=== PATIENT | female | born 1955 | race Caucasian/White ===

== ENCOUNTER 2023-10-25 13:19 | Inpatient (IN) | payer MEDICARE, SELFPAY ==
[2023-10-25 13:33] VITALS: BP 142/99; PULSE 75; RESP 18; TEMP 36.7; O2SAT 97; BMI 18.0
--- NOTE | 2023-10-25 13:42 | ED.GENADULT ---
HPI - General Adult General Chief complaint: Psychiatric Symptoms Stated complaint: Psych eval Time Seen by Provider: 10/25/23 13:59 Source: patient and family Mode of arrival: ambulatory Limitations: no limitations History of Present Illness HPI narrative: 68-year-old female with a history of bipolar disorder presents to the ER for evaluation of not sleeping. She states her sister Carley brought her to the ER because she was not sleeping last night. Patient reports that she lives with her elderly mother who she cares for. Her elderly mother found her outside at 01:00 smoking a cigarette. Patient states after she finished her cigarette she did go inside and go to bed. She can not say how many hours she slept last night. She states this morning her mother must have called her sister and told her that she was not sleeping in the they were worried about her. Her sister brought her to the emergency room for evaluation. Patient reports she is agitated and having to tell the same story over and over again. Patient's sister reports that Mariola is decompensated. She has been non med compliant and drinking alcohol. She is having very manic behaviors, not sleeping, spending extravagant amount of money ordering things online. complaint: Benjie Severity: severe Pain Consistency: constant Relieving factors: none Exacerbating factors: none Treatments prior to arrival: none Related Data Home Medications ?Medication ?Instructions ?Recorded ?Confirmed divalproex 500 mg tablet,extended 500 mg PO QAM AND QHS 10/25/23 10/25/23 release 24 hr (Depakote ER) Allergies Allergy/AdvReac Type Severity Reaction Status Date / Time No Known Allergies Allergy Verified 10/25/23 13:35 Review of Systems Review of Systems: Yes all other systems are reviewed and are negative [facility] Social History Social History Alcohol intake: never Smoked in Last 30 Days: Yes Use of substances other than those prescribed or required for medical reasons: No Advance Directives: Yes Advance Directives Information Provided: Yes Advance Directives on File: No Do you have a plan to hurt others: No Plan Physical Exam ED Vital Signs: Vital Signs - 24 hr 10/25/23 13:33 10/25/23 14:13 Temperature 98.1 F 98.1 F Pulse Rate 75 75 Respiratory Rate 18 18 Blood Pressure 142/99 H 142/99 H Pulse Oximetry 97 97 Oxygen Delivery Method Room Air Room Air BMI result Body Mass Index 18.0 Appearance: Alert. Oriented X3. Restless, animated, agitated. Head: normocephalic, atraumatic. Eyes: Pupils equal, round and reactive to light. ENT: Pharynx normal. No dentition No tonsillar swelling or exudate. Neck: Normal inspection. Neck supple. CVS: Normal heart rate and rhythm. Pulses normal. Respiratory: No respiratory distress. Breath sounds normal. Abdomen: Soft and nontender. +BS x4 Skin: Skin warm and dry. Normal skin color. Normal skin turgor. No rashes. Extremities: No lower extremity edema. No joint swelling. Neuro/psych: Oriented X 3. No motor deficit. No sensory deficit. CN II-XII intact. Normal speech. Mood is ?agitated? speaking in a very animated manner, nonverbal, difficult to follow train of thought, easily distracted Course Course Course Narrative: RME: 68 yold female presents tot he Reevaluation(s) Reevaluation #1: Physician observation started at 15:45. Patient placed in physician observation because patient is awaiting CARE team evaluation for the possible need of inpatient psych admission. At the time observation was started patient's vital signs were stable. Patient is alert and oriented. Neuro exam is non-focal. CV: RRR and lungs are clear. Will continue to monitor. Time: 15:45 Medications Administered Discontinued Medications Generic Name Dose Route Start Last Admin Trade Name Freq PRN Reason Stop Dose Admin Nicotine Polacrilex 2 mg 10/25/23 14:37 10/25/23 15:09 Nicotine Polacrilex Lozenge 2 Mg Lozenge BUCCAL 10/25/23 14:38 2 mg ONCE ONE Administration Nicotine Polacrilex 2 mg 10/25/23 16:36 10/25/23 16:40 Nicotine Polacrilex Lozenge 2 Mg Lozenge BUCCAL 10/25/23 16:37 2 mg ONCE ONE Administration Medical Decision Making Medical Decision Making MDM Narrative: 68-year-old female with a history of bipolar disorder, reportedly on Depakote who presents to the ER for evaluation of manic behavior at home. Her sister brought her to the hospital with concerning behaviors including not sleeping, for for frivolous spending, med noncompliance and alcohol abuse. Patient is hyperverbal and manic on arrival. She is agitated. Labs were ordered including a Depakote level. 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 10/25/23 14:49 10/25/23 14:49 Labs: Lab Results 10/25/23 10/25/23 Range/Units 14:49 17:15 WBC 8.1 (4.8-10.8) X10*3/uL RBC 4.70 (4.20-5.50) X10*6/uL Hgb 14.0 (12.0-16.0) g/dl Hct 42.2 (37.0-47.0) % MCV 89.8 (80.0-98.0) fL MCH 29.8 (27.0-33.0) pg MCHC 33.2 (31.0-35.0) g/dl RDW 13.6 (11.0-16.0) % Plt Count 208 (160-400) X10*3/uL MPV 10.2 (9.4-12.3) fL Immature Gran % (Auto) 0.2 (0.0-0.4) % Neut % (Auto) 55.9 (45-73) % Lymph % (Auto) 31.9 (20-40) % [place] % (Auto) 9.2 (2-11) % Eos % (Auto) 1.9 (0-4) % Baso % (Auto) 0.9 (0-2) % Lymph # (Auto) 2.6 (1.2-4.9) X10*3/uL [place] # (Auto) 0.7 (0.1-1.2) X10*3/uL Eos # (Auto) 0.2 (0.0-0.4) X10*3/uL Baso # (Auto) 0.1 (0.0-0.2) X10*3/uL Abs Immat Gran (auto) 0.02 (0.00-0.03) X10*3/uL Absolute Neuts (auto) 4.5 (2.0-8.3) x10*3/uL Absolute Nucleated RBC 0.000 (0.0-0.012) X10*3/uL Nucleated RBC % (auto) 0.0 (0.0-0.2) /100WBC Sodium 141 (135-145) mmol/L Potassium 4.2 (3.3-5.1) mmol/L Chloride 108 (96-108) mmol/L Carbon Dioxide 24 (22-29) mmol/L Anion Gap 13 (12-20) BUN 13 (9-16) mg/dL Creatinine 0.79 (0.5-1.4) mg/dL Estim Creat Clear Calc 53.9 Estimated GFR > 60 Random Glucose 91 (60-115) mg/dL Calcium 9.9 (8.4-10.2) mg/dL Total Bilirubin 0.4 (0.0-1.0) mg/dL AST 25 (5-31) U/L ALT 16 (0-31) U/L Alkaline Phosphatase 54 (39-117) U/L Total Protein 6.9 (6.5-8.0) g/dL Albumin 4.2 (3.5-5.0) g/dL Urine Color Yellow Urine Appearance Clear Urine pH 6.5 (5.0-9.0) Ur Specific [place] 1.010 (1.005-1.025) Urine Protein Negative (Neg-Trace) mg/dL Urine Glucose (UA) Negative (Negative) mg/dL Urine Ketones Negative (Negative) mg/dL Urine Blood Negative (Negative) Urine Nitrite Negative (Negative) Ur Leukocyte Esterase Moderate (2+) H (Negative) Urine RBC 0-2 (0-2) /HPF Urine WBC 6-10 H (0-5) /HPF Ur Squamous Epith Cells 0-2 (0-2) /HPF Urine Bacteria None Seen (None Seen) Hyaline Casts 0-2 (0-2) /LPF Urine Opiates Screen Not Detected (Not Detect) Ur Buprenorphine Scrn Not Detected (Not Detect) ng/mL Ur Oxycodone Screen Not Detected (Not Detect) ng/mL Urine Methadone Screen Not Detected (Not Detect) ng/mL Urine Fentanyl Screen Not Detected (Not Detect) Ur Barbiturates Screen Not Detected (Not Detect) Valproic Acid < 12.5 L (50.0-100.0) mcg/mL Ur Phencyclidine Scrn Not Detected (Not Detect) Ur Amphetamines Screen Not Detected (Not Detect) U Benzodiazepines Scrn Not Detected (Not Detect) Urine Cocaine Screen Not Detected (Not Detect) U Marijuana (THC) Screen POSITIVE H (Not Detect) Ethyl Alcohol < 10 mg/dL COVID-19 (BJ) Negative (Negative) COVID-19 Clin Com See Note Prescription Management I considered prescription management with: Other (Antipsychotic, mood stabilizer) Chronic Conditions Patient?s care impacted by: Other (Bipolar disorder) Social Determinants Patient?s care significantly limited by Social Determinants of Health including: Other Social Determinant of Health Patient reports she is the caregiver of her elderly mother Discharge Plan Discharge Clinical Impression: Bipolar disorder with severe benjie Patient Disposition: Still a Patient Prescriptions: No Action divalproex [Depakote ER] 500 mg Tablet Extended Release 24 Hr 500 mg PO QAM AND QHS Interventions: [place]-Suicide Risk Severity Scale Last Done: 10/25/23 14:16 Print Language: Tamazight
[2023-10-25 14:13] VITALS: BP 142/99; PULSE 75; RESP 18; TEMP 36.7; O2SAT 97
--- NOTE | 2023-10-25 14:20 | MHC.CARE ---
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 She reports a long history of Bipolar Disorder and co-occuring Alcohol Use, in Remission until recently. Sushila reports stopped taking psychotropic medications in [facility] and has been decompensating since then; not sleeping,increased irritability, resigned from her job due to interpersonal difficulties. Also states that patient is primary caregiver for their 86 year-old mother and feels 'guilty' she is not able to provide care for her if she comes into the hospital. Previous hx of [facility] with last admission about five years ago. CARE Assessment pending medical clearance.
[2023-10-25 14:55] LABS: MANUAL DIFF FLAG NO
[2023-10-25 14:57] LABS: Basophils Absolute Auto 0.1 X10*3/uL (0.0-0.2); Basophils Percent Auto 0.9 % (0-2); Eosinophils Absolute Auto 0.2 X10*3/uL (0.0-0.4); Eosinophils Percent Auto 1.9 % (0-4); Hematocrit 42.2 % (37.0-47.0); Imm Gran Abs Auto 0.02 X10*3/uL (0.00-0.03); Imm Gran Pct Auto 0.2 % (0.0-0.4); Lymphocytes Absolute Auto 2.6 X10*3/uL (1.2-4.9); Lymphocytes Percent Auto 31.9 % (20-40); Mean Corpuscular HGB Conc 33.2 g/dl (31.0-35.0); Mean Corpuscular Hemoglobin 29.8 pg (27.0-33.0); Mean Corpuscular Volume 89.8 fL (80.0-98.0); Mean Platelet Volume 10.2 fL (9.4-12.3); Monocytes Absolute Auto 0.7 X10*3/uL (0.1-1.2); Monocytes Percent Auto 9.2 % (2-11); Neutrophils Absolute Auto 4.5 x10*3/uL (2.0-8.3); Neutrophils Percent Auto 55.9 % (45-73); Platelet Count 208 X10*3/uL (160-400); Red Cell Distribution Width 13.6 % (11.0-16.0); White Blood Count 8.1 X10*3/uL (4.8-10.8)
[2023-10-25] MEDS: Nicotine Polacrilex Lozenge 2 MG LOZENGE BUCCAL ×2 (15:09→16:40)
[2023-10-25 15:17] LABS: Alanine Aminotransferase 16 U/L (0-31); Albumin Level 4.2 g/dL (3.5-5.0); Alkaline Phosphatase 54 U/L (39-117); Anion Gap 13 (12-20); Aspartate Amino Transferase 25 U/L (5-31); Bilirubin Total 0.4 mg/dL (0.0-1.0); Blood Urea Nitrogen 13 mg/dL (9-16); Calcium 9.9 mg/dL (8.4-10.2); Carbon Dioxide 24 mmol/L (22-29); Chloride 108 mmol/L (96-108); Creatinine Clr Calc Pharmacy 53.9; Estimated Glomerular Filt Rate > 60; Ethanol < 10 mg/dL; Glucose Random 91 mg/dL (60-115); Potassium 4.2 mmol/L (3.3-5.1); Sodium 141 mmol/L (135-145); Total Protein 6.9 g/dL (6.5-8.0)
[2023-10-25 15:18] LABS: COVID-19 Test Negative (Negative); IDNOW Serial# 08D9AD1C
[2023-10-25 16:19] LABS: Valproate < 12.5 mcg/mL (50.0-100.0)
[2023-10-25 17:22] LABS: Appearance Urine Clear; Color Urine Yellow; Glucose Urine UA Negative (Negative); Leukocyte Esterase Urine Moderate (2+) (Negative); Nitrite Urine Negative (Negative); PH 6.5 (5.0-9.0); UMIC TRIGGER UACC YES; Urine Blood Negative (Negative); Urine Ketones Negative (Negative); Urine Protein Negative (Neg-Trace)
[2023-10-25 17:27] LABS: Bacteria Urine None Seen (None Seen); Hyaline Casts Urine 0-2 /LPF (0-2); RBC Urine 0-2 /HPF (0-2); Squamous Epithelial Cell Urine 0-2 /HPF (0-2); UACC Culture Trigger YES
[2023-10-25 17:34] LABS: Amphetamine Screen Urine Not Detected (Not Detect); Barbiturates, Urine Not Detected (Not Detect); Benzodiazepines Screen Urine Not Detected (Not Detect); Buprenorphine Scr Not Detected (Not Detect); Cannabinoid Screen Urine POSITIVE (Not Detect); Cocaine Screen Urine Not Detected (Not Detect); Fentanyl, urine Not Detected (Not Detect); Methadone Screen, Urine Not Detected (Not Detect); Opiate Screen Urine Not Detected (Not Detect); Oxycodone Screen Urine Not Detected (Not Detect); Phencyclidine Screen Urine Not Detected (Not Detect)
--- NOTE | 2023-10-26 | ECG_ITS ---
Test Reason : MEDICAL CLEARENCE Blood Pressure : / mmHG Vent. Rate : 062 BPM Atrial Rate : 062 BPM P-R Int : 122 ms QRS Dur : 084 ms QT Int : 418 ms P-R-T Axes : 056 030 049 degrees QTc Int : 424 ms Sinus rhythm with Premature atrial complexes Otherwise normal ECG No previous ECGs available Referred By: [place] Electronically Signed By:OSIRIS DOUGHERTY
[2023-10-26] MEDS: Divalproex Sodium ER 500 MG TAB.ER.24H PO ×3 (00:55→20:06)
[2023-10-26 02:08] VITALS: RESP 14
--- NOTE | 2023-10-26 02:08 | PC.NURSE ---
Pt sleeping at the bedside. No apparent distress noted. Breaths are even regular and unlabored. Monitoring is ongoing.
[2023-10-26 04:30] VITALS: BP 138/91; PULSE 82; RESP 16; TEMP 36.6; O2SAT 97
--- NOTE | 2023-10-26 06:53 | PC.NURSE ---
Assumed care of patient. Patient is observed eating breakfast at bedside. No distress observed. Breathing is even and unlabored. Will continue plan of care.
[2023-10-26] MEDS: Nicotine Polacrilex Lozenge 2 MG LOZENGE BUCCAL ×2 (08:03→12:16)
--- NOTE | 2023-10-26 12:21 | PHA.MEDREC ---
Pharmacy Consult ? Medication Reconciliation Pharmacy has completed the medication reconciliation.Pharmacy has reviewed med rec done by nursing.
[2023-10-26 21:11] VITALS: BP 117/55; PULSE 73; RESP 18; TEMP 36.9; O2SAT 99
[2023-10-27] MEDS: Nicotine Polacrilex Lozenge 2 MG LOZENGE BUCCAL ×4 (05:16→19:52)
--- NOTE | 2023-10-27 05:22 | PC.NURSE ---
Patient slept through the night, no distress observed/reported, disposition per care team is section 12 inpatient bed search, patient is med and meals compliant, no behavior issues, VSS, will continue to monitor
[2023-10-27 05:23] VITALS: BP 111/50; PULSE 64; RESP 16; TEMP 36.4; O2SAT 98
--- NOTE | 2023-10-27 07:50 | PC.NURSE ---
Assumed care of patient at 0645, patient up ambulating around BH pod, appearing to be in no apparent distress, conversing with staff in cheerful tone. Offering no complaints to this RN. Continue plan of care for inpatient bedsearch at this time
[2023-10-27] MEDS: Divalproex Sodium ER 500 MG TAB.ER.24H PO ×2 (08:50→19:52)
[2023-10-27] MEDS: Ibuprofen 400 MG TABLET PO (10:22)
--- NOTE | 2023-10-27 11:45 | PC.NURSE ---
Patient in milieu, ambulating without difficulty, participating in conversation with other patients and working on sticker coloring book. Aware that she will be admitted today
--- NOTE | 2023-10-27 14:10 | PM.EVENT ---
Event Note Date of Service: 10/27/23 Event Note: Pt with itchy rash on back. Recommend non drowsy antihistamine and trial of hydrocortisone cream. If no relief, please reconsult hospitalist service. Time Spent With Patient Time: Total time managing care of this patient today ____ minutes.
[2023-10-27] MEDS: Loratadine 10 MG TABLET PO (15:51)
--- NOTE | 2023-10-27 16:42 | PC.ADMIT ---
Pt is a 68 yo equatorial guinean speaking female admitted from the [facility] ED on a CV with Unspecified Bipolar D/O. Pt was brought in by her sister who is also her HCP for decreased sleep , excessive spending and increased agitation. Pts sister reports pt stopped taking medications June 2023 and has slowly decompensated, pt denies this and says she has been taking medications since June. Pt also is an Alcoholic with seven years sobriety until recently she says she has been drinking 1-2 nips at night with THC gummies to slow down and sleep. Pt is not exhibiting any signs of withdrawal, and addictions consult was placed. 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 Pt lives with her 86 y/o mother and assist in her care. Pt is a current smoker and request nicotine lozenges. Pt is A&O, thought process is tangential, speech is rapid and pressured. Pt denies SI/HI/AH/VH. Pt reports first hospitalization in 1996 with 4 others over the years. Pt admits she has mental illness , but doesn't believe she is in crisis at this time. Pt says, I'm only here to show my sister and mother that I'm fine. Pt has a dispersed itchy rash on her back, aware, cream ordered and a hospitalist consult ordered. Pt declined a flu vaccine at this time. Pt placed on 15 minute safety checks.
[2023-10-27] MEDS: Hydrocortisone 1 % Cream 28.35 GM TUBE 1 APPL TOPICAL (18:23)
[2023-10-27 19:49] VITALS: BP 139/63; PULSE 61; RESP 17; TEMP 35.9; O2SAT 100
[2023-10-28 07:05] VITALS: BP 103/51; PULSE 56; RESP 14; TEMP 35.7; O2SAT 97
[2023-10-28] MEDS: Loratadine 10 MG TABLET PO (08:18)
[2023-10-28] MEDS: Divalproex Sodium ER 500 MG TAB.ER.24H PO ×2 (08:18→21:09)
--- NOTE | 2023-10-28 09:10 | P.HPPS_ITS ---
HPI Date of Service: 10/28/23 Chief Complaint: Aimee HPI Narrative: per CARE team cindyal, pt self-presented to [facility] with sister with concerns of aimee. per sister, pt has shown increased agitation, irritability, insomnia, impulsivity, excessive spending. reportedly not compliant with mood stabilizer, VPA. h/o alcohol dependence, pt denies recent heavy use, pt's sister indicates suspicion otherwise. 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 she reports having seen Dr. Cummins for 7 years, who reportedly tapered her from VPA in april of 2023 for unclear reasons. pt has reportedly experienced a steady erosion of mental health in the ensuing months. on MSE in pod, pt was described as exhibiting manic behavior, such as pressured speech, irritability, lability. on interview with MD on unit, pt is more calm than as described above, presumably due to having had several doses of VPA by now. she started VPA 500 mg BID 10/24 evening. she is amenable to continue VPA to humor others, despite her perception that it doesn't do much to affect her behavior or mood. she says other people tell her she is much more calm when she takes it. she has no complaints or requests, is cooperative, and agrees to stay until her VPA can come to a steady state. Past Psychiatric History: hosps: about 8, MRE several years ago SA: denies SIB: denies HIB: denies outpt: Dr. Cummins, last seen july. reports no mental health history until divorce from her about 20 years ago, at 44 yo, when bipolar disorder was diagnosed. Medical Evaluation Reviewed: Yes [facility] Family History: parents - alcohol Social History: lives in family home, spring coiler for elderly mother. 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 Substance History: tobacco - 0.5-1 ppd alcohol - 1 nip nightly cannabis - gummies, frequency depends denies the use of other drugs Diagnostics Vital Signs (24Hr): Vital Signs - 24 hr 10/27/23 19:49 10/28/23 07:05 Temperature 96.7 F L 96.3 F L Pulse Rate 61 56 Respiratory Rate 17 14 Blood Pressure 139/63 103/51 L Pulse Oximetry 100 97 Oxygen Delivery Method Room Air Room Air BMI result Body Mass Index 18.0 Labs 10/25/23 14:49 10/25/23 14:49 Meds/Allergies Meds Home Medications ?Medication ?Instructions ?Recorded ?Confirmed ?Type divalproex 500 mg tablet,extended 500 mg PO QAM AND QHS 10/25/23 10/25/23 History release 24 hr (Depakote ER) Allergies Allergies Allergy/AdvReac Type Severity Reaction Status Date / Time No Known Allergies Allergy Verified 10/25/23 13:35 Mental Status Exam Mental Status Exam Narrative: adequately dressed and groomed. cooperative. no PMA/PMR. rapid speech, nml amount, loudness. decr latency. thoughts largely linear and logical. affect full range, hyper-intense, min-labile. mood all right. denies SI/SIBI/HI/AVH. Assessment & Plan Assessment & Plan (1) Bipolar disorder with severe aimee: Status: Acute Code(s): F31.13 - Bipolar disorder, current episode manic without psychotic features, severe (2) Alcohol use disorder in remission: Status: Acute Code(s): F10.91 - Alcohol use, unspecified, in remission Plan restart/continue VPA 500 BID. check level 5 days from 10/24 janet. CIWA with ativan PRNs for now in case of alcohol relapse. collect collateral from outpt provider. message sent to Dr. Cummins. Patient educated on: diagnosis, medication risk/benefits and substance abuse Reason for continued inpatient stay Substantial Risk for: inability to function and rapid decompensation Statement Statement: I have reviewed the history and physical and performed a pertinent examination on my patient. No changes have occurred unless specified. If the History and Physical was not performed prior to admission, the Hospitalist's service will be consulted for completing the admission physical. Time Spent With Patient Time: Total time managing care of this patient today __55__ minutes.
[2023-10-28 09:13] LABS: Estimated Average Glucose 103 mg/dL; Hemoglobin A1c % 5.2 % (<6.0)
[2023-10-28 09:15] LABS: Cholesterol 165 mg/dL (<200); HDL Cholesterol 54 mg/dL (>40); LDL Cholesterol Calculated 100 mg/dL (<100); Triglycerides 55 mg/dL (<150)
[2023-10-28 09:29] LABS: Free T4 (Free Thyroxine) 0.96 ng/dL (0.71-1.85); Thyroid Stimulating Hormone 0.53 uIU/mL (0.32-4.0)
[2023-10-28 10:34] LABS: Folate 9.7 ng/mL (> or = 4.0); Vitamin B12 412 pg/mL (200-900)
[2023-10-28] MEDS: Acetaminophen 325 MG TABLET 650 MG PO (13:36)
[2023-10-28] MEDS: Nicotine Polacrilex Lozenge 2 MG LOZENGE BUCCAL (16:50)
[2023-10-28] MEDS: Hydrocortisone 1 % Cream 28.35 GM TUBE 1 APPL TOPICAL (18:36)
[2023-10-28 20:00] VITALS: BP 126/71; PULSE 66; TEMP 35.8; O2SAT 99
[2023-10-29 07:00] VITALS: BMI 18.3
[2023-10-29 08:00] VITALS: BP 114/57; PULSE 57; RESP 14; TEMP 36.6; O2SAT 99
[2023-10-29] MEDS: Nicotine Polacrilex Lozenge 2 MG LOZENGE BUCCAL ×4 (09:31→23:27)
[2023-10-29] MEDS: Divalproex Sodium ER 500 MG TAB.ER.24H PO ×2 (09:31→21:45)
[2023-10-29] MEDS: Loratadine 10 MG TABLET PO (09:31)
--- NOTE | 2023-10-29 14:27 | HO.PSYCHPN ---
Subjective Subjective Date of Service: 10/29/23 Reason For Visit: Aimee Interim History: slept well. feeling fine. cooperative. animated. per staff, denies dep/anx. pleasant, social. up at 0330 for the day, but appeared to have slept for 7 hours. taking meds. Mental Status Exam Mental Status Exam Narrative: adequately dressed and groomed. cooperative. no PMA/PMR. rapid speech, nml amount, loudness. decr latency. thoughts linear and logical. affect full range, hyper-intense, non-labile. mood euphoric no SI/SIBI/HI/AVH expressed. Diagnostics Vital Signs (24Hr): Vital Signs - 24 hr 10/28/23 20:00 10/29/23 08:00 Temperature 96.4 F L 97.8 F Pulse Rate 66 57 Respiratory Rate 14 Blood Pressure 126/71 114/57 L Pulse Oximetry 99 99 Oxygen Delivery Method Room Air Room Air BMI result Body Mass Index 18.3 Labs 10/25/23 14:49 10/25/23 14:49 Labs: Laboratory Results - last 48 hr 10/28/23 08:30 Estimat Average Glucose 103 Hemoglobin A1c % 5.2 Triglycerides 55 Cholesterol 165 LDL Cholesterol, Calc 100 H HDL Cholesterol 54 Vitamin B12 412 Folate 9.7 TSH 0.53 Free T4 0.96 Medications Medications Current Medications Acetaminophen (Acetaminophen 325 Mg Tablet) 650 mg PO Q6H PRN PRN Reason: Headache/Pain Mild Scale (1-3) Last Admin: 10/28/23 13:36 Dose: 650 mg Al Hydroxide/Mg Hydroxide (Magnesium Hydrox/Alum Hydrox 30 Ml Oral.Susp) 30 ml PO Q6H PRN PRN Reason: Heartburn/Nausea Divalproex Sodium (Divalproex Sodium Er 500 Mg Tab.Er.24h) 500 mg PO BID [facility] Last Admin: 10/29/23 09:31 Dose: 500 mg Hydrocortisone (Hydrocortisone 1 % Cream 28.35 Gm Tube) 1 appl TOPICAL BID PRN; Protocol PRN Reason: pruritus rash Last Admin: 10/28/23 18:36 Dose: 1 appl Hydroxyzine HCl (Hydroxyzine Hcl 25 Mg Tablet) 25 mg PO Q6H PRN PRN Reason: Anxiety Loratadine (Loratadine 10 Mg Tablet) 10 mg PO DAILY [facility] Last Admin: 10/29/23 09:31 Dose: 10 mg Lorazepam (Lorazepam 1 Mg Tablet) 1 mg PO Q2H PRN PRN Reason: CIWA 8-11 Lorazepam (Lorazepam 1 Mg Tablet) 2 mg PO Q2H PRN PRN Reason: CIWA 12-15 Lorazepam (Lorazepam 1 Mg Tablet) 3 mg PO Q2H PRN PRN Reason: CIWA > 15; and call Magnesium Hydroxide (Milk Of Magnesia 30 Ml Oral.Susp) 30 ml PO DAILY PRN PRN Reason: Constipation Nicotine Polacrilex (Nicotine Polacrilex Lozenge 2 Mg Lozenge) 2 mg BUCCAL Q1H PRN PRN Reason: Nicotine Cravings Last Admin: 10/29/23 13:45 Dose: 2 mg Trazodone HCl (Trazodone Hcl 50 Mg Tablet) 50 mg PO BEDTIME MRX1 PRN PRN Reason: Insomnia Allergies Allergies Allergy/AdvReac Type Severity Reaction Status Date / Time No Known Allergies Allergy Verified 10/25/23 13:35 Assessment & Plan Assessment & Plan (1) Bipolar disorder with severe aimee: Status: Acute Code(s): F31.13 - Bipolar disorder, current episode manic without psychotic features, severe (2) Alcohol use disorder in remission: Status: Acute Code(s): F10.91 - Alcohol use, unspecified, in remission Plan 10/27: restart/continue VPA 500 BID. check level 5 days from 10/24 janet. CIWA with ativan PRNs for now in case of alcohol relapse. collect collateral from outpt provider. message sent to Dr. Cummins. 10/28: case d/w bo. check labs thursday. stabilizing aimee. Reason for continued inpatient stay Substantial Risk for: inability to function and rapid decompensation Time Spent With Patient Time: Total time managing care of this patient today __35__ minutes.
--- NOTE | 2023-10-29 20:27 | PC.NURSE ---
Pts visitor brought in belongings for pt and stated she does not know what's in the bag and that the pt packed it. While TW was going through bag, 2 nips of alcohol were found wrapped in clothes. The nips were given back to pt's sister Charge nurse aware.
[2023-10-29 20:32] VITALS: BP 108/59; PULSE 61; RESP 16; TEMP 36.9; O2SAT 100
[2023-10-30 07:36] VITALS: BP 112/57; PULSE 67; RESP 14; TEMP 36.7; O2SAT 98
[2023-10-30] MEDS: Divalproex Sodium ER 500 MG TAB.ER.24H PO ×2 (08:59→20:50)
[2023-10-30] MEDS: Loratadine 10 MG TABLET PO (08:59)
[2023-10-30] MEDS: Nicotine Polacrilex Lozenge 2 MG LOZENGE BUCCAL ×3 (09:01→20:54)
--- NOTE | 2023-10-30 12:28 | P.PNPSI_ITS ---
Subjective Subjective Date of Service: 10/30/23 Reason For Visit: Aimee Interim History: somewhat more giddy and louder today than previous. no complaints or requests. per staff, visible. taking meds. nips found in items family brought in for her, then plead ignorance. slept about 6 hours. not scoring on CIWA. Mental Status Exam Mental Status Exam Narrative: adequately dressed and groomed. cooperative. no PMA/PMR. rapid speech, nml amount, loudness. decr latency. thoughts linear and logical. affect full range, expansive, hyper-intense, mod-labile. mood euphoric. no SI/SIBI/HI/AVH expressed. Diagnostics Vital Signs (24Hr): Vital Signs - 24 hr 10/29/23 20:32 10/30/23 07:36 Temperature 98.5 F 98.1 F Pulse Rate 61 67 Respiratory Rate 16 14 Blood Pressure 108/59 L 112/57 L Pulse Oximetry 100 98 Oxygen Delivery Method Room Air Room Air BMI result Body Mass Index 18.3 Labs 10/25/23 14:49 10/25/23 14:49 Medications Medications Current Medications Acetaminophen (Acetaminophen 325 Mg Tablet) 650 mg PO Q6H PRN PRN Reason: Headache/Pain Mild Scale (1-3) Last Admin: 10/28/23 13:36 Dose: 650 mg Al Hydroxide/Mg Hydroxide (Magnesium Hydrox/Alum Hydrox 30 Ml Oral.Susp) 30 ml PO Q6H PRN PRN Reason: Heartburn/Nausea Divalproex Sodium (Divalproex Sodium Er 500 Mg Tab.Er.24h) 500 mg PO BID [facility] Last Admin: 10/30/23 08:59 Dose: 500 mg Hydrocortisone (Hydrocortisone 1 % Cream 28.35 Gm Tube) 1 appl TOPICAL BID PRN; Protocol PRN Reason: pruritus rash Last Admin: 10/28/23 18:36 Dose: 1 appl Hydroxyzine HCl (Hydroxyzine Hcl 25 Mg Tablet) 25 mg PO Q6H PRN PRN Reason: Anxiety Loratadine (Loratadine 10 Mg Tablet) 10 mg PO DAILY [facility] Last Admin: 10/30/23 08:59 Dose: 10 mg Magnesium Hydroxide (Milk Of Magnesia 30 Ml Oral.Susp) 30 ml PO DAILY PRN PRN Reason: Constipation Nicotine Polacrilex (Nicotine Polacrilex Lozenge 2 Mg Lozenge) 2 mg BUCCAL Q1H PRN PRN Reason: Nicotine Cravings Last Admin: 10/30/23 12:11 Dose: 2 mg Trazodone HCl (Trazodone Hcl 50 Mg Tablet) 50 mg PO BEDTIME [id number] PRN PRN Reason: Insomnia Allergies Allergies Allergy/AdvReac Type Severity Reaction Status Date / Time No Known Allergies Allergy Verified 10/25/23 13:35 Assessment & Plan Assessment & Plan (1) Bipolar disorder with severe aimee: Status: Acute Code(s): F31.13 - Bipolar disorder, current episode manic without psychotic features, severe (2) Alcohol use disorder in remission: Status: Acute Code(s): F10.91 - Alcohol use, unspecified, in remission Plan 10/27: restart/continue VPA 500 BID. check level 5 days from 10/24 janet. CIWA with ativan PRNs for now in case of alcohol relapse. collect collateral from outpt provider. message sent to Dr. Cummins. 10/28: case d/w bo. check labs thursday morning. stabilizing aimee. 10/29: labs tomorrow morning. remains a bit elevated in mood. titrate VPA as indicated over w/e. Reason for continued inpatient stay Substantial Risk for: inability to function and rapid decompensation Time Spent With Patient Time: Total time managing care of this patient today _25___ minutes.
[2023-10-30 20:00] VITALS: BP 134/60; PULSE 84; RESP 16; TEMP 37.1; O2SAT 98
[2023-10-30] MEDS: Acetaminophen 325 MG TABLET 650 MG PO (20:54)
[2023-10-31] MEDS: Nicotine Polacrilex Lozenge 2 MG LOZENGE BUCCAL ×4 (07:38→20:16)
[2023-10-31 07:41] VITALS: BP 132/60; PULSE 55; RESP 14; TEMP 36.4; O2SAT 100
[2023-10-31 08:16] LABS: MANUAL DIFF FLAG NO
[2023-10-31 08:17] LABS: Basophils Absolute Auto 0.1 X10*3/uL (0.0-0.2); Eosinophils Absolute Auto 0.5 X10*3/uL (0.0-0.4); Eosinophils Percent Auto 7.8 % (0-4); Hematocrit 45.5 % (37.0-47.0); Hemoglobin 14.7 g/dl (12.0-16.0); Imm Gran Abs Auto 0.04 X10*3/uL (0.00-0.03); Imm Gran Pct Auto 0.7 % (0.0-0.4); Lymphocytes Absolute Auto 2.1 X10*3/uL (1.2-4.9); Lymphocytes Percent Auto 34.7 % (20-40); Mean Corpuscular HGB Conc 32.3 g/dl (31.0-35.0); Mean Corpuscular Hemoglobin 30.1 pg (27.0-33.0); Mean Corpuscular Volume 93.2 fL (80.0-98.0); Mean Platelet Volume 10.8 fL (9.4-12.3); Monocytes Absolute Auto 0.6 X10*3/uL (0.1-1.2); Monocytes Percent Auto 9.6 % (2-11); Neutrophils Absolute Auto 2.8 x10*3/uL (2.0-8.3); Neutrophils Percent Auto 46.2 % (45-73); Platelet Count 211 X10*3/uL (160-400); Red Blood Count 4.88 X10*6/uL (4.20-5.50); Red Cell Distribution Width 13.9 % (11.0-16.0); White Blood Count 6.1 X10*3/uL (4.8-10.8)
[2023-10-31] MEDS: Divalproex Sodium ER 500 MG TAB.ER.24H PO ×2 (08:28→20:11)
[2023-10-31] MEDS: Loratadine 10 MG TABLET PO (08:28)
[2023-10-31 08:43] LABS: Valproate 89.2 mcg/mL (50.0-100.0)
[2023-10-31 08:56] LABS: Ammonia 39 umol/L (13-55)
[2023-10-31 08:57] LABS: Alanine Aminotransferase 19 U/L (0-31); Alkaline Phosphatase 73 U/L (39-117); Aspartate Amino Transferase 26 U/L (5-31); Bilirubin Direct 0.1 mg/dL (0.0-0.5); Bilirubin Total 0.3 mg/dL (0.0-1.0); Total Protein 6.8 g/dL (6.5-8.0)
--- NOTE | 2023-10-31 13:29 | HO.PSYCHPN ---
Subjective Subjective Date of Service: 10/31/23 Reason For Visit: Aimee Subjective Notes: Conditional Voluntary Interim History: The nursing staff reported the patient had been labile at times she was sleeping on the sensory room since she has some problems with her roommate. She has been pleasant and slept 5 hours. Today we had Depakote level on 80.9. On interview the patient denies new symptoms I explained her that we are going to keep her Depakote at this dose. Mental Status Exam Mental Status Exam Patient Appearance: Appropriate Patient Orientation: Person and Situation Level of Consciousness: Awake and Appropriate Patient Behavior: Guarded and Passive Mood Description: Withdrawn Affect Description: Constricted Patient Cognition Impaired: Yes Ability to Follow Directions: Good Speech Pattern: Clear Hallucinations: None Delusions: Ideas of Reference Thought Process: Racing Thought Content: positive for [place] and positive for Circumstantial Judgement: Fair Diagnostics Vital Signs (24Hr): Vital Signs - 24 hr 10/30/23 20:00 10/31/23 07:41 Temperature 98.7 F 97.6 F Pulse Rate 84 55 Respiratory Rate 16 14 Blood Pressure 134/60 132/60 Pulse Oximetry 98 100 Oxygen Delivery Method Room Air Room Air BMI result Body Mass Index 18.3 Labs 10/31/23 08:02 10/25/23 14:49 Labs: Laboratory Results - last 48 hr 10/31/23 08:02 WBC 6.1 RBC 4.88 Hgb 14.7 Hct 45.5 MCV 93.2 MCH 30.1 MCHC 32.3 RDW 13.9 Plt Count 211 MPV 10.8 Immature Gran % (Auto) 0.7 H Neut % (Auto) 46.2 Lymph % (Auto) 34.7 [place] % (Auto) 9.6 Eos % (Auto) 7.8 H Baso % (Auto) 1.0 Lymph # (Auto) 2.1 [place] # (Auto) 0.6 Eos # (Auto) 0.5 H Baso # (Auto) 0.1 Abs Immat Gran (auto) 0.04 H Absolute Neuts (auto) 2.8 Absolute Nucleated RBC 0.000 Nucleated RBC % (auto) 0.0 Total Bilirubin 0.3 Direct Bilirubin 0.1 AST 26 ALT 19 Alkaline Phosphatase 73 Ammonia 39 Total Protein 6.8 Albumin 4.0 Valproic Acid 89.2 Medications Medications Current Medications Acetaminophen (Acetaminophen 325 Mg Tablet) 650 mg PO Q6H PRN PRN Reason: Headache/Pain Mild Scale (1-3) Last Admin: 10/30/23 20:54 Dose: 650 mg Al Hydroxide/Mg Hydroxide (Magnesium Hydrox/Alum Hydrox 30 Ml Oral.Susp) 30 ml PO Q6H PRN PRN Reason: Heartburn/Nausea Divalproex Sodium (Divalproex Sodium Er 500 Mg Tab.Er.24h) 500 mg PO BID [facility] Last Admin: 10/31/23 08:28 Dose: 500 mg Hydrocortisone (Hydrocortisone 1 % Cream 28.35 Gm Tube) 1 appl TOPICAL BID PRN; Protocol PRN Reason: pruritus rash Last Admin: 10/28/23 18:36 Dose: 1 appl Hydroxyzine HCl (Hydroxyzine Hcl 25 Mg Tablet) 25 mg PO Q6H PRN PRN Reason: Anxiety Loratadine (Loratadine 10 Mg Tablet) 10 mg PO DAILY [facility] Last Admin: 10/31/23 08:28 Dose: 10 mg Magnesium Hydroxide (Milk Of Magnesia 30 Ml Oral.Susp) 30 ml PO DAILY PRN PRN Reason: Constipation Nicotine Polacrilex (Nicotine Polacrilex Lozenge 2 Mg Lozenge) 2 mg BUCCAL Q1H PRN PRN Reason: Nicotine Cravings Last Admin: 10/31/23 12:49 Dose: 2 mg Trazodone HCl (Trazodone Hcl 50 Mg Tablet) 50 mg PO BEDTIME MRX1 PRN PRN Reason: Insomnia Allergies Allergies Allergy/AdvReac Type Severity Reaction Status Date / Time No Known Allergies Allergy Verified 10/25/23 13:35 Assessment & Plan Assessment & Plan (1) Bipolar disorder with severe aimee: Status: Acute Code(s): F31.13 - Bipolar disorder, current episode manic without psychotic features, severe (2) Alcohol use disorder in remission: Status: Acute Code(s): F10.91 - Alcohol use, unspecified, in remission Plan 10/27: restart/continue VPA 500 BID. check level 5 days from 10/24 janet. CIWA with ativan PRNs for now in case of alcohol relapse. collect collateral from outpt provider. message sent to Dr. Cummins. 10/28: case d/w bo. check labs thursday morning. stabilizing aimee. 10/29: labs tomorrow morning. remains a bit elevated in mood. titrate VPA as indicated over w/e. 5/4 continue Depakote at the same level since it is at a therapeutic level Reason for continued inpatient stay Substantial Risk for: inability to function, rapid decompensation and med/psych decompensation Time Spent With Patient Time: Total time managing care of this patient today __20__ minutes.
[2023-10-31 20:00] VITALS: BP 130/60; PULSE 76; RESP 16; TEMP 37.2; O2SAT 98
[2023-11-01] MEDS: Nicotine Polacrilex Lozenge 2 MG LOZENGE BUCCAL ×3 (06:32→19:01)
[2023-11-01 08:00] VITALS: BP 144/64; PULSE 127; RESP 18; TEMP 36.3; O2SAT 93
[2023-11-01] MEDS: Loratadine 10 MG TABLET PO (08:47)
[2023-11-01] MEDS: Divalproex Sodium ER 500 MG TAB.ER.24H PO ×2 (08:47→21:40)
--- NOTE | 2023-11-01 12:34 | HO.PSYCHPN ---
Subjective Subjective Date of Service: 11/01/23 Reason For Visit: Aimee Interim History: The nursing staff reported the patient has been sleeping in the sensory room, she had been irritable last night visible in the unit slept well. On interview the patient denies new symptoms denies any safety concerns at this moment. Mental Status Exam Mental Status Exam Patient Appearance: Appropriate Patient Orientation: Person and Situation Level of Consciousness: Awake and Appropriate Patient Behavior: Guarded and Passive Mood Description: Appropriate Affect Description: Constricted Ability to Follow Directions: Fair Speech Pattern: Clear Hallucinations: None Delusions: Paranoid Ideation and Ideas of Reference Thought Process: Distracted and Slowed Thinking Thought Content: positive for [place] and positive for [place] of Content Judgement: Fair Diagnostics Vital Signs (24Hr): Vital Signs - 24 hr 10/31/23 20:00 11/01/23 08:00 Temperature 99 F 97.3 F Pulse Rate 76 127 H Respiratory Rate 16 18 Blood Pressure 130/60 144/64 H Pulse Oximetry 98 93 Oxygen Delivery Method Room Air Room Air BMI result Body Mass Index 18.3 Labs 10/31/23 08:02 10/25/23 14:49 Labs: Laboratory Results - last 48 hr 10/31/23 08:02 WBC 6.1 RBC 4.88 Hgb 14.7 Hct 45.5 MCV 93.2 MCH 30.1 MCHC 32.3 RDW 13.9 Plt Count 211 MPV 10.8 Immature Gran % (Auto) 0.7 H Neut % (Auto) 46.2 Lymph % (Auto) 34.7 [place] % (Auto) 9.6 Eos % (Auto) 7.8 H Baso % (Auto) 1.0 Lymph # (Auto) 2.1 [place] # (Auto) 0.6 Eos # (Auto) 0.5 H Baso # (Auto) 0.1 Abs Immat Gran (auto) 0.04 H Absolute Neuts (auto) 2.8 Absolute Nucleated RBC 0.000 Nucleated RBC % (auto) 0.0 Total Bilirubin 0.3 Direct Bilirubin 0.1 AST 26 ALT 19 Alkaline Phosphatase 73 Ammonia 39 Total Protein 6.8 Albumin 4.0 Valproic Acid 89.2 Medications Medications Current Medications Acetaminophen (Acetaminophen 325 Mg Tablet) 650 mg PO Q6H PRN PRN Reason: Headache/Pain Mild Scale (1-3) Last Admin: 10/30/23 20:54 Dose: 650 mg Al Hydroxide/Mg Hydroxide (Magnesium Hydrox/Alum Hydrox 30 Ml Oral.Susp) 30 ml PO Q6H PRN PRN Reason: Heartburn/Nausea Divalproex Sodium (Divalproex Sodium Er 500 Mg Tab.Er.24h) 500 mg PO BID [facility] Last Admin: 11/01/23 08:47 Dose: 500 mg Hydrocortisone (Hydrocortisone 1 % Cream 28.35 Gm Tube) 1 appl TOPICAL BID PRN; Protocol PRN Reason: pruritus rash Last Admin: 10/28/23 18:36 Dose: 1 appl Hydroxyzine HCl (Hydroxyzine Hcl 25 Mg Tablet) 25 mg PO Q6H PRN PRN Reason: Anxiety Loratadine (Loratadine 10 Mg Tablet) 10 mg PO DAILY [facility] Last Admin: 11/01/23 08:47 Dose: 10 mg Magnesium Hydroxide (Milk Of Magnesia 30 Ml Oral.Susp) 30 ml PO DAILY PRN PRN Reason: Constipation Nicotine Polacrilex (Nicotine Polacrilex Lozenge 2 Mg Lozenge) 2 mg BUCCAL Q1H PRN PRN Reason: Nicotine Cravings Last Admin: 11/01/23 06:32 Dose: 2 mg Trazodone HCl (Trazodone Hcl 50 Mg Tablet) 50 mg PO BEDTIME MRX1 PRN PRN Reason: Insomnia Allergies Allergies Allergy/AdvReac Type Severity Reaction Status Date / Time No Known Allergies Allergy Verified 10/25/23 13:35 Assessment & Plan Assessment & Plan (1) Bipolar disorder with severe aimee: Status: Acute Code(s): F31.13 - Bipolar disorder, current episode manic without psychotic features, severe (2) Alcohol use disorder in remission: Status: Acute Code(s): F10.91 - Alcohol use, unspecified, in remission Plan 10/27: restart/continue VPA 500 BID. check level 5 days from 10/24 janet. CIWA with ativan PRNs for now in case of alcohol relapse. collect collateral from outpt provider. message sent to Dr. Cummins. 10/28: case d/w bo. check labs thursday morning. stabilizing aimee. 10/29: labs tomorrow morning. remains a bit elevated in mood. titrate VPA as indicated over w/e. 10/30 continue Depakote at the same level since it is at a therapeutic level. 10/31 continue same treatment Reason for continued inpatient stay Substantial Risk for: inability to function, rapid decompensation and med/psych decompensation Time Spent With Patient Time: Total time managing care of this patient today __20__ minutes.
[2023-11-01 19:13] VITALS: BP 124/60; PULSE 69; RESP 16; TEMP 37.2; O2SAT 100
[2023-11-02 07:51] VITALS: BP 135/62; PULSE 62; RESP 16; TEMP 36.6; O2SAT 98
[2023-11-02] MEDS: Divalproex Sodium ER 500 MG TAB.ER.24H PO ×2 (08:23→21:26)
[2023-11-02] MEDS: Loratadine 10 MG TABLET PO (08:23)
[2023-11-02] MEDS: Acetaminophen 325 MG TABLET 650 MG PO ×3 (08:30→21:27)
--- NOTE | 2023-11-02 08:31 | PC.NURSE ---
pt reported 7/10 leg pain and requested Tylenol, per provider ok to give outside parameters
--- NOTE | 2023-11-02 10:37 | P.PNPSI_ITS ---
Subjective Subjective Date of Service: 11/02/23 Reason For Visit: Aimee Subjective Notes: Conditional Voluntary Interim History: Reviewed with Dr. Penny. social with peers, attending groups. Pt reports feeling good today; pt stated, I'm hoping we can have a family meeting soon because I would like to go home . weigh and charge worker aware. Pt denies SI/HI/VH/AH. Medication Compliance: Yes Side effects from medications: No Attending Groups: Yes Review of Systems Constitutional: Reports as per HPI Eyes: Reports as per HPI Reports as per HPI Cardiovascular: Reports as per HPI Respiratory: Reports as per HPI Gastrointestinal: Reports as per HPI Genitourinary: Reports as per HPI Musculoskeletal: Reports as per HPI Skin/Breast: Reports as per HPI Reports as per HPI Psychiatric: Reports as per HPI Endocrine: Reports as per HPI Hematologic/Lymphatic: Reports as per HPI Allergic/Immunologic: Reports as per HPI Mental Status Exam Mental Status Exam Narrative: Pt is alert and oriented; behavior is cooperative, friendly and calm; dressed in casual attire; mood is described as good ; eye contact appropriate; Speech is normal rate, volume and prosody and not pressured; thought process is organized and goal directed; Thought content is on tx; denies SI/HI/VH/AH. Diagnostics Vital Signs (24Hr): Vital Signs - 24 hr 11/01/23 19:13 11/02/23 07:51 Temperature 98.9 F 97.8 F Pulse Rate 69 62 Respiratory Rate 16 16 Blood Pressure 124/60 135/62 Pulse Oximetry 100 98 Oxygen Delivery Method Room Air Room Air BMI result Body Mass Index 18.3 Labs 10/31/23 08:02 10/25/23 14:49 Medications Medications Current Medications Acetaminophen (Acetaminophen 325 Mg Tablet) 650 mg PO Q6H PRN PRN Reason: Headache/Pain Mild Scale (1-3) Last Admin: 11/02/23 08:30 Dose: 650 mg Al Hydroxide/Mg Hydroxide (Magnesium Hydrox/Alum Hydrox 30 Ml Oral.Susp) 30 ml PO Q6H PRN PRN Reason: Heartburn/Nausea Divalproex Sodium (Divalproex Sodium Er 500 Mg Tab.Er.24h) 500 mg PO BID [facility] Last Admin: 11/02/23 08:23 Dose: 500 mg Hydrocortisone (Hydrocortisone 1 % Cream 28.35 Gm Tube) 1 appl TOPICAL BID PRN; Protocol PRN Reason: pruritus rash Last Admin: 10/28/23 18:36 Dose: 1 appl Hydroxyzine HCl (Hydroxyzine Hcl 25 Mg Tablet) 25 mg PO Q6H PRN PRN Reason: Anxiety Loratadine (Loratadine 10 Mg Tablet) 10 mg PO DAILY [facility] Last Admin: 11/02/23 08:23 Dose: 10 mg Magnesium Hydroxide (Milk Of Magnesia 30 Ml Oral.Susp) 30 ml PO DAILY PRN PRN Reason: Constipation Nicotine Polacrilex (Nicotine Polacrilex Lozenge 2 Mg Lozenge) 2 mg BUCCAL Q1H PRN PRN Reason: Nicotine Cravings Last Admin: 11/01/23 19:01 Dose: 2 mg Trazodone HCl (Trazodone Hcl 50 Mg Tablet) 50 mg PO BEDTIME MRX1 PRN PRN Reason: Insomnia Allergies Allergies Allergy/AdvReac Type Severity Reaction Status Date / Time No Known Allergies Allergy Verified 10/25/23 13:35 Assessment & Plan Assessment & Plan (1) Bipolar disorder with severe aimee: Status: Acute Code(s): F31.13 - Bipolar disorder, current episode manic without psychotic features, severe (2) Alcohol use disorder in remission: Status: Acute Code(s): F10.91 - Alcohol use, unspecified, in remission Plan 10/27: restart/continue VPA 500 BID. check level 5 days from 10/24 eve. [place] with ativan PRNs for now in case of alcohol relapse. collect collateral from outpt provider. message sent to Dr. Cummins. 10/28: case d/w bo. check labs thursday morning. stabilizing aimee. 10/29: labs tomorrow morning. remains a bit elevated in mood. titrate VPA as indicated over w/e. 10/30 continue Depakote at the same level since it is at a therapeutic level. 10/31 continue same treatment 11/01: social with peers, attending groups. Pt reports feeling good today; pt stated, I'm hoping we can have a family meeting soon because I would like to go home . weigh and charge worker aware. Pt denies SI/HI/VH/AH. continue current tx plan. Patient educated on: diagnosis and medication risk/benefits Informed Consent: understands Reason for continued inpatient stay Substantial Risk for: med/psych decompensation Time Spent With Patient Time: Total time managing care of this patient today ____ minutes.
[2023-11-02] MEDS: Nicotine Polacrilex Lozenge 2 MG LOZENGE BUCCAL ×2 (15:04→17:56)
[2023-11-02 19:45] VITALS: BP 126/59; PULSE 73; RESP 16; TEMP 36.9; O2SAT 99
[2023-11-03 07:41] VITALS: BP 112/58; PULSE 58; RESP 14; TEMP 36.7; O2SAT 99
[2023-11-03 07:49] LABS: Ammonia 36 umol/L (13-55)
[2023-11-03 07:58] LABS: Valproate 68.3 mcg/mL (50.0-100.0)
[2023-11-03 08:45] LABS: Alanine Aminotransferase 15 U/L (0-31); Albumin Level 3.6 g/dL (3.5-5.0); Alkaline Phosphatase 75 U/L (39-117); Aspartate Amino Transferase 23 U/L (5-31); Bilirubin Direct < 0.2 mg/dL (0.0-0.5); Bilirubin Total 0.1 mg/dL (0.0-1.0)
[2023-11-03] MEDS: Loratadine 10 MG TABLET PO (08:57)
[2023-11-03] MEDS: Divalproex Sodium ER 500 MG TAB.ER.24H PO ×2 (08:57→20:38)
--- NOTE | 2023-11-03 12:03 | P.PNPSI_ITS ---
Subjective Subjective Date of Service: 11/03/23 Reason For Visit: Benjie Subjective Notes: Conditional Voluntary Interim History: Pt reports sleeping better but waking up with cramps at night. She reports she feels calmer with depakote. She denies SI/HI. She has been visible on the unit, social with select peers. No overt VH/AH nor delusional content noted or reported. Mental Status Exam Mental Status Exam Narrative: Pt is alert and oriented x3; behavior is cooperative, friendly and calm; dressed in casual attire; mood is described as good ; eye contact appropriate; Speech is normal rate, volume and prosody and not pressured; thought process is organized and goal directed; Thought content is on tx; denies SI/HI/VH/AH. Diagnostics Vital Signs (24Hr): Vital Signs - 24 hr 11/02/23 19:45 11/03/23 07:41 Temperature 98.4 F 98.1 F Pulse Rate 73 58 Respiratory Rate 16 14 Blood Pressure 126/59 L 112/58 L Pulse Oximetry 99 99 Oxygen Delivery Method Room Air Room Air BMI result Body Mass Index 18.3 Labs 10/31/23 08:02 10/25/23 14:49 Labs: Laboratory Results - last 48 hr 11/03/23 07:28 Total Bilirubin 0.1 Direct Bilirubin < 0.2 AST 23 ALT 15 Alkaline Phosphatase 75 Ammonia 36 Total Protein 6.0 L Albumin 3.6 Valproic Acid 68.3 Medications Medications Current Medications Acetaminophen (Acetaminophen 325 Mg Tablet) 650 mg PO Q6H PRN PRN Reason: Headache/Pain Mild Scale (1-3) Last Admin: 11/02/23 21:27 Dose: 650 mg Al Hydroxide/Mg Hydroxide (Magnesium Hydrox/Alum Hydrox 30 Ml Oral.Susp) 30 ml PO Q6H PRN PRN Reason: Heartburn/Nausea Divalproex Sodium (Divalproex Sodium Er 500 Mg Tab.Er.24h) 500 mg PO BID [facility] Last Admin: 11/03/23 08:57 Dose: 500 mg Hydrocortisone (Hydrocortisone 1 % Cream 28.35 Gm Tube) 1 appl TOPICAL BID PRN; Protocol PRN Reason: pruritus rash Last Admin: 10/28/23 18:36 Dose: 1 appl Hydroxyzine HCl (Hydroxyzine Hcl 25 Mg Tablet) 25 mg PO Q6H PRN PRN Reason: Anxiety Loratadine (Loratadine 10 Mg Tablet) 10 mg PO DAILY [facility] Last Admin: 11/03/23 08:57 Dose: 10 mg Magnesium Hydroxide (Milk Of Magnesia 30 Ml Oral.Susp) 30 ml PO DAILY PRN PRN Reason: Constipation Nicotine Polacrilex (Nicotine Polacrilex Lozenge 2 Mg Lozenge) 2 mg BUCCAL Q1H PRN PRN Reason: Nicotine Cravings Last Admin: 11/02/23 17:56 Dose: 2 mg Trazodone HCl (Trazodone Hcl 50 Mg Tablet) 50 mg PO BEDTIME MRX1 PRN PRN Reason: Insomnia Allergies Allergies Allergy/AdvReac Type Severity Reaction Status Date / Time No Known Allergies Allergy Verified 10/25/23 13:35 Assessment & Plan Assessment & Plan (1) Bipolar disorder with severe benjie: Status: Acute Code(s): F31.13 - Bipolar disorder, current episode manic without psychotic features, severe (2) Alcohol use disorder in remission: Status: Acute Code(s): F10.91 - Alcohol use, unspecified, in remission Plan 10/27: restart/continue VPA 500 BID. check level 5 days from 10/24 janet. CIWA with ativan PRNs for now in case of alcohol relapse. collect collateral from outpt provider. message sent to Dr. Cummins. 10/28: case d/w bo. check labs thursday morning. stabilizing benjie. 10/29: labs tomorrow morning. remains a bit elevated in mood. titrate VPA as indicated over w/e. 10/30 continue Depakote at the same level since it is at a therapeutic level. 10/31 continue same treatment 11/01: social with peers, attending groups. Pt reports feeling good today; pt stated, I'm hoping we can have a family meeting soon because I would like to go home . table worker packager aware. Pt denies SI/HI/VH/AH. continue current tx plan. 11/02 continue tx. added magnesium oxide 400mg po qhs for leg cramps, monitor loose stools. Reason for continued inpatient stay Substantial Risk for: inability to function Time Spent With Patient Time: Total time managing care of this patient today ____ minutes.
[2023-11-03] MEDS: Nicotine Polacrilex Lozenge 2 MG LOZENGE BUCCAL ×2 (12:24→18:57)
[2023-11-03] MEDS: Acetaminophen 325 MG TABLET 650 MG PO (18:57)
[2023-11-03 20:00] VITALS: BP 104/69; PULSE 84; RESP 20; TEMP 36.6; O2SAT 99
[2023-11-03] MEDS: Magnesium Oxide 400 MG TABLET PO (20:38)
[2023-11-04 08:00] VITALS: BP 103/52; PULSE 66; RESP 14; TEMP 36.9; O2SAT 98
[2023-11-04] MEDS: Loratadine 10 MG TABLET PO (08:03)
[2023-11-04] MEDS: Divalproex Sodium ER 500 MG TAB.ER.24H PO ×2 (08:03→20:16)
--- NOTE | 2023-11-04 09:55 | HO.PSYCHPN ---
Subjective Subjective Date of Service: 11/04/23 Reason For Visit: Aimee Subjective Notes: Conditional Voluntary Interim History: Reviewed with Dr. Penny. social with peers, attending groups. Pt reports feeling good today; pt stated, I'm looking forward to having the family meeting tomorrow. I'm trying to plan on what to do when I leave here . Pt denies SI/HI/VH/AH. Medication Compliance: Yes Side effects from medications: No Attending Groups: Yes Review of Systems Constitutional: Reports as per HPI Eyes: Reports as per HPI Reports as per HPI Cardiovascular: Reports as per HPI Respiratory: Reports as per HPI Gastrointestinal: Reports as per HPI Musculoskeletal: Reports as per HPI Skin/Breast: Reports as per HPI Reports as per HPI Psychiatric: Reports as per HPI Endocrine: Reports as per HPI Hematologic/Lymphatic: Reports as per HPI Allergic/Immunologic: Reports as per HPI Mental Status Exam Mental Status Exam Narrative: Pt is alert and oriented; behavior is cooperative, friendly and calm; dressed in casual attire; mood is described as good ; eye contact appropriate; Speech is normal rate, volume and prosody and not pressured; thought process is organized and goal directed; Thought content is on tx; denies SI/HI/VH/AH. Diagnostics Vital Signs (24Hr): Vital Signs - 24 hr 11/03/23 20:00 11/04/23 08:00 Temperature 98 F 98.5 F Pulse Rate 84 66 Respiratory Rate 20 14 Blood Pressure 104/69 103/52 L Pulse Oximetry 99 98 Oxygen Delivery Method Room Air Room Air BMI result Body Mass Index 18.3 Labs 10/31/23 08:02 10/25/23 14:49 Labs: Laboratory Results - last 48 hr 11/03/23 07:28 Total Bilirubin 0.1 Direct Bilirubin < 0.2 AST 23 ALT 15 Alkaline Phosphatase 75 Ammonia 36 Total Protein 6.0 L Albumin 3.6 Valproic Acid 68.3 Medications Medications Current Medications Acetaminophen (Acetaminophen 325 Mg Tablet) 650 mg PO Q6H PRN PRN Reason: Headache/Pain Mild Scale (1-3) Last Admin: 11/03/23 18:57 Dose: 650 mg Al Hydroxide/Mg Hydroxide (Magnesium Hydrox/Alum Hydrox 30 Ml Oral.Susp) 30 ml PO Q6H PRN PRN Reason: Heartburn/Nausea Divalproex Sodium (Divalproex Sodium Er 500 Mg Tab.Er.24h) 500 mg PO BID [facility] Last Admin: 11/04/23 08:03 Dose: 500 mg Hydrocortisone (Hydrocortisone 1 % Cream 28.35 Gm Tube) 1 appl TOPICAL BID PRN; Protocol PRN Reason: pruritus rash Last Admin: 10/28/23 18:36 Dose: 1 appl Hydroxyzine HCl (Hydroxyzine Hcl 25 Mg Tablet) 25 mg PO Q6H PRN PRN Reason: Anxiety Loratadine (Loratadine 10 Mg Tablet) 10 mg PO DAILY [facility] Last Admin: 11/04/23 08:03 Dose: 10 mg Magnesium Hydroxide (Milk Of Magnesia 30 Ml Oral.Susp) 30 ml PO DAILY PRN PRN Reason: Constipation Magnesium Oxide (Magnesium Oxide 400 Mg Tablet) 400 mg PO BEDTIME [facility] Last Admin: 11/03/23 20:38 Dose: 400 mg Nicotine Polacrilex (Nicotine Polacrilex Lozenge 2 Mg Lozenge) 2 mg BUCCAL Q1H PRN PRN Reason: Nicotine Cravings Last Admin: 11/03/23 18:57 Dose: 2 mg Trazodone HCl (Trazodone Hcl 50 Mg Tablet) 50 mg PO BEDTIME MRX1 PRN PRN Reason: Insomnia Allergies Allergies Allergy/AdvReac Type Severity Reaction Status Date / Time No Known Allergies Allergy Verified 10/25/23 13:35 Assessment & Plan Assessment & Plan (1) Bipolar disorder with severe aimee: Status: Acute Code(s): F31.13 - Bipolar disorder, current episode manic without psychotic features, severe (2) Alcohol use disorder in remission: Status: Acute Code(s): F10.91 - Alcohol use, unspecified, in remission Plan 10/27: restart/continue VPA 500 BID. check level 5 days from 10/24 janet. CIWA with ativan PRNs for now in case of alcohol relapse. collect collateral from outpt provider. message sent to Dr. Cummins. 10/28: case d/w bo. check labs thursday morning. stabilizing aimee. 10/29: labs tomorrow morning. remains a bit elevated in mood. titrate VPA as indicated over w/e. 10/30 continue Depakote at the same level since it is at a therapeutic level. 10/31 continue same treatment 11/01: social with peers, attending groups. Pt reports feeling good today; pt stated, I'm hoping we can have a family meeting soon because I would like to go home . 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 Pt denies SI/HI/VH/AH. continue current tx plan. 11/02: pt reports looking forward to family meeting tomorrow. continue current tx plan. Patient educated on: diagnosis and medication risk/benefits Informed Consent: understands Reason for continued inpatient stay Substantial Risk for: med/psych decompensation Time Spent With Patient Time: Total time managing care of this patient today _20___ minutes.
[2023-11-04] MEDS: Nicotine Polacrilex Lozenge 2 MG LOZENGE BUCCAL ×3 (12:28→22:33)
[2023-11-04 20:00] VITALS: BP 104/56; PULSE 52; RESP 20; TEMP 36.7; O2SAT 98
[2023-11-04] MEDS: Magnesium Oxide 400 MG TABLET PO (20:16)
[2023-11-05] MEDS: Nicotine Polacrilex Lozenge 2 MG LOZENGE BUCCAL ×4 (06:16→19:54)
[2023-11-05 07:00] VITALS: BMI 19.3
[2023-11-05 07:31] VITALS: BP 101/46; PULSE 70; RESP 16; TEMP 36.5; O2SAT 98
[2023-11-05 08:03] VITALS: BP 118/66; PULSE 67
[2023-11-05] MEDS: Divalproex Sodium ER 500 MG TAB.ER.24H PO ×2 (08:29→20:20)
[2023-11-05] MEDS: Loratadine 10 MG TABLET PO (08:29)
--- NOTE | 2023-11-05 16:20 | HO.PSYCHPN ---
Subjective Subjective Date of Service: 11/05/23 Reason For Visit: Aimee Interim History: hyperverbal, pleasant. concerned about lab abnormalities, labs reviewed in depth and pt reassured about her continued health. family mtg tomorrow. per staff, not depressed or anxious. visible, taking meds. denies problematic Sx. declining PRNs. Mental Status Exam Mental Status Exam Narrative: Pt is alert and oriented; behavior is cooperative, friendly and somewhat hyperactive; dressed in casual attire; mood is described as good ; eye contact appropriate; Speech is incr rate, amount, loudness. nml prosody; thought process is organized and goal directed; Thought content is on tx; denies SI/HI/VH/AH. Diagnostics Vital Signs (24Hr): Vital Signs - 24 hr 11/04/23 20:00 11/05/23 07:31 11/05/23 08:03 Temperature 98.1 F 97.7 F Pulse Rate 52 70 67 Respiratory Rate 20 16 Blood Pressure 104/56 L 101/46 L 118/66 Pulse Oximetry 98 98 Oxygen Delivery Method Room Air Room Air BMI result Body Mass Index 19.3 Labs 10/31/23 08:02 10/25/23 14:49 Medications Medications Current Medications Acetaminophen (Acetaminophen 325 Mg Tablet) 650 mg PO Q6H PRN PRN Reason: Headache/Pain Mild Scale (1-3) Last Admin: 11/03/23 18:57 Dose: 650 mg Al Hydroxide/Mg Hydroxide (Magnesium Hydrox/Alum Hydrox 30 Ml Oral.Susp) 30 ml PO Q6H PRN PRN Reason: Heartburn/Nausea Divalproex Sodium (Divalproex Sodium Er 500 Mg Tab.Er.24h) 500 mg PO BID [facility] Last Admin: 11/05/23 08:29 Dose: 500 mg Hydrocortisone (Hydrocortisone 1 % Cream 28.35 Gm Tube) 1 appl TOPICAL BID PRN; Protocol PRN Reason: pruritus rash Last Admin: 10/28/23 18:36 Dose: 1 appl Hydroxyzine HCl (Hydroxyzine Hcl 25 Mg Tablet) 25 mg PO Q6H PRN PRN Reason: Anxiety Loratadine (Loratadine 10 Mg Tablet) 10 mg PO DAILY [facility] Last Admin: 11/05/23 08:29 Dose: 10 mg Magnesium Hydroxide (Milk Of Magnesia 30 Ml Oral.Susp) 30 ml PO DAILY PRN PRN Reason: Constipation Magnesium Oxide (Magnesium Oxide 400 Mg Tablet) 400 mg PO BEDTIME [facility] Last Admin: 11/04/23 20:16 Dose: 400 mg Nicotine Polacrilex (Nicotine Polacrilex Lozenge 2 Mg Lozenge) 2 mg BUCCAL Q1H PRN PRN Reason: Nicotine Cravings Last Admin: 11/05/23 14:15 Dose: 2 mg Trazodone HCl (Trazodone Hcl 50 Mg Tablet) 50 mg PO BEDTIME MRX1 PRN PRN Reason: Insomnia Allergies Allergies Allergy/AdvReac Type Severity Reaction Status Date / Time No Known Allergies Allergy Verified 10/25/23 13:35 Assessment & Plan Assessment & Plan (1) Bipolar disorder with severe aimee: Status: Acute Code(s): F31.13 - Bipolar disorder, current episode manic without psychotic features, severe (2) Alcohol use disorder in remission: Status: Acute Code(s): F10.91 - Alcohol use, unspecified, in remission Plan 10/27: restart/continue VPA 500 BID. check level 5 days from 10/24 eve. WATSON with ativan PRNs for now in case of alcohol relapse. collect collateral from outpt provider. message sent to Dr. Cummins. 10/28: case d/w bo. check labs thursday morning. stabilizing aimee. 10/29: labs tomorrow morning. remains a bit elevated in mood. titrate VPA as indicated over w/e. 10/30 continue Depakote at the same level since it is at a therapeutic level. 10/31 continue same treatment 11/01: social with peers, attending groups. Pt reports feeling good today; pt stated, I'm hoping we can have a family meeting soon because I would like to go home . 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 Pt denies SI/HI/VH/AH. continue current tx plan. 11/02 continue tx. added magnesium oxide 400mg po qhs for leg cramps, monitor loose stools. 11/04: VPA level 68.3. continue current mgmt. labs reassuring. family mtg tomorrow and discharge early next week. Reason for continued inpatient stay Substantial Risk for: inability to function and rapid decompensation Time Spent With Patient Time: Total time managing care of this patient today __35__ minutes.
[2023-11-05 19:40] VITALS: BP 112/58; PULSE 80; RESP 20; TEMP 36.3; O2SAT 98
[2023-11-05] MEDS: Magnesium Oxide 400 MG TABLET PO (20:20)
[2023-11-06] MEDS: Nicotine Polacrilex Lozenge 2 MG LOZENGE BUCCAL ×4 (02:45→16:40)
[2023-11-06 07:43] VITALS: BP 118/57; PULSE 73; RESP 16; TEMP 36; O2SAT 98
[2023-11-06] MEDS: Loratadine 10 MG TABLET PO (08:39)
[2023-11-06] MEDS: Divalproex Sodium ER 500 MG TAB.ER.24H PO ×2 (08:39→20:51)
--- NOTE | 2023-11-06 17:14 | HO.PSYCHPN ---
Subjective Subjective Date of Service: 11/06/23 Reason For Visit: Benjie Interim History: seen alone and also in family mtg with EFREM Brown. discuss pt's hyperverbality yesterday and her having only slept 2-3 hours overnight and my concern for inadequate control of benjie with VPA alone. pt agrees to start low dose of zyprexa, 2.5 at HS, for improved control. met with sisters, fielded questions re medications mg, prognosis. per staff, attending groups. taking meds. denies dep/anx. social. slept 3 hours. up since 0300. Mental Status Exam Mental Status Exam Narrative: Pt is alert and oriented; behavior is cooperative, friendly and somewhat hyperactive; dressed in casual attire; mood is described as good ; eye contact appropriate; Speech is incr rate, nml amount, incr loudness. nml prosody; thought process is organized and goal directed; Thought content is on tx; no SI/HI/VH/AH expressed. Diagnostics Vital Signs (24Hr): Vital Signs - 24 hr 11/05/23 19:40 11/06/23 07:43 Temperature 97.3 F 96.8 F Pulse Rate 80 73 Respiratory Rate 20 16 Blood Pressure 112/58 L 118/57 L Pulse Oximetry 98 98 Oxygen Delivery Method Room Air Room Air BMI result Body Mass Index 19.3 Labs 10/31/23 08:02 10/25/23 14:49 Medications Medications Current Medications Acetaminophen (Acetaminophen 325 Mg Tablet) 650 mg PO Q6H PRN PRN Reason: Headache/Pain Mild Scale (1-3) Last Admin: 11/03/23 18:57 Dose: 650 mg Al Hydroxide/Mg Hydroxide (Magnesium Hydrox/Alum Hydrox 30 Ml Oral.Susp) 30 ml PO Q6H PRN PRN Reason: Heartburn/Nausea Divalproex Sodium (Divalproex Sodium Er 500 Mg Tab.Er.24h) 500 mg PO BID [facility] Last Admin: 11/06/23 08:39 Dose: 500 mg Hydrocortisone (Hydrocortisone 1 % Cream 28.35 Gm Tube) 1 appl TOPICAL BID PRN; Protocol PRN Reason: pruritus rash Last Admin: 10/28/23 18:36 Dose: 1 appl Hydroxyzine HCl (Hydroxyzine Hcl 25 Mg Tablet) 25 mg PO Q6H PRN PRN Reason: Anxiety Loratadine (Loratadine 10 Mg Tablet) 10 mg PO DAILY [facility] Last Admin: 11/06/23 08:39 Dose: 10 mg Magnesium Hydroxide (Milk Of Magnesia 30 Ml Oral.Susp) 30 ml PO DAILY PRN PRN Reason: Constipation Magnesium Oxide (Magnesium Oxide 400 Mg Tablet) 400 mg PO BEDTIME [facility] Last Admin: 11/05/23 20:20 Dose: 400 mg Nicotine Polacrilex (Nicotine Polacrilex Lozenge 2 Mg Lozenge) 2 mg BUCCAL Q1H PRN PRN Reason: Nicotine Cravings Last Admin: 11/06/23 16:40 Dose: 2 mg Olanzapine (Olanzapine 2.5 Mg Tablet) 2.5 mg PO BEDTIME [facility] Trazodone HCl (Trazodone Hcl 50 Mg Tablet) 50 mg PO BEDTIME MRX1 PRN PRN Reason: Insomnia Allergies Allergies Allergy/AdvReac Type Severity Reaction Status Date / Time No Known Allergies Allergy Verified 10/25/23 13:35 Assessment & Plan Assessment & Plan (1) Bipolar disorder with severe benjie: Status: Acute Code(s): F31.13 - Bipolar disorder, current episode manic without psychotic features, severe (2) Alcohol use disorder in remission: Status: Acute Code(s): F10.91 - Alcohol use, unspecified, in remission Plan 10/27: restart/continue VPA 500 BID. check level 5 days from 10/24 eve. WATSON with ativan PRNs for now in case of alcohol relapse. collect collateral from outpt provider. message sent to Dr. Cummins. 10/28: case d/w bo. check labs thursday morning. stabilizing benjie. 10/29: labs tomorrow morning. remains a bit elevated in mood. titrate VPA as indicated over w/e. 10/30 continue Depakote at the same level since it is at a therapeutic level. 10/31 continue same treatment 11/01: social with peers, attending groups. Pt reports feeling good today; pt stated, I'm hoping we can have a family meeting soon because I would like to go home . 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 Pt denies SI/HI/VH/AH. continue current tx plan. 11/02 continue tx. added magnesium oxide 400mg po qhs for leg cramps, monitor loose stools. 11/04: VPA level 68.3. continue current mgmt. labs reassuring. family mtg tomorrow and discharge early next week. 11/05: due to hyperverbality yesterday and sleeping only 3 hours last night, in conjunction with therapeutic VPA level, will add zyprexa 2.5 mg at HS for better benjie control. family mtg held. otherwise continue current mgmt. Reason for continued inpatient stay Substantial Risk for: inability to function and rapid decompensation Time Spent With Patient Time: Total time managing care of this patient today _65__ minutes.
[2023-11-06 20:45] VITALS: BP 106/57; PULSE 92; RESP 18; TEMP 36.9; O2SAT 96
[2023-11-06] MEDS: Magnesium Oxide 400 MG TABLET PO (20:51)
[2023-11-06] MEDS: OLANZapine 2.5 MG TABLET PO (20:51)
[2023-11-07] MEDS: Nicotine Polacrilex Lozenge 2 MG LOZENGE BUCCAL ×4 (06:57→22:44)
[2023-11-07 08:00] VITALS: BP 125/58; PULSE 68; RESP 14; TEMP 36.5; O2SAT 100
[2023-11-07] MEDS: Loratadine 10 MG TABLET PO (09:08)
[2023-11-07] MEDS: Divalproex Sodium ER 500 MG TAB.ER.24H PO ×2 (09:08→21:53)
--- NOTE | 2023-11-07 10:50 | HO.PSYCHPN ---
Subjective Subjective Date of Service: 11/07/23 Reason For Visit: Aimee Subjective Notes: Conditional Voluntary Interim History: Reviewed with . RN reported pt slept for 5 hours. Pt reports feeling good ; pt stated, the doctor told me we are aiming to leave on Thursday so that's what I'm waiting for . Pt denies SI/HI/VH/AH. Medication Compliance: Yes Side effects from medications: No Attending Groups: Yes Review of Systems Constitutional: Reports as per HPI Eyes: Reports as per HPI Reports as per HPI Cardiovascular: Reports as per HPI Respiratory: Reports as per HPI Gastrointestinal: Reports as per HPI Genitourinary: Reports as per HPI Musculoskeletal: Reports as per HPI Skin/Breast: Reports as per HPI Reports as per HPI Psychiatric: Reports as per HPI Endocrine: Reports as per HPI Hematologic/Lymphatic: Reports as per HPI Allergic/Immunologic: Reports as per HPI Mental Status Exam Mental Status Exam Narrative: Pt is alert and oriented; behavior is cooperative, friendly; dressed in casual attire; mood is described as good ; eye contact appropriate; Speech is normal rate and volume; thought process is organized and goal directed; Thought content is on tx; no SI/HI/VH/AH expressed. Diagnostics Vital Signs (24Hr): Vital Signs - 24 hr 11/06/23 20:45 11/07/23 08:00 Temperature 98.4 F 97.7 F Pulse Rate 92 68 Respiratory Rate 18 14 Blood Pressure 106/57 L 125/58 L Pulse Oximetry 96 100 Oxygen Delivery Method Room Air Room Air BMI result Body Mass Index 19.3 Labs 10/31/23 08:02 10/25/23 14:49 Medications Medications Current Medications Acetaminophen (Acetaminophen 325 Mg Tablet) 650 mg PO Q6H PRN PRN Reason: Headache/Pain Mild Scale (1-3) Last Admin: 11/03/23 18:57 Dose: 650 mg Al Hydroxide/Mg Hydroxide (Magnesium Hydrox/Alum Hydrox 30 Ml Oral.Susp) 30 ml PO Q6H PRN PRN Reason: Heartburn/Nausea Divalproex Sodium (Divalproex Sodium Er 500 Mg Tab.Er.24h) 500 mg PO BID [facility] Last Admin: 11/07/23 09:08 Dose: 500 mg Hydrocortisone (Hydrocortisone 1 % Cream 28.35 Gm Tube) 1 appl TOPICAL BID PRN; Protocol PRN Reason: pruritus rash Last Admin: 10/28/23 18:36 Dose: 1 appl Hydroxyzine HCl (Hydroxyzine Hcl 25 Mg Tablet) 25 mg PO Q6H PRN PRN Reason: Anxiety Loratadine (Loratadine 10 Mg Tablet) 10 mg PO DAILY [facility] Last Admin: 11/07/23 09:08 Dose: 10 mg Magnesium Hydroxide (Milk Of Magnesia 30 Ml Oral.Susp) 30 ml PO DAILY PRN PRN Reason: Constipation Magnesium Oxide (Magnesium Oxide 400 Mg Tablet) 400 mg PO BEDTIME [facility] Last Admin: 11/06/23 20:51 Dose: 400 mg Nicotine Polacrilex (Nicotine Polacrilex Lozenge 2 Mg Lozenge) 2 mg BUCCAL Q1H PRN PRN Reason: Nicotine Cravings Last Admin: 11/07/23 06:57 Dose: 2 mg Olanzapine (Olanzapine 2.5 Mg Tablet) 2.5 mg PO BEDTIME [facility] Last Admin: 11/06/23 20:51 Dose: 2.5 mg Trazodone HCl (Trazodone Hcl 50 Mg Tablet) 50 mg PO BEDTIME MRX1 PRN PRN Reason: Insomnia Allergies Allergies Allergy/AdvReac Type Severity Reaction Status Date / Time No Known Allergies Allergy Verified 10/25/23 13:35 Assessment & Plan Assessment & Plan (1) Bipolar disorder with severe aimee: Status: Acute Code(s): F31.13 - Bipolar disorder, current episode manic without psychotic features, severe (2) Alcohol use disorder in remission: Status: Acute Code(s): F10.91 - Alcohol use, unspecified, in remission Plan 10/27: restart/continue VPA 500 BID. check level 5 days from 10/24 eve. WATSON with ativan PRNs for now in case of alcohol relapse. collect collateral from outpt provider. message sent to Dr. Cummins. 10/28: case d/w bo. check labs thursday morning. stabilizing aimee. 10/29: labs tomorrow morning. remains a bit elevated in mood. titrate VPA as indicated over w/e. 10/30 continue Depakote at the same level since it is at a therapeutic level. 10/31 continue same treatment 11/01: social with peers, attending groups. Pt reports feeling good today; pt stated, I'm hoping we can have a family meeting soon because I would like to go home . 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 Pt denies SI/HI/VH/AH. continue current tx plan. 11/02 continue tx. added magnesium oxide 400mg po qhs for leg cramps, monitor loose stools. 11/04: VPA level 68.3. continue current mgmt. labs reassuring. family mtg tomorrow and discharge early next week. 11/05: due to hyperverbality yesterday and sleeping only 3 hours last night, in conjunction with therapeutic VPA level, will add zyprexa 2.5 mg at HS for better aimee control. family mtg held. otherwise continue current mgmt. 11/06: continue current tx plan. Patient educated on: diagnosis, medication risk/benefits and therapeutic strategies Informed Consent: understands Reason for continued inpatient stay Substantial Risk for: med/psych decompensation Time Spent With Patient Time: Total time managing care of this patient today _20___ minutes.
[2023-11-07 21:45] VITALS: BP 108/52; PULSE 80; RESP 16; TEMP 37.1; O2SAT 97
[2023-11-07] MEDS: OLANZapine 2.5 MG TABLET PO (21:52)
[2023-11-07] MEDS: Magnesium Oxide 400 MG TABLET PO (21:53)
[2023-11-08] MEDS: Nicotine Polacrilex Lozenge 2 MG LOZENGE BUCCAL ×5 (01:03→20:25)
[2023-11-08 08:28] VITALS: BP 109/52; PULSE 71; RESP 16; TEMP 35.8; O2SAT 98
[2023-11-08] MEDS: Loratadine 10 MG TABLET PO (08:29)
[2023-11-08] MEDS: Divalproex Sodium ER 500 MG TAB.ER.24H PO ×2 (08:29→20:25)
--- NOTE | 2023-11-08 08:35 | P.PNPSI_ITS ---
Subjective Subjective Date of Service: 11/08/23 Reason For Visit: Benjie Subjective Notes: Conditional Voluntary Interim History: Reviewed with . social with peers, attending groups. pleasant. Pt reports feeling good ; pt stated, I'm feeling optimistic about the future . Pt denies SI/HI/VH/AH. Medication Compliance: Yes Side effects from medications: No Attending Groups: Yes Review of Systems Constitutional: Reports as per HPI Eyes: Reports as per HPI Reports as per HPI Cardiovascular: Reports as per HPI Respiratory: Reports as per HPI Gastrointestinal: Reports as per HPI Musculoskeletal: Reports as per HPI Skin/Breast: Reports as per HPI Reports as per HPI Psychiatric: Reports as per HPI Endocrine: Reports as per HPI Hematologic/Lymphatic: Reports as per HPI Allergic/Immunologic: Reports as per HPI Mental Status Exam Mental Status Exam Narrative: Pt is alert and oriented; behavior is cooperative, friendly; dressed in casual attire; mood is described as good ; eye contact appropriate; Speech is normal rate and volume; thought process is organized and goal directed; Thought content is on tx; no SI/HI/VH/AH expressed. Diagnostics Vital Signs (24Hr): Vital Signs - 24 hr 11/07/23 21:45 Temperature 98.7 F Pulse Rate 80 Respiratory Rate 16 Blood Pressure 108/52 L Pulse Oximetry 97 Oxygen Delivery Method Room Air BMI result Body Mass Index 19.3 Labs 10/31/23 08:02 10/25/23 14:49 Medications Medications Current Medications Acetaminophen (Acetaminophen 325 Mg Tablet) 650 mg PO Q6H PRN PRN Reason: Headache/Pain Mild Scale (1-3) Last Admin: 11/03/23 18:57 Dose: 650 mg Al Hydroxide/Mg Hydroxide (Magnesium Hydrox/Alum Hydrox 30 Ml Oral.Susp) 30 ml PO Q6H PRN PRN Reason: Heartburn/Nausea Divalproex Sodium (Divalproex Sodium Er 500 Mg Tab.Er.24h) 500 mg PO BID [facility] Last Admin: 11/08/23 08:29 Dose: 500 mg Hydrocortisone (Hydrocortisone 1 % Cream 28.35 Gm Tube) 1 appl TOPICAL BID PRN; Protocol PRN Reason: pruritus rash Last Admin: 10/28/23 18:36 Dose: 1 appl Hydroxyzine HCl (Hydroxyzine Hcl 25 Mg Tablet) 25 mg PO Q6H PRN PRN Reason: Anxiety Loratadine (Loratadine 10 Mg Tablet) 10 mg PO DAILY [facility] Last Admin: 11/08/23 08:29 Dose: 10 mg Magnesium Hydroxide (Milk Of Magnesia 30 Ml Oral.Susp) 30 ml PO DAILY PRN PRN Reason: Constipation Magnesium Oxide (Magnesium Oxide 400 Mg Tablet) 400 mg PO BEDTIME [facility] Last Admin: 11/07/23 21:53 Dose: 400 mg Nicotine Polacrilex (Nicotine Polacrilex Lozenge 2 Mg Lozenge) 2 mg BUCCAL Q1H PRN PRN Reason: Nicotine Cravings Last Admin: 11/08/23 01:03 Dose: 2 mg Olanzapine (Olanzapine 2.5 Mg Tablet) 2.5 mg PO BEDTIME [facility] Last Admin: 11/07/23 21:52 Dose: 2.5 mg Trazodone HCl (Trazodone Hcl 50 Mg Tablet) 50 mg PO BEDTIME MRX1 PRN PRN Reason: Insomnia Allergies Allergies Allergy/AdvReac Type Severity Reaction Status Date / Time No Known Allergies Allergy Verified 10/25/23 13:35 Assessment & Plan Assessment & Plan (1) Bipolar disorder with severe benjie: Status: Acute Code(s): F31.13 - Bipolar disorder, current episode manic without psychotic features, severe (2) Alcohol use disorder in remission: Status: Acute Code(s): F10.91 - Alcohol use, unspecified, in remission Plan 10/27: restart/continue VPA 500 BID. check level 5 days from 10/24 janet. CIWA with ativan PRNs for now in case of alcohol relapse. collect collateral from outpt provider. message sent to Dr. Cummins. 10/28: case d/w bo. check labs thursday morning. stabilizing benjie. 10/29: labs tomorrow morning. remains a bit elevated in mood. titrate VPA as indicated over w/e. 10/30 continue Depakote at the same level since it is at a therapeutic level. 10/31 continue same treatment 11/01: social with peers, attending groups. Pt reports feeling good today; pt stated, I'm hoping we can have a family meeting soon because I would like to go home . 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 Pt denies SI/HI/VH/AH. continue current tx plan. 11/02 continue tx. added magnesium oxide 400mg po qhs for leg cramps, monitor loose stools. 11/04: VPA level 68.3. continue current mgmt. labs reassuring. family mtg tomorrow and discharge early next week. 11/05: due to hyperverbality yesterday and sleeping only 3 hours last night, in conjunction with therapeutic VPA level, will add zyprexa 2.5 mg at HS for better benjie control. family mtg held. otherwise continue current mgmt. 11/06: continue current tx plan. 11/07: continue tx plan. Patient educated on: diagnosis, medication risk/benefits and therapeutic strategies Informed Consent: understands Reason for continued inpatient stay Substantial Risk for: med/psych decompensation Time Spent With Patient Time: Total time managing care of this patient today _20___ minutes.
[2023-11-08 20:00] VITALS: BP 109/74; PULSE 86; RESP 16; TEMP 35.8; O2SAT 100
[2023-11-08] MEDS: Magnesium Oxide 400 MG TABLET PO (20:25)
[2023-11-08] MEDS: OLANZapine 2.5 MG TABLET PO (20:25)
[2023-11-09] MEDS: Mineral Oil/Petrolatum,White 106 GM Tube 1 APPL TOPICAL
[2023-11-09 07:51] VITALS: BP 126/60; PULSE 55; RESP 14; TEMP 36.3; O2SAT 100
[2023-11-09] MEDS: Loratadine 10 MG TABLET PO (08:34)
[2023-11-09] MEDS: Divalproex Sodium ER 500 MG TAB.ER.24H PO (08:34)
[2023-11-09 08:54] LABS: MANUAL DIFF FLAG NO
[2023-11-09 08:59] LABS: Basophils Percent Auto 0.6 % (0-2); Eosinophils Absolute Auto 0.4 X10*3/uL (0.0-0.4); Eosinophils Percent Auto 6.8 % (0-4); Hematocrit 42.1 % (37.0-47.0); Hemoglobin 13.6 g/dl (12.0-16.0); Imm Gran Abs Auto 0.06 X10*3/uL (0.00-0.03); Imm Gran Pct Auto 0.9 % (0.0-0.4); Lymphocytes Percent Auto 30.2 % (20-40); Mean Corpuscular HGB Conc 32.3 g/dl (31.0-35.0); Mean Corpuscular Volume 92.7 fL (80.0-98.0); Mean Platelet Volume 10.5 fL (9.4-12.3); Monocytes Absolute Auto 0.6 X10*3/uL (0.1-1.2); Monocytes Percent Auto 9.4 % (2-11); Neutrophils Absolute Auto 3.4 x10*3/uL (2.0-8.3); Neutrophils Percent Auto 52.1 % (45-73); Platelet Count 196 X10*3/uL (160-400); Red Blood Count 4.54 X10*6/uL (4.20-5.50); Red Cell Distribution Width 13.8 % (11.0-16.0); White Blood Count 6.5 X10*3/uL (4.8-10.8)
[2023-11-09 09:09] LABS: Valproate 59.2 mcg/mL (50.0-100.0)
[2023-11-09 09:14] LABS: Alanine Aminotransferase 21 U/L (0-31); Albumin Level 3.6 g/dL (3.5-5.0); Alkaline Phosphatase 81 U/L (39-117); Anion Gap 12 (12-20); Aspartate Amino Transferase 27 U/L (5-31); Bilirubin Direct < 0.2 mg/dL (0.0-0.5); Bilirubin Total 0.2 mg/dL (0.0-1.0); Blood Urea Nitrogen 21 mg/dL (9-16); Calcium 9.1 mg/dL (8.4-10.2); Carbon Dioxide 27 mmol/L (22-29); Chloride 110 mmol/L (96-108); Creatinine Clr Calc Pharmacy 62.4; Estimated Glomerular Filt Rate > 60; Glucose Random 86 mg/dL (60-115); Potassium 4.9 mmol/L (3.3-5.1); Sodium 144 mmol/L (135-145); Total Protein 6.2 g/dL (6.5-8.0)
[2023-11-09] MEDS: Nicotine Polacrilex Lozenge 2 MG LOZENGE BUCCAL ×4 (09:46→20:47)
[2023-11-09 20:10] VITALS: BP 113/58; PULSE 69; RESP 20; TEMP 36; O2SAT 96
[2023-11-09] MEDS: Divalproex Sodium ER 250 MG TAB.ER.24H 750 MG PO (20:45)
[2023-11-09] MEDS: OLANZapine 2.5 MG TABLET PO (20:46)
[2023-11-09] MEDS: Magnesium Oxide 400 MG TABLET PO (20:46)
--- NOTE | 2023-11-09 21:53 | P.PNPSI_ITS ---
Subjective Subjective Date of Service: 11/09/23 Reason For Visit: Benjie Interim History: calm, cooperative. hyperverbal. poor sleep last night. agreeable to increase VPA from 500 BID to 500/750 for mood stabilization. olanzapine 2.5 QHS not overly sedating. VPA level 58 today. per staff, dep 0.5, anx 0.25. +grps. B/L pitting edema. TEDS ordered, wearing TEDs. slept about 4.5 hours overnight. Mental Status Exam Mental Status Exam Narrative: Pt is alert and oriented; behavior is cooperative, friendly; dressed in casual attire; mood is described as good ; eye contact appropriate; Speech is incr rate and volume; thought process is organized and goal directed; Thought content is on tx; no SI/HI/VH/AH expressed. Diagnostics Vital Signs (24Hr): Vital Signs - 24 hr 11/09/23 07:51 11/09/23 20:10 Temperature 97.4 F 96.8 F Pulse Rate 55 69 Respiratory Rate 14 20 Blood Pressure 126/60 113/58 L Pulse Oximetry 100 96 Oxygen Delivery Method Room Air Room Air BMI result Body Mass Index 19.3 Labs 11/09/23 08:44 11/09/23 08:44 Labs: Laboratory Results - last 48 hr 11/09/23 08:44 WBC 6.5 RBC 4.54 Hgb 13.6 Hct 42.1 MCV 92.7 MCH 30.0 MCHC 32.3 RDW 13.8 Plt Count 196 MPV 10.5 Immature Gran % (Auto) 0.9 H Neut % (Auto) 52.1 Lymph % (Auto) 30.2 [place] % (Auto) 9.4 Eos % (Auto) 6.8 H Baso % (Auto) 0.6 Lymph # (Auto) 2.0 [place] # (Auto) 0.6 Eos # (Auto) 0.4 Baso # (Auto) 0.0 Abs Immat Gran (auto) 0.06 H Absolute Neuts (auto) 3.4 Absolute Nucleated RBC 0.000 Nucleated RBC % (auto) 0.0 Sodium 144 Potassium 4.9 Chloride 110 H Carbon Dioxide 27 Anion Gap 12 BUN 21 H Creatinine 0.73 Estim Creat Clear Calc 62.4 Estimated GFR > 60 Random Glucose 86 Calcium 9.1 D Total Bilirubin 0.2 Direct Bilirubin < 0.2 AST 27 ALT 21 Alkaline Phosphatase 81 Total Protein 6.2 L Albumin 3.6 Valproic Acid 59.2 Medications Medications Current Medications Acetaminophen (Acetaminophen 325 Mg Tablet) 650 mg PO Q6H PRN PRN Reason: Headache/Pain Mild Scale (1-3) Last Admin: 11/03/23 18:57 Dose: 650 mg Al Hydroxide/Mg Hydroxide (Magnesium Hydrox/Alum Hydrox 30 Ml Oral.Susp) 30 ml PO Q6H PRN PRN Reason: Heartburn/Nausea Divalproex Sodium (Divalproex Sodium Er 500 Mg Tab.Er.24h) 500 mg PO DAILY [facility] Divalproex Sodium (Divalproex Sodium Er 250 Mg Tab.Er.24h) 750 mg PO BEDTIME [facility] Last Admin: 11/09/23 20:45 Dose: 750 mg Hydrocortisone (Hydrocortisone 1 % Cream 28.35 Gm Tube) 1 appl TOPICAL BID PRN; Protocol PRN Reason: pruritus rash Last Admin: 10/28/23 18:36 Dose: 1 appl Hydroxyzine HCl (Hydroxyzine Hcl 25 Mg Tablet) 25 mg PO Q6H PRN PRN Reason: Anxiety Loratadine (Loratadine 10 Mg Tablet) 10 mg PO DAILY [facility] Last Admin: 11/09/23 08:34 Dose: 10 mg Magnesium Hydroxide (Milk Of Magnesia 30 Ml Oral.Susp) 30 ml PO DAILY PRN PRN Reason: Constipation Magnesium Oxide (Magnesium Oxide 400 Mg Tablet) 400 mg PO BEDTIME [facility] Last Admin: 11/09/23 20:46 Dose: 400 mg Multi-Ingred Cream/Lotion/Oil/Oint (Mineral Oil/Petrolatum,White 106 Gm Tube) 1 appl TOPICAL BEDTIME [facility]ELA; Protocol Last Admin: 11/09/23 21:04 Dose: Not Given Nicotine Polacrilex (Nicotine Polacrilex Lozenge 2 Mg Lozenge) 2 mg BUCCAL Q1H PRN PRN Reason: Nicotine Cravings Last Admin: 11/09/23 20:47 Dose: 2 mg Olanzapine (Olanzapine 2.5 Mg Tablet) 2.5 mg PO BEDTIME [facility] Last Admin: 11/09/23 20:46 Dose: 2.5 mg Trazodone HCl (Trazodone Hcl 50 Mg Tablet) 50 mg PO BEDTIME MRX1 PRN PRN Reason: Insomnia Allergies Allergies Allergy/AdvReac Type Severity Reaction Status Date / Time No Known Allergies Allergy Verified 10/25/23 13:35 Assessment & Plan Assessment & Plan (1) Bipolar disorder with severe benjie: Status: Acute Code(s): F31.13 - Bipolar disorder, current episode manic without psychotic features, severe (2) Alcohol use disorder in remission: Status: Acute Code(s): F10.91 - Alcohol use, unspecified, in remission Plan 10/27: restart/continue VPA 500 BID. check level 5 days from 10/24 janet. CIWA with ativan PRNs for now in case of alcohol relapse. collect collateral from outpt provider. message sent to Dr. Cummins. 10/28: case d/w bo. check labs thursday morning. stabilizing benjie. 10/29: labs tomorrow morning. remains a bit elevated in mood. titrate VPA as indicated over w/. 10/30 continue Depakote at the same level since it is at a therapeutic level. 10/31 continue same treatment 11/01: social with peers, attending groups. Pt reports feeling good today; pt stated, I'm hoping we can have a family meeting soon because I would like to go home . 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 Pt denies SI/HI/VH/AH. continue current tx plan. 11/02 continue tx. added magnesium oxide 400mg po qhs for leg cramps, monitor loose stools. 11/04: VPA level 68.3. continue current mgmt. labs reassuring. family mtg tomorrow and discharge early next week. 11/05: due to hyperverbality yesterday and sleeping only 3 hours last night, in conjunction with therapeutic VPA level, will add zyprexa 2.5 mg at HS for better benjie control. family mtg held. otherwise continue current mgmt. 11/06: continue current tx plan. 11/07: continue tx plan. 11/08: VPA level 58 today. increase VPA dosing from 500 BID to 500/750. Reason for continued inpatient stay Substantial Risk for: inability to function and rapid decompensation Time Spent With Patient Time: Total time managing care of this patient today __25__ minutes.
[2023-11-10] MEDS: Nicotine Polacrilex Lozenge 2 MG LOZENGE BUCCAL ×6 (02:20→23:34)
[2023-11-10 08:25] VITALS: BP 117/58; PULSE 58; RESP 18; TEMP 36.1; O2SAT 95
[2023-11-10] MEDS: Loratadine 10 MG TABLET PO (08:31)
[2023-11-10] MEDS: Divalproex Sodium ER 500 MG TAB.ER.24H PO (08:31)
[2023-11-10] MEDS: Acetaminophen 325 MG TABLET 650 MG PO (11:34)
--- NOTE | 2023-11-10 16:26 | P.PNPSI_ITS ---
Subjective Subjective Date of Service: 11/10/23 Reason For Visit: Benjie Interim History: denies any issues in the hospital, reports she is sleeping better. no s/e from increase VPA dosing. per staff, no dep. some anxiety. + meds. hyperverbal. tangential. bright. sleeping 3-4 hours per night. Mental Status Exam Mental Status Exam Narrative: Pt is alert and oriented; behavior is cooperative, friendly; dressed in casual attire; mood is described as good ; eye contact appropriate; Speech is incr rate and volume; thought process is organized and goal directed; Thought content is on tx; no SI/HI/VH/AH expressed. Diagnostics Vital Signs (24Hr): Vital Signs - 24 hr 11/09/23 20:10 11/10/23 08:25 Temperature 96.8 F 97.0 F Pulse Rate 69 58 Respiratory Rate 20 18 Blood Pressure 113/58 L 117/58 L Pulse Oximetry 96 95 Oxygen Delivery Method Room Air Room Air BMI result Body Mass Index 19.3 Labs 11/09/23 08:44 11/09/23 08:44 Labs: Laboratory Results - last 48 hr 11/09/23 08:44 WBC 6.5 RBC 4.54 Hgb 13.6 Hct 42.1 MCV 92.7 MCH 30.0 MCHC 32.3 RDW 13.8 Plt Count 196 MPV 10.5 Immature Gran % (Auto) 0.9 H Neut % (Auto) 52.1 Lymph % (Auto) 30.2 [place] % (Auto) 9.4 Eos % (Auto) 6.8 H Baso % (Auto) 0.6 Lymph # (Auto) 2.0 [place] # (Auto) 0.6 Eos # (Auto) 0.4 Baso # (Auto) 0.0 Abs Immat Gran (auto) 0.06 H Absolute Neuts (auto) 3.4 Absolute Nucleated RBC 0.000 Nucleated RBC % (auto) 0.0 Sodium 144 Potassium 4.9 Chloride 110 H Carbon Dioxide 27 Anion Gap 12 BUN 21 H Creatinine 0.73 Estim Creat Clear Calc 62.4 Estimated GFR > 60 Random Glucose 86 Calcium 9.1 D Total Bilirubin 0.2 Direct Bilirubin < 0.2 AST 27 ALT 21 Alkaline Phosphatase 81 Total Protein 6.2 L Albumin 3.6 Valproic Acid 59.2 Medications Medications Current Medications Acetaminophen (Acetaminophen 325 Mg Tablet) 650 mg PO Q6H PRN PRN Reason: Headache/Pain Mild Scale (1-3) Last Admin: 11/10/23 11:34 Dose: 650 mg Al Hydroxide/Mg Hydroxide (Magnesium Hydrox/Alum Hydrox 30 Ml Oral.Susp) 30 ml PO Q6H PRN PRN Reason: Heartburn/Nausea Divalproex Sodium (Divalproex Sodium Er 500 Mg Tab.Er.24h) 500 mg PO DAILY MIHAELA Last Admin: 11/10/23 08:31 Dose: 500 mg Divalproex Sodium (Divalproex Sodium Er 250 Mg Tab.Er.24h) 750 mg PO BEDTIME MIHAELA Last Admin: 11/09/23 20:45 Dose: 750 mg Hydrocortisone (Hydrocortisone 1 % Cream 28.35 Gm Tube) 1 appl TOPICAL BID PRN; Protocol PRN Reason: pruritus rash Last Admin: 10/28/23 18:36 Dose: 1 appl Hydroxyzine HCl (Hydroxyzine Hcl 25 Mg Tablet) 25 mg PO Q6H PRN PRN Reason: Anxiety Loratadine (Loratadine 10 Mg Tablet) 10 mg PO DAILY [facility] Last Admin: 11/10/23 08:31 Dose: 10 mg Magnesium Hydroxide (Milk Of Magnesia 30 Ml Oral.Susp) 30 ml PO DAILY PRN PRN Reason: Constipation Magnesium Oxide (Magnesium Oxide 400 Mg Tablet) 400 mg PO BEDTIME [facility] Last Admin: 11/09/23 20:46 Dose: 400 mg Multi-Ingred Cream/Lotion/Oil/Oint (Mineral Oil/Petrolatum,White 106 Gm Tube) 1 appl TOPICAL BEDTIME MIHAELA; Protocol Last Admin: 11/09/23 21:04 Dose: Not Given Nicotine Polacrilex (Nicotine Polacrilex Lozenge 2 Mg Lozenge) 2 mg BUCCAL Q1H PRN PRN Reason: Nicotine Cravings Last Admin: 11/10/23 16:03 Dose: 2 mg Olanzapine (Olanzapine 2.5 Mg Tablet) 2.5 mg PO BEDTIME [facility] Last Admin: 11/09/23 20:46 Dose: 2.5 mg Trazodone HCl (Trazodone Hcl 50 Mg Tablet) 50 mg PO BEDTIME MRX1 PRN PRN Reason: Insomnia Allergies Allergies Allergy/AdvReac Type Severity Reaction Status Date / Time No Known Allergies Allergy Verified 10/25/23 13:35 Assessment & Plan Assessment & Plan (1) Bipolar disorder with severe benjie: Status: Acute Code(s): F31.13 - Bipolar disorder, current episode manic without psychotic features, severe (2) Alcohol use disorder in remission: Status: Acute Code(s): F10.91 - Alcohol use, unspecified, in remission Plan 10/27: restart/continue VPA 500 BID. check level 5 days from 10/24 janet. CIWA with ativan PRNs for now in case of alcohol relapse. collect collateral from outpt provider. message sent to Dr. Cummins. 10/28: case d/w bo. check labs thursday morning. stabilizing benjie. 10/29: labs tomorrow morning. remains a bit elevated in mood. titrate VPA as indicated over w/e. 10/30 continue Depakote at the same level since it is at a therapeutic level. 10/31 continue same treatment 11/01: social with peers, attending groups. Pt reports feeling good today; pt stated, I'm hoping we can have a family meeting soon because I would like to go home . insemination worker aware. Pt denies SI/HI/VH/AH. continue current tx plan. 11/02 continue tx. added magnesium oxide 400mg po qhs for leg cramps, monitor loose stools. 11/04: VPA level 68.3. continue current mgmt. labs reassuring. family mtg tomorrow and discharge early next week. 11/05: due to hyperverbality yesterday and sleeping only 3 hours last night, in conjunction with therapeutic VPA level, will add zyprexa 2.5 mg at HS for better benjie control. family mtg held. otherwise continue current mgmt. 11/06: continue current tx plan. 11/07: continue tx plan. 11/08: VPA level 58 today. increase VPA dosing from 500 BID to 500/750. 11/09: tolerating VPA dose increase. no change in presentation. follow sleep trend. continue current mgmt. Reason for continued inpatient stay Substantial Risk for: harm to self, harm to others, inability to function and rapid decompensation Time Spent With Patient Time: Total time managing care of this patient today __25__ minutes.
[2023-11-10 20:00] VITALS: BP 120/55; PULSE 72; RESP 20; TEMP 36.3; O2SAT 96
[2023-11-10] MEDS: OLANZapine 2.5 MG TABLET PO (20:36)
[2023-11-10] MEDS: Magnesium Oxide 400 MG TABLET PO (20:36)
[2023-11-10] MEDS: Divalproex Sodium ER 250 MG TAB.ER.24H 750 MG PO (20:36)
[2023-11-10] MEDS: Mineral Oil/Petrolatum,White 106 GM Tube 1 APPL TOPICAL (20:41)
[2023-11-11 07:42] VITALS: BP 108/58; PULSE 66; RESP 14; TEMP 35.7; O2SAT 97
[2023-11-11] MEDS: Divalproex Sodium ER 500 MG TAB.ER.24H PO (08:46)
[2023-11-11] MEDS: Loratadine 10 MG TABLET PO (08:46)
[2023-11-11] MEDS: Nicotine Polacrilex Lozenge 2 MG LOZENGE BUCCAL ×3 (11:04→21:28)
--- NOTE | 2023-11-11 16:18 | HO.PSYCHPN ---
Subjective Subjective Date of Service: 11/11/23 Reason For Visit: Aimee Interim History: talkative, intense. good mod, no complaints. per staff, no dep/anx. +grps, meds. bright, visible, social. up numerous times in the night. slept on couch in sensory room. Mental Status Exam Mental Status Exam Narrative: Pt is alert and oriented; behavior is cooperative, friendly; dressed in casual attire; mood is described as good ; eye contact appropriate; Speech is incr rate and volume; thought process is organized and goal directed; Thought content is on tx; no SI/HI/VH/AH expressed. Diagnostics Vital Signs (24Hr): Vital Signs - 24 hr 11/10/23 20:00 11/11/23 07:42 Temperature 97.3 F 96.3 F L Pulse Rate 72 66 Respiratory Rate 20 14 Blood Pressure 120/55 L 108/58 L Pulse Oximetry 96 97 Oxygen Delivery Method Room Air Room Air BMI result Body Mass Index 19.3 Labs 11/09/23 08:44 11/09/23 08:44 Medications Medications Current Medications Acetaminophen (Acetaminophen 325 Mg Tablet) 650 mg PO Q6H PRN PRN Reason: Headache/Pain Mild Scale (1-3) Last Admin: 11/10/23 11:34 Dose: 650 mg Al Hydroxide/Mg Hydroxide (Magnesium Hydrox/Alum Hydrox 30 Ml Oral.Susp) 30 ml PO Q6H PRN PRN Reason: Heartburn/Nausea Divalproex Sodium (Divalproex Sodium Er 250 Mg Tab.Er.24h) 1,250 mg PO BEDTIME [facility] Hydrocortisone (Hydrocortisone 1 % Cream 28.35 Gm Tube) 1 appl TOPICAL BID PRN; Protocol PRN Reason: pruritus rash Last Admin: 10/28/23 18:36 Dose: 1 appl Hydroxyzine HCl (Hydroxyzine Hcl 25 Mg Tablet) 25 mg PO Q6H PRN PRN Reason: Anxiety Loratadine (Loratadine 10 Mg Tablet) 10 mg PO DAILY [facility] Last Admin: 11/11/23 08:46 Dose: 10 mg Magnesium Hydroxide (Milk Of Magnesia 30 Ml Oral.Susp) 30 ml PO DAILY PRN PRN Reason: Constipation Magnesium Oxide (Magnesium Oxide 400 Mg Tablet) 400 mg PO BEDTIME [facility] Last Admin: 11/10/23 20:36 Dose: 400 mg Multi-Ingred Cream/Lotion/Oil/Oint (Mineral Oil/Petrolatum,White 106 Gm Tube) 1 appl TOPICAL BEDTIME MIHAELA; Protocol Last Admin: 11/10/23 20:41 Dose: 1 appl Nicotine Polacrilex (Nicotine Polacrilex Lozenge 2 Mg Lozenge) 2 mg BUCCAL Q1H PRN PRN Reason: Nicotine Cravings Last Admin: 11/11/23 14:12 Dose: 2 mg Olanzapine (Olanzapine 2.5 Mg Tablet) 2.5 mg PO BEDTIME MIHAELA Last Admin: 11/10/23 20:36 Dose: 2.5 mg Trazodone HCl (Trazodone Hcl 50 Mg Tablet) 50 mg PO BEDTIME MRX1 PRN PRN Reason: Insomnia Allergies Allergies Allergy/AdvReac Type Severity Reaction Status Date / Time No Known Allergies Allergy Verified 10/25/23 13:35 Assessment & Plan Assessment & Plan (1) Bipolar disorder with severe aimee: Status: Acute Code(s): F31.13 - Bipolar disorder, current episode manic without psychotic features, severe (2) Alcohol use disorder in remission: Status: Acute Code(s): F10.91 - Alcohol use, unspecified, in remission Plan 10/27: restart/continue VPA 500 BID. check level 5 days from 10/24 eve. WATSON with ativan PRNs for now in case of alcohol relapse. collect collateral from outpt provider. message sent to Dr. Cummins. 10/28: case d/w bo. check labs thursday morning. stabilizing aimee. 10/29: labs tomorrow morning. remains a bit elevated in mood. titrate VPA as indicated over w/e. 10/30 continue Depakote at the same level since it is at a therapeutic level. 10/31 continue same treatment 11/01: social with peers, attending groups. Pt reports feeling good today; pt stated, I'm hoping we can have a family meeting soon because I would like to go home . 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 Pt denies SI/HI/VH/AH. continue current tx plan. 11/02 continue tx. added magnesium oxide 400mg po qhs for leg cramps, monitor loose stools. 11/04: VPA level 68.3. continue current mgmt. labs reassuring. family mtg tomorrow and discharge early next week. 11/05: due to hyperverbality yesterday and sleeping only 3 hours last night, in conjunction with therapeutic VPA level, will add zyprexa 2.5 mg at HS for better aimee control. family mtg held. otherwise continue current mgmt. 11/06: continue current tx plan. 11/07: continue tx plan. 11/08: VPA level 58 today. increase VPA dosing from 500 BID to 500/750. 11/09: tolerating VPA dose increase. no change in presentation. follow sleep trend. continue current mgmt. 11/10: stable. disrupted sleep continues. change all VPA to HS as of tomorrow night. Reason for continued inpatient stay Substantial Risk for: inability to function and rapid decompensation Time Spent With Patient Time: Total time managing care of this patient today __25__ minutes.
[2023-11-11 19:53] VITALS: BP 115/57; PULSE 81; RESP 16; TEMP 36.9; O2SAT 97
[2023-11-11] MEDS: Mineral Oil/Petrolatum,White 106 GM Tube 1 APPL TOPICAL (21:27)
[2023-11-11] MEDS: Magnesium Oxide 400 MG TABLET PO (21:28)
[2023-11-11] MEDS: OLANZapine 2.5 MG TABLET PO (21:28)
[2023-11-12] MEDS: Acetaminophen 325 MG TABLET 650 MG PO ×2 (00:50→09:51)
[2023-11-12] MEDS: Nicotine Polacrilex Lozenge 2 MG LOZENGE BUCCAL ×5 (00:51→18:42)
[2023-11-12 07:00] VITALS: BMI 43.9
[2023-11-12 07:44] VITALS: BP 113/64; PULSE 78; RESP 16; TEMP 36.7; O2SAT 98
[2023-11-12] MEDS: Loratadine 10 MG TABLET PO (08:34)
--- NOTE | 2023-11-12 14:38 | P.PNPSI_ITS ---
Subjective Subjective Date of Service: 11/12/23 Reason For Visit: Aimee Interim History: calm, cooperative. less elevated affect, less voluble. reports nodding off again today. agreeable to change HS zyprexa to PRN and continue with plan to change all VPA to HS as of tonight. will check labs thursday. per staff, no dep/anx. social, groups, sleeping 4-5 hours nightly. Mental Status Exam Mental Status Exam Narrative: Pt is alert and oriented; behavior is cooperative, friendly; dressed in casual attire; mood is described as good ; eye contact appropriate; Speech is incr rate and volume; thought process is organized and goal directed; Thought content is on tx; no SI/HI/VH/AH expressed. Diagnostics Vital Signs (24Hr): Vital Signs - 24 hr 11/11/23 19:53 11/12/23 07:44 Temperature 98.5 F 98.0 F Pulse Rate 81 78 Respiratory Rate 16 16 Blood Pressure 115/57 L 113/64 Pulse Oximetry 97 98 Oxygen Delivery Method Room Air Room Air BMI result Body Mass Index 43.9 Labs 11/09/23 08:44 11/09/23 08:44 Medications Medications Current Medications Acetaminophen (Acetaminophen 325 Mg Tablet) 650 mg PO Q6H PRN PRN Reason: Headache/Pain Mild Scale (1-3) Last Admin: 11/12/23 09:51 Dose: 650 mg Al Hydroxide/Mg Hydroxide (Magnesium Hydrox/Alum Hydrox 30 Ml Oral.Susp) 30 ml PO Q6H PRN PRN Reason: Heartburn/Nausea Divalproex Sodium (Divalproex Sodium Er 250 Mg Tab.Er.24h) 1,250 mg PO BEDTIME [facility] Hydrocortisone (Hydrocortisone 1 % Cream 28.35 Gm Tube) 1 appl TOPICAL BID PRN; Protocol PRN Reason: pruritus rash Last Admin: 10/28/23 18:36 Dose: 1 appl Hydroxyzine HCl (Hydroxyzine Hcl 25 Mg Tablet) 25 mg PO Q6H PRN PRN Reason: Anxiety Loratadine (Loratadine 10 Mg Tablet) 10 mg PO DAILY [facility] Last Admin: 11/12/23 08:34 Dose: 10 mg Magnesium Hydroxide (Milk Of Magnesia 30 Ml Oral.Susp) 30 ml PO DAILY PRN PRN Reason: Constipation Magnesium Oxide (Magnesium Oxide 400 Mg Tablet) 400 mg PO BEDTIME [facility] Last Admin: 11/11/23 21:28 Dose: 400 mg Multi-Ingred Cream/Lotion/Oil/Oint (Mineral Oil/Petrolatum,White 106 Gm Tube) 1 appl TOPICAL BEDTIME MIHAELA; Protocol Last Admin: 11/11/23 21:27 Dose: 1 appl Nicotine Polacrilex (Nicotine Polacrilex Lozenge 2 Mg Lozenge) 2 mg BUCCAL Q1H PRN PRN Reason: Nicotine Cravings Last Admin: 11/12/23 14:03 Dose: 2 mg Olanzapine (Olanzapine 2.5 Mg Tablet) 2.5 mg PO BEDTIME PRN PRN Reason: insomnia Trazodone HCl (Trazodone Hcl 50 Mg Tablet) 50 mg PO BEDTIME MRX1 PRN PRN Reason: Insomnia Allergies Allergies Allergy/AdvReac Type Severity Reaction Status Date / Time No Known Allergies Allergy Verified 10/25/23 13:35 Assessment & Plan Assessment & Plan (1) Bipolar disorder with severe aimee: Status: Acute Code(s): F31.13 - Bipolar disorder, current episode manic without psychotic features, severe (2) Alcohol use disorder in remission: Status: Acute Code(s): F10.91 - Alcohol use, unspecified, in remission Plan 10/27: restart/continue VPA 500 BID. check level 5 days from 10/24 eve. WATSON with ativan PRNs for now in case of alcohol relapse. collect collateral from outpt provider. message sent to Dr. Cummins. 10/28: case d/w bo. check labs thursday morning. stabilizing aimee. 10/29: labs tomorrow morning. remains a bit elevated in mood. titrate VPA as indicated over w/e. 10/30 continue Depakote at the same level since it is at a therapeutic level. 10/31 continue same treatment 11/01: social with peers, attending groups. Pt reports feeling good today; pt stated, I'm hoping we can have a family meeting soon because I would like to go home . line up worker aware. Pt denies SI/HI/VH/AH. continue current tx plan. 11/02 continue tx. added magnesium oxide 400mg po qhs for leg cramps, monitor loose stools. 11/04: VPA level 68.3. continue current mgmt. labs reassuring. family mtg tomorrow and discharge early next week. 11/05: due to hyperverbality yesterday and sleeping only 3 hours last night, in conjunction with therapeutic VPA level, will add zyprexa 2.5 mg at HS for better aimee control. family mtg held. otherwise continue current mgmt. 11/06: continue current tx plan. 11/07: continue tx plan. 11/08: VPA level 58 today. increase VPA dosing from 500 BID to 500/750. 11/09: tolerating VPA dose increase. no change in presentation. follow sleep trend. continue current mgmt. 11/10: stable. disrupted sleep continues. change all VPA to HS as of tomorrow night. 11/11: change HS zyprexa to PRN. check labs thursday. planning for thursday discharge. Reason for continued inpatient stay Substantial Risk for: inability to function and rapid decompensation Time Spent With Patient Time: Total time managing care of this patient today __25__ minutes.
[2023-11-12] MEDS: Divalproex Sodium ER 250 MG TAB.ER.24H 1250 MG PO (20:13)
[2023-11-12] MEDS: Magnesium Oxide 400 MG TABLET PO (20:14)
[2023-11-12 20:22] VITALS: BP 114/56; PULSE 73; RESP 18; TEMP 36.8; O2SAT 97
[2023-11-13] MEDS: Nicotine Polacrilex Lozenge 2 MG LOZENGE BUCCAL ×6 (00:39→20:56)
[2023-11-13 07:44] VITALS: BP 127/78; PULSE 72; RESP 14; TEMP 36.6; O2SAT 98
[2023-11-13] MEDS: Acetaminophen 325 MG TABLET 650 MG PO (09:00)
[2023-11-13] MEDS: Loratadine 10 MG TABLET PO (09:00)
--- NOTE | 2023-11-13 14:11 | P.PNPSI_ITS ---
Subjective Subjective Date of Service: 11/13/23 Reason For Visit: Benjie Interim History: energetic, voluble, pleasant. reviewing the plan. labs thursday. planning for thursday discharge. per staff bright, visible, taking meds. slept about 4 hours. Mental Status Exam Mental Status Exam Narrative: Pt is alert and oriented; behavior is cooperative, friendly; dressed in casual attire; mood is described as good ; eye contact appropriate; Speech is incr rate and volume; thought process is organized and goal directed; Thought content is on tx; no SI/HI/VH/AH expressed. Diagnostics Vital Signs (24Hr): Vital Signs - 24 hr 11/12/23 20:22 11/13/23 07:44 Temperature 98.2 F 97.8 F Pulse Rate 73 72 Respiratory Rate 18 14 Blood Pressure 114/56 L 127/78 Pulse Oximetry 97 98 Oxygen Delivery Method Room Air Room Air BMI result Body Mass Index 43.9 Labs 11/09/23 08:44 11/09/23 08:44 Medications Medications Current Medications Acetaminophen (Acetaminophen 325 Mg Tablet) 650 mg PO Q6H PRN PRN Reason: Headache/Pain Mild Scale (1-3) Last Admin: 11/13/23 09:00 Dose: 650 mg Al Hydroxide/Mg Hydroxide (Magnesium Hydrox/Alum Hydrox 30 Ml Oral.Susp) 30 ml PO Q6H PRN PRN Reason: Heartburn/Nausea Divalproex Sodium (Divalproex Sodium Er 250 Mg Tab.Er.24h) 1,250 mg PO BEDTIME [facility] Last Admin: 11/12/23 20:13 Dose: 1,250 mg Hydrocortisone (Hydrocortisone 1 % Cream 28.35 Gm Tube) 1 appl TOPICAL BID PRN; Protocol PRN Reason: pruritus rash Last Admin: 10/28/23 18:36 Dose: 1 appl Hydroxyzine HCl (Hydroxyzine Hcl 25 Mg Tablet) 25 mg PO Q6H PRN PRN Reason: Anxiety Loratadine (Loratadine 10 Mg Tablet) 10 mg PO DAILY [facility] Last Admin: 11/13/23 09:00 Dose: 10 mg Magnesium Hydroxide (Milk Of Magnesia 30 Ml Oral.Susp) 30 ml PO DAILY PRN PRN Reason: Constipation Magnesium Oxide (Magnesium Oxide 400 Mg Tablet) 400 mg PO BEDTIME [facility] Last Admin: 11/12/23 20:14 Dose: 400 mg Multi-Ingred Cream/Lotion/Oil/Oint (Mineral Oil/Petrolatum,White 106 Gm Tube) 1 appl TOPICAL BEDTIME MIHAELA; Protocol Last Admin: 11/12/23 23:10 Dose: Not Given Nicotine Polacrilex (Nicotine Polacrilex Lozenge 2 Mg Lozenge) 2 mg BUCCAL Q1H PRN PRN Reason: Nicotine Cravings Last Admin: 11/13/23 12:13 Dose: 2 mg Olanzapine (Olanzapine 2.5 Mg Tablet) 2.5 mg PO BEDTIME PRN PRN Reason: insomnia Trazodone HCl (Trazodone Hcl 50 Mg Tablet) 50 mg PO BEDTIME MRX1 PRN PRN Reason: Insomnia Allergies Allergies Allergy/AdvReac Type Severity Reaction Status Date / Time No Known Allergies Allergy Verified 10/25/23 13:35 Assessment & Plan Assessment & Plan (1) Bipolar disorder with severe benjie: Status: Acute Code(s): F31.13 - Bipolar disorder, current episode manic without psychotic features, severe (2) Alcohol use disorder in remission: Status: Acute Code(s): F10.91 - Alcohol use, unspecified, in remission Plan 10/27: restart/continue VPA 500 BID. check level 5 days from 10/24 janet. CIZANA with ativan PRNs for now in case of alcohol relapse. collect collateral from outpt provider. message sent to Dr. Cummins. 10/28: case d/w bo. check labs thursday morning. stabilizing benjie. 10/29: labs tomorrow morning. remains a bit elevated in mood. titrate VPA as indicated over w/e. 10/30 continue Depakote at the same level since it is at a therapeutic level. 10/31 continue same treatment 11/01: social with peers, attending groups. Pt reports feeling good today; pt stated, I'm hoping we can have a family meeting soon because I would like to go home . 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 Pt denies SI/HI/VH/AH. continue current tx plan. 11/02 continue tx. added magnesium oxide 400mg po qhs for leg cramps, monitor loose stools. 11/04: VPA level 68.3. continue current mgmt. labs reassuring. family mtg tomorrow and discharge early next week. 11/05: due to hyperverbality yesterday and sleeping only 3 hours last night, in conjunction with therapeutic VPA level, will add zyprexa 2.5 mg at HS for better benjie control. family mtg held. otherwise continue current mgmt. 11/06: continue current tx plan. 11/07: continue tx plan. 11/08: VPA level 58 today. increase VPA dosing from 500 BID to 500/750. 11/09: tolerating VPA dose increase. no change in presentation. follow sleep trend. continue current mgmt. 11/10: stable. disrupted sleep continues. change all VPA to HS as of tomorrow night. 11/11: change HS zyprexa to PRN. check labs thursday janet. planning for thursday discharge. 11/12: labs ordered for thursday janet. continue current mgmt. thursday discharge. stable. Reason for continued inpatient stay Substantial Risk for: rapid decompensation Time Spent With Patient Time: Total time managing care of this patient today __25__ minutes.
[2023-11-13 20:00] VITALS: BP 148/67; PULSE 78; RESP 18; TEMP 37.1; O2SAT 99
[2023-11-13] MEDS: Divalproex Sodium ER 250 MG TAB.ER.24H 1250 MG PO (20:33)
[2023-11-13] MEDS: Magnesium Oxide 400 MG TABLET PO (20:34)
[2023-11-14] MEDS: Nicotine Polacrilex Lozenge 2 MG LOZENGE BUCCAL ×6 (00:35→20:30)
[2023-11-14 08:25] VITALS: BP 128/59; PULSE 74; RESP 16; TEMP 36.9; O2SAT 99
[2023-11-14] MEDS: Loratadine 10 MG TABLET PO (08:25)
--- NOTE | 2023-11-14 10:59 | HO.PSYCHPN ---
Subjective Subjective Date of Service: 11/14/23 Reason For Visit: Benjie Subjective Notes: Conditional Voluntary Interim History: Patient was seen and discussed in rounds today. Records and plans were reviewed. She is well known to me. She has improved and is doing much better but continues to be still somewhat expansive. She was able to talk to me about her medications and she has been compliant. Future plans discussed. My contact with her sister discussed. Current medications were individually reviewed. There is Depakote level pending for tomorrow night. No changes were made today Medication Compliance: Yes Side effects from medications: No Attending Groups: Yes Review of Systems Review of Systems Yes all other systems are reviewed and are negative Mental Status Exam Mental Status Exam Narrative: In today's visit she is alert, oriented and pleasant. Normal speech. Good eye contact. Affect is slightly euphoric. No signs of psychosis. She appears somewhat expansive. No SI. Cognitively is intact. Judgment is intact Diagnostics Vital Signs (24Hr): Vital Signs - 24 hr 11/13/23 20:00 11/14/23 08:25 Temperature 98.8 F 98.5 F Pulse Rate 78 74 Respiratory Rate 18 16 Blood Pressure 148/67 H 128/59 L Pulse Oximetry 99 99 Oxygen Delivery Method Room Air Room Air BMI result Body Mass Index 43.9 Labs 11/09/23 08:44 11/09/23 08:44 Medications Medications Current Medications Acetaminophen (Acetaminophen 325 Mg Tablet) 650 mg PO Q6H PRN PRN Reason: Headache/Pain Mild Scale (1-3) Last Admin: 11/13/23 09:00 Dose: 650 mg Al Hydroxide/Mg Hydroxide (Magnesium Hydrox/Alum Hydrox 30 Ml Oral.Susp) 30 ml PO Q6H PRN PRN Reason: Heartburn/Nausea Divalproex Sodium (Divalproex Sodium Er 250 Mg Tab.Er.24h) 1,250 mg PO BEDTIME MIHAELA Last Admin: 11/13/23 20:33 Dose: 1,250 mg Hydrocortisone (Hydrocortisone 1 % Cream 28.35 Gm Tube) 1 appl TOPICAL BID PRN; Protocol PRN Reason: pruritus rash Last Admin: 10/28/23 18:36 Dose: 1 appl Hydroxyzine HCl (Hydroxyzine Hcl 25 Mg Tablet) 25 mg PO Q6H PRN PRN Reason: Anxiety Loratadine (Loratadine 10 Mg Tablet) 10 mg PO DAILY MIHAELA Last Admin: 11/14/23 08:25 Dose: 10 mg Magnesium Hydroxide (Milk Of Magnesia 30 Ml Oral.Susp) 30 ml PO DAILY PRN PRN Reason: Constipation Magnesium Oxide (Magnesium Oxide 400 Mg Tablet) 400 mg PO BEDTIME MIHAELA Last Admin: 11/13/23 20:34 Dose: 400 mg Multi-Ingred Cream/Lotion/Oil/Oint (Mineral Oil/Petrolatum,White 106 Gm Tube) 1 appl TOPICAL BEDTIME MIHAELA; Protocol Last Admin: 11/13/23 20:38 Dose: Not Given Nicotine Polacrilex (Nicotine Polacrilex Lozenge 2 Mg Lozenge) 2 mg BUCCAL Q1H PRN PRN Reason: Nicotine Cravings Last Admin: 11/14/23 08:25 Dose: 2 mg Olanzapine (Olanzapine 2.5 Mg Tablet) 2.5 mg PO BEDTIME PRN PRN Reason: insomnia Trazodone HCl (Trazodone Hcl 50 Mg Tablet) 50 mg PO BEDTIME MRX1 PRN PRN Reason: Insomnia Allergies Allergies Allergy/AdvReac Type Severity Reaction Status Date / Time No Known Allergies Allergy Verified 10/25/23 13:35 Assessment & Plan Assessment & Plan (1) Bipolar disorder with severe benjie: Status: Acute Code(s): F31.13 - Bipolar disorder, current episode manic without psychotic features, severe (2) Alcohol use disorder in remission: Status: Acute Code(s): F10.91 - Alcohol use, unspecified, in remission Plan 10/27: restart/continue VPA 500 BID. check level 5 days from 10/24 janet. WALTER with ativan PRNs for now in case of alcohol relapse. collect collateral from outpt provider. message sent to Dr. Cummins. 10/28: case d/w bo. check labs thursday morning. stabilizing benjie. 10/29: labs tomorrow morning. remains a bit elevated in mood. titrate VPA as indicated over w/e. 10/30 continue Depakote at the same level since it is at a therapeutic level. 10/31 continue same treatment 11/01: social with peers, attending groups. Pt reports feeling good today; pt stated, I'm hoping we can have a family meeting soon because I would like to go home . 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 Pt denies SI/HI/VH/AH. continue current tx plan. 11/02 continue tx. added magnesium oxide 400mg po qhs for leg cramps, monitor loose stools. 11/04: VPA level 68.3. continue current mgmt. labs reassuring. family mtg tomorrow and discharge early next week. 11/05: due to hyperverbality yesterday and sleeping only 3 hours last night, in conjunction with therapeutic VPA level, will add zyprexa 2.5 mg at HS for better benjie control. family mtg held. otherwise continue current mgmt. 11/06: continue current tx plan. 11/07: continue tx plan. 11/08: VPA level 58 today. increase VPA dosing from 500 BID to 500/750. 11/09: tolerating VPA dose increase. no change in presentation. follow sleep trend. continue current mgmt. 11/10: stable. disrupted sleep continues. change all VPA to HS as of tomorrow night. 11/11: change HS zyprexa to PRN. check labs thursday janet. planning for thursday discharge. 11/12: labs ordered for thursday janet. continue current mgmt. thursday discharge. stable. 11/13: Continue current treatment and plan Reason for continued inpatient stay Substantial Risk for: rapid decompensation Time Spent With Patient Time: Total time managing care of this patient today ____ minutes.
[2023-11-14] MEDS: Acetaminophen 325 MG TABLET 650 MG PO (16:17)
[2023-11-14 20:00] VITALS: BP 124/60; PULSE 79; RESP 16; TEMP 36.5; O2SAT 99
[2023-11-14] MEDS: Divalproex Sodium ER 250 MG TAB.ER.24H 1250 MG PO (20:07)
[2023-11-14] MEDS: Magnesium Oxide 400 MG TABLET PO (20:08)
[2023-11-15] MEDS: Nicotine Polacrilex Lozenge 2 MG LOZENGE BUCCAL ×5 (01:55→21:22)
[2023-11-15 07:42] VITALS: BP 126/80; PULSE 68; RESP 14; TEMP 36.6; O2SAT 98
[2023-11-15] MEDS: Loratadine 10 MG TABLET PO (08:00)
--- NOTE | 2023-11-15 08:03 | HO.PSYCHPN ---
Subjective Subjective Date of Service: 11/15/23 Reason For Visit: Benjie Subjective Notes: Conditional Voluntary Interim History: Patient was seen and discussed in rounds today. Records and plans were reviewed. She continues to be still somewhat expansive and at times intrusive. Not sleeping too well, maybe 3 or 4 hours. She has not been taking the p.r.n. Zyprexa at night because of daytime drowsiness but agreed to taking Risperdal which I will start at 1 mg at night. She has been on it before during episodes like this. She is aware of side effects. No SI. Medication Compliance: Yes Side effects from medications: No Attending Groups: Yes Review of Systems Review of Systems Poor sleep Yes all other systems are reviewed and are negative Mental Status Exam Mental Status Exam Narrative: In today's visit she is alert, oriented and pleasant. Normal speech and not pressured. Good eye contact. Affect is appropriate and not expansive. No signs of psychosis. No hyperactivity No SI. Cognitively is intact. Judgment is intact Diagnostics Vital Signs (24Hr): Vital Signs - 24 hr 11/14/23 08:25 11/14/23 20:00 11/15/23 07:42 Temperature 98.5 F 97.7 F 97.9 F Pulse Rate 74 79 68 Respiratory Rate 16 16 14 Blood Pressure 128/59 L 124/60 126/80 Pulse Oximetry 99 99 98 Oxygen Delivery Method Room Air Room Air Room Air BMI result Body Mass Index 43.9 Labs 11/09/23 08:44 11/09/23 08:44 Medications Medications Current Medications Acetaminophen (Acetaminophen 325 Mg Tablet) 650 mg PO Q6H PRN PRN Reason: Headache/Pain Mild Scale (1-3) Last Admin: 11/14/23 16:17 Dose: 650 mg Al Hydroxide/Mg Hydroxide (Magnesium Hydrox/Alum Hydrox 30 Ml Oral.Susp) 30 ml PO Q6H PRN PRN Reason: Heartburn/Nausea Divalproex Sodium (Divalproex Sodium Er 250 Mg Tab.Er.24h) 1,250 mg PO BEDTIME MIHAELA Last Admin: 11/14/23 20:07 Dose: 1,250 mg Hydrocortisone (Hydrocortisone 1 % Cream 28.35 Gm Tube) 1 appl TOPICAL BID PRN; Protocol PRN Reason: pruritus rash Last Admin: 10/28/23 18:36 Dose: 1 appl Hydroxyzine HCl (Hydroxyzine Hcl 25 Mg Tablet) 25 mg PO Q6H PRN PRN Reason: Anxiety Loratadine (Loratadine 10 Mg Tablet) 10 mg PO DAILY MIHAELA Last Admin: 11/15/23 08:00 Dose: 10 mg Magnesium Hydroxide (Milk Of Magnesia 30 Ml Oral.Susp) 30 ml PO DAILY PRN PRN Reason: Constipation Magnesium Oxide (Magnesium Oxide 400 Mg Tablet) 400 mg PO BEDTIME MIHAELA Last Admin: 11/14/23 20:08 Dose: 400 mg Multi-Ingred Cream/Lotion/Oil/Oint (Mineral Oil/Petrolatum,White 106 Gm Tube) 1 appl TOPICAL BEDTIME MIHAELA; Protocol Last Admin: 11/14/23 20:09 Dose: Not Given Nicotine Polacrilex (Nicotine Polacrilex Lozenge 2 Mg Lozenge) 2 mg BUCCAL Q1H PRN PRN Reason: Nicotine Cravings Last Admin: 11/15/23 07:59 Dose: 2 mg Olanzapine (Olanzapine 2.5 Mg Tablet) 2.5 mg PO BEDTIME PRN PRN Reason: insomnia Risperidone (Risperidone 1 Mg Tablet) 1 mg PO BEDTIME MIHAELA Trazodone HCl (Trazodone Hcl 50 Mg Tablet) 50 mg PO BEDTIME MRX1 PRN PRN Reason: Insomnia Allergies Allergies Allergy/AdvReac Type Severity Reaction Status Date / Time No Known Allergies Allergy Verified 10/25/23 13:35 Assessment & Plan Assessment & Plan (1) Bipolar disorder with severe benjie: Status: Acute Code(s): F31.13 - Bipolar disorder, current episode manic without psychotic features, severe (2) Alcohol use disorder in remission: Status: Acute Code(s): F10.91 - Alcohol use, unspecified, in remission Plan 10/27: restart/continue VPA 500 BID. check level 5 days from 10/24 janet. CIWA with ativan PRNs for now in case of alcohol relapse. collect collateral from outpt provider. message sent to Dr. Cummins. 10/28: case d/w bo. check labs thursday morning. stabilizing benjie. 10/29: labs tomorrow morning. remains a bit elevated in mood. titrate VPA as indicated over w/e. 10/30 continue Depakote at the same level since it is at a therapeutic level. 10/31 continue same treatment 11/01: social with peers, attending groups. Pt reports feeling good today; pt stated, I'm hoping we can have a family meeting soon because I would like to go home . 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 Pt denies SI/HI/VH/AH. continue current tx plan. 11/02 continue tx. added magnesium oxide 400mg po qhs for leg cramps, monitor loose stools. 11/04: VPA level 68.3. continue current mgmt. labs reassuring. family mtg tomorrow and discharge early next week. 11/05: due to hyperverbality yesterday and sleeping only 3 hours last night, in conjunction with therapeutic VPA level, will add zyprexa 2.5 mg at HS for better benjie control. family mtg held. otherwise continue current mgmt. 11/06: continue current tx plan. 11/07: continue tx plan. 11/08: VPA level 58 today. increase VPA dosing from 500 BID to 500/750. 11/09: tolerating VPA dose increase. no change in presentation. follow sleep trend. continue current mgmt. 11/10: stable. disrupted sleep continues. change all VPA to HS as of tomorrow night. 11/11: change HS zyprexa to PRN. check labs thursday janet. planning for thursday discharge. 11/12: labs ordered for thursday. continue current mgmt. thursday discharge. stable. 11/13: Continue current treatment and plan. Start Risperdal 1 mg at night Patient educated on: diagnosis and medication risk/benefits Reason for continued inpatient stay Substantial Risk for: rapid decompensation Time Spent With Patient Time: Total time managing care of this patient today ____ minutes.
[2023-11-15 20:00] VITALS: BP 127/60; PULSE 72; RESP 18; TEMP 36.3; O2SAT 98
[2023-11-15 20:30] LABS: MANUAL DIFF FLAG NO
[2023-11-15 20:31] LABS: Basophils Absolute Auto 0.1 X10*3/uL (0.0-0.2); Basophils Percent Auto 0.7 % (0-2); Eosinophils Absolute Auto 0.5 X10*3/uL (0.0-0.4); Eosinophils Percent Auto 7.8 % (0-4); Hematocrit 41.4 % (37.0-47.0); Hemoglobin 13.4 g/dl (12.0-16.0); Imm Gran Abs Auto 0.05 X10*3/uL (0.00-0.03); Imm Gran Pct Auto 0.7 % (0.0-0.4); Lymphocytes Absolute Auto 2.3 X10*3/uL (1.2-4.9); Lymphocytes Percent Auto 33.3 % (20-40); Mean Corpuscular HGB Conc 32.4 g/dl (31.0-35.0); Mean Corpuscular Volume 92.6 fL (80.0-98.0); Mean Platelet Volume 10.1 fL (9.4-12.3); Monocytes Absolute Auto 0.9 X10*3/uL (0.1-1.2); Monocytes Percent Auto 12.3 % (2-11); Neutrophils Absolute Auto 3.1 x10*3/uL (2.0-8.3); Neutrophils Percent Auto 45.2 % (45-73); Platelet Count 220 X10*3/uL (160-400); Red Blood Count 4.47 X10*6/uL (4.20-5.50); Red Cell Distribution Width 13.9 % (11.0-16.0); White Blood Count 6.9 X10*3/uL (4.8-10.8)
[2023-11-15 20:39] LABS: Ammonia 41 umol/L (13-55)
[2023-11-15 20:45] LABS: Valproate 59.4 mcg/mL (50.0-100.0)
[2023-11-15 20:48] LABS: Alanine Aminotransferase 20 U/L (0-31); Albumin Level 3.7 g/dL (3.5-5.0); Alkaline Phosphatase 83 U/L (39-117); Anion Gap 12 (12-20); Aspartate Amino Transferase 25 U/L (5-31); Bilirubin Direct < 0.2 mg/dL (0.0-0.5); Bilirubin Total 0.2 mg/dL (0.0-1.0); Blood Urea Nitrogen 17 mg/dL (9-16); Calcium 9.4 mg/dL (8.4-10.2); Carbon Dioxide 25 mmol/L (22-29); Chloride 108 mmol/L (96-108); Creatinine Clr Calc Pharmacy 84.5; Estimated Glomerular Filt Rate > 60; Glucose Random 84 mg/dL (60-115); Potassium 4.4 mmol/L (3.3-5.1); Sodium 141 mmol/L (135-145); Total Protein 6.3 g/dL (6.5-8.0)
[2023-11-15] MEDS: Divalproex Sodium ER 250 MG TAB.ER.24H 1250 MG PO (21:20)
[2023-11-15] MEDS: risperiDONE 1 MG TABLET PO (21:21)
[2023-11-15] MEDS: Magnesium Oxide 400 MG TABLET PO (21:22)
[2023-11-16] MEDS: Nicotine Polacrilex Lozenge 2 MG LOZENGE BUCCAL ×6 (06:17→20:58)
--- NOTE | 2023-11-16 07:05 | PC.NURSE ---
This bid writer noticed apparent juice and fermenting fruit in the patients water pitcher. the pitcher and it's contents were discarded. This bid writer noted finding a water pitcher with spoiled fruit and fruit juice in it 3 additional times throughout the night. each time the pitcher and it's contents were discarded. Day shift staff made aware, Dr. Monzon (on-call provider) made aware in am via text
[2023-11-16 07:48] VITALS: BP 101/60; PULSE 86; RESP 14; TEMP 36.9; O2SAT 99
[2023-11-16] MEDS: Loratadine 10 MG TABLET PO (08:16)
[2023-11-16] MEDS: Acetaminophen 325 MG TABLET 650 MG PO ×2 (08:16→15:11)
--- NOTE | 2023-11-16 15:12 | P.DS_ITS ---
DS: Providers Provider Date of Service: 11/16/23 Date of admission: 10/27/23 11:29 Primary care physician: Vianney Abbee MD Consults: 10/27/23 13:48 Consult to Hospitalist Routine Comment: Consulting Provider: Hospitalist Reason For Exam: itchy rash on back DS: Diagnosis Discharge Diagnosis (1) Bipolar disorder with severe benjie: Status: Acute (2) Alcohol use disorder in remission: Status: Acute DS: Medications Discharge Medications Home Medications: Previous Rx's ?Medication ?Instructions ?Recorded divalproex 250 mg tablet,extended 1,250 mg (5 x 250 mg) PO BEDTIME 11/16/23 release 24 hr 30 days #150 tabs hydrocortisone 1 % topical cream 1 appl topical BID PRN pruritus 11/16/23 rash #0 grams loratadine 10 mg tablet 10 mg PO DAILY #0 tabs 11/16/23 magnesium oxide 400 mg (241.3 mg 400 mg PO BEDTIME #0 tabs 11/16/23 magnesium) tablet nicotine (polacrilex) 2 mg buccal 2 mg buccal Q1H PRN Nicotine 11/16/23 lozenge Cravings #0 ea risperidone 1 mg tablet 1 mg PO BEDTIME 30 days #30 tabs 11/16/23 white petrolatum-mineral oil 1 appl topical BEDTIME #0 grams 11/16/23 topical cream (Dermacerin topical cream) Mental Status Exam Mental Status Exam Narrative: Pt is alert and oriented; behavior is cooperative, friendly; dressed in casual attire; mood is described as trepidacious ; eye contact appropriate; Speech is incr rate and volume; thought process is organized and goal directed; Thought content is on tx; no SI/HI/VH/AH. Data Data Completed and Pending Completed studies during hospitalization [Text1]: 11/15/23 20:19 WBC 6.9 RBC 4.47 Hgb 13.4 Hct 41.4 MCV 92.6 MCH 30.0 MCHC 32.4 RDW 13.9 Plt Count 220 MPV 10.1 Immature Gran % (Auto) 0.7 H Neut % (Auto) 45.2 Lymph % (Auto) 33.3 Camp % (Auto) 12.3 H Eos % (Auto) 7.8 H Baso % (Auto) 0.7 Lymph # (Auto) 2.3 Camp # (Auto) 0.9 Eos # (Auto) 0.5 H Baso # (Auto) 0.1 Abs Immat Gran (auto) 0.05 H Absolute Neuts (auto) 3.1 Absolute Nucleated RBC 0.000 Nucleated RBC % (auto) 0.0 Sodium 141 Potassium 4.4 Chloride 108 Carbon Dioxide 25 Anion Gap 12 BUN 17 H Creatinine 0.83 Estim Creat Clear Calc 84.5 Estimated GFR > 60 Random Glucose 84 Calcium 9.4 Total Bilirubin 0.2 Direct Bilirubin < 0.2 AST 25 ALT 20 Alkaline Phosphatase 83 Ammonia 41 Total Protein 6.3 L Albumin 3.7 Valproic Acid 59.4 10/25/23 17:15 Urine clean catch - Urine camacho top Urine Culture - Final DS: Summary Hospital Course Hospital Course: per 10/27 admission note: per CARE team jacqueline pt self-presented to [facility] ED with sister with concerns of benjie. per sister, pt has shown increased agitation, irritability, insomnia, impulsivity, excessive spending. reportedly not compliant with mood stabilizer, VPA. h/o alcohol dependence, pt denies recent heavy use, pt's sister indicates suspicion otherwise. 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 she reports having seen Dr. Cummins for 7 years, who reportedly tapered her from VPA in april of 2023 for unclear reasons. pt has reportedly experienced a steady erosion of mental health in the ensuing months. on MSE in pod, pt was described as exhibiting manic behavior, such as pressured speech, irritability, lability. on interview with MD on unit, pt is more calm than as described above, presumably due to having had several doses of VPA by now. she started VPA 500 mg BID 10/24 evening. she is amenable to continue VPA to humor others, despite her perception that it doesn't do much to affect her behavior or mood. she says other people tell her she is much more calm when she takes it. she has no complaints or requests, is cooperative, and agrees to stay until her VPA can come to a steady state. Past Psychiatric History: hosps: about 8, MRE several years ago SA: denies SIB: denies HIB: denies outpt: Dr. Cummins, last seen july. reports no mental health history until divorce from her about 20 years ago, at 44 yo, when bipolar disorder was diagnosed. 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 Substance History: tobacco - 0.5-1 ppd alcohol - 1 nip nightly cannabis - gummies, frequency depends denies the use of other drugs Precis: 10/27: restart/continue VPA 500 BID. check level 5 days from 10/24 janet. CIWA with ativan PRNs for now in case of alcohol relapse. collect collateral from outpt provider. message sent to Dr. Cummins. 10/28: case d/w bo. check labs thursday morning. stabilizing benjie. 10/29: labs tomorrow morning. remains a bit elevated in mood. titrate VPA as indicated over w/. 10/30 continue Depakote at the same level since it is at a therapeutic level. 10/31 continue same treatment 11/01: social with peers, attending groups. Pt reports feeling good today; pt stated, I'm hoping we can have a family meeting soon because I would like to go home . 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 Pt denies SI/HI/VH/AH. continue current tx plan. 11/02 continue tx. added magnesium oxide 400mg po qhs for leg cramps, monitor loose stools. 11/04: VPA level 68.3. continue current mgmt. labs reassuring. family mtg tomorrow and discharge early next week. 11/05: due to hyperverbality yesterday and sleeping only 3 hours last night, in conjunction with therapeutic VPA level, will add zyprexa 2.5 mg at HS for better benjie control. family mtg held. otherwise continue current mgmt. 11/06: continue current tx plan. 11/07: continue tx plan. 11/08: VPA level 58 today. increase VPA dosing from 500 BID to 500/750. 11/09: tolerating VPA dose increase. no change in presentation. follow sleep trend. continue current mgmt. 11/10: stable. disrupted sleep continues. change all VPA to HS as of tomorrow night. 11/11: change HS zyprexa to PRN. check labs thursday janet. planning for thursday discharge. 11/12: labs ordered for thursday janet. continue current mgmt. thursday discharge. stable. 11/13: Continue current treatment and plan. Start Risperdal 1 mg at night. 11/15: stable. meds reviewed, reconciled, prescribed. no safety concerns. 11/16: stable. discharged as per plan. Time Spent with Patient Time attestation: Total time managing care of this patient today __45__ minutes. Discharge Plan Discharge Anticipated Discharge Date/Time: 11/17/23 10:30 Patient Disposition: Home, Self-Care Discharge Diagnosis: Bipolar I Disorder, MRE Manic Alcohol Use Disorder Referrals: Dr. Cummins (Psychiatry) [Other] - 11/25/23 10:00 am (IN OFFICE APPOINTMENT) [facility] [Other] - 1 Week (*Please follow up with the agency listed above in regards to recovery supports they can offer. ) [facility] (Insurance) [Other] - 1 Week (Please reach out to Wil Mcpherson through [facility] regarding what additional supports you can be offered through your insurance company. ) Therapy [Other] - 1 Week (*Please follow up with [facility] intake staff regarding who you will be assigned to for therapy*) [facility] (PHP) [Other] - 11/19/23 8:00 am (*INTAKE APPOINTMENT* -You will be contacted via cellphone if a sooner intake appointment becomes available. ) Vianney Abebe MD [Primary Care Provider] - 11/20/23 10:00 am (PCP follow up appt. 11/20/23) Discharge Medications: New loratadine 10 mg Tablet 10 mg PO DAILY Qty: 0 0RF nicotine (polacrilex) 2 mg Lozenge 2 mg buccal Q1H PRN (Reason: Nicotine Cravings) Qty: 0 0RF magnesium oxide 400 mg (241.3 mg magnesium) Tablet 400 mg PO BEDTIME Qty: 0 0RF risperidone 1 mg Tablet 1 mg PO BEDTIME 30 Days Qty: 30 0RF divalproex 250 mg Tablet Extended Release 24 Hr 1,250 mg PO BEDTIME 30 Days Qty: 150 0RF hydrocortisone 1 % Cream 1 appl topical BID PRN (Reason: pruritus rash) Qty: 0 0RF Protocol: Apply to: Apply to: back Dermacerin Cream 1 appl topical BEDTIME Qty: 0 0RF Protocol: Apply to: Apply to: feet Discontinued divalproex [Depakote ER] 500 mg Tablet Extended Release 24 Hr 500 mg PO QAM AND QHS Discharge Orders: Discharge Order (Routine); Ordered 11/17/23 Ordered By: Dragan Kennedy Diet: Advance to usual diet Activity on Discharge: As tolerated Stand Alone Forms: Patient Portal Discharge page, Community Support Print Language: Turkmen Care Plan Goals: remain safe, stable, and sober in the outpatient treatment setting Health Concerns: pedal edema Plan of Treatment: take medications as prescribed, attend appointments as scheduled Assessment: not at imminent risk of harm to self or others Discharge Date/Time: 11/17/23 10:10
[2023-11-16 19:55] VITALS: BP 107/52; PULSE 85; RESP 20; TEMP 36.6; O2SAT 97
[2023-11-16] MEDS: Divalproex Sodium ER 250 MG TAB.ER.24H 1250 MG PO (20:57)
[2023-11-16] MEDS: Magnesium Oxide 400 MG TABLET PO (20:57)
[2023-11-16] MEDS: risperiDONE 1 MG TABLET PO (20:57)
[2023-11-17] MEDS: Nicotine Polacrilex Lozenge 2 MG LOZENGE BUCCAL ×3 (02:47→08:39)
[2023-11-17] MEDS: Acetaminophen 325 MG TABLET 650 MG PO (06:41)
[2023-11-17 07:49] VITALS: BP 128/56; PULSE 77; RESP 14; TEMP 36.9; O2SAT 98
[2023-11-17] MEDS: Loratadine 10 MG TABLET PO (08:38)
== END 2023-11-17 10:10 | disposition home or self-care (01) | DRG 885 ==
LOC: HO.ED 15:46 → HO.PADLT16 10-27 11:41
PROVIDERS: Physician Assistant; Registered Nurse; Admitting Provider Psychiatry & Neurology Psychiatry; Emergency Provider Student in an Organized Health Care Education/Training Program; PCP Family Medicine; Visit Provider Psychiatry & Neurology Psychiatry
DX: F31.13 Bipolar disorder, current episode manic without psychotic features, severe (principal); F17.210 Nicotine dependence, cigarettes, uncomplicated; F10.91 Alcohol use, unspecified, in remission; Z71.6 Tobacco abuse counseling; Z20.822 Contact with and (suspected) exposure to COVID-19; Z79.899 Other long term (current) drug therapy
CPT/HCPCS: 36415; 80048; 80053; 80061; 80076; 80164; 80307; 81001; 82140; 82607; 82746; 83036; 84439; 84443; 85025; 87086; 87635; 93005; 99285; S9485

== ENCOUNTER → 2023-10-26 14:57 | Outpatient (BNV) | payer MEDICARE, SELFPAY | PROVIDERS: Admitting Provider Psychiatry & Neurology Psychiatry; Emergency Provider Student in an Organized Health Care Education/Training Program; PCP Family Medicine; Visit Provider Internal Medicine | DX: I49.1 Atrial premature depolarization (principal) | CPT/HCPCS: 93010 ==

== ENCOUNTER → 2023-10-27 11:29 | Outpatient (BNV) | payer MEDICARE, SELFPAY | PROVIDERS: Admitting Provider Psychiatry & Neurology Psychiatry; Emergency Provider Student in an Organized Health Care Education/Training Program; PCP Family Medicine; Visit Provider Psychiatry & Neurology Psychiatry | DX: F31.13 Bipolar disorder, current episode manic without psychotic features, severe (principal); F10.91 Alcohol use, unspecified, in remission | CPT/HCPCS: 90792; 99231; 99232; 99233; 99239 ==

== ENCOUNTER → 2023-11-20 08:30 | Outpatient (BNV) | payer MEDICARE, SELFPAY | PROVIDERS: Visit Provider Psychiatry & Neurology Psychiatry | DX: F31.74 Bipolar disorder, in full remission, most recent episode manic (principal); F10.90 Alcohol use, unspecified, uncomplicated; F12.90 Cannabis use, unspecified, uncomplicated; F17.200 Nicotine dependence, unspecified, uncomplicated | CPT/HCPCS: 90792; 99213; 99214 ==

== ENCOUNTER 2023-12-07 08:30 | Outpatient (RCR) | payer MEDICARE, SELFPAY ==
[2023-11-20 10:48] VITALS: BP 105/71; PULSE 71; TEMP 37.1
[2023-11-20 10:51] VITALS: BMI 20.8
--- NOTE | 2023-11-20 11:28 | PC.ADMIT ---
Patient is a 68 year old female who was referred by [facility] inpatient behavioral health unit M3 where she was admitted from 10/24-11/17/23 after her sister brought her to the hospital d/t unstable mood. Patient has a dx of Bipolar d/o and presented with benjie symptoms. Patient reports she had gone off her Depakote in April 2023. Per records patient's sister described patient struggling with agitation, irritability, not sleeping, impulsive shopping sprees and question of relapsing on ETOH after sobriety since 05/2017. Patient reports she was drinking a nip and using one marijuana gummy a night from 07/2023 until 10/20/2023. Patient reports stresses taking care of her mother, recently retired, and not sleeping. Patient is alert and oriented x4. Calm and cooperative. Thoughts are clear and logical. Presented with anxious mood and affect. She denied SI. She was given a copy of her safety plan if needed. She reports she is sleeping 5-6 hours a night which she feels is enough for her. She is positive about being at [facility] for more support. Medications reconciled with inpatient unit discharge paperwork and patient. She reports she is taking medications as prescribed.
--- NOTE | 2023-11-20 23:51 | HO.PS.ADMBH ---
HPI Date of Service: 11/20/23 Chief Complaint: bipolar Sources of Information: patient interviewed, chart reviewed and crisis/core team assessment reviewed HPI Narrative: This is a 68 yo female with Bipolar I Disorder who is being referred to [facility] as a stepdown from [facility]/ after being admitted for recent manic episode. Patient reports that her medications including Depakote was increased during her hospitalization and is reportedly compensated. She was discharged 4 days ago and says she has been doing alright , feels that she is returning to her baseline. She reports that her outpatient bungy jump master had tapered her off her medication back in April, as it was felt she was doing well and may no longer needing treatment. She says she was doing well until recent events transpired, including job loss and subsequent change in living situation, precipitating recent manic episode. Sleeping 5-7 hours at night, says this is close to baseline and has never been an 8hr sleeper, causes her grogginess to oversleep . Appetite and energy levels have normalized. Denies any AH, VH. Denies any hopelessness or SI. Denies any anger issues, irritability, aggressive ideation or HI. Patient reports history of alcohol abuse had been sober since 2016, but has started using a nip/night since June, also casual cannabis use. Last used for both was 10/23. Lifetime cigarette smoker Past Psychiatric History: hosps: about 8, MRE several years ago SA: denies SIB: denies HIB: denies outpt: Dr. Cummins, last seen july. reports no mental health history until divorce from her about 20 years ago, at 44 yo, when bipolar disorder was diagnosed. 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 Substance History: alcohol abuse had been sober since 2016, relapsed nip/night since June 2023, last use 10/23 casual cannabis use. Last used for both was 10/23 Nicotine dependence - lifetime cigarette smoker ~1PPD since age 15 Diagnostics Vital Signs (24Hr): Vital Signs - 24 hr 11/20/23 10:48 Temperature 98.8 F Pulse Rate 71 Blood Pressure 105/71 BMI result Body Mass Index 20.8 Meds/Allergies Allergies Allergies Allergy/AdvReac Type Severity Reaction Status Date / Time No Known Allergies Allergy Verified 10/25/23 13:35 Mental Status Exam Mental Status Exam Narrative: Alert, oriented, in no acute distress. Calm, cooperative, superficial. Mood stable, affect appropriate. Speech normal. Thought process linear, coherent, more goal-directed. Thought content related to stressors, future-oriented, denies any helplessness, hopelessness or SI.? No aggressive ideation or HI. No paranoia or delusional content elicited. No evidence of psychosis. Insight and judgment fair. Assessment & Plan Assessment & Plan (1) Bipolar I disorder, most recent episode manic, in remission: Status: Acute Code(s): F31.74 - Bipolar disorder, in full remission, most recent episode manic (2) Alcohol use disorder: Status: Acute Code(s): F10.90 - Alcohol use, unspecified, uncomplicated Assessment and Plan: reports long hx of remission since 2016, had started using alcohol again in 06/2023 (3) Cannabis use, unspecified, uncomplicated: Status: Acute Code(s): F12.90 - Cannabis use, unspecified, uncomplicated (4) Nicotine dependence: Status: Acute Code(s): F17.200 - Nicotine dependence, unspecified, uncomplicated Plan Admit to [facility] VS reviewed: abrefile, BP 105/71; 71 bpm continue other regular medications? Routine lab work ordered EKG, routine for baseline QTc for medication considerations UDS as indicated MassPat reviewed Continue to monitor as per protocol Patient educated on: diagnosis, medication risk/benefits and substance abuse Informed Consent: understands Reason for continued partial hosp. stay Substantial Risk for: rapid decompensation and med/psych decompensation Certification I certify that partial hospital treatment is medically necessary due to the symptoms and problems resulting from the patient's mental illness and the failure to treat the patient at the [facility] hospital level of care would likely result in the patient requiring inpatient psychiatric care which could not be prevented at a less intensive level of care. Time Spent With Patient Time: Total time managing care of this patient today _60___ minutes.
--- NOTE | 2023-11-25 14:05 | HO.PHP ---
Mariola was not scheduled for today due to having a doctors appointment.
--- NOTE | 2023-11-26 16:28 | HO.PHP ---
Client's case has been opened and reviewed in treatment team.
--- NOTE | 2023-11-26 23:29 | HO.PHPPROGNO ---
Subjective Subjective Date of Service: 11/26/23 Reason For Visit: bipolar Interim History: Patient seen for follow up. No issues. Mood stable. Sleep, appetite are intact. Energy is good, level. Enjoying program. Continues with cigarette smoking. Denies any alcohol or substance use. Denies any depressive symptoms, manic symtoms, AH or VH. No SI or HI. Medication Compliance: Yes Side effects from medications: No Attending Groups: Yes Review of Systems Acute medical concerns: No Mental Status Exam Mental Status Exam Narrative: Alert, oriented, in no acute distress. Calm, cooperative, superficial. Mood stable, affect appropriate. Speech normal. Thought process linear, coherent, more goal-directed. Thought content related to stressors, future-oriented, denies any helplessness, hopelessness or SI.? No aggressive ideation or HI. No paranoia or delusional content elicited. No evidence of psychosis. Insight and judgment fair. Diagnostics Vital Signs (24Hr): BMI result Body Mass Index 20.8 Assessment & Plan Assessment & Plan (1) Bipolar I disorder, most recent episode manic, in remission: Status: Acute Code(s): F31.74 - Bipolar disorder, in full remission, most recent episode manic (2) Alcohol use disorder in remission: Status: Acute Code(s): F10.91 - Alcohol use, unspecified, in remission (3) Nicotine dependence: Status: Acute Code(s): F17.200 - Nicotine dependence, unspecified, uncomplicated (4) Cannabis use, unspecified, uncomplicated: Status: Acute Code(s): F12.90 - Cannabis use, unspecified, uncomplicated Plan continue Depakote ER 1250 mg qd continue risperidone 1 mg qhs continue other regular medications? Routine lab work ordered EKG, routine for baseline QTc for medication considerations UDS as indicated Continue to monitor Patient educated on: diagnosis, medication risk/benefits and substance abuse Informed Consent: understands Reason for contiued partial hosp. stay Substantial Risk for: rapid decompensation and med/psych decompensation Certification I certify that partial hospital treatment is medically necessary due to the symptoms and problems resulting from the patient's mental illness and the failure to treat the patient at the partial hospital level of care would likely result in the patient requiring inpatient psychiatric care which could not be prevented at a less intensive level of care. Total time managing care of this patient today __60__ minutes. Discharge Plan Discharge Attending provider: Dorys Nicholas Medications: Continued loratadine 10 mg Tablet 10 mg PO DAILY Qty: 0 0RF nicotine (polacrilex) 2 mg Lozenge 2 mg buccal Q1H PRN (Reason: Nicotine Cravings) Qty: 0 0RF magnesium oxide 400 mg (241.3 mg magnesium) Tablet 400 mg PO BEDTIME Qty: 0 0RF risperidone 1 mg Tablet 1 mg PO BEDTIME 30 Days Qty: 30 0RF divalproex 250 mg Tablet Extended Release 24 Hr 1,250 mg PO BEDTIME 30 Days Qty: 150 0RF hydrocortisone 1 % Cream 1 appl topical BID PRN (Reason: pruritus rash) Qty: 0 0RF Protocol: Apply to: Apply to: back Dermacerin Cream 1 appl topical BEDTIME Qty: 0 0RF Protocol: Apply to: Apply to: feet Print Language: Welsh
--- NOTE | 2023-11-30 12:32 | HO.PHP ---
PHP staff member faxed over a referral to [facility] for OP therapy for Mariola Dick. PHP staff member is awaiting a phone call back with scheduled appointment dates and times.
--- NOTE | 2023-12-04 12:30 | HO.PHP ---
[facility] staff member reached out to Stephanie, through [employer], inquiring about the referral placed for OP services for Mariola. Stephanie disclosed that because she is already an existing pt. due to see a med provider there, the PHP staff member did not need to make a referral and informed [facility] staff member that she will be reaching out to Mariola in the upcoming weeks with her appointment date and time. PHP staff member was receptive.
--- NOTE | 2023-12-04 23:04 | P.PNPSP_ITS ---
Subjective Subjective Date of Service: 12/04/23 Reason For Visit: bipolar Interim History: Doing good... it's been education Patient seen for follow up. TD is noted on encounter. 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 Dr. Cummins had added the risperidone 1 mg just before discharge from IP. We discussed seeing if she could tolerate lowering dose by half, and can take the other half if she feels she needs this for sleep or emerging mood issues. She agrees with plan and says she likes this plan. Alternatively we may consider switching to another NL with lower risk of TD. In the meantime, mood remains stable. Sleep, appetite are intact. Energy is good, level. Continues with cigarette smoking. Denies any alcohol or substance use. Denies any depressive symptoms, manic symptoms, AH or VH. No SI or HI. Medication Compliance: Yes Side effects from medications: Yes (as noted above) Attending Groups: Yes Review of Systems Acute medical concerns: No Mental Status Exam Mental Status Exam Narrative: Alert, oriented, in no acute distress. Calm, cooperative, superficial. Tardive dyskinesia notable. Mood stable, affect appropriate. Speech normal. Thought process linear, coherent, more goal-directed. Thought content related to stressors, future-oriented, denies any helplessness, hopelessness or SI.? No aggressive ideation or HI. No paranoia or delusional content elicited. No evidence of psychosis. Insight and judgment fair but adequate. Diagnostics Vital Signs (24Hr): BMI result Body Mass Index 20.8 Assessment & Plan Assessment & Plan (1) Bipolar I disorder, most recent episode manic, in remission: Status: Acute Code(s): F31.74 - Bipolar disorder, in full remission, most recent episode manic (2) Alcohol use disorder: Status: Acute Code(s): F10.90 - Alcohol use, unspecified, uncomplicated Assessment and Plan: reports long hx of remission since 2016, had started using alcohol again in 06/2023 (3) Cannabis use, unspecified, uncomplicated: Status: Acute Code(s): F12.90 - Cannabis use, unspecified, uncomplicated (4) Nicotine dependence: Status: Acute Code(s): F17.200 - Nicotine dependence, unspecified, uncomplicated Plan lower risperidone to 0.5 mg QHS due to worsening TD (may take additional 0.5 mg PRN sleep/agitation/benjie) will consider switch to neuroleptic with lower risk of TD (eg quetiapine) - encourage vitamin B6 100 mg/d in split doses continue Depakote ER 1250 mg qhs encouraged to start L-carnitine supplementation (to avoid carnitine depletion due to vpa) continue magnesium 400 mg qhs continue regular medications: loratadine 10 mg, hydrocortisone, Dermacin continue to monitor Patient educated on: diagnosis and medication risk/benefits Informed Consent: understands Reason for contiued partial hosp. stay Substantial Risk for: med/psych decompensation Certification I certify that partial hospital treatment is medically necessary due to the symptoms and problems resulting from the patient's mental illness and the failure to treat the patient at the partial hospital level of care would likely result in the patient requiring inpatient psychiatric care which could not be prevented at a less intensive level of care. Total time managing care of this patient today __30__ minutes. Discharge Plan Discharge Attending provider: Dorys Nicholas Medications: New risperidone 0.5 mg tablet See Rx Instructions .ROUTE .COMPLEX Qty: 30 0RF Rx Instructions: take one tablet daily at bedtime; take one tablet daily PRN sleep, agitation, mood Continued loratadine 10 mg Tablet 10 mg PO DAILY Qty: 0 0RF nicotine (polacrilex) 2 mg Lozenge 2 mg buccal Q1H PRN (Reason: Nicotine Cravings) Qty: 0 0RF magnesium oxide 400 mg (241.3 mg magnesium) Tablet 400 mg PO BEDTIME Qty: 0 0RF risperidone 1 mg Tablet 1 mg PO BEDTIME 30 Days Qty: 30 0RF divalproex 250 mg Tablet Extended Release 24 Hr 1,250 mg PO BEDTIME 30 Days Qty: 150 0RF hydrocortisone 1 % Cream 1 appl topical BID PRN (Reason: pruritus rash) Qty: 0 0RF Protocol: Apply to: Apply to: back Dermacerin Cream 1 appl topical BEDTIME Qty: 0 0RF Protocol: Apply to: Apply to: feet Print Language: Tamazight
--- NOTE | 2023-12-07 22:05 | P.PNPSP_ITS ---
Subjective Subjective Date of Service: 12/07/23 Reason For Visit: bipolar Interim History: Patient seen for follow-up, anticipating discharge at the end of program today.? Feeling ready . Denies any acute issues or concerns. Medication compliant, medications well-tolerated. Denies any adverse effects.? Mood is stable.? Denies any hopelessness or SI. Denies thoughts of harming self or others at this time. Denies any aggressive ideation or HI. Denies any paranoia or AH or VH. Sleep, appetite, energy stable. Medication Compliance: Yes Side effects from medications: No Attending Groups: Yes Mental Status Exam Mental Status Exam Narrative: Alert, oriented, in no acute distress. Calm, cooperative, superficial. Tardive dyskinesia notable. Mood stable, affect appropriate. Speech normal. Thought process linear, coherent, more goal-directed. Thought content related to stressors, future-oriented, denies any helplessness, hopelessness or SI.? No aggressive ideation or HI. No paranoia or delusional content elicited. No evidence of psychosis. Insight and judgment fair but adequate. Diagnostics Vital Signs (24Hr): BMI result Body Mass Index 20.8 Assessment & Plan Assessment & Plan (1) Bipolar I disorder, most recent episode manic, in remission: Status: Acute Code(s): F31.74 - Bipolar disorder, in full remission, most recent episode manic (2) Alcohol use disorder: Status: Acute Code(s): F10.90 - Alcohol use, unspecified, uncomplicated Assessment and Plan: reports long hx of remission since 2016, had started using alcohol again in 06/2023 (3) Cannabis use, unspecified, uncomplicated: Status: Acute Code(s): F12.90 - Cannabis use, unspecified, uncomplicated (4) Nicotine dependence: Status: Acute Code(s): F17.200 - Nicotine dependence, unspecified, uncomplicated Plan Discharge from [facility] continue risperidone 0.25 mg QAM (lowered from 0.5 mg due to worsening TD) continue risperidone 0.5 mg QHS may take additional 0.25 mg PRN sleep/agitation/benjie shared thoughts about switching to neuroleptic with lower risk of TD (eg quetiapine) which she agrees to discuss with OP provider encourage vitamin B6 100 mg/d in split doses continue Depakote ER 1250 mg qhs may consider L-carnitine supplementation (to avoid carnitine depletion due to vpa) continue magnesium 400 mg qhs continue regular medications: loratadine 10 mg, hydrocortisone, Dermacin Refills sent to pharmacy Will defer further medication management to outpatient provider Discharge paperwork signed and given to patient, copy sent for scanning to chart *Safety plan reviewed *Discharge Diagnoses reviewed with patient, as well as treatment course, discharge plan (including medication regime, medication management, potential side effects) as well as treatment rationale were also revisited If patient wishes, outpatient provider may reach out for any further questions or clarification as pertains to this patient?s clinical care/treatment during their stay at [facility] (contact information provided to patient) Reason for contiued partial hosp. stay Substantial Risk for: stable for discharge Certification I certify that partial hospital treatment is medically necessary due to the symptoms and problems resulting from the patient's mental illness and the failure to treat the patient at the partial hospital level of care would likely result in the patient requiring inpatient psychiatric care which could not be prevented at a less intensive level of care. Total time managing care of this patient today ____ minutes. Discharge Plan Discharge Attending provider: Dorys Nicholas Medications: New risperidone 0.5 mg tablet See Rx Instructions .ROUTE .COMPLEX Qty: 30 0RF Rx Instructions: take one tablet daily at bedtime; take one tablet daily PRN sleep, agitation, mood Continued loratadine 10 mg Tablet 10 mg PO DAILY Qty: 0 0RF nicotine (polacrilex) 2 mg Lozenge 2 mg buccal Q1H PRN (Reason: Nicotine Cravings) Qty: 0 0RF magnesium oxide 400 mg (241.3 mg magnesium) Tablet 400 mg PO BEDTIME Qty: 0 0RF risperidone 1 mg Tablet 1 mg PO BEDTIME 30 Days Qty: 30 0RF divalproex 250 mg Tablet Extended Release 24 Hr 1,250 mg PO BEDTIME 30 Days Qty: 150 0RF hydrocortisone 1 % Cream 1 appl topical BID PRN (Reason: pruritus rash) Qty: 0 0RF Protocol: Apply to: Apply to: back Dermacerin Cream 1 appl topical BEDTIME Qty: 0 0RF Protocol: Apply to: Apply to: feet Stand Alone Forms: Patient Portal Discharge page Patient Education: Bipolar Disorder (ED) Print Language: Kyrgyz
== END 2023-12-07 23:59 | disposition home or self-care (01) ==
LOC: HO.PHPA 08:30
PROVIDERS: Visit Provider Psychiatry & Neurology Psychiatry
DX: F31.74 Bipolar disorder, in full remission, most recent episode manic (principal); F12.90 Cannabis use, unspecified, uncomplicated; F17.200 Nicotine dependence, unspecified, uncomplicated; F10.91 Alcohol use, unspecified, in remission; Z79.899 Other long term (current) drug therapy
CPT/HCPCS: 90791; 90853

== ENCOUNTER 2024-04-11 18:34 | Inpatient (IN) | payer MEDICARE, SELFPAY ==
--- NOTE | ~2024-04-11 | MR_ITS ---
EXAMINATION: MR BRAIN WITHOUT CONTRAST CLINICAL INFORMATION: Cognitive decline. COMPARISON: None. TECHNIQUE: Multiplanar, multisequence MR imaging was performed through the brain without the use of intravenous gadolinium. Additional high-resolution anatomic imaging was performed through the brain and images were submitted for post processing including auto-segmentation and volumetric analysis. FINDINGS: No focal restricted diffusion is demonstrated to suggest acute or subacute cerebral ischemia. No evidence of acute or chronic hemorrhagic products on heme-sensitive imaging. Scattered and partially confluent periventricular, deep white matter, and brainstem T2 FLAIR hyperintensities consistent with mild to moderate underlying microangiopathy. Proportional prominence of the ventricles and sulcal spaces without evidence of obstructive hydrocephalus. Normal posterior callosal angle. No abnormal mass effect. No midline shift. Normal appearance of the pituitary gland. Normal positioning of the cerebellar tonsils. Normal arterial and venous vascular flow voids are present. Normal, homogeneous marrow signal. There is a 1.8 cm cyst with internal debris in the right fossa of [place]. Mild mucosal thickening of the paranasal sinuses. Moderate left and small right mastoid effusions. Baseline NeuroQuant volumetric assessment of the hippocampi was subsequently performed. Quantitative volume estimates at an age-adjusted normative percentile: Superior lateral ventricular size: 99% Inferior lateral ventricular size: 86% Whole brain: 12% Frontal cortex: 97% Parietal cortex: 58% Occipital cortex: 1% Temporal cortex: 74% Hippocampi: 4% MR/MR brain wo con w neuroquant IMPRESSION: 1. No acute intracranial abnormalities. 2. Mild to moderate underlying microangiopathy and generalized cerebral volume loss. 3. 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 Electronically signed by: Levy Lee DO 04/14/2024 11:52 AM EDT
--- NOTE | ~2024-04-11 | XR_ITS ---
EXAMINATION: Pre-MRI screening. CLINICAL INFORMATION: Pre-MRI screening. COMPARISON: None. TECHNIQUE: 2V SKULL, 1V CHEST, 1 KUB FINDINGS: No radiopaque foreign bodies. Normal radiographs of the skull. No acute abnormality of the chest. Multiple healed left-sided rib fractures. Moderate to large volume of stool in the colon. Nonobstructive bowel pattern. XR/XR pre mri screening IMPRESSION: 1. No radiopaque foreign bodies. 2. Moderate to large volume of stool in the colon. Electronically signed by: Pablo Wyatt MD 04/13/2024 06:36 PM EDT
[2024-04-11 18:36] VITALS: BP 144/48; PULSE 89; RESP 18; TEMP 36.6; O2SAT 98; BMI 19.0
--- NOTE | 2024-04-11 18:40 | ED.GENADULT ---
HPI - General Adult General Chief complaint: Behavioral Concerns Stated complaint: crisis Time Seen by Provider: 04/11/24 19:46 History of Present Illness ED Provider: Kimmie HPI narrative: 69-year-old female with past medical history of bipolar disorder and alcohol use presenting for psychiatric illness. Patient's sisters are at bedside and state that patient has not been taking her medication as of late and she is going through a manic episode with flight of ideas, excessive drinking, insomnia, lack of appetite. There has been no SI/HI and the patient has not made any attempts to harm herself. The patient is alert and oriented x4 however her speech is tangential and nonsensical and she is not able to provide a reliable history. Related Data Previous Rx's ?Medication ?Instructions ?Recorded divalproex 250 mg tablet,extended 1,250 mg (5 x 250 mg) PO BEDTIME 11/16/23 release 24 hr 30 days #150 tabs hydrocortisone 1 % topical cream 1 appl topical BID PRN pruritus 11/16/23 rash #0 grams loratadine 10 mg tablet 10 mg PO DAILY #0 tabs 11/16/23 magnesium oxide 400 mg (241.3 mg 400 mg PO BEDTIME #0 tabs 11/16/23 magnesium) tablet nicotine (polacrilex) 2 mg buccal 2 mg buccal Q1H PRN Nicotine 11/16/23 lozenge Cravings #0 ea risperidone 1 mg tablet 1 mg PO BEDTIME 30 days #30 tabs 11/16/23 white petrolatum-mineral oil 1 appl topical BEDTIME #0 grams 11/16/23 topical cream (Dermacerin topical cream) risperidone 0.5 mg tablet See Rx Instructions .Route 12/04/23 .COMPLEX #30 tabs Allergies Allergy/AdvReac Type Severity Reaction Status Date / Time No Known Allergies Allergy Verified 04/11/24 18:47 Review of Systems Review of Systems: Yes Unobtainable due to mental status PMFSH Past Medical History Medical History (Updated 04/12/24 @ 00:51 by Seth Burks MD) Bipolar disorder with severe benjie Fracture, ankle Fracture, foot Perforated ulcer Surgical History (Updated 11/20/23 @ 10:48 by Saima Rodriguez RN) Hx of tonsillectomy Social History Social History Household Members: Family Household Members Other:: mother Housing: House Do you presently have visiting nurse or other home services: No Alcohol intake: current Alcohol intake frequency: 3 or more drinks per day Patient Tobacco Use Status: Current everyday Tobacco user Tobacco use type: Cigarette Cigarette Packs Per Day: 0.5 Cigarettes Per Day: 20 Years Smoked: 40 Second Hand Smoke Exposure: No Use of substances other than those prescribed or required for medical reasons: Refusing to respond Substance Use Type: Marijuana Advance Directives: No Advance Directives Information Provided: No Do you have a plan to hurt others: No Plan service: No Sexual orientation: Straight/Heterosexual Physical Exam ED Vital Signs: Vital Signs - 24 hr 04/11/24 18:36 04/11/24 23:44 Temperature 98 F 97.8 F Pulse Rate 89 64 Respiratory Rate 18 20 Blood Pressure 144/48 H 134/60 Pulse Oximetry 98 97 Oxygen Delivery Method Room Air Room Air BMI result Body Mass Index 19.0 Disheveled appearance No external signs of trauma No focal neurologic deficits appreciated Lungs clear to auscultation bilaterally; normal S1-S2 regular rate and rhythm Abdomen is soft nontender nondistended Course Course Course Narrative: This is an RME: Additional HPI, ROS, PE not included below will be deferred to primary provider. RME assessment and note performed by: Kelsey Zeng PA-C This is a 69 year old female, with a hx of bipolar I disorder, who presents to the ER accompanied by her sisters, who presents for evaluation for manic episode. Pt has been experiencing dry mouth so she has not been taking her medications. Recent admission to [facility] for 4 days in Feb, discharged on 03/18. She lives alone in her apartment. No current VNA services. Sisters reporting paranoia as well. Sisters will stay with patient until she can be brought back into a room. Recovering alcoholic, drinks 1/2 nip per day. No SI/HI Plan: Labs, UA utox, care team consult Reevaluation(s) Reevaluation #1: patient and seen and evaluated by CARE team. patient is going to be an inpatient psych bed search. hopeful for a bed today. will continue to monitor. med rec still pending. Time: 09:38 Medications Administered Discontinued Medications Generic Name Dose Route Start Last Admin Trade Name Freq PRN Reason Stop Dose Admin Folic Acid 1 mg 04/11/24 20:10 10/14/24 21:40 Folic Acid 1 Mg Tablet PO 04/11/24 20:11 Not Given ONCE ONE Thiamine HCl 100 mg 04/11/24 20:10 04/11/24 21:40 Thiamine Hcl 100 Mg Tablet PO 04/11/24 20:11 Not Given ONCE ONE Medical Decision Making Medical Decision Making [facility] Narrative: This is a 69-year-old female presenting for psychiatric issue. Patient is likely experiencing a bipolar manic episode in setting of not taking her home meds and alcohol use. I am also concerned for acute intoxication, electrolyte/metabolic disturbance. Less likely secondary to underlying infection however will obtain a UA. Patient has no respiratory symptoms and I do not believe a chest x-ray is necessary - labs notable for stable H&H and normal electrolytes - consulted to care team place - labs notable for stable H&H, no white count, BMP within normal limits - contaminated UA; no concern for UTI - patient is pending care team evaluation and is still a patient here. I will sign out to the appropriate provider Differential Diagnosis Differential Diagnoses: The differential diagnosis associated with the presentation includes Bipolar disorder, manic episode, electrolyte/metabolic disturbance, intoxication, underlying infectious Lab Data 04/11/24 19:24 04/11/24 19:24 Labs: Lab Results 04/11/24 04/11/24 04/11/24 Range/Units 19:24 20:06 20:07 WBC 7.1 (4.8-10.8) X10*3/uL RBC 4.14 L (4.20-5.50) X10*6/uL Hgb 12.6 (12.0-16.0) g/dl Hct 37.9 (37.0-47.0) % MCV 91.5 (80.0-98.0) fL MCH 30.4 (27.0-33.0) pg MCHC 33.2 (31.0-35.0) g/dl RDW 13.5 (11.0-16.0) % Plt Count 233 (160-400) X10*3/uL MPV 9.8 (9.4-12.3) fL Immature Gran % (Auto) 0.1 (0.0-0.4) % Neut % (Auto) 54.6 (45-73) % Lymph % (Auto) 31.2 (20-40) % [place] % (Auto) 9.6 (2-11) % Eos % (Auto) 3.7 (0-4) % Baso % (Auto) 0.8 (0-2) % Lymph # (Auto) 2.2 (1.2-4.9) X10*3/uL [place] # (Auto) 0.7 (0.1-1.2) X10*3/uL Eos # (Auto) 0.3 (0.0-0.4) X10*3/uL Baso # (Auto) 0.1 (0.0-0.2) X10*3/uL Abs Immat Gran (auto) 0.01 (0.00-0.03) X10*3/uL Absolute Neuts (auto) 3.9 (2.0-8.3) x10*3/uL Absolute Nucleated RBC 0.000 (0.0-0.012) X10*3/uL Nucleated RBC % (auto) 0.0 (0.0-0.2) /100WBC Sodium 142 (135-145) mmol/L Potassium 4.2 (3.3-5.1) mmol/L Chloride 112 H (96-108) mmol/L Carbon Dioxide 23 (22-29) mmol/L Anion Gap 11 L (12-20) BUN 16 (9-16) mg/dL Creatinine 0.69 (0.5-1.4) mg/dL Estim Creat Clear Calc 70.8 Estimated GFR > 60 Random Glucose 80 (60-115) mg/dL Calcium 9.5 (8.4-10.2) mg/dL Magnesium (1.6-2.6) mg/dL Total Bilirubin 0.3 (0.0-1.0) mg/dL Direct Bilirubin 0.1 (0.0-0.5) mg/dL AST 26 (5-31) U/L ALT 16 (0-31) U/L Alkaline Phosphatase 71 (39-117) U/L Total Protein 6.3 L (6.5-8.0) g/dL Albumin 3.9 (3.5-5.0) g/dL TSH (0.32-4.0) uIU/mL Urine Color Yellow Urine Appearance Cloudy Urine pH 7.0 (5.0-9.0) Ur Specific [place] 1.010 (1.005-1.025) Urine Protein Negative (Neg-Trace) mg/dL Urine Glucose (UA) Negative (Negative) mg/dL Urine Ketones Negative (Negative) mg/dL Urine Blood Negative (Negative) Urine Nitrite Negative (Negative) Ur Leukocyte Esterase Small (1+) H (Negative) Urine RBC 0-2 (0-2) /HPF Urine WBC 11-20 H (0-5) /HPF Ur Squamous Epith Cells 6-10 (0-2) /HPF Urine Bacteria 4+ (None Seen) Hyaline Casts 0-2 (0-2) /LPF Urine Opiates Screen Not Detected (Not Detect) Ur Buprenorphine Scrn Not Detected (Not Detect) ng/mL Ur Oxycodone Screen Not Detected (Not Detect) ng/mL Urine Methadone Screen Not Detected (Not Detect) ng/mL Urine Fentanyl Screen Not Detected (Not Detect) Ur Barbiturates Screen Not Detected (Not Detect) Valproic Acid (50.0-100.0) mcg/mL Ur Phencyclidine Scrn Not Detected (Not Detect) Ur Amphetamines Screen Not Detected (Not Detect) U Benzodiazepines Scrn Not Detected (Not Detect) Urine Cocaine Screen Not Detected (Not Detect) U Marijuana (THC) Screen Not Detected (Not Detect) Ethyl Alcohol < 10 mg/dL 04/11/24 04/12/24 Range/Units 20:10 00:04 WBC (4.8-10.8) X10*3/uL RBC (4.20-5.50) X10*6/uL Hgb (12.0-16.0) g/dl Hct (37.0-47.0) % MCV (80.0-98.0) fL MCH (27.0-33.0) pg MCHC (31.0-35.0) g/dl RDW (11.0-16.0) % Plt Count (160-400) X10*3/uL MPV (9.4-12.3) fL Immature Gran % (Auto) (0.0-0.4) % Neut % (Auto) (45-73) % Lymph % (Auto) (20-40) % [place] % (Auto) (2-11) % Eos % (Auto) (0-4) % Baso % (Auto) (0-2) % Lymph # (Auto) (1.2-4.9) X10*3/uL [place] # (Auto) (0.1-1.2) X10*3/uL Eos # (Auto) (0.0-0.4) X10*3/uL Baso # (Auto) (0.0-0.2) X10*3/uL Abs Immat Gran (auto) (0.00-0.03) X10*3/uL Absolute Neuts (auto) (2.0-8.3) x10*3/uL Absolute Nucleated RBC (0.0-0.012) X10*3/uL Nucleated RBC % (auto) (0.0-0.2) /100WBC Sodium (135-145) mmol/L Potassium (3.3-5.1) mmol/L Chloride (96-108) mmol/L Carbon Dioxide (22-29) mmol/L Anion Gap (12-20) BUN (9-16) mg/dL Creatinine (0.5-1.4) mg/dL Estim Creat Clear Calc Estimated GFR Random Glucose (60-115) mg/dL Calcium (8.4-10.2) mg/dL Magnesium 2.0 (1.6-2.6) mg/dL Total Bilirubin (0.0-1.0) mg/dL Direct Bilirubin (0.0-0.5) mg/dL AST (5-31) U/L ALT (0-31) U/L Alkaline Phosphatase (39-117) U/L Total Protein (6.5-8.0) g/dL Albumin (3.5-5.0) g/dL TSH 1.09 (0.32-4.0) uIU/mL Urine Color Urine Appearance Urine pH (5.0-9.0) Ur Specific [place] (1.005-1.025) Urine Protein (Neg-Trace) mg/dL Urine Glucose (UA) (Negative) mg/dL Urine Ketones (Negative) mg/dL Urine Blood (Negative) Urine Nitrite (Negative) Ur Leukocyte Esterase (Negative) Urine RBC (0-2) /HPF Urine WBC (0-5) /HPF Ur Squamous Epith Cells (0-2) /HPF Urine Bacteria (None Seen) Hyaline Casts (0-2) /LPF Urine Opiates Screen (Not Detect) Ur Buprenorphine Scrn (Not Detect) ng/mL Ur Oxycodone Screen (Not Detect) ng/mL Urine Methadone Screen (Not Detect) ng/mL Urine Fentanyl Screen (Not Detect) Ur Barbiturates Screen (Not Detect) Valproic Acid < 12.5 L (50.0-100.0) mcg/mL Ur Phencyclidine Scrn (Not Detect) Ur Amphetamines Screen (Not Detect) U Benzodiazepines Scrn (Not Detect) Urine Cocaine Screen (Not Detect) U Marijuana (THC) Screen (Not Detect) Ethyl Alcohol mg/dL Discharge Plan Discharge Clinical Impression: Altered mental status, Alcohol use disorder Patient Disposition: Still a Patient Prescriptions: No Action risperidone 0.5 mg tablet See Rx Instructions .ROUTE .COMPLEX Qty: 30 0RF Rx Instructions: take one tablet daily at bedtime; take one tablet daily PRN sleep, agitation, mood loratadine 10 mg Tablet 10 mg PO DAILY Qty: 0 0RF nicotine (polacrilex) 2 mg Lozenge 2 mg buccal Q1H PRN (Reason: Nicotine Cravings) Qty: 0 0RF magnesium oxide 400 mg (241.3 mg magnesium) Tablet 400 mg PO BEDTIME Qty: 0 0RF risperidone 1 mg Tablet 1 mg PO BEDTIME 30 Days Qty: 30 0RF divalproex 250 mg Tablet Extended Release 24 Hr 1,250 mg PO BEDTIME 30 Days Qty: 150 0RF hydrocortisone 1 % Cream 1 appl topical BID PRN (Reason: pruritus rash) Qty: 0 0RF Protocol: Apply to: Apply to: back Dermacerin Cream 1 appl topical BEDTIME Qty: 0 0RF Protocol: Apply to: Apply to: feet Print Language: Mohawk
[2024-04-11 19:46] LABS: MANUAL DIFF FLAG NO
[2024-04-11 19:57] LABS: Basophils Absolute Auto 0.1 X10*3/uL (0.0-0.2); Basophils Percent Auto 0.8 % (0-2); Eosinophils Absolute Auto 0.3 X10*3/uL (0.0-0.4); Eosinophils Percent Auto 3.7 % (0-4); Hematocrit 37.9 % (37.0-47.0); Hemoglobin 12.6 g/dl (12.0-16.0); Imm Gran Abs Auto 0.01 X10*3/uL (0.00-0.03); Imm Gran Pct Auto 0.1 % (0.0-0.4); Lymphocytes Absolute Auto 2.2 X10*3/uL (1.2-4.9); Lymphocytes Percent Auto 31.2 % (20-40); Mean Corpuscular HGB Conc 33.2 g/dl (31.0-35.0); Mean Corpuscular Hemoglobin 30.4 pg (27.0-33.0); Mean Corpuscular Volume 91.5 fL (80.0-98.0); Mean Platelet Volume 9.8 fL (9.4-12.3); Monocytes Absolute Auto 0.7 X10*3/uL (0.1-1.2); Monocytes Percent Auto 9.6 % (2-11); Neutrophils Absolute Auto 3.9 x10*3/uL (2.0-8.3); Neutrophils Percent Auto 54.6 % (45-73); Platelet Count 233 X10*3/uL (160-400); Red Blood Count 4.14 X10*6/uL (4.20-5.50); Red Cell Distribution Width 13.5 % (11.0-16.0); White Blood Count 7.1 X10*3/uL (4.8-10.8)
[2024-04-11 20:06] LABS: Alanine Aminotransferase 16 U/L (0-31); Albumin Level 3.9 g/dL (3.5-5.0); Alkaline Phosphatase 71 U/L (39-117); Anion Gap 11 (12-20); Aspartate Amino Transferase 26 U/L (5-31); Bilirubin Direct 0.1 mg/dL (0.0-0.5); Bilirubin Total 0.3 mg/dL (0.0-1.0); Blood Urea Nitrogen 16 mg/dL (9-16); Calcium 9.5 mg/dL (8.4-10.2); Carbon Dioxide 23 mmol/L (22-29); Chloride 112 mmol/L (96-108); Creatinine Clr Calc Pharmacy 70.8; Estimated Glomerular Filt Rate > 60; Ethanol < 10 mg/dL; Glucose Random 80 mg/dL (60-115); Potassium 4.2 mmol/L (3.3-5.1); Sodium 142 mmol/L (135-145); Total Protein 6.3 g/dL (6.5-8.0)
--- NOTE | 2024-04-11 20:08 | ECG_ITS ---
Test Reason : DANNA Blood Pressure : / mmHG Vent. Rate : 056 BPM Atrial Rate : 056 BPM P-R Int : 122 ms QRS Dur : 076 ms QT Int : 416 ms P-R-T Axes : 047 -01 037 degrees QTc Int : 401 ms Sinus bradycardia Otherwise normal ECG When compared with ECG of 26-OCT-2023 14:57, Premature atrial complexes are no longer Present Referred By: Seth Burks Electronically Signed By:OSIRIS DOUGHERTY
[2024-04-11 20:19] LABS: Appearance Urine Cloudy; Color Urine Yellow; Glucose Urine UA Negative (Negative); Leukocyte Esterase Urine Small (1+) (Negative); Nitrite Urine Negative (Negative); UMIC TRIGGER UACC YES; Urine Blood Negative (Negative); Urine Ketones Negative (Negative); Urine Protein Negative (Neg-Trace)
[2024-04-11 20:24] LABS: Bacteria Urine 4+ (None Seen); Hyaline Casts Urine 0-2 /LPF (0-2); UACC Culture Trigger YES
[2024-04-11 20:28] LABS: RBC Urine 0-2 /HPF (0-2)
[2024-04-11 20:52] LABS: TSH reflex Free T4 1.09 uIU/mL (0.32-4.0)
[2024-04-11 21:22] LABS: Amphetamine Screen Urine Not Detected (Not Detect); Barbiturates, Urine Not Detected (Not Detect); Benzodiazepines Screen Urine Not Detected (Not Detect); Buprenorphine Scr Not Detected (Not Detect); Cannabinoid Screen Urine Not Detected (Not Detect); Cocaine Screen Urine Not Detected (Not Detect); Fentanyl, urine Not Detected (Not Detect); Methadone Screen, Urine Not Detected (Not Detect); Opiate Screen Urine Not Detected (Not Detect); Oxycodone Screen Urine Not Detected (Not Detect); Phencyclidine Screen Urine Not Detected (Not Detect)
[2024-04-11 23:44] VITALS: BP 134/60; PULSE 64; RESP 20; TEMP 36.6; O2SAT 97
[2024-04-12 02:33] LABS: Valproate < 12.5 mcg/mL (50.0-100.0)
--- NOTE | 2024-04-12 06:46 | PC.NURSE ---
pt changed over and belongings secured by security. placed in [facility] port
--- NOTE | 2024-04-12 09:28 | MHC.CARE ---
Pt will be a [facility]
--- NOTE | 2024-04-12 11:35 | PC.NURSE ---
Spoke with Brittani in pharmacy to request med rec. Brittani reports pharmacy will complete.
--- NOTE | 2024-04-12 12:07 | PHA.MEDREC ---
Addendum entered by Timothy Ferguson 04/12/24 12:31: reviewed Original Note: Pharmacy Consult ? Medication Reconciliation Pharmacy has completed the medication reconciliation. Spoke to patient sister to confirm med list. Sister stated patient is only taking Divalproex 500 mg QAM and 1,000 mg QPM, Risperidone 1 mg at bedtime prn, Melatonin 10 mg at bedtime prn, and sister stated patient is a heavy smoker and will nee nicotine . sister states patient hasn't had her medication a over a week.
--- NOTE | 2024-04-12 14:51 | PC.NURSE ---
RN to RN report given to KARYN Kuo on S1. Belongings removed from [employer] locker and placed with sitter pending transport arrival.
[2024-04-12 15:30] VITALS: BP 152/66; PULSE 53; RESP 18; TEMP 36.2; O2SAT 99
--- NOTE | 2024-04-12 17:11 | PC.ADMIT ---
Mariola arrived to S1 from ED/C at 1520 in w/c accompanied by a nurse and MHC. Patient is 69 year old female, alert and oriented x4, living alone in a mobile house. Significant other two years ago. Admitted with Dx of Bipolar D/O and AMS. Per pt's sister Mariola has not been taking her medications, has been drinking to excess. Upon assessment Mariola was initially pleasant and calm, then noted irritation upon question about alcohol use. Her speech is clear, however, tangential and at times nonsensical. No withdrawal symptoms noted upon assessment. Mariola has occasional problems with sleep, also reports liking to eat. Pt has no teeth and no dentures, stated, she doesn't have problems with chewing food. Takes her meds whole with water. Pt is independent with ambulation, gait steady. Skin check completed, rash on her back and bilateral lower extremities. Also scratched areas on burrows areas of oseas.legs. VS: T 97.1, P 53, BP 152/66, R 18, O2sat 99% on RA. Mariola refused Influenza vaccine. Adjusting well to a new unit. Notice of Rights given to pt. Release papers signed. Will continue to monitor.
[2024-04-12 21:31] VITALS: BP 114/65; PULSE 61; RESP 18; TEMP 36.2; O2SAT 97
[2024-04-12] MEDS: Melatonin 3 MG TABLET 9 MG PO (21:34)
[2024-04-12] MEDS: Divalproex Sodium 500 MG TABLET.DR 1000 MG PO (21:34)
[2024-04-12] MEDS: traZODone HCL 50 MG TABLET PO (21:35)
[2024-04-13 08:22] LABS: Estimated Average Glucose 100 mg/dL; Hemoglobin A1C 112.4362 umol/L; Hemoglobin A1c % 5.1 % (<6.0); Total Hemoglobin (HGBA1C) 3461.5653 umol/L
[2024-04-13 08:35] LABS: Alanine Aminotransferase 16 U/L (0-31); Albumin Level 3.6 g/dL (3.5-5.0); Alkaline Phosphatase 80 U/L (39-117); Anion Gap 10 (12-20); Aspartate Amino Transferase 23 U/L (5-31); Bilirubin Total 0.2 mg/dL (0.0-1.0); Blood Urea Nitrogen 18 mg/dL (9-16); Calcium 9.5 mg/dL (8.4-10.2); Carbon Dioxide 24 mmol/L (22-29); Chloride 111 mmol/L (96-108); Cholesterol 164 mg/dL (<200); Creatinine Clr Calc Pharmacy 70.8; Estimated Glomerular Filt Rate > 60; Glucose Fasting 88 mg/dL (60-99); HDL Cholesterol 65 mg/dL (>40); LDL Cholesterol Calculated 78 mg/dL (<100); Sodium 140 mmol/L (135-145); Triglycerides 107 mg/dL (<150)
[2024-04-13 08:49] LABS: Thyroid Stimulating Hormone 1.23 uIU/mL (0.32-4.0)
[2024-04-13 09:03] LABS: Folate 8.8 ng/mL (> or = 4.0); Vitamin B12 457 pg/mL (200-900)
--- NOTE | 2024-04-13 09:03 | P.PNPSI_ITS ---
Subjective Subjective Reason For Visit: SI Diagnostics Vital Signs (24Hr): Vital Signs - 24 hr 04/12/24 15:30 04/12/24 21:31 Temperature 97.1 F 97.2 F Pulse Rate 53 61 Respiratory Rate 18 18 Blood Pressure 152/66 H 114/65 Pulse Oximetry 99 97 Oxygen Delivery Method Room Air BMI result Body Mass Index 19.0 Labs 04/11/24 19:24 04/13/24 07:40 Labs: Laboratory Results - last 48 hr 04/11/24 04/11/24 04/11/24 19:24 20:06 20:07 WBC 7.1 RBC 4.14 L Hgb 12.6 Hct 37.9 MCV 91.5 MCH 30.4 MCHC 33.2 RDW 13.5 Plt Count 233 MPV 9.8 Immature Gran % (Auto) 0.1 Neut % (Auto) 54.6 Lymph % (Auto) 31.2 [place] % (Auto) 9.6 Eos % (Auto) 3.7 Baso % (Auto) 0.8 Lymph # (Auto) 2.2 [place] # (Auto) 0.7 Eos # (Auto) 0.3 Baso # (Auto) 0.1 Abs Immat Gran (auto) 0.01 Absolute Neuts (auto) 3.9 Absolute Nucleated RBC 0.000 Nucleated RBC % (auto) 0.0 Sodium 142 Potassium 4.2 Chloride 112 H Carbon Dioxide 23 Anion Gap 11 L BUN 16 Creatinine 0.69 Estim Creat Clear Calc 70.8 Estimated GFR > 60 Random Glucose 80 Fasting Glucose Estimat Average Glucose Hemoglobin A1c % Calcium 9.5 Magnesium Total Bilirubin 0.3 Direct Bilirubin 0.1 AST 26 ALT 16 Alkaline Phosphatase 71 Total Protein 6.3 L Albumin 3.9 Triglycerides Cholesterol LDL Cholesterol, Calc HDL Cholesterol Vitamin B12 Folate TSH Urine Color Yellow Urine Appearance Cloudy Urine pH 7.0 Ur Specific [place] 1.010 Urine Protein Negative Urine Glucose (UA) Negative Urine Ketones Negative Urine Blood Negative Urine Nitrite Negative Ur Leukocyte Esterase Small (1+) H Urine RBC 0-2 Urine WBC 11-20 H Ur Squamous Epith Cells 6-10 Urine Bacteria 4+ Hyaline Casts 0-2 Urine Opiates Screen Not Detected Ur Buprenorphine Scrn Not Detected Ur Oxycodone Screen Not Detected Urine Methadone Screen Not Detected Urine Fentanyl Screen Not Detected Ur Barbiturates Screen Not Detected Valproic Acid Ur Phencyclidine Scrn Not Detected Ur Amphetamines Screen Not Detected U Benzodiazepines Scrn Not Detected Urine Cocaine Screen Not Detected U Marijuana (THC) Screen Not Detected Ethyl Alcohol < 10 04/11/24 04/12/24 04/13/24 20:10 00:04 07:40 WBC RBC Hgb Hct MCV MCH MCHC RDW Plt Count MPV Immature Gran % (Auto) Neut % (Auto) Lymph % (Auto) [place] % (Auto) Eos % (Auto) Baso % (Auto) Lymph # (Auto) [place] # (Auto) Eos # (Auto) Baso # (Auto) Abs Immat Gran (auto) Absolute Neuts (auto) Absolute Nucleated RBC Nucleated RBC % (auto) Sodium 140 Potassium 5.0 Chloride 111 H Carbon Dioxide 24 Anion Gap 10 L BUN 18 H Creatinine 0.69 Estim Creat Clear Calc 70.8 Estimated GFR > 60 Random Glucose Fasting Glucose 88 Estimat Average Glucose 100 Hemoglobin A1c % 5.1 Calcium 9.5 Magnesium 2.0 Total Bilirubin 0.2 Direct Bilirubin AST 23 ALT 16 Alkaline Phosphatase 80 Total Protein 6.0 L Albumin 3.6 Triglycerides 107 Cholesterol 164 LDL Cholesterol, Calc 78 HDL Cholesterol 65 Vitamin B12 457 Folate 8.8 TSH 1.09 1.23 Urine Color Urine Appearance Urine pH Ur Specific [place] Urine Protein Urine Glucose (UA) Urine Ketones Urine Blood Urine Nitrite Ur Leukocyte Esterase Urine RBC Urine WBC Ur Squamous Epith Cells Urine Bacteria Hyaline Casts Urine Opiates Screen Ur Buprenorphine Scrn Ur Oxycodone Screen Urine Methadone Screen Urine Fentanyl Screen Ur Barbiturates Screen Valproic Acid < 12.5 L Ur Phencyclidine Scrn Ur Amphetamines Screen U Benzodiazepines Scrn Urine Cocaine Screen U Marijuana (THC) Screen Ethyl Alcohol Medications Medications Current Medications Acetaminophen (Acetaminophen 325 Mg Tablet) 650 mg PO Q6H PRN PRN Reason: Headache/Pain Mild Scale (1-3) Al Hydroxide/Mg Hydroxide (Magnesium Hydrox/Alum Hydrox 30 Ml Oral.Susp) 30 ml PO Q6H PRN PRN Reason: Heartburn/Nausea Cefuroxime Axetil (Cefuroxime Axetil 250 Mg Tablet) 250 mg PO BID MIHAELA Stop: 04/19/24 21:01 Divalproex Sodium (Divalproex Sodium 500 Mg Tablet.) 1,000 mg PO BEDTIME MIHAELA Last Admin: 04/12/24 21:34 Dose: 1,000 mg Divalproex Sodium (Divalproex Sodium 500 Mg Tablet.Dr) 500 mg PO DAILY MIHAELA Magnesium Hydroxide (Milk Of Magnesia 30 Ml Oral.Susp) 30 ml PO DAILY PRN PRN Reason: Constipation Melatonin (Melatonin 3 Mg Tablet) 9 mg PO BEDTIME PRN PRN Reason: Sleep Last Admin: 04/12/24 21:34 Dose: 9 mg Nicotine Polacrilex (Nicotine Polacrilex Lozenge 2 Mg Lozenge) 2 mg BUCCAL Q1H PRN PRN Reason: Nicotine Cravings Risperidone (Risperidone 1 Mg Tablet) 1 mg PO BEDTIME PRN PRN Reason: Agitation Trazodone HCl (Trazodone Hcl 50 Mg Tablet) 50 mg PO BEDTIME MRX1 PRN PRN Reason: Insomnia Last Admin: 04/12/24 21:35 Dose: 50 mg Allergies Allergies Allergy/AdvReac Type Severity Reaction Status Date / Time No Known Allergies Allergy Verified 04/11/24 18:47 Assessment & Plan Time Spent With Patient Time: Total time managing care of this patient today ____ minutes.
--- NOTE | 2024-04-13 09:03 | HO.PSYADMNOT ---
HPI Date of Service: 04/13/24 Chief Complaint: SI Sources of Information: patient interviewed, chart reviewed and crisis/core team assessment reviewed HPI Subjective Notes: Smith Warning and Conditional Voluntary Narrative: Ms. Dick is a 69 year-old woman with hx of Bipolar disorder type 1, Alcohol Use disorder who was brought by her sister on 04/11 due to pt presenting as disorganized, tangential, per sister not sleeping and suspecting she has been using more alcohol. In the ED, her BAL was negative. Utox also negative. Depakote level less than 12. On the unit, pt presents with somewhat of an expansive mood. When asked why she is here in the hospital, she states she is a long sttory. However, she rambles about events that have happened back in and is difficult to follow. She reports she has been taking her medications, but depakote is low, clearly not taking at prescribed dose. She denies daily alcohol use. She does report drinking some nip. Her BP has been stable. She is not tremulous. She has not been on ciwa in the ED. She reports fair sleep. She denies visual or auditory hallucinations. She is oriented to place, month, year but not situation. She is amenable to receive treatment, restart psychotropic medications including depakote and risperidone 1mg po qhs. She denies SI/HI. Past Psychiatric History: Inpt admissions: about 6, M3 11/2023. SIB: denies HIB: denies outpt: Dr. Cummins, last seen july. reports no mental health history until divorce from her about 20 years ago, at 44 yo, when bipolar disorder was diagnosed. Medical Evaluation Reviewed: Yes [facility] Medical History (Updated 04/12/24 @ 00:51 by Seth Burks MD) Bipolar disorder with severe benjie Fracture, ankle Fracture, foot Perforated ulcer Surgical History (Updated 11/20/23 @ 10:48 by Saima Rodriguez RN) Hx of tonsillectomy Family History: parents - alcohol Social History: Lives alone in apartment in [place]. . Substance History: Long hx of alcohol use- unclear recent use. Trauma History: not disclosed Diagnostics Vital Signs (24Hr): Vital Signs - 24 hr 04/12/24 15:30 04/12/24 21:31 Temperature 97.1 F 97.2 F Pulse Rate 53 61 Respiratory Rate 18 18 Blood Pressure 152/66 H 114/65 Pulse Oximetry 99 97 Oxygen Delivery Method Room Air BMI result Body Mass Index 19.0 Labs 04/11/24 19:24 04/13/24 07:40 Labs: Laboratory Results - last 48 hr 04/11/24 04/11/24 04/11/24 19:24 20:06 20:07 WBC 7.1 RBC 4.14 L Hgb 12.6 Hct 37.9 MCV 91.5 MCH 30.4 MCHC 33.2 RDW 13.5 Plt Count 233 MPV 9.8 Immature Gran % (Auto) 0.1 Neut % (Auto) 54.6 Lymph % (Auto) 31.2 [place] % (Auto) 9.6 Eos % (Auto) 3.7 Baso % (Auto) 0.8 Lymph # (Auto) 2.2 [place] # (Auto) 0.7 Eos # (Auto) 0.3 Baso # (Auto) 0.1 Abs Immat Gran (auto) 0.01 Absolute Neuts (auto) 3.9 Absolute Nucleated RBC 0.000 Nucleated RBC % (auto) 0.0 Sodium 142 Potassium 4.2 Chloride 112 H Carbon Dioxide 23 Anion Gap 11 L BUN 16 Creatinine 0.69 Estim Creat Clear Calc 70.8 Estimated GFR > 60 Random Glucose 80 Fasting Glucose Estimat Average Glucose Hemoglobin A1c % Calcium 9.5 Magnesium Total Bilirubin 0.3 Direct Bilirubin 0.1 AST 26 ALT 16 Alkaline Phosphatase 71 Total Protein 6.3 L Albumin 3.9 Triglycerides Cholesterol LDL Cholesterol, Calc HDL Cholesterol Vitamin B12 Folate TSH Urine Color Yellow Urine Appearance Cloudy Urine pH 7.0 Ur Specific [place] 1.010 Urine Protein Negative Urine Glucose (UA) Negative Urine Ketones Negative Urine Blood Negative Urine Nitrite Negative Ur Leukocyte Esterase Small (1+) H Urine RBC 0-2 Urine WBC 11-20 H Ur Squamous Epith Cells 6-10 Urine Bacteria 4+ Hyaline Casts 0-2 Urine Opiates Screen Not Detected Ur Buprenorphine Scrn Not Detected Ur Oxycodone Screen Not Detected Urine Methadone Screen Not Detected Urine Fentanyl Screen Not Detected Ur Barbiturates Screen Not Detected Valproic Acid Ur Phencyclidine Scrn Not Detected Ur Amphetamines Screen Not Detected U Benzodiazepines Scrn Not Detected Urine Cocaine Screen Not Detected U Marijuana (THC) Screen Not Detected Ethyl Alcohol < 10 04/11/24 04/12/24 04/13/24 20:10 00:04 07:40 WBC RBC Hgb Hct MCV MCH MCHC RDW Plt Count MPV Immature Gran % (Auto) Neut % (Auto) Lymph % (Auto) [place] % (Auto) Eos % (Auto) Baso % (Auto) Lymph # (Auto) [place] # (Auto) Eos # (Auto) Baso # (Auto) Abs Immat Gran (auto) Absolute Neuts (auto) Absolute Nucleated RBC Nucleated RBC % (auto) Sodium 140 Potassium 5.0 Chloride 111 H Carbon Dioxide 24 Anion Gap 10 L BUN 18 H Creatinine 0.69 Estim Creat Clear Calc 70.8 Estimated GFR > 60 Random Glucose Fasting Glucose 88 Estimat Average Glucose 100 Hemoglobin A1c % 5.1 Calcium 9.5 Magnesium 2.0 Total Bilirubin 0.2 Direct Bilirubin AST 23 ALT 16 Alkaline Phosphatase 80 Total Protein 6.0 L Albumin 3.6 Triglycerides 107 Cholesterol 164 LDL Cholesterol, Calc 78 HDL Cholesterol 65 Vitamin B12 457 Folate 8.8 TSH 1.09 1.23 Urine Color Urine Appearance Urine pH Ur Specific [place] Urine Protein Urine Glucose (UA) Urine Ketones Urine Blood Urine Nitrite Ur Leukocyte Esterase Urine RBC Urine WBC Ur Squamous Epith Cells Urine Bacteria Hyaline Casts Urine Opiates Screen Ur Buprenorphine Scrn Ur Oxycodone Screen Urine Methadone Screen Urine Fentanyl Screen Ur Barbiturates Screen Valproic Acid < 12.5 L Ur Phencyclidine Scrn Ur Amphetamines Screen U Benzodiazepines Scrn Urine Cocaine Screen U Marijuana (THC) Screen Ethyl Alcohol Meds/Allergies Meds Home Medications ?Medication ?Instructions ?Recorded ?Confirmed ?Type divalproex 250 mg tablet,delayed 1,000 mg PO BEDTIME 04/12/24 04/12/24 History release divalproex 500 mg tablet,delayed 500 mg PO DAILY 04/12/24 04/12/24 History release melatonin 5 mg tablet 10 mg PO BEDTIME PRN Sleep 04/12/24 04/12/24 History risperidone 1 mg tablet 1 mg PO BEDTIME PRN Agitation 04/12/24 04/12/24 History Allergies Allergies Allergy/AdvReac Type Severity Reaction Status Date / Time No Known Allergies Allergy Verified 04/11/24 18:47 Mental Status Exam Mental Status Exam Narrative: Appearance: wearing hospital gown, fair hygiene, in NAD Behavior: cooperative Psychomotor: no agitation or retardation noted Speech: mostly clear, regular rate/rhythm/volume, spontaneous TP: some loose associations, TC: in agreement with treatment. Mood: okay Affect: slightly expansive SI: denies HI: denies VH/AH: none Delusions: none Memory/cog; alert, oriented to place, month and year but not situation. pending moca/acl once mood more stable. Assessment & Plan Assessment & Plan (1) Bipolar I disorder, most recent episode manic, in remission: Status: Acute Code(s): F31.74 - Bipolar disorder, in full remission, most recent episode manic (2) Alcohol use disorder: Status: Acute Code(s): F10.90 - Alcohol use, unspecified, uncomplicated Plan Ms. Garnett is a 69 year-old woman with hx of Bipolar Disorder, alcohol use disorder who was brought by sister due to presenting as more disorganized, and sister suspected increase alcohol use. In the ED, her BAL is negative. Utox is also negative. She is not so clear as to how much alcohol she was using, reports nips here and there. VS have been stable. Started on thiamine 100mg po daily. Will add ciwa while awake, although so far not displaying any acute withdrawal symptoms. We discussed risks, benefits and alternative treatment options, she agreed to restart depakote and risperidone 1mg po qhs. We also discussed memory/cognitive assessments and MRI. PLAN 1. Admit to S1, CV, 5 minutes checks 2. ciwa while awake, no alcohol symptoms noted. 3. continue depakote, risperidone 1mg po qhs. 4. cognitive/memory assessments/work up including MOCA/ACL, MRI with neuroquant. 5. obtain collateral information 6. aftercare planning. Patient educated on: diagnosis, medication risk/benefits and substance abuse Reason for continued inpatient stay Substantial Risk for: inability to function Statement Statement: I have reviewed the history and physical and performed a pertinent examination on my patient. No changes have occurred unless specified. If the History and Physical was not performed prior to admission, the Hospitalist's service will be consulted for completing the admission physical. Time Spent With Patient Time: Total time managing care of this patient today ____ minutes.
[2024-04-13 09:15] VITALS: BP 126/58; PULSE 66; RESP 20; TEMP 36.6; O2SAT 97
[2024-04-13] MEDS: Divalproex Sodium 500 MG TABLET.DR PO (09:21)
[2024-04-13] MEDS: cefuroxime axetiL 250 MG TABLET PO ×2 (09:21→20:07)
[2024-04-13] MEDS: Nicotine Polacrilex Lozenge 2 MG LOZENGE BUCCAL ×3 (13:02→20:25)
[2024-04-13] MEDS: Thiamine HCL 100 MG TABLET PO (13:03)
[2024-04-13] MEDS: Pyridoxine HCl (Vitamin B6) 50 MG TABLET PO (13:03)
[2024-04-13 20:00] VITALS: BP 111/80; PULSE 86; RESP 18; TEMP 36.5; O2SAT 98
[2024-04-13] MEDS: Divalproex Sodium 500 MG TABLET.DR 1000 MG PO (20:06)
[2024-04-13] MEDS: risperiDONE 1 MG TABLET PO (20:07)
[2024-04-13] MEDS: traZODone HCL 50 MG TABLET PO (20:07)
[2024-04-13] MEDS: Melatonin 3 MG TABLET 9 MG PO (20:07)
[2024-04-14] MEDS: Acetaminophen 325 MG TABLET 650 MG PO (01:20)
[2024-04-14 07:00] VITALS: BMI 16.0
[2024-04-14] MEDS: Nicotine Polacrilex Lozenge 2 MG LOZENGE BUCCAL ×3 (07:08→12:45)
[2024-04-14 08:00] VITALS: BP 114/60; PULSE 84; RESP 18; TEMP 36.4; O2SAT 97
[2024-04-14] MEDS: cefuroxime axetiL 250 MG TABLET PO ×2 (08:29→20:22)
[2024-04-14] MEDS: Divalproex Sodium 500 MG TABLET.DR PO (08:29)
[2024-04-14] MEDS: Thiamine HCL 100 MG TABLET PO (08:29)
[2024-04-14] MEDS: Pyridoxine HCl (Vitamin B6) 50 MG TABLET PO (08:29)
--- NOTE | 2024-04-14 09:14 | HO.PSYCHPN ---
Subjective Subjective Date of Service: 04/14/24 Reason For Visit: SI Subjective Notes: Conditional Voluntary Interim History: Pt slept most of the night. She presents as more organized. She denies SI/HI. She is less labile. She had MRI pending results. also pending moca/acl. SHe was visible on the unit, social with select peers. No behavioral concerns. Medication Compliance: Yes Side effects from medications: No Attending Groups: Yes Review of Systems Review of Systems Pt denies chest pain. No SOB. No constipation nor loose stools. She denies headaches. No changes in vision. Yes Unobtainable due to mental status Mental Status Exam Mental Status Exam Narrative: Appearance: wearing hospital gown, fair hygiene, in NAD Behavior: cooperative Psychomotor: no agitation or retardation noted Speech: mostly clear, regular rate/rhythm/volume, spontaneous TP: some loose associations, TC: in agreement with treatment. Mood: okay Affect: slightly expansive SI: denies HI: denies VH/AH: none Delusions: none Memory/cog; alert, oriented to place, month and year but not situation. pending moca/acl once mood more stable. Diagnostics Vital Signs (24Hr): Vital Signs - 24 hr 04/13/24 09:15 04/13/24 20:00 04/14/24 08:00 Temperature 97.9 F 97.7 F 97.5 F Pulse Rate 66 86 84 Respiratory Rate 20 18 18 Blood Pressure 126/58 L 111/80 114/60 Pulse Oximetry 97 98 97 Oxygen Delivery Method Room Air Room Air Room Air BMI result Body Mass Index 19.0 Labs 04/11/24 19:24 04/13/24 07:40 Labs: Laboratory Results - last 48 hr 04/13/24 07:40 Sodium 140 Potassium 5.0 Chloride 111 H Carbon Dioxide 24 Anion Gap 10 L BUN 18 H Creatinine 0.69 Estim Creat Clear Calc 70.8 Estimated GFR > 60 Fasting Glucose 88 Estimat Average Glucose 100 Hemoglobin A1c % 5.1 Calcium 9.5 Total Bilirubin 0.2 AST 23 ALT 16 Alkaline Phosphatase 80 Total Protein 6.0 L Albumin 3.6 Triglycerides 107 Cholesterol 164 LDL Cholesterol, Calc 78 HDL Cholesterol 65 Vitamin B12 457 Folate 8.8 TSH 1.23 Imaging Radiology Impressions: ITS Impressions Orbit X-Ray 04/13/24 16:18 IMPRESSION: 1. No radiopaque foreign bodies. 2. Moderate to large volume of stool in the colon. Electronically signed by: Pablo Wyatt MD 04/13/2024 06:36 PM EDT RP Medications Medications Current Medications Acetaminophen (Acetaminophen 325 Mg Tablet) 650 mg PO Q6H PRN PRN Reason: Headache/Pain Mild Scale (1-3) Last Admin: 04/14/24 01:20 Dose: 650 mg Al Hydroxide/Mg Hydroxide (Magnesium Hydrox/Alum Hydrox 30 Ml Oral.Susp) 30 ml PO Q6H PRN PRN Reason: Heartburn/Nausea Cefuroxime Axetil (Cefuroxime Axetil 250 Mg Tablet) 250 mg PO BID [facility] Stop: 04/19/24 21:01 Last Admin: 04/14/24 08:29 Dose: 250 mg Divalproex Sodium (Divalproex Sodium 500 Mg Tablet.) 1,000 mg PO BEDTIME MIHAELA Last Admin: 04/13/24 20:06 Dose: 1,000 mg Divalproex Sodium (Divalproex Sodium 500 Mg Tablet.) 500 mg PO DAILY [facility] Last Admin: 04/14/24 08:29 Dose: 500 mg Magnesium Hydroxide (Milk Of Magnesia 30 Ml Oral.Susp) 30 ml PO DAILY PRN PRN Reason: Constipation Melatonin (Melatonin 3 Mg Tablet) 9 mg PO BEDTIME PRN PRN Reason: Sleep Last Admin: 04/13/24 20:07 Dose: 9 mg Nicotine Polacrilex (Nicotine Polacrilex Lozenge 2 Mg Lozenge) 2 mg BUCCAL Q1H PRN PRN Reason: Nicotine Cravings Last Admin: 04/14/24 07:08 Dose: 2 mg Pyridoxine HCl (Pyridoxine Hcl (Vitamin B6) 50 Mg Tablet) 50 mg PO DAILY [facility] Last Admin: 04/14/24 08:29 Dose: 50 mg Risperidone (Risperidone 1 Mg Tablet) 1 mg PO BEDTIME MIHAELA Last Admin: 04/13/24 20:07 Dose: 1 mg Thiamine HCl (Thiamine Hcl 100 Mg Tablet) 100 mg PO DAILY [facility] Last Admin: 04/14/24 08:29 Dose: 100 mg Trazodone HCl (Trazodone Hcl 50 Mg Tablet) 50 mg PO BEDTIME MRX1 PRN PRN Reason: Insomnia Last Admin: 04/13/24 20:07 Dose: 50 mg Allergies Allergies Allergy/AdvReac Type Severity Reaction Status Date / Time No Known Allergies Allergy Verified 04/11/24 18:47 Assessment & Plan Assessment & Plan (1) Bipolar I disorder, most recent episode manic, in remission: Status: Acute Code(s): F31.74 - Bipolar disorder, in full remission, most recent episode manic (2) Alcohol use disorder: Status: Acute Code(s): F10.90 - Alcohol use, unspecified, uncomplicated Plan Ms. Garnett is a 69 year-old woman with hx of Bipolar Disorder, alcohol use disorder who was brought by sister due to presenting as more disorganized, and sister suspected increase alcohol use. In the ED, her BAL is negative. Utox is also negative. She is not so clear as to how much alcohol she was using, reports nips here and there. VS have been stable. Started on thiamine 100mg po daily. Will add ciwa while awake, although so far not displaying any acute withdrawal symptoms. We discussed risks, benefits and alternative treatment options, she agreed to restart depakote and risperidone 1mg po qhs. We also discussed memory/cognitive assessments and MRI. PLAN 04/14 continue tx. will check depakote level and ammonia in next few days. Reason for continued inpatient stay Substantial Risk for: inability to function Time Spent With Patient Time: Total time managing care of this patient today ____ minutes.
[2024-04-14] MEDS: Gabapentin 100 MG CAPSULE PO (13:58)
[2024-04-14] MEDS: Nicotine Polacrilex 2 MG GUM BUCCAL (15:40)
[2024-04-14 20:00] VITALS: BP 114/54; PULSE 72; RESP 18; TEMP 36.1; O2SAT 97
[2024-04-14] MEDS: risperiDONE 1 MG TABLET PO (20:22)
[2024-04-14] MEDS: Divalproex Sodium 500 MG TABLET.DR 1000 MG PO (20:22)
[2024-04-14] MEDS: Sennosides/Docusate Sodium TABLET 1 TAB PO (20:23)
[2024-04-15] MEDS: Nicotine Polacrilex 2 MG GUM BUCCAL ×2 (01:05→05:55)
[2024-04-15] MEDS: Melatonin 3 MG TABLET 9 MG PO (01:05)
[2024-04-15] MEDS: Acetaminophen 325 MG TABLET 650 MG PO ×3 (01:05→20:12)
[2024-04-15] MEDS: traZODone HCL 50 MG TABLET PO ×2 (02:31→20:11)
--- NOTE | 2024-04-15 07:27 | PC.NURSE ---
Patient signed a three day notice on 04/15/2024, three day up on 04/20/24
[2024-04-15 08:00] VITALS: BP 123/51; PULSE 67; RESP 18; TEMP 36; O2SAT 100
[2024-04-15] MEDS: cefuroxime axetiL 250 MG TABLET PO ×2 (08:16→20:11)
[2024-04-15] MEDS: Sennosides/Docusate Sodium TABLET 1 TAB PO ×2 (08:16→20:11)
[2024-04-15] MEDS: Pyridoxine HCl (Vitamin B6) 50 MG TABLET PO (08:16)
[2024-04-15] MEDS: Thiamine HCL 100 MG TABLET PO (08:16)
[2024-04-15] MEDS: Divalproex Sodium 500 MG TABLET.DR PO (08:16)
[2024-04-15] MEDS: Nicotine Polacrilex Lozenge 2 MG LOZENGE BUCCAL ×3 (10:05→17:20)
--- NOTE | 2024-04-15 10:09 | P.PNPSI_ITS ---
Subjective Subjective Date of Service: 04/15/24 Reason For Visit: SI Subjective Notes: Conditional Voluntary and 3 Day Interim History: Pt slept through the night. She appears calmer, thought process more organized. She continues to report that alcohol is not a problem. She denies SI/HI. MOCA completed and scored 25/30, ACL 5.2 indicating mild cognitive decline. MRI shows atrophy, more so on occipital lobes. this specification writer asked pt if interested in medications to decrease alcohol use but she declined, stating alcohol use is not a problem, although she does admit to daily alcohol use. Mental Status Exam Mental Status Exam Narrative: Appearance: wearing hospital gown, fair hygiene, in NAD Behavior: cooperative Psychomotor: no agitation or retardation noted Speech: mostly clear, regular rate/rhythm/volume, spontaneous TP: some loose associations, TC: in agreement with treatment. Mood: okay Affect: slightly expansive SI: denies HI: denies VH/AH: none Delusions: none Memory/cog; alert, oriented to place, month and year but not situation. MOCA 25/30, ACL 5.2 indicating mild cognitive decline. Diagnostics Vital Signs (24Hr): Vital Signs - 24 hr 04/14/24 20:00 04/15/24 08:00 Temperature 97.0 F 96.8 F Pulse Rate 72 67 Respiratory Rate 18 18 Blood Pressure 114/54 L 123/51 L Pulse Oximetry 97 100 Oxygen Delivery Method Room Air Room Air BMI result Body Mass Index 16.0 Labs 04/11/24 19:24 04/13/24 07:40 Imaging Radiology Impressions: ITS Impressions Orbit X-Ray 04/13/24 16:18 IMPRESSION: 1. No radiopaque foreign bodies. 2. Moderate to large volume of stool in the colon. Electronically signed by: Pablo Wyatt MD 04/13/2024 06:36 PM EDT RP Brain MRI 04/13/24 20:35 IMPRESSION: 1. No acute intracranial abnormalities. 2. Mild to moderate underlying microangiopathy and generalized cerebral volume loss. 3. 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 Electronically signed by: Levy Lee DO 04/14/2024 11:52 AM EDT RP Medications Medications Current Medications Acetaminophen (Acetaminophen 325 Mg Tablet) 650 mg PO Q6H PRN PRN Reason: Headache/Pain Mild Scale (1-3) Last Admin: 04/15/24 08:21 Dose: 650 mg Al Hydroxide/Mg Hydroxide (Magnesium Hydrox/Alum Hydrox 30 Ml Oral.Susp) 30 ml PO Q6H PRN PRN Reason: Heartburn/Nausea Cefuroxime Axetil (Cefuroxime Axetil 250 Mg Tablet) 250 mg PO BID [facility] Stop: 04/19/24 21:01 Last Admin: 04/15/24 08:16 Dose: 250 mg Divalproex Sodium (Divalproex Sodium 500 Mg Tablet.) 1,000 mg PO BEDTIME [facility] Last Admin: 04/14/24 20:22 Dose: 1,000 mg Divalproex Sodium (Divalproex Sodium 500 Mg Tablet.) 500 mg PO DAILY [facility] Last Admin: 04/15/24 08:16 Dose: 500 mg Magnesium Hydroxide (Milk Of Magnesia 30 Ml Oral.Susp) 30 ml PO DAILY PRN PRN Reason: Constipation Melatonin (Melatonin 3 Mg Tablet) 9 mg PO BEDTIME PRN PRN Reason: Sleep Last Admin: 04/15/24 01:05 Dose: 9 mg Nicotine Polacrilex (Nicotine Polacrilex Lozenge 2 Mg Lozenge) 2 mg BUCCAL Q1H PRN PRN Reason: Nicotine Cravings Last Admin: 04/15/24 10:05 Dose: 2 mg Nicotine Polacrilex (Nicotine Polacrilex 2 Mg Gum) 2 mg BUCCAL Q2H PRN PRN Reason: Nicotine Cravings Last Admin: 04/15/24 05:55 Dose: 2 mg Pyridoxine HCl (Pyridoxine Hcl (Vitamin B6) 50 Mg Tablet) 50 mg PO DAILY [facility] Last Admin: 04/15/24 08:16 Dose: 50 mg Risperidone (Risperidone 1 Mg Tablet) 1 mg PO BEDTIME [facility] Last Admin: 04/14/24 20:22 Dose: 1 mg Senna/Docusate Sodium (Sennosides/Docusate Sodium Tablet) 1 tab PO BID [facility] Last Admin: 04/15/24 08:16 Dose: 1 tab Thiamine HCl (Thiamine Hcl 100 Mg Tablet) 100 mg PO DAILY [facility] Last Admin: 04/15/24 08:16 Dose: 100 mg Trazodone HCl (Trazodone Hcl 50 Mg Tablet) 50 mg PO BEDTIME MRX1 PRN PRN Reason: Insomnia Last Admin: 04/15/24 02:31 Dose: 50 mg Allergies Allergies Allergy/AdvReac Type Severity Reaction Status Date / Time No Known Allergies Allergy Verified 04/11/24 18:47 Assessment & Plan Assessment & Plan (1) Bipolar I disorder, most recent episode manic, in remission: Status: Acute Code(s): F31.74 - Bipolar disorder, in full remission, most recent episode manic (2) Alcohol use disorder: Status: Acute Code(s): F10.90 - Alcohol use, unspecified, uncomplicated Plan Ms. Garnett is a 69 year-old woman with hx of Bipolar Disorder, alcohol use disorder who was brought by sister due to presenting as more disorganized, and sister suspected increase alcohol use. In the ED, her BAL is negative. Utox is also negative. She is not so clear as to how much alcohol she was using, reports nips here and there. VS have been stable. Started on thiamine 100mg po daily. Will add ciwa while awake, although so far not displaying any acute withdrawal symptoms. We discussed risks, benefits and alternative treatment options, she agreed to restart depakote and risperidone 1mg po qhs. We also discussed memory/cognitive assessments and MRI. PLAN 04/14 continue tx. will check depakote level and ammonia in next few days. 04/15 continue tx. Reason for continued inpatient stay Substantial Risk for: inability to function Time Spent With Patient Time: Total time managing care of this patient today ____ minutes.
[2024-04-15] MEDS: Lidocaine 4 % Patch ADH..PATCH 1 PATCH TRANSDERMA (13:59)
[2024-04-15] MEDS: Gabapentin 100 MG CAPSULE PO ×2 (14:47→20:11)
[2024-04-15 20:00] VITALS: BP 129/74; PULSE 73; RESP 20; TEMP 36.2; O2SAT 99
[2024-04-15] MEDS: Divalproex Sodium 500 MG TABLET.DR 1000 MG PO (20:11)
[2024-04-15] MEDS: risperiDONE 1 MG TABLET PO (20:11)
[2024-04-16] MEDS: Nicotine Polacrilex 2 MG GUM BUCCAL ×2 (00:54→03:48)
--- NOTE | 2024-04-16 06:39 | P.PNPSI_ITS ---
Subjective Subjective Date of Service: 04/16/24 Reason For Visit: SI Subjective Notes: Conditional Voluntary Interim History: The nursing staff reported the patient has denied anxiety or depression she remains hypomanic tangential. She signed a 3 day notice yesterday. The staff reported the patient looks more organized. On interview the patient denies side effects with current medications. Mental Status Exam Mental Status Exam Patient Appearance: Appropriate Patient Orientation: Person and Situation Level of Consciousness: Awake Patient Behavior: Guarded and Passive Mood Description: Withdrawn Affect Description: Constricted Patient Cognition Impaired: Yes Ability to Follow Directions: Good Speech Pattern: Clear Hallucinations: None Delusions: Ideas of Reference Thought Process: Distracted and Slowed Thinking Thought Content: positive for [place] and positive for Poverty of Content Judgement: Poor Diagnostics Vital Signs (24Hr): Vital Signs - 24 hr 04/15/24 08:00 04/15/24 20:00 Temperature 96.8 F 97.1 F Pulse Rate 67 73 Respiratory Rate 18 20 Blood Pressure 123/51 L 129/74 Pulse Oximetry 100 99 Oxygen Delivery Method Room Air Room Air BMI result Body Mass Index 16.0 Labs 04/11/24 19:24 04/13/24 07:40 Imaging Radiology Impressions: ITS Impressions Orbit X-Ray 04/13/24 16:18 IMPRESSION: 1. No radiopaque foreign bodies. 2. Moderate to large volume of stool in the colon. Electronically signed by: Pablo Wyatt MD 04/13/2024 06:36 PM EDT RP Brain MRI 04/13/24 20:35 IMPRESSION: 1. No acute intracranial abnormalities. 2. Mild to moderate underlying microangiopathy and generalized cerebral volume loss. 3. 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 Electronically signed by: Levy Lee DO 04/14/2024 11:52 AM EDT RP Medications Medications Current Medications Acetaminophen (Acetaminophen 325 Mg Tablet) 650 mg PO Q6H PRN PRN Reason: Headache/Pain Mild Scale (1-3) Last Admin: 04/15/24 20:12 Dose: 650 mg Al Hydroxide/Mg Hydroxide (Magnesium Hydrox/Alum Hydrox 30 Ml Oral.Susp) 30 ml PO Q6H PRN PRN Reason: Heartburn/Nausea Cefuroxime Axetil (Cefuroxime Axetil 250 Mg Tablet) 250 mg PO BID [facility] Stop: 04/19/24 21:01 Last Admin: 04/15/24 20:11 Dose: 250 mg Divalproex Sodium (Divalproex Sodium 500 Mg Tablet.) 1,000 mg PO BEDTIME [facility] Last Admin: 04/15/24 20:11 Dose: 1,000 mg Divalproex Sodium (Divalproex Sodium 500 Mg Tablet.) 500 mg PO DAILY [facility] Last Admin: 04/15/24 08:16 Dose: 500 mg Gabapentin (Gabapentin 100 Mg Capsule) 100 mg PO TID [facility] Last Admin: 04/15/24 20:11 Dose: 100 mg Lidocaine (Lidocaine 4 % Patch Adh..Patch) 1 patch TRANSDERMA DAILY [facility]; Protocol Last Admin: 04/15/24 13:59 Dose: 1 patch Magnesium Hydroxide (Milk Of Magnesia 30 Ml Oral.Susp) 30 ml PO DAILY PRN PRN Reason: Constipation Melatonin (Melatonin 3 Mg Tablet) 9 mg PO BEDTIME PRN PRN Reason: Sleep Last Admin: 04/15/24 01:05 Dose: 9 mg Nicotine Polacrilex (Nicotine Polacrilex Lozenge 2 Mg Lozenge) 2 mg BUCCAL Q1H PRN PRN Reason: Nicotine Cravings Last Admin: 04/15/24 17:20 Dose: 2 mg Nicotine Polacrilex (Nicotine Polacrilex 2 Mg Gum) 2 mg BUCCAL Q2H PRN PRN Reason: Nicotine Cravings Last Admin: 04/16/24 03:48 Dose: 2 mg Pyridoxine HCl (Pyridoxine Hcl (Vitamin B6) 50 Mg Tablet) 50 mg PO DAILY [facility] Last Admin: 04/15/24 08:16 Dose: 50 mg Risperidone (Risperidone 1 Mg Tablet) 1 mg PO BEDTIME [facility] Last Admin: 04/15/24 20:11 Dose: 1 mg Senna/Docusate Sodium (Sennosides/Docusate Sodium Tablet) 1 tab PO BID [facility] Last Admin: 04/15/24 20:11 Dose: 1 tab Thiamine HCl (Thiamine Hcl 100 Mg Tablet) 100 mg PO DAILY [facility] Last Admin: 04/15/24 08:16 Dose: 100 mg Trazodone HCl (Trazodone Hcl 50 Mg Tablet) 50 mg PO BEDTIME MRX1 PRN PRN Reason: Insomnia Last Admin: 04/15/24 20:11 Dose: 50 mg Allergies Allergies Allergy/AdvReac Type Severity Reaction Status Date / Time No Known Allergies Allergy Verified 04/11/24 18:47 Assessment & Plan Assessment & Plan (1) Bipolar I disorder, most recent episode manic, in remission: Status: Acute Code(s): F31.74 - Bipolar disorder, in full remission, most recent episode manic (2) Alcohol use disorder: Status: Acute Code(s): F10.90 - Alcohol use, unspecified, uncomplicated Plan Ms. Garnett is a 69 year-old woman with hx of Bipolar Disorder, alcohol use disorder who was brought by sister due to presenting as more disorganized, and sister suspected increase alcohol use. In the ED, her BAL is negative. Utox is also negative. She is not so clear as to how much alcohol she was using, reports nips here and there. VS have been stable. Started on thiamine 100mg po daily. Will add ciwa while awake, although so far not displaying any acute withdrawal symptoms. We discussed risks, benefits and alternative treatment options, she agreed to restart depakote and risperidone 1mg po qhs. We also discussed memory/cognitive assessments and MRI. PLAN 04/14 continue tx. will check depakote level and ammonia in next few days. 04/16 continue with same treatment Reason for continued inpatient stay Substantial Risk for: inability to function, rapid decompensation and med/psych decompensation Time Spent With Patient Time: Total time managing care of this patient today __20__ minutes.
[2024-04-16 07:34] LABS: Ammonia 44 umol/L (13-55)
[2024-04-16 07:48] LABS: Valproate 93.3 mcg/mL (50.0-100.0)
[2024-04-16 08:00] VITALS: BP 101/55; PULSE 63; RESP 18; TEMP 36.3; O2SAT 98
[2024-04-16] MEDS: Lidocaine 4 % Patch ADH..PATCH 1 PATCH TRANSDERMA (08:24)
[2024-04-16] MEDS: Pyridoxine HCl (Vitamin B6) 50 MG TABLET PO (08:25)
[2024-04-16] MEDS: Sennosides/Docusate Sodium TABLET 1 TAB PO ×2 (08:25→20:26)
[2024-04-16] MEDS: Thiamine HCL 100 MG TABLET PO (08:25)
[2024-04-16] MEDS: cefuroxime axetiL 250 MG TABLET PO ×2 (08:25→20:25)
[2024-04-16] MEDS: Gabapentin 100 MG CAPSULE PO ×3 (08:25→20:25)
[2024-04-16] MEDS: Divalproex Sodium 500 MG TABLET.DR PO (08:25)
[2024-04-16] MEDS: Nicotine Polacrilex Lozenge 2 MG LOZENGE BUCCAL ×6 (08:25→23:47)
[2024-04-16] MEDS: Acetaminophen 325 MG TABLET 650 MG PO ×2 (09:49→20:26)
[2024-04-16 20:00] VITALS: BP 111/56; PULSE 77; RESP 18; TEMP 36.3; O2SAT 99
[2024-04-16] MEDS: risperiDONE 1 MG TABLET PO (20:25)
[2024-04-16] MEDS: Divalproex Sodium 500 MG TABLET.DR 1000 MG PO (20:25)
[2024-04-16] MEDS: traZODone HCL 50 MG TABLET PO ×2 (20:26→23:44)
[2024-04-16] MEDS: Melatonin 3 MG TABLET 9 MG PO (20:27)
[2024-04-17] MEDS: Nicotine Polacrilex 2 MG GUM BUCCAL ×4 (05:27→20:33)
--- NOTE | 2024-04-17 06:25 | P.PNPSI_ITS ---
Subjective Subjective Date of Service: 04/17/24 Reason For Visit: SI Subjective Notes: Conditional Voluntary Interim History: The patient had been visible in the unit pleasant, compliant with medication. On interview the patient denies new symptoms still hypomanic. Mental Status Exam Mental Status Exam Patient Appearance: Appropriate Patient Orientation: Person and Situation Level of Consciousness: Awake Patient Behavior: Guarded Mood Description: Calm Affect Description: Constricted Patient Cognition Impaired: Yes Ability to Follow Directions: Good Speech Pattern: Clear Hallucinations: None Delusions: Ideas of Reference Thought Process: Distracted and Slowed Thinking Thought Content: positive for [place] and positive for Poverty of Content Judgement: Fair Diagnostics Vital Signs (24Hr): Vital Signs - 24 hr 04/16/24 08:00 04/16/24 20:00 Temperature 97.3 F 97.3 F Pulse Rate 63 77 Respiratory Rate 18 18 Blood Pressure 101/55 L 111/56 L Pulse Oximetry 98 99 Oxygen Delivery Method Room Air Room Air BMI result Body Mass Index 16.0 Labs 04/11/24 19:24 04/13/24 07:40 Labs: Laboratory Results - last 48 hr 04/16/24 07:08 Ammonia 44 Valproic Acid 93.3 Imaging Radiology Impressions: ITS Impressions Orbit X-Ray 04/13/24 16:18 IMPRESSION: 1. No radiopaque foreign bodies. 2. Moderate to large volume of stool in the colon. Electronically signed by: Pablo Wyatt MD 04/13/2024 06:36 PM EDT RP Brain MRI 04/13/24 20:35 IMPRESSION: 1. No acute intracranial abnormalities. 2. Mild to moderate underlying microangiopathy and generalized cerebral volume loss. 3. 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 Electronically signed by: Levy Lee DO 04/14/2024 11:52 AM EDT RP Medications Medications Current Medications Acetaminophen (Acetaminophen 325 Mg Tablet) 650 mg PO Q6H PRN PRN Reason: Headache/Pain Mild Scale (1-3) Last Admin: 04/16/24 20:26 Dose: 650 mg Al Hydroxide/Mg Hydroxide (Magnesium Hydrox/Alum Hydrox 30 Ml Oral.Susp) 30 ml PO Q6H PRN PRN Reason: Heartburn/Nausea Cefuroxime Axetil (Cefuroxime Axetil 250 Mg Tablet) 250 mg PO BID [facility] Stop: 04/19/24 21:01 Last Admin: 04/16/24 20:25 Dose: 250 mg Divalproex Sodium (Divalproex Sodium 500 Mg Tablet.) 1,000 mg PO BEDTIME [facility] Last Admin: 04/16/24 20:25 Dose: 1,000 mg Divalproex Sodium (Divalproex Sodium 500 Mg Tablet.) 500 mg PO DAILY [facility] Last Admin: 04/16/24 08:25 Dose: 500 mg Gabapentin (Gabapentin 100 Mg Capsule) 100 mg PO TID [facility] Last Admin: 04/16/24 20:25 Dose: 100 mg Lidocaine (Lidocaine 4 % Patch Adh..Patch) 1 patch TRANSDERMA DAILY [facility]; Protocol Last Admin: 04/16/24 08:24 Dose: 1 patch Magnesium Hydroxide (Milk Of Magnesia 30 Ml Oral.Susp) 30 ml PO DAILY PRN PRN Reason: Constipation Melatonin (Melatonin 3 Mg Tablet) 9 mg PO BEDTIME PRN PRN Reason: Sleep Last Admin: 04/16/24 20:27 Dose: 9 mg Nicotine Polacrilex (Nicotine Polacrilex Lozenge 2 Mg Lozenge) 2 mg BUCCAL Q1H PRN PRN Reason: Nicotine Cravings Last Admin: 04/16/24 23:47 Dose: 2 mg Nicotine Polacrilex (Nicotine Polacrilex 2 Mg Gum) 2 mg BUCCAL Q2H PRN PRN Reason: Nicotine Cravings Last Admin: 04/17/24 05:27 Dose: 2 mg Pyridoxine HCl (Pyridoxine Hcl (Vitamin B6) 50 Mg Tablet) 50 mg PO DAILY [facility] Last Admin: 04/16/24 08:25 Dose: 50 mg Risperidone (Risperidone 1 Mg Tablet) 1 mg PO BEDTIME [facility] Last Admin: 04/16/24 20:25 Dose: 1 mg Senna/Docusate Sodium (Sennosides/Docusate Sodium Tablet) 1 tab PO BID [facility] Last Admin: 04/16/24 20:26 Dose: 1 tab Thiamine HCl (Thiamine Hcl 100 Mg Tablet) 100 mg PO DAILY [facility] Last Admin: 04/16/24 08:25 Dose: 100 mg Trazodone HCl (Trazodone Hcl 50 Mg Tablet) 50 mg PO BEDTIME MRX1 PRN PRN Reason: Insomnia Last Admin: 04/16/24 23:44 Dose: 50 mg Allergies Allergies Allergy/AdvReac Type Severity Reaction Status Date / Time No Known Allergies Allergy Verified 04/11/24 18:47 Assessment & Plan Assessment & Plan (1) Bipolar I disorder, most recent episode manic, in remission: Status: Acute Code(s): F31.74 - Bipolar disorder, in full remission, most recent episode manic (2) Alcohol use disorder: Status: Acute Code(s): F10.90 - Alcohol use, unspecified, uncomplicated Plan Ms. Garnett is a 69 year-old woman with hx of Bipolar Disorder, alcohol use disorder who was brought by sister due to presenting as more disorganized, and sister suspected increase alcohol use. In the ED, her BAL is negative. Utox is also negative. She is not so clear as to how much alcohol she was using, reports nips here and there. VS have been stable. Started on thiamine 100mg po daily. Will add ciwa while awake, although so far not displaying any acute withdrawal symptoms. We discussed risks, benefits and alternative treatment options, she agreed to restart depakote and risperidone 1mg po qhs. We also discussed memory/cognitive assessments and MRI. PLAN 04/14 continue tx. will check depakote level and ammonia in next few days. 04/16 continue with same treatment 04/17 continue same treatment Reason for continued inpatient stay Substantial Risk for: inability to function, rapid decompensation and med/psych decompensation Time Spent With Patient Time: Total time managing care of this patient today __20__ minutes.
[2024-04-17 08:59] VITALS: BP 108/51; PULSE 64; RESP 20; TEMP 36.9; O2SAT 98
[2024-04-17] MEDS: Thiamine HCL 100 MG TABLET PO (09:00)
[2024-04-17] MEDS: Gabapentin 100 MG CAPSULE PO ×3 (09:00→20:32)
[2024-04-17] MEDS: Sennosides/Docusate Sodium TABLET 1 TAB PO ×2 (09:00→20:32)
[2024-04-17] MEDS: Divalproex Sodium 500 MG TABLET.DR PO (09:00)
[2024-04-17] MEDS: Nicotine Polacrilex Lozenge 2 MG LOZENGE BUCCAL ×4 (09:00→23:06)
[2024-04-17] MEDS: Lidocaine 4 % Patch ADH..PATCH 1 PATCH TRANSDERMA (09:01)
[2024-04-17] MEDS: cefuroxime axetiL 250 MG TABLET PO ×2 (09:01→20:31)
[2024-04-17] MEDS: Pyridoxine HCl (Vitamin B6) 50 MG TABLET PO (09:01)
[2024-04-17 20:00] VITALS: BP 96/52; PULSE 82; RESP 18; TEMP 36.6; O2SAT 96
[2024-04-17] MEDS: Divalproex Sodium 500 MG TABLET.DR 1000 MG PO (20:32)
[2024-04-17] MEDS: risperiDONE 1 MG TABLET PO (20:32)
[2024-04-17] MEDS: Melatonin 3 MG TABLET 9 MG PO (20:32)
[2024-04-17] MEDS: traZODone HCL 50 MG TABLET PO ×2 (20:33→23:06)
[2024-04-18] MEDS: Acetaminophen 325 MG TABLET 650 MG PO ×3 (04:29→19:51)
[2024-04-18] MEDS: Nicotine Polacrilex Lozenge 2 MG LOZENGE BUCCAL ×4 (04:29→19:50)
[2024-04-18 08:00] VITALS: BP 105/71; PULSE 84; RESP 16; TEMP 36.4; O2SAT 100
[2024-04-18] MEDS: Divalproex Sodium 500 MG TABLET.DR PO (08:44)
[2024-04-18] MEDS: Pyridoxine HCl (Vitamin B6) 50 MG TABLET PO (08:44)
[2024-04-18] MEDS: Thiamine HCL 100 MG TABLET PO (08:45)
[2024-04-18] MEDS: Gabapentin 100 MG CAPSULE PO ×3 (08:45→19:50)
[2024-04-18] MEDS: cefuroxime axetiL 250 MG TABLET PO ×2 (08:45→19:49)
[2024-04-18] MEDS: Sennosides/Docusate Sodium TABLET 1 TAB PO ×2 (08:46→19:50)
[2024-04-18] MEDS: Lidocaine 4 % Patch ADH..PATCH 1 PATCH TRANSDERMA (08:58)
--- NOTE | 2024-04-18 16:41 | HO.PSYCHPN ---
Subjective Subjective Date of Service: 04/18/24 Reason For Visit: SI Subjective Notes: Conditional Voluntary Interim History: The patient had been visible in the unit pleasant, compliant with depakote risperadol. Has developed some pedal edema Medication Compliance: Yes Review of Systems pedal edema Mental Status Exam Mental Status Exam Patient Appearance: Appropriate Patient Orientation: Person and Situation Level of Consciousness: Awake Patient Behavior: Appropriate Mood Description: Calm and Appropriate Affect Description: Constricted Patient Cognition Impaired: Yes Ability to Follow Directions: Good Speech Pattern: Clear Hallucinations: None Delusions: Ideas of Reference Thought Process: Distracted and Slowed Thinking Thought Content: positive for [place] Judgement: Fair Judgement and Insight: aware she has bipolar dx appropriate concern regarding edema Diagnostics Vital Signs (24Hr): Vital Signs - 24 hr 04/17/24 20:00 04/18/24 08:00 Temperature 97.8 F 97.5 F Pulse Rate 82 84 Respiratory Rate 18 16 Blood Pressure 96/52 L 105/71 Pulse Oximetry 96 100 Oxygen Delivery Method Room Air Room Air BMI result Body Mass Index 16.0 Labs 04/11/24 19:24 04/13/24 07:40 Imaging Radiology Impressions: ITS Impressions Orbit X-Ray 04/13/24 16:18 IMPRESSION: 1. No radiopaque foreign bodies. 2. Moderate to large volume of stool in the colon. Electronically signed by: Pablo Wyatt MD 04/13/2024 06:36 PM EDT RP Brain MRI 04/13/24 20:35 IMPRESSION: 1. No acute intracranial abnormalities. 2. Mild to moderate underlying microangiopathy and generalized cerebral volume loss. 3. 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 Electronically signed by: Levy Lee DO 04/14/2024 11:52 AM EDT RP Medications Medications Current Medications Acetaminophen (Acetaminophen 325 Mg Tablet) 650 mg PO Q6H PRN PRN Reason: Headache/Pain Mild Scale (1-3) Last Admin: 04/18/24 10:52 Dose: 650 mg Al Hydroxide/Mg Hydroxide (Magnesium Hydrox/Alum Hydrox 30 Ml Oral.Susp) 30 ml PO Q6H PRN PRN Reason: Heartburn/Nausea Cefuroxime Axetil (Cefuroxime Axetil 250 Mg Tablet) 250 mg PO BID [facility] Stop: 04/19/24 21:01 Last Admin: 04/18/24 08:45 Dose: 250 mg Divalproex Sodium (Divalproex Sodium 500 Mg Tablet.) 1,000 mg PO BEDTIME [facility] Last Admin: 04/17/24 20:32 Dose: 1,000 mg Divalproex Sodium (Divalproex Sodium 500 Mg Tablet.) 500 mg PO DAILY [facility] Last Admin: 04/18/24 08:44 Dose: 500 mg Gabapentin (Gabapentin 100 Mg Capsule) 100 mg PO TID [facility] Last Admin: 04/18/24 15:03 Dose: 100 mg Lidocaine (Lidocaine 4 % Patch Adh..Patch) 1 patch TRANSDERMA DAILY [facility]; Protocol Last Admin: 04/18/24 08:58 Dose: 1 patch Magnesium Hydroxide (Milk Of Magnesia 30 Ml Oral.Susp) 30 ml PO DAILY PRN PRN Reason: Constipation Melatonin (Melatonin 3 Mg Tablet) 9 mg PO BEDTIME PRN PRN Reason: Sleep Last Admin: 04/17/24 20:32 Dose: 9 mg Nicotine Polacrilex (Nicotine Polacrilex Lozenge 2 Mg Lozenge) 2 mg BUCCAL Q1H PRN PRN Reason: Nicotine Cravings Last Admin: 04/18/24 15:28 Dose: 2 mg Nicotine Polacrilex (Nicotine Polacrilex 2 Mg Gum) 2 mg BUCCAL Q2H PRN PRN Reason: Nicotine Cravings Last Admin: 04/17/24 20:33 Dose: 2 mg Pyridoxine HCl (Pyridoxine Hcl (Vitamin B6) 50 Mg Tablet) 50 mg PO DAILY [facility] Last Admin: 04/18/24 08:44 Dose: 50 mg Risperidone (Risperidone 1 Mg Tablet) 1 mg PO BEDTIME [facility] Last Admin: 04/17/24 20:32 Dose: 1 mg Senna/Docusate Sodium (Sennosides/Docusate Sodium Tablet) 1 tab PO BID [facility] Last Admin: 04/18/24 08:46 Dose: 1 tab Thiamine HCl (Thiamine Hcl 100 Mg Tablet) 100 mg PO DAILY [facility] Last Admin: 04/18/24 08:45 Dose: 100 mg Trazodone HCl (Trazodone Hcl 50 Mg Tablet) 50 mg PO BEDTIME MRX1 PRN PRN Reason: Insomnia Last Admin: 04/17/24 23:06 Dose: 50 mg Allergies Allergies Allergy/AdvReac Type Severity Reaction Status Date / Time No Known Allergies Allergy Verified 04/11/24 18:47 Assessment & Plan Assessment & Plan (1) Bipolar I disorder, most recent episode manic, in remission: Status: Acute Code(s): F31.74 - Bipolar disorder, in full remission, most recent episode manic (2) Alcohol use disorder: Status: Acute Code(s): F10.90 - Alcohol use, unspecified, uncomplicated Plan Ms. Garnett is a 69 year-old woman with hx of Bipolar Disorder, alcohol use disorder who was brought by sister due to presenting as more disorganized, and sister suspected increase alcohol use. In the ED, her BAL is negative. Utox is also negative. She is not so clear as to how much alcohol she was using, reports nips here and there. VS have been stable. Started on thiamine 100mg po daily. Will add ciwa while awake, although so far not displaying any acute withdrawal symptoms. We discussed risks, benefits and alternative treatment options, she agreed to restart depakote and risperidone 1mg po qhs. We also discussed memory/cognitive assessments and MRI. PLAN 04/14 continue tx. will check depakote level and ammonia in next few days. 04/16 continue with same treatment 04/17 continue same treatment 04/18/24 ck labs ? adverse effect dep or risp bill stockings Reason for continued inpatient stay Substantial Risk for: inability to function, rapid decompensation and med/psych decompensation Time Spent With Patient Time: Total time managing care of this patient today ____ minutes.
[2024-04-18] MEDS: Divalproex Sodium 500 MG TABLET.DR 1000 MG PO (19:49)
[2024-04-18] MEDS: risperiDONE 1 MG TABLET PO (19:50)
[2024-04-18] MEDS: Melatonin 3 MG TABLET 9 MG PO (19:50)
[2024-04-18] MEDS: traZODone HCL 50 MG TABLET PO (19:50)
[2024-04-18 20:00] VITALS: BP 124/58; PULSE 76; RESP 16; TEMP 36; O2SAT 99
[2024-04-19] MEDS: Acetaminophen 325 MG TABLET 650 MG PO (01:35)
[2024-04-19] MEDS: Nicotine Polacrilex Lozenge 2 MG LOZENGE BUCCAL ×2 (01:36→12:49)
[2024-04-19] MEDS: traZODone HCL 50 MG TABLET PO (01:36)
[2024-04-19 07:11] LABS: MANUAL DIFF FLAG NO
[2024-04-19 07:12] LABS: Basophils Percent Auto 0.9 % (0-2); Eosinophils Absolute Auto 0.3 X10*3/uL (0.0-0.4); Eosinophils Percent Auto 6.5 % (0-4); Hematocrit 38.5 % (37.0-47.0); Hemoglobin 12.6 g/dl (12.0-16.0); Imm Gran Abs Auto 0.02 X10*3/uL (0.00-0.03); Imm Gran Pct Auto 0.5 % (0.0-0.4); Lymphocytes Absolute Auto 1.5 X10*3/uL (1.2-4.9); Lymphocytes Percent Auto 34.3 % (20-40); Mean Corpuscular HGB Conc 32.7 g/dl (31.0-35.0); Mean Corpuscular Volume 94.6 fL (80.0-98.0); Mean Platelet Volume 10.2 fL (9.4-12.3); Monocytes Absolute Auto 0.4 X10*3/uL (0.1-1.2); Monocytes Percent Auto 9.7 % (2-11); Neutrophils Absolute Auto 2.1 x10*3/uL (2.0-8.3); Neutrophils Percent Auto 48.1 % (45-73); Platelet Count 164 X10*3/uL (160-400); Red Blood Count 4.07 X10*6/uL (4.20-5.50); Red Cell Distribution Width 13.5 % (11.0-16.0); White Blood Count 4.3 X10*3/uL (4.8-10.8)
[2024-04-19 07:23] LABS: Ammonia 58 umol/L (13-55)
[2024-04-19 07:31] LABS: Alanine Aminotransferase 14 U/L (0-31); Albumin Level 3.4 g/dL (3.5-5.0); Alkaline Phosphatase 56 U/L (39-117); Anion Gap 10 (12-20); Aspartate Amino Transferase 23 U/L (5-31); Bilirubin Total 0.3 mg/dL (0.0-1.0); Blood Urea Nitrogen 22 mg/dL (9-16); Calcium 9.4 mg/dL (8.4-10.2); Carbon Dioxide 31 mmol/L (22-29); Chloride 107 mmol/L (96-108); Creatinine Clr Calc Pharmacy 61.2; Estimated Glomerular Filt Rate > 60; Glucose Fasting 92 mg/dL (60-99); Potassium 4.9 mmol/L (3.3-5.1); Sodium 143 mmol/L (135-145); Total Protein 5.6 g/dL (6.5-8.0)
[2024-04-19 07:40] LABS: Valproate 77.8 mcg/mL (50.0-100.0)
[2024-04-19 08:00] VITALS: BP 106/52; PULSE 67; RESP 18; TEMP 36.7; O2SAT 100
--- NOTE | 2024-04-19 08:48 | HO.PSYCHPN ---
Subjective Subjective Date of Service: 04/19/24 Reason For Visit: SI Subjective Notes: Conditional Voluntary Interim History: Pt is sleeping. She is taking her medications. She presents calmer, She denies SI/HI. No VH/AH. She continues to have no insight into alcohol use. She continues to decline medication to decrease alcohol use. She reports I only have one nip a day, that's less than a shot at a bar. She attends groups. Social with select peers. Medication Compliance: Yes Side effects from medications: No Attending Groups: Yes Mental Status Exam Mental Status Exam Narrative: Appearance: wearing hospital gown, fair hygiene, in NAD Behavior: cooperative Psychomotor: no agitation or retardation noted Speech: mostly clear, regular rate/rhythm/volume, spontaneous TP: some loose associations, TC: in agreement with treatment. Mood: okay Affect: slightly expansive SI: denies HI: denies VH/AH: none Delusions: none Memory/cog; alert, oriented to place, month and year but not situation. MOCA 25/30, ACL 5.2 indicating mild cognitive decline. Diagnostics Vital Signs (24Hr): Vital Signs - 24 hr 04/18/24 20:00 Temperature 96.8 F Pulse Rate 76 Respiratory Rate 16 Blood Pressure 124/58 L Pulse Oximetry 99 Oxygen Delivery Method Room Air BMI result Body Mass Index 16.0 Labs 04/19/24 07:05 04/19/24 07:05 Labs: Laboratory Results - last 48 hr 04/19/24 07:05 WBC 4.3 L RBC 4.07 L Hgb 12.6 Hct 38.5 MCV 94.6 MCH 31.0 MCHC 32.7 RDW 13.5 Plt Count 164 D MPV 10.2 Immature Gran % (Auto) 0.5 H Neut % (Auto) 48.1 Lymph % (Auto) 34.3 Peach % (Auto) 9.7 Eos % (Auto) 6.5 H Baso % (Auto) 0.9 Lymph # (Auto) 1.5 Peach # (Auto) 0.4 Eos # (Auto) 0.3 Baso # (Auto) 0.0 Abs Immat Gran (auto) 0.02 Absolute Neuts (auto) 2.1 Absolute Nucleated RBC 0.000 Nucleated RBC % (auto) 0.0 Sodium 143 Potassium 4.9 Chloride 107 Carbon Dioxide 31 H Anion Gap 10 L BUN 22 H Creatinine 0.67 Estim Creat Clear Calc 61.2 Estimated GFR > 60 Fasting Glucose 92 Calcium 9.4 Total Bilirubin 0.3 AST 23 ALT 14 Alkaline Phosphatase 56 Ammonia 58 H Total Protein 5.6 L Albumin 3.4 L Valproic Acid 77.8 Imaging Radiology Impressions: ITS Impressions Orbit X-Ray 04/13/24 16:18 IMPRESSION: 1. No radiopaque foreign bodies. 2. Moderate to large volume of stool in the colon. Electronically signed by: Pablo Wyatt MD 04/13/2024 06:36 PM EDT RP Brain MRI 04/13/24 20:35 IMPRESSION: 1. No acute intracranial abnormalities. 2. Mild to moderate underlying microangiopathy and generalized cerebral volume loss. 3. 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 Electronically signed by: Levy Lee DO 04/14/2024 11:52 AM EDT RP Medications Medications Current Medications Acetaminophen (Acetaminophen 325 Mg Tablet) 650 mg PO Q6H PRN PRN Reason: Headache/Pain Mild Scale (1-3) Last Admin: 04/19/24 01:35 Dose: 650 mg Al Hydroxide/Mg Hydroxide (Magnesium Hydrox/Alum Hydrox 30 Ml Oral.Susp) 30 ml PO Q6H PRN PRN Reason: Heartburn/Nausea Cefuroxime Axetil (Cefuroxime Axetil 250 Mg Tablet) 250 mg PO BID [facility] Stop: 04/19/24 21:01 Last Admin: 04/18/24 19:49 Dose: 250 mg Divalproex Sodium (Divalproex Sodium 500 Mg Tablet.) 1,000 mg PO BEDTIME [facility] Last Admin: 04/18/24 19:49 Dose: 1,000 mg Divalproex Sodium (Divalproex Sodium 500 Mg Tablet.) 500 mg PO DAILY [facility] Last Admin: 04/18/24 08:44 Dose: 500 mg Gabapentin (Gabapentin 100 Mg Capsule) 100 mg PO TID [facility] Last Admin: 04/18/24 19:50 Dose: 100 mg Lidocaine (Lidocaine 4 % Patch Adh..Patch) 1 patch TRANSDERMA DAILY [facility]; Protocol Last Admin: 04/18/24 08:58 Dose: 1 patch Magnesium Hydroxide (Milk Of Magnesia 30 Ml Oral.Susp) 30 ml PO DAILY PRN PRN Reason: Constipation Melatonin (Melatonin 3 Mg Tablet) 9 mg PO BEDTIME PRN PRN Reason: Sleep Last Admin: 04/18/24 19:50 Dose: 9 mg Nicotine Polacrilex (Nicotine Polacrilex Lozenge 2 Mg Lozenge) 2 mg BUCCAL Q1H PRN PRN Reason: Nicotine Cravings Last Admin: 04/19/24 01:36 Dose: 2 mg Nicotine Polacrilex (Nicotine Polacrilex 2 Mg Gum) 2 mg BUCCAL Q2H PRN PRN Reason: Nicotine Cravings Last Admin: 04/17/24 20:33 Dose: 2 mg Pyridoxine HCl (Pyridoxine Hcl (Vitamin B6) 50 Mg Tablet) 50 mg PO DAILY [facility] Last Admin: 04/18/24 08:44 Dose: 50 mg Risperidone (Risperidone 1 Mg Tablet) 1 mg PO BEDTIME [facility] Last Admin: 04/18/24 19:50 Dose: 1 mg Senna/Docusate Sodium (Sennosides/Docusate Sodium Tablet) 1 tab PO BID [facility] Last Admin: 04/18/24 19:50 Dose: 1 tab Thiamine HCl (Thiamine Hcl 100 Mg Tablet) 100 mg PO DAILY [facility] Last Admin: 04/18/24 08:45 Dose: 100 mg Trazodone HCl (Trazodone Hcl 50 Mg Tablet) 50 mg PO BEDTIME MRX1 PRN PRN Reason: Insomnia Last Admin: 04/19/24 01:36 Dose: 50 mg Allergies Allergies Allergy/AdvReac Type Severity Reaction Status Date / Time No Known Allergies Allergy Verified 04/11/24 18:47 Assessment & Plan Assessment & Plan (1) Bipolar I disorder, most recent episode manic, in remission: Status: Acute Code(s): F31.74 - Bipolar disorder, in full remission, most recent episode manic (2) Alcohol use disorder: Status: Acute Code(s): F10.90 - Alcohol use, unspecified, uncomplicated Plan Ms. Garnett is a 69 year-old woman with hx of Bipolar Disorder, alcohol use disorder who was brought by sister due to presenting as more disorganized, and sister suspected increase alcohol use. In the ED, her BAL is negative. Utox is also negative. She is not so clear as to how much alcohol she was using, reports nips here and there. VS have been stable. Started on thiamine 100mg po daily. Will add ciwa while awake, although so far not displaying any acute withdrawal symptoms. We discussed risks, benefits and alternative treatment options, she agreed to restart depakote and risperidone 1mg po qhs. We also discussed memory/cognitive assessments and MRI. PLAN 04/14 continue tx. will check depakote level and ammonia in next few days. 04/16 continue with same treatment 04/17 continue same treatment 04/18/24 ck labs ? adverse effect dep or risp bill stockings 04/19 continue tx. Reason for continued inpatient stay Substantial Risk for: inability to function Time Spent With Patient Time: Total time managing care of this patient today ____ minutes.
[2024-04-19] MEDS: Lidocaine 4 % Patch ADH..PATCH 1 PATCH TRANSDERMA (09:22)
[2024-04-19] MEDS: Pyridoxine HCl (Vitamin B6) 50 MG TABLET PO (09:25)
[2024-04-19] MEDS: Gabapentin 100 MG CAPSULE PO ×3 (09:25→20:16)
[2024-04-19] MEDS: Thiamine HCL 100 MG TABLET PO (09:25)
[2024-04-19] MEDS: Divalproex Sodium 500 MG TABLET.DR PO (09:25)
[2024-04-19] MEDS: cefuroxime axetiL 250 MG TABLET PO ×2 (09:25→20:15)
[2024-04-19] MEDS: Sennosides/Docusate Sodium TABLET 1 TAB PO ×2 (09:25→20:16)
[2024-04-19] MEDS: Nicotine Polacrilex 2 MG GUM BUCCAL (15:28)
[2024-04-19 20:00] VITALS: BP 121/57; PULSE 83; RESP 18; TEMP 36.4; O2SAT 99
[2024-04-19] MEDS: Divalproex Sodium 500 MG TABLET.DR 1000 MG PO (20:15)
[2024-04-19] MEDS: risperiDONE 1 MG TABLET PO (20:16)
[2024-04-20] MEDS: Acetaminophen 325 MG TABLET 650 MG PO ×2 (01:39→22:17)
[2024-04-20] MEDS: Nicotine Polacrilex Lozenge 2 MG LOZENGE BUCCAL ×4 (01:39→22:17)
[2024-04-20 08:07] VITALS: BP 137/78; PULSE 76; RESP 18; TEMP 36.2; O2SAT 96
[2024-04-20] MEDS: Pyridoxine HCl (Vitamin B6) 50 MG TABLET PO (08:23)
[2024-04-20] MEDS: Thiamine HCL 100 MG TABLET PO (08:23)
[2024-04-20] MEDS: Sennosides/Docusate Sodium TABLET 1 TAB PO ×2 (08:23→20:28)
[2024-04-20] MEDS: Nicotine Polacrilex 2 MG GUM BUCCAL (08:23)
[2024-04-20] MEDS: Divalproex Sodium 500 MG TABLET.DR PO (08:23)
[2024-04-20] MEDS: Gabapentin 100 MG CAPSULE PO ×3 (08:23→20:28)
[2024-04-20] MEDS: Lidocaine 4 % Patch ADH..PATCH 1 PATCH TRANSDERMA (08:26)
--- NOTE | 2024-04-20 11:42 | P.PNPSI_ITS ---
Subjective Subjective Date of Service: 04/20/24 Reason For Visit: SI Subjective Notes: Conditional Voluntary Interim History: Pt sleeping through the night. We had family meeting. She presents as hyperverbal, disorganized, labile, Some more control and asking to step out and return to meeting. She also has no insight into extend of alcohol use, but accepted feedback from family who have been fixing aftermath of combination exacerbation of benjie and alcohol use. Pt agreed to start naltrexon, consider step down of css, meeting with addiction medicine. However, pt still displaying manic symptoms such as hyperverbal, flight of ideas, risk taking behaviors. Mental Status Exam Mental Status Exam Narrative: Appearance: wearing hospital gown, fair hygiene, in NAD Behavior: cooperative Psychomotor: no agitation or retardation noted Speech: mostly clear, regular rate/rhythm/volume, spontaneous TP: some loose associations, TC: in agreement with treatment. Mood: okay Affect: expansive SI: denies HI: denies VH/AH: none Delusions: none Memory/cog; alert, oriented to place, month and year but not situation. MOCA 25/30, ACL 5.2 indicating mild cognitive decline. Diagnostics Vital Signs (24Hr): Vital Signs - 24 hr 04/19/24 20:00 04/20/24 08:07 Temperature 97.6 F 97.2 F Pulse Rate 83 76 Respiratory Rate 18 18 Blood Pressure 121/57 L 137/78 Pulse Oximetry 99 96 Oxygen Delivery Method Room Air Room Air BMI result Body Mass Index 16.0 Labs 04/19/24 07:05 04/19/24 07:05 Labs: Laboratory Results - last 48 hr 04/19/24 07:05 WBC 4.3 L RBC 4.07 L Hgb 12.6 Hct 38.5 MCV 94.6 MCH 31.0 MCHC 32.7 RDW 13.5 Plt Count 164 D MPV 10.2 Immature Gran % (Auto) 0.5 H Neut % (Auto) 48.1 Lymph % (Auto) 34.3 [place] % (Auto) 9.7 Eos % (Auto) 6.5 H Baso % (Auto) 0.9 Lymph # (Auto) 1.5 [place] # (Auto) 0.4 Eos # (Auto) 0.3 Baso # (Auto) 0.0 Abs Immat Gran (auto) 0.02 Absolute Neuts (auto) 2.1 Absolute Nucleated RBC 0.000 Nucleated RBC % (auto) 0.0 Sodium 143 Potassium 4.9 Chloride 107 Carbon Dioxide 31 H Anion Gap 10 L BUN 22 H Creatinine 0.67 Estim Creat Clear Calc 61.2 Estimated GFR > 60 Fasting Glucose 92 Calcium 9.4 Total Bilirubin 0.3 AST 23 ALT 14 Alkaline Phosphatase 56 Ammonia 58 H Total Protein 5.6 L Albumin 3.4 L Valproic Acid 77.8 Imaging Radiology Impressions: ITS Impressions Orbit X-Ray 04/13/24 16:18 IMPRESSION: 1. No radiopaque foreign bodies. 2. Moderate to large volume of stool in the colon. Electronically signed by: Pablo Wyatt MD 04/13/2024 06:36 PM EDT RP Brain MRI 04/13/24 20:35 IMPRESSION: 1. No acute intracranial abnormalities. 2. Mild to moderate underlying microangiopathy and generalized cerebral volume loss. 3. 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 Electronically signed by: Levy Lee DO 04/14/2024 11:52 AM EDT RP Medications Medications Current Medications Acetaminophen (Acetaminophen 325 Mg Tablet) 650 mg PO Q6H PRN PRN Reason: Headache/Pain Mild Scale (1-3) Last Admin: 04/20/24 01:39 Dose: 650 mg Al Hydroxide/Mg Hydroxide (Magnesium Hydrox/Alum Hydrox 30 Ml Oral.Susp) 30 ml PO Q6H PRN PRN Reason: Heartburn/Nausea Divalproex Sodium (Divalproex Sodium 500 Mg Tablet.) 1,000 mg PO BEDTIME [facility] Last Admin: 04/19/24 20:15 Dose: 1,000 mg Divalproex Sodium (Divalproex Sodium 500 Mg Tablet.) 500 mg PO DAILY [facility] Last Admin: 04/20/24 08:23 Dose: 500 mg Gabapentin (Gabapentin 100 Mg Capsule) 100 mg PO TID [facility] Last Admin: 04/20/24 08:23 Dose: 100 mg Lidocaine (Lidocaine 4 % Patch Adh..Patch) 1 patch TRANSDERMA DAILY [facility]; Protocol Last Admin: 04/20/24 08:26 Dose: 1 patch Magnesium Hydroxide (Milk Of Magnesia 30 Ml Oral.Susp) 30 ml PO DAILY PRN PRN Reason: Constipation Melatonin (Melatonin 3 Mg Tablet) 9 mg PO BEDTIME PRN PRN Reason: Sleep Last Admin: 04/18/24 19:50 Dose: 9 mg Nicotine Polacrilex (Nicotine Polacrilex Lozenge 2 Mg Lozenge) 2 mg BUCCAL Q1H PRN PRN Reason: Nicotine Cravings Last Admin: 04/20/24 11:23 Dose: 2 mg Nicotine Polacrilex (Nicotine Polacrilex 2 Mg Gum) 2 mg BUCCAL Q2H PRN PRN Reason: Nicotine Cravings Last Admin: 04/20/24 08:23 Dose: 2 mg Pyridoxine HCl (Pyridoxine Hcl (Vitamin B6) 50 Mg Tablet) 50 mg PO DAILY [facility] Last Admin: 04/20/24 08:23 Dose: 50 mg Risperidone (Risperidone 1 Mg Tablet) 1 mg PO BEDTIME [facility] Last Admin: 04/19/24 20:16 Dose: 1 mg Senna/Docusate Sodium (Sennosides/Docusate Sodium Tablet) 1 tab PO BID [facility] Last Admin: 04/20/24 08:23 Dose: 1 tab Thiamine HCl (Thiamine Hcl 100 Mg Tablet) 100 mg PO DAILY [facility] Last Admin: 04/20/24 08:23 Dose: 100 mg Trazodone HCl (Trazodone Hcl 50 Mg Tablet) 50 mg PO BEDTIME MRX1 PRN PRN Reason: Insomnia Last Admin: 04/19/24 01:36 Dose: 50 mg Allergies Allergies Allergy/AdvReac Type Severity Reaction Status Date / Time No Known Allergies Allergy Verified 04/11/24 18:47 Assessment & Plan Assessment & Plan (1) Bipolar I disorder, most recent episode manic, in remission: Status: Acute Code(s): F31.74 - Bipolar disorder, in full remission, most recent episode manic (2) Alcohol use disorder: Status: Acute Code(s): F10.90 - Alcohol use, unspecified, uncomplicated Plan Ms. Garnett is a 69 year-old woman with hx of Bipolar Disorder, alcohol use disorder who was brought by sister due to presenting as more disorganized, and sister suspected increase alcohol use. In the ED, her BAL is negative. Utox is also negative. She is not so clear as to how much alcohol she was using, reports nips here and there. VS have been stable. Started on thiamine 100mg po daily. Will add ciwa while awake, although so far not displaying any acute withdrawal symptoms. We discussed risks, benefits and alternative treatment options, she agreed to restart depakote and risperidone 1mg po qhs. We also discussed memory/cognitive assessments and MRI. PLAN 04/14 continue tx. will check depakote level and ammonia in next few days. 04/16 continue with same treatment 04/17 continue same treatment 04/18/24 ck labs ? adverse effect dep or risp bill stockings 04/19 continue tx. 04/20 increase risperidone 2mg po qhs. continue depakote. start naltrexon 50mg po qhs. also started lasix 10mg po daily for bilat LE edema. Reason for continued inpatient stay Substantial Risk for: inability to function Time Spent With Patient Time: Total time managing care of this patient today ____ minutes.
[2024-04-20 16:07] VITALS: BMI 17.5
--- NOTE | 2024-04-20 16:09 | MHC.CLN ---
NUTRITION DIET=REGULAR WITH SAFETY TRAY. WEIGHED TODAY ON STANDING SCALE, NEQKJY=465.8#, BMI=17.5. PATIENT IS UNDERWEIGHT. INTAKE APPEARS TO BE VERY GOOD, 100%. DOES NOT WANT ENSURE SUPPLEMENT. RD TO MONITOR WEEKLY.
[2024-04-20 17:05] VITALS: BP 111/71
[2024-04-20] MEDS: Furosemide 20 MG TABLET 10 MG PO (17:05)
[2024-04-20 20:00] VITALS: BP 151/67; PULSE 75; RESP 17; TEMP 36.2; O2SAT 99
[2024-04-20] MEDS: Divalproex Sodium 500 MG TABLET.DR 1000 MG PO (20:27)
[2024-04-20] MEDS: Melatonin 3 MG TABLET 9 MG PO (20:28)
[2024-04-20] MEDS: traZODone HCL 50 MG TABLET PO (20:28)
[2024-04-20] MEDS: risperiDONE 2 MG TABLET PO (20:28)
[2024-04-21] MEDS: Nicotine Polacrilex Lozenge 2 MG LOZENGE BUCCAL ×4 (02:37→17:34)
[2024-04-21 08:00] VITALS: BP 117/59; PULSE 79; RESP 17; TEMP 36.3; O2SAT 99
[2024-04-21] MEDS: Sennosides/Docusate Sodium TABLET 1 TAB PO (08:26)
[2024-04-21] MEDS: Gabapentin 100 MG CAPSULE PO ×3 (08:26→20:16)
[2024-04-21] MEDS: Thiamine HCL 100 MG TABLET PO (08:26)
[2024-04-21] MEDS: Pyridoxine HCl (Vitamin B6) 50 MG TABLET PO (08:27)
[2024-04-21] MEDS: Divalproex Sodium 500 MG TABLET.DR PO (08:27)
[2024-04-21] MEDS: Naltrexone HCl 50 MG TABLET PO (08:28)
[2024-04-21] MEDS: Lidocaine 4 % Patch ADH..PATCH 1 PATCH TRANSDERMA (08:30)
[2024-04-21] MEDS: Furosemide 20 MG TABLET 10 MG PO (08:35)
[2024-04-21] MEDS: Nicotine Polacrilex 2 MG GUM BUCCAL ×3 (12:26→20:15)
[2024-04-21 13:05] VITALS: BMI 17.6
--- NOTE | 2024-04-21 14:32 | MHC.RECOVRN ---
AUDIT-C Brief Intervention Pt had positive screen for unhealthy alcohol use on admission, subsequently met with t/w to discuss alcohol use and recovery supports/options. This flex o writer operator met with patient to discuss current alcohol use and concerns related to increased risk of alcohol related problems.? Pt reports one nip daily x 3 months. Has drank more in the past, however, prior to admission was drinking one nip daily. Discussed how alcohol use has impacted health, including negative impact on mental health. Pts goal is not abstinence, would like to continue drinking a nice craft beer on a adrienne day or have a nice glass of wine. 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 Provided pt with written resources including information on inpatient and outpatient treatment, MAURA, harm reduction, and recovery coaching. Pt was initiated on naltrexone and plans to continue this medication upon discharge. Pt provided with t/w contact information if questions or concerns arise. Denies other questions or concerns at this time.?
--- NOTE | 2024-04-21 18:07 | HO.PSYCHPN ---
Subjective Subjective Date of Service: 04/21/24 Reason For Visit: SI Subjective Notes: Conditional Voluntary Interim History: Pt sleeping through the night. She does present as labile with very limited insight into risk of losing housing. She labile mood, although able to be redirected. No SI/HI. No overt psychosis. No overt delusional content. flirtatious with males and male staff. Review of Systems Review of Systems Pt denies chest pain. No SOB. No constipation nor loose stools. She denies headaches. No changes in vision. Yes Unobtainable due to mental status Mental Status Exam Mental Status Exam Narrative: Appearance: wearing hospital gown, fair hygiene, in NAD Behavior: cooperative Psychomotor: no agitation or retardation noted Speech: mostly clear, regular rate/rhythm/volume, spontaneous TP: some loose associations, TC: in agreement with treatment. Mood: okay Affect: expansive SI: denies HI: denies VH/AH: none Delusions: none Memory/cog; alert, oriented to place, month and year but not situation. MOCA 25/30, ACL 5.2 indicating mild cognitive decline. Diagnostics Vital Signs (24Hr): Vital Signs - 24 hr 04/20/24 20:00 04/21/24 08:00 Temperature 97.2 F 97.4 F Pulse Rate 75 79 Respiratory Rate 17 17 Blood Pressure 151/67 H 117/59 L Pulse Oximetry 99 99 Oxygen Delivery Method Room Air Room Air BMI result Body Mass Index 17.6 Labs 04/19/24 07:05 04/19/24 07:05 Imaging Radiology Impressions: ITS Impressions Orbit X-Ray 04/13/24 16:18 IMPRESSION: 1. No radiopaque foreign bodies. 2. Moderate to large volume of stool in the colon. Electronically signed by: Pablo Wyatt MD 04/13/2024 06:36 PM EDT RP Brain MRI 04/13/24 20:35 IMPRESSION: 1. No acute intracranial abnormalities. 2. Mild to moderate underlying microangiopathy and generalized cerebral volume loss. 3. 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 Electronically signed by: Levy Lee DO 04/14/2024 11:52 AM EDT RP Medications Medications Current Medications Acetaminophen (Acetaminophen 325 Mg Tablet) 650 mg PO Q6H PRN PRN Reason: Headache/Pain Mild Scale (1-3) Last Admin: 04/20/24 22:17 Dose: 650 mg Al Hydroxide/Mg Hydroxide (Magnesium Hydrox/Alum Hydrox 30 Ml Oral.Susp) 30 ml PO Q6H PRN PRN Reason: Heartburn/Nausea Divalproex Sodium (Divalproex Sodium 500 Mg Tablet.) 1,000 mg PO BEDTIME [facility] Last Admin: 04/20/24 20:27 Dose: 1,000 mg Divalproex Sodium (Divalproex Sodium 500 Mg Tablet.) 500 mg PO DAILY [facility] Last Admin: 04/21/24 08:27 Dose: 500 mg Furosemide (Furosemide 20 Mg Tablet) 10 mg PO DAILY [facility]; Protocol Last Admin: 04/21/24 08:35 Dose: 10 mg Gabapentin (Gabapentin 100 Mg Capsule) 100 mg PO TID [facility] Last Admin: 04/21/24 15:08 Dose: 100 mg Lidocaine (Lidocaine 4 % Patch Adh..Patch) 1 patch TRANSDERMA DAILY [facility]; Protocol Last Admin: 04/21/24 08:30 Dose: 1 patch Magnesium Hydroxide (Milk Of Magnesia 30 Ml Oral.Susp) 30 ml PO DAILY PRN PRN Reason: Constipation Melatonin (Melatonin 3 Mg Tablet) 9 mg PO BEDTIME PRN PRN Reason: Sleep Last Admin: 04/20/24 20:28 Dose: 9 mg Naltrexone HCl (Naltrexone Hcl 50 Mg Tablet) 50 mg PO DAILY [facility] Last Admin: 04/21/24 08:28 Dose: 50 mg Nicotine Polacrilex (Nicotine Polacrilex Lozenge 2 Mg Lozenge) 2 mg BUCCAL Q1H PRN PRN Reason: Nicotine Cravings Last Admin: 04/21/24 17:34 Dose: 2 mg Nicotine Polacrilex (Nicotine Polacrilex 2 Mg Gum) 2 mg BUCCAL Q2H PRN PRN Reason: Nicotine Cravings Last Admin: 04/21/24 12:26 Dose: 2 mg Pyridoxine HCl (Pyridoxine Hcl (Vitamin B6) 50 Mg Tablet) 50 mg PO DAILY [facility] Last Admin: 04/21/24 08:27 Dose: 50 mg Risperidone (Risperidone 2 Mg Tablet) 2 mg PO BEDTIME [facility] Last Admin: 04/20/24 20:28 Dose: 2 mg Senna/Docusate Sodium (Sennosides/Docusate Sodium Tablet) 1 tab PO BID [facility] Last Admin: 04/21/24 08:26 Dose: 1 tab Thiamine HCl (Thiamine Hcl 100 Mg Tablet) 100 mg PO DAILY [facility] Last Admin: 04/21/24 08:26 Dose: 100 mg Trazodone HCl (Trazodone Hcl 50 Mg Tablet) 50 mg PO BEDTIME MRX1 PRN PRN Reason: Insomnia Last Admin: 04/20/24 20:28 Dose: 50 mg Allergies Allergies Allergy/AdvReac Type Severity Reaction Status Date / Time No Known Allergies Allergy Verified 04/11/24 18:47 Assessment & Plan Assessment & Plan (1) Bipolar I disorder, most recent episode manic, in remission: Status: Acute Code(s): F31.74 - Bipolar disorder, in full remission, most recent episode manic (2) Alcohol use disorder: Status: Acute Code(s): F10.90 - Alcohol use, unspecified, uncomplicated Plan Ms. Garnett is a 69 year-old woman with hx of Bipolar Disorder, alcohol use disorder who was brought by sister due to presenting as more disorganized, and sister suspected increase alcohol use. In the ED, her BAL is negative. Utox is also negative. She is not so clear as to how much alcohol she was using, reports nips here and there. VS have been stable. Started on thiamine 100mg po daily. Will add ciwa while awake, although so far not displaying any acute withdrawal symptoms. We discussed risks, benefits and alternative treatment options, she agreed to restart depakote and risperidone 1mg po qhs. We also discussed memory/cognitive assessments and MRI. PLAN 04/14 continue tx. will check depakote level and ammonia in next few days. 04/16 continue with same treatment 04/17 continue same treatment 04/18/24 ck labs ? adverse effect dep or risp bill stockings 04/19 continue tx. 04/20 increase risperidone 2mg po qhs. continue depakote. start naltrexon 50mg po qhs. also started lasix 10mg po daily for bilat LE edema. 04/21 continue current tx Reason for continued inpatient stay Substantial Risk for: inability to function Time Spent With Patient Time: Total time managing care of this patient today ____ minutes.
[2024-04-21 20:00] VITALS: BP 129/61; PULSE 78; RESP 16; TEMP 36.9; O2SAT 99
[2024-04-21] MEDS: Divalproex Sodium 500 MG TABLET.DR 1000 MG PO (20:14)
[2024-04-21] MEDS: Melatonin 3 MG TABLET 9 MG PO (20:15)
[2024-04-21] MEDS: risperiDONE 2 MG TABLET PO (20:16)
[2024-04-21] MEDS: traZODone HCL 50 MG TABLET PO (20:17)
[2024-04-22] MEDS: Acetaminophen 325 MG TABLET 650 MG PO (05:59)
[2024-04-22] MEDS: Nicotine Polacrilex Lozenge 2 MG LOZENGE BUCCAL ×4 (06:01→20:11)
[2024-04-22 08:00] VITALS: BP 113/66; PULSE 73; RESP 16; TEMP 36.2; O2SAT 98
[2024-04-22] MEDS: Gabapentin 100 MG CAPSULE PO ×3 (08:24→20:12)
[2024-04-22] MEDS: Sennosides/Docusate Sodium TABLET 1 TAB PO ×2 (08:24→20:11)
[2024-04-22] MEDS: Thiamine HCL 100 MG TABLET PO (08:24)
[2024-04-22 08:26] VITALS: BP 113/66
[2024-04-22] MEDS: Divalproex Sodium 500 MG TABLET.DR PO (08:26)
[2024-04-22] MEDS: Furosemide 20 MG TABLET 10 MG PO (08:26)
[2024-04-22] MEDS: Pyridoxine HCl (Vitamin B6) 50 MG TABLET PO (08:28)
[2024-04-22] MEDS: Naltrexone HCl 50 MG TABLET PO (08:29)
[2024-04-22] MEDS: Lidocaine 4 % Patch ADH..PATCH 1 PATCH TRANSDERMA (09:17)
--- NOTE | 2024-04-22 18:33 | HO.PSYCHPN ---
Subjective Subjective Date of Service: 04/22/24 Reason For Visit: SI Interim History: Pt sleeping through the night. She does present as labile with very limited insight into risk of losing housing. She continue to present with labile mood, less so than before, although able to be redirected. No SI/HI. No overt psychosis. No overt delusional content. Impaired insight and judgment in terms of her alcohol use and financial situation. taking medications. Review of Systems Review of Systems Pt denies chest pain. No SOB. No constipation nor loose stools. She denies headaches. No changes in vision. Yes Unobtainable due to mental status Mental Status Exam Mental Status Exam Narrative: Appearance: wearing hospital gown, fair hygiene, in NAD Behavior: cooperative Psychomotor: no agitation or retardation noted Speech: mostly clear, regular rate/rhythm/volume, spontaneous TP: some loose associations, TC: in agreement with treatment. Mood: okay Affect: expansive SI: denies HI: denies VH/AH: none Delusions: none Memory/cog; alert, oriented to place, month and year but not situation. MOCA 25/30, ACL 5.2 indicating mild cognitive decline. Diagnostics Vital Signs (24Hr): Vital Signs - 24 hr 04/21/24 20:00 04/22/24 08:00 04/22/24 08:26 Temperature 98.5 F 97.1 F Pulse Rate 78 73 Respiratory Rate 16 16 Blood Pressure 129/61 113/66 113/66 Pulse Oximetry 99 98 Oxygen Delivery Method Room Air Room Air BMI result Body Mass Index 17.6 Labs 04/19/24 07:05 04/19/24 07:05 Imaging Radiology Impressions: ITS Impressions Orbit X-Ray 04/13/24 16:18 IMPRESSION: 1. No radiopaque foreign bodies. 2. Moderate to large volume of stool in the colon. Electronically signed by: Pablo Wyatt MD 04/13/2024 06:36 PM EDT Brain MRI 04/13/24 20:35 IMPRESSION: 1. No acute intracranial abnormalities. 2. Mild to moderate underlying microangiopathy and generalized cerebral volume loss. 3. 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 Electronically signed by: Levy Lee DO 04/14/2024 11:52 AM EDT RP Medications Medications Current Medications Acetaminophen (Acetaminophen 325 Mg Tablet) 650 mg PO Q6H PRN PRN Reason: Headache/Pain Mild Scale (1-3) Last Admin: 04/22/24 05:59 Dose: 650 mg Al Hydroxide/Mg Hydroxide (Magnesium Hydrox/Alum Hydrox 30 Ml Oral.Susp) 30 ml PO Q6H PRN PRN Reason: Heartburn/Nausea Divalproex Sodium (Divalproex Sodium 500 Mg Tablet.) 1,000 mg PO BEDTIME [facility] Last Admin: 04/21/24 20:14 Dose: 1,000 mg Divalproex Sodium (Divalproex Sodium 500 Mg Tablet.) 500 mg PO DAILY [facility] Last Admin: 04/22/24 08:26 Dose: 500 mg Furosemide (Furosemide 20 Mg Tablet) 10 mg PO DAILY [facility]; Protocol Last Admin: 04/22/24 08:26 Dose: 10 mg Gabapentin (Gabapentin 100 Mg Capsule) 100 mg PO TID [facility] Last Admin: 04/22/24 15:59 Dose: 100 mg Lidocaine (Lidocaine 4 % Patch Adh..Patch) 1 patch TRANSDERMA DAILY [facility]; Protocol Last Admin: 04/22/24 09:17 Dose: 1 patch Magnesium Hydroxide (Milk Of Magnesia 30 Ml Oral.Susp) 30 ml PO DAILY PRN PRN Reason: Constipation Melatonin (Melatonin 3 Mg Tablet) 9 mg PO BEDTIME PRN PRN Reason: Sleep Last Admin: 04/21/24 20:15 Dose: 9 mg Naltrexone HCl (Naltrexone Hcl 50 Mg Tablet) 50 mg PO DAILY [facility] Last Admin: 04/22/24 08:29 Dose: 50 mg Nicotine Polacrilex (Nicotine Polacrilex Lozenge 2 Mg Lozenge) 2 mg BUCCAL Q1H PRN PRN Reason: Nicotine Cravings Last Admin: 04/22/24 16:03 Dose: 2 mg Nicotine Polacrilex (Nicotine Polacrilex 2 Mg Gum) 2 mg BUCCAL Q2H PRN PRN Reason: Nicotine Cravings Last Admin: 04/21/24 20:15 Dose: 2 mg Pyridoxine HCl (Pyridoxine Hcl (Vitamin B6) 50 Mg Tablet) 50 mg PO DAILY [facility] Last Admin: 04/22/24 08:28 Dose: 50 mg Risperidone (Risperidone 2 Mg Tablet) 2 mg PO BEDTIME [facility] Last Admin: 04/21/24 20:16 Dose: 2 mg Senna/Docusate Sodium (Sennosides/Docusate Sodium Tablet) 1 tab PO BID [facility] Last Admin: 04/22/24 08:24 Dose: 1 tab Thiamine HCl (Thiamine Hcl 100 Mg Tablet) 100 mg PO DAILY [facility] Last Admin: 04/22/24 08:24 Dose: 100 mg Trazodone HCl (Trazodone Hcl 50 Mg Tablet) 50 mg PO BEDTIME MRX1 PRN PRN Reason: Insomnia Last Admin: 04/21/24 20:17 Dose: 50 mg Allergies Allergies Allergy/AdvReac Type Severity Reaction Status Date / Time No Known Allergies Allergy Verified 04/11/24 18:47 Assessment & Plan Assessment & Plan (1) Bipolar I disorder, most recent episode manic, in remission: Status: Acute Code(s): F31.74 - Bipolar disorder, in full remission, most recent episode manic (2) Alcohol use disorder: Status: Acute Code(s): F10.90 - Alcohol use, unspecified, uncomplicated Plan Ms. Garnett is a 69 year-old woman with hx of Bipolar Disorder, alcohol use disorder who was brought by sister due to presenting as more disorganized, and sister suspected increase alcohol use. In the ED, her BAL is negative. Utox is also negative. She is not so clear as to how much alcohol she was using, reports nips here and there. VS have been stable. Started on thiamine 100mg po daily. Will add ciwa while awake, although so far not displaying any acute withdrawal symptoms. We discussed risks, benefits and alternative treatment options, she agreed to restart depakote and risperidone 1mg po qhs. We also discussed memory/cognitive assessments and MRI. PLAN 04/14 continue tx. will check depakote level and ammonia in next few days. 04/16 continue with same treatment 04/17 continue same treatment 04/18/24 ck labs ? adverse effect dep or risp bill stockings 04/19 continue tx. 04/20 increase risperidone 2mg po qhs. continue depakote. start naltrexon 50mg po qhs. also started lasix 10mg po daily for bilat LE edema. 04/21 continue current tx 04/22 continue tx. Reason for continued inpatient stay Substantial Risk for: inability to function Time Spent With Patient Time: Total time managing care of this patient today ____ minutes.
[2024-04-22 20:00] VITALS: BP 108/53; PULSE 70; RESP 16; TEMP 35.9; O2SAT 99
[2024-04-22] MEDS: Melatonin 3 MG TABLET 9 MG PO (20:11)
[2024-04-22] MEDS: Divalproex Sodium 500 MG TABLET.DR 1000 MG PO (20:12)
[2024-04-22] MEDS: risperiDONE 2 MG TABLET PO (20:14)
[2024-04-23] MEDS: Nicotine Polacrilex Lozenge 2 MG LOZENGE BUCCAL ×4 (03:50→17:43)
[2024-04-23] MEDS: Acetaminophen 325 MG TABLET 650 MG PO ×2 (03:57→13:10)
[2024-04-23] MEDS: Lidocaine 4 % Patch ADH..PATCH 1 PATCH TRANSDERMA (04:04)
[2024-04-23 08:44] VITALS: BP 138/65; PULSE 66; RESP 17; TEMP 36; O2SAT 98
[2024-04-23] MEDS: Pyridoxine HCl (Vitamin B6) 50 MG TABLET PO (08:46)
[2024-04-23] MEDS: Gabapentin 100 MG CAPSULE PO ×3 (08:46→21:07)
[2024-04-23] MEDS: Furosemide 20 MG TABLET 10 MG PO (08:46)
[2024-04-23] MEDS: Sennosides/Docusate Sodium TABLET 1 TAB PO ×2 (08:46→21:07)
[2024-04-23] MEDS: Divalproex Sodium 500 MG TABLET.DR PO (08:46)
[2024-04-23] MEDS: Thiamine HCL 100 MG TABLET PO (08:46)
[2024-04-23] MEDS: Naltrexone HCl 50 MG TABLET PO (08:47)
[2024-04-23] MEDS: Nicotine Polacrilex 2 MG GUM BUCCAL ×2 (17:43→21:12)
[2024-04-23 20:00] VITALS: BP 134/74; PULSE 74; RESP 16; TEMP 36.8; O2SAT 98
--- NOTE | 2024-04-23 20:11 | HO.PSYCHPN ---
Subjective Subjective Date of Service: 04/22/24 Reason For Visit: SI Interim History: Pt sleeping through the night. She does present as labile with very limited insight into risk of losing housing. She continue to present with labile mood, less so than before, although able to be redirected. No SI/HI. No overt psychosis. No overt delusional content. Impaired insight and judgment in terms of her alcohol use and financial situation. taking medications. Review of Systems Review of Systems Pt denies chest pain. No SOB. No constipation nor loose stools. She denies headaches. No changes in vision. Yes Unobtainable due to mental status Mental Status Exam Mental Status Exam Narrative: Appearance: wearing hospital gown, fair hygiene, in NAD Behavior: cooperative Psychomotor: no agitation or retardation noted Speech: mostly clear, regular rate/rhythm/volume, spontaneous TP: some loose associations, TC: in agreement with treatment. Mood: okay Affect: expansive SI: denies HI: denies VH/AH: none Delusions: none Memory/cog; alert, oriented to place, month and year but not situation. MOCA 25/30, ACL 5.2 indicating mild cognitive decline. Diagnostics Vital Signs (24Hr): Vital Signs - 24 hr 04/23/24 08:44 Temperature 96.8 F Pulse Rate 66 Respiratory Rate 17 Blood Pressure 138/65 Pulse Oximetry 98 Oxygen Delivery Method Room Air BMI result Body Mass Index 17.6 Labs 04/19/24 07:05 04/19/24 07:05 Imaging Radiology Impressions: ITS Impressions Orbit X-Ray 04/13/24 16:18 IMPRESSION: 1. No radiopaque foreign bodies. 2. Moderate to large volume of stool in the colon. Electronically signed by: Pablo Wyatt MD 04/13/2024 06:36 PM EDT Brain MRI 04/13/24 20:35 IMPRESSION: 1. No acute intracranial abnormalities. 2. Mild to moderate underlying microangiopathy and generalized cerebral volume loss. 3. 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 Electronically signed by: Levy Lee DO 04/14/2024 11:52 AM EDT Medications Medications Current Medications Acetaminophen (Acetaminophen 325 Mg Tablet) 650 mg PO Q6H PRN PRN Reason: Headache/Pain Mild Scale (1-3) Last Admin: 04/23/24 13:10 Dose: 650 mg Al Hydroxide/Mg Hydroxide (Magnesium Hydrox/Alum Hydrox 30 Ml Oral.Susp) 30 ml PO Q6H PRN PRN Reason: Heartburn/Nausea Divalproex Sodium (Divalproex Sodium 500 Mg Tablet.) 1,000 mg PO BEDTIME [facility] Last Admin: 04/22/24 20:12 Dose: 1,000 mg Divalproex Sodium (Divalproex Sodium 500 Mg Tablet.) 500 mg PO DAILY [facility] Last Admin: 04/23/24 08:46 Dose: 500 mg Furosemide (Furosemide 20 Mg Tablet) 10 mg PO DAILY [facility]; Protocol Last Admin: 04/23/24 08:46 Dose: 10 mg Gabapentin (Gabapentin 100 Mg Capsule) 100 mg PO TID [facility] Last Admin: 04/23/24 16:25 Dose: 100 mg Lidocaine (Lidocaine 4 % Patch Adh..Patch) 1 patch TRANSDERMA DAILY [facility]; Protocol Last Admin: 04/23/24 04:04 Dose: 1 patch Magnesium Hydroxide (Milk Of Magnesia 30 Ml Oral.Susp) 30 ml PO DAILY PRN PRN Reason: Constipation Melatonin (Melatonin 3 Mg Tablet) 9 mg PO BEDTIME PRN PRN Reason: Sleep Last Admin: 04/22/24 20:11 Dose: 9 mg Naltrexone HCl (Naltrexone Hcl 50 Mg Tablet) 50 mg PO DAILY [facility] Last Admin: 04/23/24 08:47 Dose: 50 mg Nicotine Polacrilex (Nicotine Polacrilex Lozenge 2 Mg Lozenge) 2 mg BUCCAL Q1H PRN PRN Reason: Nicotine Cravings Last Admin: 04/23/24 17:43 Dose: 2 mg Nicotine Polacrilex (Nicotine Polacrilex 2 Mg Gum) 2 mg BUCCAL Q2H PRN PRN Reason: Nicotine Cravings Last Admin: 04/23/24 17:43 Dose: 2 mg Pyridoxine HCl (Pyridoxine Hcl (Vitamin B6) 50 Mg Tablet) 50 mg PO DAILY [facility] Last Admin: 04/23/24 08:46 Dose: 50 mg Risperidone (Risperidone 2 Mg Tablet) 2 mg PO BEDTIME [facility] Last Admin: 04/22/24 20:14 Dose: 2 mg Senna/Docusate Sodium (Sennosides/Docusate Sodium Tablet) 1 tab PO BID [facility] Last Admin: 04/23/24 08:46 Dose: 1 tab Thiamine HCl (Thiamine Hcl 100 Mg Tablet) 100 mg PO DAILY [facility] Last Admin: 04/23/24 08:46 Dose: 100 mg Trazodone HCl (Trazodone Hcl 50 Mg Tablet) 50 mg PO BEDTIME MRX1 PRN PRN Reason: Insomnia Last Admin: 04/21/24 20:17 Dose: 50 mg Allergies Allergies Allergy/AdvReac Type Severity Reaction Status Date / Time No Known Allergies Allergy Verified 04/11/24 18:47 Assessment & Plan Assessment & Plan (1) Bipolar I disorder, most recent episode manic, in remission: Status: Acute Code(s): F31.74 - Bipolar disorder, in full remission, most recent episode manic (2) Alcohol use disorder: Status: Acute Code(s): F10.90 - Alcohol use, unspecified, uncomplicated Plan Ms. Garnett is a 69 year-old woman with hx of Bipolar Disorder, alcohol use disorder who was brought by sister due to presenting as more disorganized, and sister suspected increase alcohol use. In the ED, her BAL is negative. Utox is also negative. She is not so clear as to how much alcohol she was using, reports nips here and there. VS have been stable. Started on thiamine 100mg po daily. Will add ciwa while awake, although so far not displaying any acute withdrawal symptoms. We discussed risks, benefits and alternative treatment options, she agreed to restart depakote and risperidone 1mg po qhs. We also discussed memory/cognitive assessments and MRI. PLAN 04/14 continue tx. will check depakote level and ammonia in next few days. 04/16 continue with same treatment 04/17 continue same treatment 04/18/24 ck labs ? adverse effect dep or risp bill stockings 04/19 continue tx. 04/20 increase risperidone 2mg po qhs. continue depakote. start naltrexon 50mg po qhs. also started lasix 10mg po daily for bilat LE edema. 04/21 continue current tx Reason for continued inpatient stay Substantial Risk for: inability to function Time Spent With Patient Time: Total time managing care of this patient today ____ minutes.
[2024-04-23] MEDS: traZODone HCL 50 MG TABLET PO (21:07)
[2024-04-23] MEDS: risperiDONE 2 MG TABLET PO (21:08)
[2024-04-23] MEDS: Divalproex Sodium 500 MG TABLET.DR 1000 MG PO (21:08)
[2024-04-24] MEDS: Nicotine Polacrilex Lozenge 2 MG LOZENGE BUCCAL ×6 (02:24→21:44)
[2024-04-24 08:27] VITALS: BP 111/55; PULSE 78; RESP 18; TEMP 36.3; O2SAT 97
[2024-04-24] MEDS: Divalproex Sodium 500 MG TABLET.DR PO (08:29)
[2024-04-24] MEDS: Sennosides/Docusate Sodium TABLET 1 TAB PO ×2 (08:29→21:05)
[2024-04-24] MEDS: Gabapentin 100 MG CAPSULE PO ×3 (08:29→21:05)
[2024-04-24] MEDS: Naltrexone HCl 50 MG TABLET PO (08:29)
[2024-04-24] MEDS: Pyridoxine HCl (Vitamin B6) 50 MG TABLET PO (08:30)
[2024-04-24] MEDS: Thiamine HCL 100 MG TABLET PO (08:30)
[2024-04-24] MEDS: Lidocaine 4 % Patch ADH..PATCH 1 PATCH TRANSDERMA (08:33)
[2024-04-24] MEDS: Furosemide 20 MG TABLET 10 MG PO (08:49)
--- NOTE | 2024-04-24 16:02 | P.PNPSI_ITS ---
Subjective Subjective Date of Service: 04/24/24 Reason For Visit: SI Subjective Notes: Conditional Voluntary Interim History: Pt sleeping through the night. She does present as labile with very limited insight into risk of losing housing. She continue to present with labile mood, less so than before, although able to be redirected. No SI/HI. No overt psychosis. No overt delusional content. Impaired insight and judgment in terms of her alcohol use and financial situation. taking medications. Review of Systems Review of Systems Pt denies chest pain. No SOB. No constipation nor loose stools. She denies headaches. No changes in vision. Yes Unobtainable due to mental status Mental Status Exam Mental Status Exam Narrative: Appearance: wearing hospital gown, fair hygiene, in NAD Behavior: cooperative Psychomotor: no agitation or retardation noted Speech: mostly clear, regular rate/rhythm/volume, spontaneous TP: some loose associations, TC: in agreement with treatment. Mood: okay Affect: expansive SI: denies HI: denies VH/AH: none Delusions: none Memory/cog; alert, oriented to place, month and year but not situation. MOCA 25/30, ACL 5.2 indicating mild cognitive decline. Diagnostics Vital Signs (24Hr): Vital Signs - 24 hr 04/23/24 20:00 04/24/24 08:27 Temperature 98.3 F 97.4 F Pulse Rate 74 78 Respiratory Rate 16 18 Blood Pressure 134/74 111/55 L Pulse Oximetry 98 97 Oxygen Delivery Method Room Air Room Air BMI result Body Mass Index 17.6 Labs 04/19/24 07:05 04/19/24 07:05 Imaging Radiology Impressions: ITS Impressions Orbit X-Ray 04/13/24 16:18 IMPRESSION: 1. No radiopaque foreign bodies. 2. Moderate to large volume of stool in the colon. Electronically signed by: Pablo Wyatt MD 04/13/2024 06:36 PM EDT Brain MRI 04/13/24 20:35 IMPRESSION: 1. No acute intracranial abnormalities. 2. Mild to moderate underlying microangiopathy and generalized cerebral volume loss. 3. 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 Electronically signed by: Levy Lee DO 04/14/2024 11:52 AM EDT Medications Medications Current Medications Acetaminophen (Acetaminophen 325 Mg Tablet) 650 mg PO Q6H PRN PRN Reason: Headache/Pain Mild Scale (1-3) Last Admin: 04/23/24 13:10 Dose: 650 mg Al Hydroxide/Mg Hydroxide (Magnesium Hydrox/Alum Hydrox 30 Ml Oral.Susp) 30 ml PO Q6H PRN PRN Reason: Heartburn/Nausea Divalproex Sodium (Divalproex Sodium 500 Mg Tablet.Dr) 1,000 mg PO BEDTIME [facility] Last Admin: 04/23/24 21:08 Dose: 1,000 mg Divalproex Sodium (Divalproex Sodium 500 Mg Tablet.Dr) 500 mg PO DAILY [facility] Last Admin: 04/24/24 08:29 Dose: 500 mg Furosemide (Furosemide 20 Mg Tablet) 10 mg PO DAILY [facility]; Protocol Last Admin: 04/24/24 08:49 Dose: 10 mg Gabapentin (Gabapentin 100 Mg Capsule) 100 mg PO TID [facility] Last Admin: 04/24/24 15:00 Dose: 100 mg Lidocaine (Lidocaine 4 % Patch Adh..Patch) 1 patch TRANSDERMA DAILY [facility]; Protocol Last Admin: 04/24/24 08:33 Dose: 1 patch Magnesium Hydroxide (Milk Of Magnesia 30 Ml Oral.Susp) 30 ml PO DAILY PRN PRN Reason: Constipation Melatonin (Melatonin 3 Mg Tablet) 9 mg PO BEDTIME PRN PRN Reason: Sleep Last Admin: 04/22/24 20:11 Dose: 9 mg Naltrexone HCl (Naltrexone Hcl 50 Mg Tablet) 50 mg PO DAILY [facility] Last Admin: 04/24/24 08:29 Dose: 50 mg Nicotine Polacrilex (Nicotine Polacrilex Lozenge 2 Mg Lozenge) 2 mg BUCCAL Q1H PRN PRN Reason: Nicotine Cravings Last Admin: 04/24/24 12:23 Dose: 2 mg Nicotine Polacrilex (Nicotine Polacrilex 2 Mg Gum) 2 mg BUCCAL Q2H PRN PRN Reason: Nicotine Cravings Last Admin: 04/23/24 21:12 Dose: 2 mg Pyridoxine HCl (Pyridoxine Hcl (Vitamin B6) 50 Mg Tablet) 50 mg PO DAILY [facility] Last Admin: 04/24/24 08:30 Dose: 50 mg Risperidone (Risperidone 2 Mg Tablet) 2 mg PO BEDTIME [facility] Last Admin: 04/23/24 21:08 Dose: 2 mg Senna/Docusate Sodium (Sennosides/Docusate Sodium Tablet) 1 tab PO BID [facility] Last Admin: 04/24/24 08:29 Dose: 1 tab Thiamine HCl (Thiamine Hcl 100 Mg Tablet) 100 mg PO DAILY [facility] Last Admin: 04/24/24 08:30 Dose: 100 mg Trazodone HCl (Trazodone Hcl 50 Mg Tablet) 50 mg PO BEDTIME MRX1 PRN PRN Reason: Insomnia Last Admin: 04/23/24 21:07 Dose: 50 mg Allergies Allergies Allergy/AdvReac Type Severity Reaction Status Date / Time No Known Allergies Allergy Verified 04/11/24 18:47 Assessment & Plan Assessment & Plan (1) Bipolar I disorder, most recent episode manic, in remission: Status: Acute Code(s): F31.74 - Bipolar disorder, in full remission, most recent episode manic (2) Alcohol use disorder: Status: Acute Code(s): F10.90 - Alcohol use, unspecified, uncomplicated Plan Ms. Garnett is a 69 year-old woman with hx of Bipolar Disorder, alcohol use disorder who was brought by sister due to presenting as more disorganized, and sister suspected increase alcohol use. In the ED, her BAL is negative. Utox is also negative. She is not so clear as to how much alcohol she was using, reports nips here and there. VS have been stable. Started on thiamine 100mg po daily. Will add ciwa while awake, although so far not displaying any acute withdrawal symptoms. We discussed risks, benefits and alternative treatment options, she agreed to restart depakote and risperidone 1mg po qhs. We also discussed memory/cognitive assessments and MRI. PLAN 04/14 continue tx. will check depakote level and ammonia in next few days. 04/16 continue with same treatment 04/17 continue same treatment 04/18/24 ck labs ? adverse effect dep or risp bill stockings 04/19 continue tx. 04/20 increase risperidone 2mg po qhs. continue depakote. start naltrexon 50mg po qhs. also started lasix 10mg po daily for bilat LE edema. 04/21 continue current tx 04/22 continue tx. 04/23 continue tx 04/24 continue tx. may recheck depakote level. Reason for continued inpatient stay Substantial Risk for: inability to function Time Spent With Patient Time: Total time managing care of this patient today ____ minutes.
[2024-04-24 20:00] VITALS: BP 116/77; PULSE 77; RESP 16; TEMP 36.6; O2SAT 98
[2024-04-24] MEDS: traZODone HCL 50 MG TABLET PO (21:05)
[2024-04-24] MEDS: Divalproex Sodium 500 MG TABLET.DR 1000 MG PO (21:05)
[2024-04-24] MEDS: Melatonin 3 MG TABLET 9 MG PO (21:05)
[2024-04-24] MEDS: risperiDONE 2 MG TABLET PO (21:05)
[2024-04-25] MEDS: Nicotine Polacrilex Lozenge 2 MG LOZENGE BUCCAL ×4 (04:05→21:04)
[2024-04-25 08:00] VITALS: BP 109/58; PULSE 65; RESP 16; O2SAT 100
[2024-04-25] MEDS: Sennosides/Docusate Sodium TABLET 1 TAB PO ×2 (08:17→20:05)
[2024-04-25] MEDS: Naltrexone HCl 50 MG TABLET PO (08:17)
[2024-04-25] MEDS: Gabapentin 100 MG CAPSULE PO ×3 (08:17→20:05)
[2024-04-25] MEDS: Pyridoxine HCl (Vitamin B6) 50 MG TABLET PO (08:17)
[2024-04-25] MEDS: Thiamine HCL 100 MG TABLET PO (08:17)
[2024-04-25] MEDS: Lidocaine 4 % Patch ADH..PATCH 1 PATCH TRANSDERMA (08:17)
[2024-04-25] MEDS: Divalproex Sodium 500 MG TABLET.DR PO (08:17)
[2024-04-25] MEDS: Furosemide 20 MG TABLET 10 MG PO (08:18)
[2024-04-25] MEDS: Acetaminophen 325 MG TABLET 650 MG PO (09:31)
[2024-04-25] MEDS: Nicotine Polacrilex 2 MG GUM BUCCAL (16:23)
[2024-04-25 19:52] VITALS: BP 117/59; PULSE 68; RESP 16; TEMP 36.3; O2SAT 98
[2024-04-25] MEDS: Melatonin 3 MG TABLET 9 MG PO (20:05)
[2024-04-25] MEDS: traZODone HCL 50 MG TABLET PO (20:05)
[2024-04-25] MEDS: risperiDONE 2 MG TABLET PO (20:05)
[2024-04-25] MEDS: Divalproex Sodium 500 MG TABLET.DR 1000 MG PO (20:05)
--- NOTE | 2024-04-25 20:26 | P.PNPSI_ITS ---
Subjective Subjective Date of Service: 04/25/24 Reason For Visit: SI Subjective Notes: Conditional Voluntary Interim History: Pt sleeping through the night. She does present as labile with very limited insight into risk of losing housing. She continue to present with labile mood, less so than before, although able to be redirected. No SI/HI. No overt psychosis. No overt delusional content. Impaired insight and judgment in terms of her alcohol use and financial situation. taking medications. Review of Systems Review of Systems Pt denies chest pain. No SOB. No constipation nor loose stools. She denies headaches. No changes in vision. Yes Unobtainable due to mental status Mental Status Exam Mental Status Exam Narrative: Appearance: wearing hospital gown, fair hygiene, in NAD Behavior: cooperative Psychomotor: no agitation or retardation noted Speech: mostly clear, regular rate/rhythm/volume, spontaneous TP: some loose associations, TC: in agreement with treatment. Mood: okay Affect: expansive SI: denies HI: denies VH/AH: none Delusions: none Memory/cog; alert, oriented to place, month and year but not situation. MOCA 25/30, ACL 5.2 indicating mild cognitive decline. Diagnostics Vital Signs (24Hr): Vital Signs - 24 hr 04/25/24 08:00 04/25/24 19:52 Temperature 97.4 F Pulse Rate 65 68 Respiratory Rate 16 16 Blood Pressure 109/58 L 117/59 L Pulse Oximetry 100 98 Oxygen Delivery Method Room Air Room Air BMI result Body Mass Index 17.6 Labs 04/19/24 07:05 04/19/24 07:05 Imaging Radiology Impressions: ITS Impressions Orbit X-Ray 04/13/24 16:18 IMPRESSION: 1. No radiopaque foreign bodies. 2. Moderate to large volume of stool in the colon. Electronically signed by: Pablo Wyatt MD 04/13/2024 06:36 PM EDT Brain MRI 04/13/24 20:35 IMPRESSION: 1. No acute intracranial abnormalities. 2. Mild to moderate underlying microangiopathy and generalized cerebral volume loss. 3. 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 Electronically signed by: Levy Lee DO 04/14/2024 11:52 AM EDT RP Medications Medications Current Medications Acetaminophen (Acetaminophen 325 Mg Tablet) 650 mg PO Q6H PRN PRN Reason: Headache/Pain Mild Scale (1-3) Last Admin: 04/25/24 09:31 Dose: 650 mg Al Hydroxide/Mg Hydroxide (Magnesium Hydrox/Alum Hydrox 30 Ml Oral.Susp) 30 ml PO Q6H PRN PRN Reason: Heartburn/Nausea Divalproex Sodium (Divalproex Sodium 500 Mg Tablet.) 1,000 mg PO BEDTIME [facility] Last Admin: 04/25/24 20:05 Dose: 1,000 mg Divalproex Sodium (Divalproex Sodium 500 Mg Tablet.) 500 mg PO DAILY [facility] Last Admin: 04/25/24 08:17 Dose: 500 mg Furosemide (Furosemide 20 Mg Tablet) 10 mg PO DAILY [facility]; Protocol Last Admin: 04/25/24 08:18 Dose: 10 mg Gabapentin (Gabapentin 100 Mg Capsule) 100 mg PO TID [facility] Last Admin: 04/25/24 20:05 Dose: 100 mg Lidocaine (Lidocaine 4 % Patch Adh..Patch) 1 patch TRANSDERMA DAILY [facility]; Protocol Last Admin: 04/25/24 08:17 Dose: 1 patch Magnesium Hydroxide (Milk Of Magnesia 30 Ml Oral.Susp) 30 ml PO DAILY PRN PRN Reason: Constipation Melatonin (Melatonin 3 Mg Tablet) 9 mg PO BEDTIME PRN PRN Reason: Sleep Last Admin: 04/25/24 20:05 Dose: 9 mg Naltrexone HCl (Naltrexone Hcl 50 Mg Tablet) 50 mg PO DAILY [facility] Last Admin: 04/25/24 08:17 Dose: 50 mg Nicotine Polacrilex (Nicotine Polacrilex Lozenge 2 Mg Lozenge) 2 mg BUCCAL Q1H PRN PRN Reason: Nicotine Cravings Last Admin: 04/25/24 13:59 Dose: 2 mg Nicotine Polacrilex (Nicotine Polacrilex 2 Mg Gum) 2 mg BUCCAL Q2H PRN PRN Reason: Nicotine Cravings Last Admin: 04/25/24 16:23 Dose: 2 mg Pyridoxine HCl (Pyridoxine Hcl (Vitamin B6) 50 Mg Tablet) 50 mg PO DAILY [facility] Last Admin: 04/25/24 08:17 Dose: 50 mg Risperidone (Risperidone 2 Mg Tablet) 2 mg PO BEDTIME [facility] Last Admin: 04/25/24 20:05 Dose: 2 mg Senna/Docusate Sodium (Sennosides/Docusate Sodium Tablet) 1 tab PO BID [facility] Last Admin: 04/25/24 20:05 Dose: 1 tab Thiamine HCl (Thiamine Hcl 100 Mg Tablet) 100 mg PO DAILY [facility] Last Admin: 04/25/24 08:17 Dose: 100 mg Trazodone HCl (Trazodone Hcl 50 Mg Tablet) 50 mg PO BEDTIME MRX1 PRN PRN Reason: Insomnia Last Admin: 04/25/24 20:05 Dose: 50 mg Allergies Allergies Allergy/AdvReac Type Severity Reaction Status Date / Time No Known Allergies Allergy Verified 04/11/24 18:47 Assessment & Plan Assessment & Plan (1) Bipolar I disorder, most recent episode manic, in remission: Status: Acute Code(s): F31.74 - Bipolar disorder, in full remission, most recent episode manic (2) Alcohol use disorder: Status: Acute Code(s): F10.90 - Alcohol use, unspecified, uncomplicated Plan Ms. Garnett is a 69 year-old woman with hx of Bipolar Disorder, alcohol use disorder who was brought by sister due to presenting as more disorganized, and sister suspected increase alcohol use. In the ED, her BAL is negative. Utox is also negative. She is not so clear as to how much alcohol she was using, reports nips here and there. VS have been stable. Started on thiamine 100mg po daily. Will add ciwa while awake, although so far not displaying any acute withdrawal symptoms. We discussed risks, benefits and alternative treatment options, she agreed to restart depakote and risperidone 1mg po qhs. We also discussed memory/cognitive assessments and MRI. PLAN 04/14 continue tx. will check depakote level and ammonia in next few days. 04/16 continue with same treatment 04/17 continue same treatment 04/18/24 ck labs ? adverse effect dep or risp bill stockings 04/19 continue tx. 04/20 increase risperidone 2mg po qhs. continue depakote. start naltrexon 50mg po qhs. also started lasix 10mg po daily for bilat LE edema. 04/21 continue current tx Reason for continued inpatient stay Substantial Risk for: inability to function Time Spent With Patient Time: Total time managing care of this patient today ____ minutes.
[2024-04-26] MEDS: Nicotine Polacrilex Lozenge 2 MG LOZENGE BUCCAL ×5 (04:26→20:23)
[2024-04-26] MEDS: Nicotine Polacrilex 2 MG GUM BUCCAL (06:47)
[2024-04-26 08:00] VITALS: BP 113/64; PULSE 63; RESP 16; TEMP 36.2; O2SAT 98
[2024-04-26] MEDS: Pyridoxine HCl (Vitamin B6) 50 MG TABLET PO (08:14)
[2024-04-26] MEDS: Gabapentin 100 MG CAPSULE PO ×3 (08:14→20:22)
[2024-04-26] MEDS: Naltrexone HCl 50 MG TABLET PO (08:14)
[2024-04-26] MEDS: Sennosides/Docusate Sodium TABLET 1 TAB PO ×2 (08:15→20:22)
[2024-04-26] MEDS: Thiamine HCL 100 MG TABLET PO (08:15)
[2024-04-26] MEDS: Furosemide 20 MG TABLET 10 MG PO (08:15)
[2024-04-26] MEDS: Divalproex Sodium 500 MG TABLET.DR PO (08:15)
--- NOTE | 2024-04-26 16:25 | HO.PSYCHPN ---
Subjective Subjective Date of Service: 04/26/24 Reason For Visit: SI Subjective Notes: Conditional Voluntary Interim History: Pt sleeping through the night. She does present as less labile with very limited insight into risk of losing housing. She has been visible on the unit. Social with select peer. No SI/HI. No overt psychosis. No overt delusional content. Impaired insight and judgment in terms of her alcohol use and financial situation. taking medications. Review of Systems Review of Systems Pt denies chest pain. No SOB. No constipation nor loose stools. She denies headaches. No changes in vision. Yes Unobtainable due to mental status Mental Status Exam Mental Status Exam Narrative: Appearance: wearing hospital gown, fair hygiene, in NAD Behavior: cooperative Psychomotor: no agitation or retardation noted Speech: mostly clear, regular rate/rhythm/volume, spontaneous TP: some loose associations, TC: in agreement with treatment. Mood: okay Affect: expansive SI: denies HI: denies VH/AH: none Delusions: none Memory/cog; alert, oriented to place, month and year but not situation. MOCA 25/30, ACL 5.2 indicating mild cognitive decline. Diagnostics Vital Signs (24Hr): Vital Signs - 24 hr 04/25/24 19:52 04/26/24 08:00 Temperature 97.4 F 97.2 F Pulse Rate 68 63 Respiratory Rate 16 16 Blood Pressure 117/59 L 113/64 Pulse Oximetry 98 98 Oxygen Delivery Method Room Air Room Air BMI result Body Mass Index 17.6 Labs 04/19/24 07:05 04/19/24 07:05 Imaging Radiology Impressions: ITS Impressions Orbit X-Ray 04/13/24 16:18 IMPRESSION: 1. No radiopaque foreign bodies. 2. Moderate to large volume of stool in the colon. Electronically signed by: Pablo Wyatt MD 04/13/2024 06:36 PM EDT RP Brain MRI 04/13/24 20:35 IMPRESSION: 1. No acute intracranial abnormalities. 2. Mild to moderate underlying microangiopathy and generalized cerebral volume loss. 3. 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 Electronically signed by: Levy Lee DO 04/14/2024 11:52 AM EDT RP Medications Medications Current Medications Acetaminophen (Acetaminophen 325 Mg Tablet) 650 mg PO Q6H PRN PRN Reason: Headache/Pain Mild Scale (1-3) Last Admin: 04/25/24 09:31 Dose: 650 mg Al Hydroxide/Mg Hydroxide (Magnesium Hydrox/Alum Hydrox 30 Ml Oral.Susp) 30 ml PO Q6H PRN PRN Reason: Heartburn/Nausea Divalproex Sodium (Divalproex Sodium 500 Mg Tablet.) 1,000 mg PO BEDTIME [facility] Last Admin: 04/25/24 20:05 Dose: 1,000 mg Divalproex Sodium (Divalproex Sodium 500 Mg Tablet.) 500 mg PO DAILY [facility] Last Admin: 04/26/24 08:15 Dose: 500 mg Furosemide (Furosemide 20 Mg Tablet) 10 mg PO DAILY [facility]; Protocol Last Admin: 04/26/24 08:15 Dose: 10 mg Gabapentin (Gabapentin 100 Mg Capsule) 100 mg PO TID MIHAELA Last Admin: 04/26/24 14:48 Dose: 100 mg Lidocaine (Lidocaine 4 % Patch Adh..Patch) 1 patch TRANSDERMA DAILY [facility]; Protocol Last Admin: 04/26/24 08:17 Dose: Not Given Magnesium Hydroxide (Milk Of Magnesia 30 Ml Oral.Susp) 30 ml PO DAILY PRN PRN Reason: Constipation Melatonin (Melatonin 3 Mg Tablet) 9 mg PO BEDTIME PRN PRN Reason: Sleep Last Admin: 04/25/24 20:05 Dose: 9 mg Naltrexone HCl (Naltrexone Hcl 50 Mg Tablet) 50 mg PO DAILY [facility] Last Admin: 04/26/24 08:14 Dose: 50 mg Nicotine Polacrilex (Nicotine Polacrilex Lozenge 2 Mg Lozenge) 2 mg BUCCAL Q1H PRN PRN Reason: Nicotine Cravings Last Admin: 04/26/24 14:54 Dose: 2 mg Nicotine Polacrilex (Nicotine Polacrilex 2 Mg Gum) 2 mg BUCCAL Q2H PRN PRN Reason: Nicotine Cravings Last Admin: 04/26/24 06:47 Dose: 2 mg Pyridoxine HCl (Pyridoxine Hcl (Vitamin B6) 50 Mg Tablet) 50 mg PO DAILY [facility] Last Admin: 04/26/24 08:14 Dose: 50 mg Risperidone (Risperidone 2 Mg Tablet) 2 mg PO BEDTIME [facility] Last Admin: 04/25/24 20:05 Dose: 2 mg Senna/Docusate Sodium (Sennosides/Docusate Sodium Tablet) 1 tab PO BID [facility] Last Admin: 04/26/24 08:15 Dose: 1 tab Thiamine HCl (Thiamine Hcl 100 Mg Tablet) 100 mg PO DAILY [facility] Last Admin: 04/26/24 08:15 Dose: 100 mg Trazodone HCl (Trazodone Hcl 50 Mg Tablet) 50 mg PO BEDTIME MRX1 PRN PRN Reason: Insomnia Last Admin: 04/25/24 20:05 Dose: 50 mg Allergies Allergies Allergy/AdvReac Type Severity Reaction Status Date / Time No Known Allergies Allergy Verified 04/11/24 18:47 Assessment & Plan Assessment & Plan (1) Bipolar I disorder, most recent episode manic, in remission: Status: Acute Code(s): F31.74 - Bipolar disorder, in full remission, most recent episode manic (2) Alcohol use disorder: Status: Acute Code(s): F10.90 - Alcohol use, unspecified, uncomplicated Plan Ms. Garnett is a 69 year-old woman with hx of Bipolar Disorder, alcohol use disorder who was brought by sister due to presenting as more disorganized, and sister suspected increase alcohol use. In the ED, her BAL is negative. Utox is also negative. She is not so clear as to how much alcohol she was using, reports nips here and there. VS have been stable. Started on thiamine 100mg po daily. Will add ciwa while awake, although so far not displaying any acute withdrawal symptoms. We discussed risks, benefits and alternative treatment options, she agreed to restart depakote and risperidone 1mg po qhs. We also discussed memory/cognitive assessments and MRI. PLAN 04/14 continue tx. will check depakote level and ammonia in next few days. 04/16 continue with same treatment 04/17 continue same treatment 04/18/24 ck labs ? adverse effect dep or risp bill stockings 04/19 continue tx. 04/20 increase risperidone 2mg po qhs. continue depakote. start naltrexon 50mg po qhs. also started lasix 10mg po daily for bilat LE edema. 04/21 continue current tx 04/22 continue tx. 04/23 continue tx. 04/24 continue tx. 04/25 continue tx. 04/26 continue tx. Reason for continued inpatient stay Substantial Risk for: inability to function Time Spent With Patient Time: Total time managing care of this patient today ____ minutes.
[2024-04-26 20:00] VITALS: BP 112/66; PULSE 68; RESP 16; TEMP 36.3; O2SAT 97
[2024-04-26] MEDS: risperiDONE 2 MG TABLET PO (20:22)
[2024-04-26] MEDS: Divalproex Sodium 500 MG TABLET.DR 1000 MG PO (20:22)
[2024-04-26] MEDS: Acetaminophen 325 MG TABLET 650 MG PO (20:23)
[2024-04-27] MEDS: Nicotine Polacrilex Lozenge 2 MG LOZENGE BUCCAL ×5 (04:04→20:16)
[2024-04-27] MEDS: Nicotine Polacrilex 2 MG GUM BUCCAL ×2 (06:06→12:22)
[2024-04-27 08:48] VITALS: BP 128/63; PULSE 72; RESP 16; TEMP 36.2; O2SAT 97
[2024-04-27] MEDS: Pyridoxine HCl (Vitamin B6) 50 MG TABLET PO (08:50)
[2024-04-27] MEDS: Divalproex Sodium 500 MG TABLET.DR PO (08:50)
[2024-04-27] MEDS: Thiamine HCL 100 MG TABLET PO (08:50)
[2024-04-27] MEDS: Gabapentin 100 MG CAPSULE PO ×3 (08:50→20:13)
[2024-04-27] MEDS: Furosemide 20 MG TABLET 10 MG PO (08:50)
[2024-04-27] MEDS: Sennosides/Docusate Sodium TABLET 1 TAB PO ×2 (08:50→20:13)
[2024-04-27] MEDS: Naltrexone HCl 50 MG TABLET PO (08:50)
[2024-04-27] MEDS: Lidocaine 4 % Patch ADH..PATCH 1 PATCH TRANSDERMA (15:09)
[2024-04-27] MEDS: Acetaminophen 325 MG TABLET 650 MG PO (16:14)
[2024-04-27 20:00] VITALS: BP 119/59; PULSE 67; RESP 17; TEMP 36.6; O2SAT 99
[2024-04-27] MEDS: risperiDONE 2 MG TABLET PO (20:13)
[2024-04-27] MEDS: Divalproex Sodium 500 MG TABLET.DR 1000 MG PO (20:13)
--- NOTE | 2024-04-27 21:36 | P.PNPSI_ITS ---
Subjective Subjective Date of Service: 04/26/24 Reason For Visit: SI Interim History: Pt sleeping through the night. She does present as less labile with very limited insight into risk of losing housing. She has been visible on the unit. Social with select peer. No SI/HI. No overt psychosis. No overt delusional content. Impaired insight and judgment in terms of her alcohol use and financial situation. taking medications. Review of Systems Review of Systems Pt denies chest pain. No SOB. No constipation nor loose stools. She denies headaches. No changes in vision. Yes Unobtainable due to mental status Mental Status Exam Mental Status Exam Narrative: Appearance: wearing hospital gown, fair hygiene, in NAD Behavior: cooperative Psychomotor: no agitation or retardation noted Speech: mostly clear, regular rate/rhythm/volume, spontaneous TP: some loose associations, TC: in agreement with treatment. Mood: okay Affect: expansive SI: denies HI: denies VH/AH: none Delusions: none Memory/cog; alert, oriented to place, month and year but not situation. MOCA 25/30, ACL 5.2 indicating mild cognitive decline. Diagnostics Vital Signs (24Hr): Vital Signs - 24 hr 04/27/24 08:48 04/27/24 20:00 Temperature 97.2 F 97.9 F Pulse Rate 72 67 Respiratory Rate 16 17 Blood Pressure 128/63 119/59 L Pulse Oximetry 97 99 Oxygen Delivery Method Room Air Room Air BMI result Body Mass Index 17.6 Labs 04/19/24 07:05 04/19/24 07:05 Imaging Radiology Impressions: ITS Impressions Orbit X-Ray 04/13/24 16:18 IMPRESSION: 1. No radiopaque foreign bodies. 2. Moderate to large volume of stool in the colon. Electronically signed by: Pablo Wyatt MD 04/13/2024 06:36 PM EDT RP Brain MRI 04/13/24 20:35 IMPRESSION: 1. No acute intracranial abnormalities. 2. Mild to moderate underlying microangiopathy and generalized cerebral volume loss. 3. 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 Electronically signed by: Levy Lee DO 04/14/2024 11:52 AM EDT RP Medications Medications Current Medications Acetaminophen (Acetaminophen 325 Mg Tablet) 650 mg PO Q6H PRN PRN Reason: Headache/Pain Mild Scale (1-3) Last Admin: 04/27/24 16:14 Dose: 650 mg Al Hydroxide/Mg Hydroxide (Magnesium Hydrox/Alum Hydrox 30 Ml Oral.Susp) 30 ml PO Q6H PRN PRN Reason: Heartburn/Nausea Divalproex Sodium (Divalproex Sodium 500 Mg Tablet.) 1,000 mg PO BEDTIME [facility] Last Admin: 04/27/24 20:13 Dose: 1,000 mg Divalproex Sodium (Divalproex Sodium 500 Mg Tablet.) 500 mg PO DAILY [facility] Last Admin: 04/27/24 08:50 Dose: 500 mg Furosemide (Furosemide 20 Mg Tablet) 10 mg PO DAILY [facility]; Protocol Last Admin: 04/27/24 08:50 Dose: 10 mg Gabapentin (Gabapentin 100 Mg Capsule) 100 mg PO TID [facility]HAELA Last Admin: 04/27/24 20:13 Dose: 100 mg Lidocaine (Lidocaine 4 % Patch Adh..Patch) 1 patch TRANSDERMA DAILY [facility]; Protocol Last Admin: 04/27/24 15:09 Dose: 1 patch Magnesium Hydroxide (Milk Of Magnesia 30 Ml Oral.Susp) 30 ml PO DAILY PRN PRN Reason: Constipation Melatonin (Melatonin 3 Mg Tablet) 9 mg PO BEDTIME PRN PRN Reason: Sleep Last Admin: 04/25/24 20:05 Dose: 9 mg Naltrexone HCl (Naltrexone Hcl 50 Mg Tablet) 50 mg PO DAILY [facility] Last Admin: 04/27/24 08:50 Dose: 50 mg Nicotine Polacrilex (Nicotine Polacrilex Lozenge 2 Mg Lozenge) 2 mg BUCCAL Q1H PRN PRN Reason: Nicotine Cravings Last Admin: 04/27/24 20:16 Dose: 2 mg Nicotine Polacrilex (Nicotine Polacrilex 2 Mg Gum) 2 mg BUCCAL Q2H PRN PRN Reason: Nicotine Cravings Last Admin: 04/27/24 12:22 Dose: 2 mg Pyridoxine HCl (Pyridoxine Hcl (Vitamin B6) 50 Mg Tablet) 50 mg PO DAILY [facility] Last Admin: 04/27/24 08:50 Dose: 50 mg Risperidone (Risperidone 2 Mg Tablet) 2 mg PO BEDTIME [facility] Last Admin: 04/27/24 20:13 Dose: 2 mg Senna/Docusate Sodium (Sennosides/Docusate Sodium Tablet) 1 tab PO BID [facility] Last Admin: 04/27/24 20:13 Dose: 1 tab Thiamine HCl (Thiamine Hcl 100 Mg Tablet) 100 mg PO DAILY [facility] Last Admin: 04/27/24 08:50 Dose: 100 mg Trazodone HCl (Trazodone Hcl 50 Mg Tablet) 50 mg PO BEDTIME MRX1 PRN PRN Reason: Insomnia Last Admin: 04/25/24 20:05 Dose: 50 mg Allergies Allergies Allergy/AdvReac Type Severity Reaction Status Date / Time No Known Allergies Allergy Verified 04/11/24 18:47 Assessment & Plan Assessment & Plan (1) Bipolar I disorder, most recent episode manic, in remission: Status: Acute Code(s): F31.74 - Bipolar disorder, in full remission, most recent episode manic (2) Alcohol use disorder: Status: Acute Code(s): F10.90 - Alcohol use, unspecified, uncomplicated Plan Ms. Garnett is a 69 year-old woman with hx of Bipolar Disorder, alcohol use disorder who was brought by sister due to presenting as more disorganized, and sister suspected increase alcohol use. In the ED, her BAL is negative. Utox is also negative. She is not so clear as to how much alcohol she was using, reports nips here and there. VS have been stable. Started on thiamine 100mg po daily. Will add ciwa while awake, although so far not displaying any acute withdrawal symptoms. We discussed risks, benefits and alternative treatment options, she agreed to restart depakote and risperidone 1mg po qhs. We also discussed memory/cognitive assessments and MRI. PLAN 04/14 continue tx. will check depakote level and ammonia in next few days. 04/16 continue with same treatment 04/17 continue same treatment 04/18/24 ck labs ? adverse effect dep or risp bill stockings 04/19 continue tx. 04/20 increase risperidone 2mg po qhs. continue depakote. start naltrexon 50mg po qhs. also started lasix 10mg po daily for bilat LE edema. 04/21 continue current tx 04/22 continue tx. 04/23 continue tx. 04/24 continue tx. 04/25 continue tx. 04/26 continue tx. 04/27 continue tx. Reason for continued inpatient stay Substantial Risk for: stable for discharge Time Spent With Patient Time: Total time managing care of this patient today ____ minutes.
--- NOTE | 2024-04-27 21:45 | PM.PSYDC ---
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/ Has provider been notified: Yes DS: Diagnosis Discharge Diagnosis (1) Bipolar I disorder, most recent episode manic, in remission: Status: Acute (2) Alcohol use disorder: Status: Acute DS: Medications Discharge Medications Home Medications: Previous Rx's ?Medication ?Instructions ?Recorded divalproex 500 mg tablet,delayed 1,000 mg (2 x 500 mg) PO BEDTIME 04/27/24 release #60 tabs divalproex 500 mg tablet,delayed 500 mg PO DAILY #30 tabs 04/27/24 release gabapentin 100 mg capsule 100 mg PO TID #90 caps 04/27/24 lidocaine 4 % topical patch 1 patch transdermal DAILY #30 ea 04/27/24 (Lidocaine Pain Relief) melatonin 3 mg tablet 9 mg (3 x 3 mg) PO BEDTIME PRN 04/27/24 Sleep #90 tabs naltrexone 50 mg tablet 50 mg PO DAILY #30 tabs 04/27/24 nicotine (polacrilex) 2 mg buccal 2 mg buccal Q1H PRN Nicotine 04/27/24 lozenge Cravings #30 ea pyridoxine (vitamin B6) 50 mg 50 mg PO DAILY #30 tabs 04/27/24 tablet risperidone 2 mg tablet 2 mg PO BEDTIME #30 tabs 04/27/24 sennosides 8.6 mg-docusate sodium 1 tab PO BID #60 tabs 04/27/24 50 mg tablet (Senna Plus) thiamine mononitrate (vit B1) 100 100 mg PO DAILY #30 tabs 04/27/24 mg tablet trazodone 50 mg tablet 50 mg PO BEDTIME PRN Insomnia #30 04/27/24 tabs Data Data Completed and Pending Completed studies during hospitalization [Text1]: 04/11/24 Unknown Urine clean catch - Clean Catch Midstream Urine Culture - Final Klebsiella pneumoniae Imaging Diagnostic Imaging Impressions Orbit X-Ray 04/13/24 16:18 IMPRESSION: 1. No radiopaque foreign bodies. 2. Moderate to large volume of stool in the colon. Electronically signed by: Pablo Wyatt MD 04/13/2024 06:36 PM EDT RP Brain MRI 04/13/24 20:35 IMPRESSION: 1. No acute intracranial abnormalities. 2. Mild to moderate underlying microangiopathy and generalized cerebral volume loss. 3. 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 Electronically signed by: Levy Lee DO 04/14/2024 11:52 AM EDT RP DS: Summary Time Spent with Patient Time attestation: Total time managing care of this patient today ____ minutes. Discharge Plan Discharge Anticipated Discharge Date/Time: 04/28/24 09:36 Patient Disposition: Home, Self-Care Discharge Diagnosis: Bipolar Disorder type 1 Alcohol use disorder Referrals: [facility] [Other] - 3-5 Days (Your [facility]itter will contact you following discharge. ) [facility] Therapist [Other] - 1 Week (Request for therapy appointment was made.) [facility] PHP [Other] - 05/18/24 8:00 am (Your intake for PHP is scheduled for 05/18/24 at 8AM. ) Dr Citlaly Laguerre [Other] - 05/10/24 1:00 pm (You psychiatry appointment with Service is scheduled for 05/10/24 at 1PM with Citlaly Laguerre. Following this appointment you will be followed for psychiatry by Luiz Jean-Baptiste APRN.) Vianney Abebe MD [Primary Care Provider] - 1 Week Discharge Medications: New lidocaine [Lidocaine Pain Relief] 4 % Adhesive Patch,Medicated 1 patch transdermal DAILY Qty: 30 0RF Protocol: Apply to: Apply to: lower back trazodone 50 mg Tablet 50 mg PO BEDTIME PRN (Reason: Insomnia) Qty: 30 0RF naltrexone 50 mg Tablet 50 mg PO DAILY Qty: 30 0RF sennosides-docusate sodium [Senna Plus] 8.6-50 mg Tablet 1 tab PO BID Qty: 60 0RF melatonin 3 mg Tablet 9 mg PO BEDTIME PRN (Reason: Sleep) Qty: 90 0RF divalproex 500 mg Tablet,Delayed Release (Dr/Ec) 500 mg PO DAILY Qty: 30 0RF divalproex 500 mg Tablet,Delayed Release (Dr/Ec) 1,000 mg PO BEDTIME Qty: 60 0RF risperidone 2 mg Tablet 2 mg PO BEDTIME Qty: 30 0RF pyridoxine (vitamin B6) 50 mg Tablet 50 mg PO DAILY Qty: 30 0RF gabapentin 100 mg Capsule 100 mg PO TID Qty: 90 0RF nicotine (polacrilex) 2 mg Lozenge 2 mg buccal Q1H PRN (Reason: Nicotine Cravings) Qty: 30 0RF thiamine mononitrate (vit B1) 100 mg Tablet 100 mg PO DAILY Qty: 30 0RF Discontinued nicotine (polacrilex) 2 mg Lozenge 2 mg buccal Q1H PRN (Reason: Nicotine Cravings) Qty: 0 0RF divalproex 250 mg tablet,delayed release (DR/EC) 1,000 mg PO BEDTIME divalproex 500 mg tablet,delayed release (DR/EC) 500 mg PO DAILY melatonin 5 mg Tablet 10 mg PO BEDTIME PRN (Reason: Sleep) risperidone 1 mg tablet 1 mg PO BEDTIME PRN (Reason: Agitation) Discharge Orders: Discharge Order (Routine); Ordered 04/28/24 Ordered By: Cari Reynoso Diet: Regular diet Activity on Discharge: As tolerated Stand Alone Forms: Patient Portal Discharge page Print Language: Croatian Care Plan Goals: 1. maintain mood 2. no SI/HI 3. harm reduction- naltrexon to decrease alcohol use. Health Concerns: Follow up with PCP for LE edema Plan of Treatment: 1. take medications as prescribed 2. go to nearest ED or call 911 in event of emergncy Assessment: pt with brighter, non labile affect. NO SI/HI. No psychosis or delusions. less labile. sleep improving. no aggression towards self or others.
[2024-04-28] MEDS: Nicotine Polacrilex Lozenge 2 MG LOZENGE BUCCAL ×5 (01:23→15:57)
--- NOTE | 2024-04-28 06:06 | PM.PSYDC ---
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/ Has provider been notified: Yes DS: Diagnosis Discharge Diagnosis (1) Bipolar I disorder, most recent episode manic, in remission: Status: Acute (2) Alcohol use disorder: Status: Acute DS: Medications Discharge Medications Home Medications: Previous Rx's ?Medication ?Instructions ?Recorded divalproex 500 mg tablet,delayed 1,000 mg (2 x 500 mg) PO BEDTIME 04/27/24 release #60 tabs divalproex 500 mg tablet,delayed 500 mg PO DAILY #30 tabs 04/27/24 release gabapentin 100 mg capsule 100 mg PO TID #90 caps 04/27/24 lidocaine 4 % topical patch 1 patch transdermal DAILY #30 ea 04/27/24 (Lidocaine Pain Relief) melatonin 3 mg tablet 9 mg (3 x 3 mg) PO BEDTIME PRN 04/27/24 Sleep #90 tabs naltrexone 50 mg tablet 50 mg PO DAILY #30 tabs 04/27/24 nicotine (polacrilex) 2 mg buccal 2 mg buccal Q1H PRN Nicotine 04/27/24 lozenge Cravings #30 ea pyridoxine (vitamin B6) 50 mg 50 mg PO DAILY #30 tabs 04/27/24 tablet risperidone 2 mg tablet 2 mg PO BEDTIME #30 tabs 04/27/24 sennosides 8.6 mg-docusate sodium 1 tab PO BID #60 tabs 04/27/24 50 mg tablet (Senna Plus) thiamine mononitrate (vit B1) 100 100 mg PO DAILY #30 tabs 04/27/24 mg tablet trazodone 50 mg tablet 50 mg PO BEDTIME PRN Insomnia #30 04/27/24 tabs Mental Status Exam Mental Status Exam Narrative: Appearance: wearing hospital gown, fair hygiene, in NAD Behavior: cooperative Psychomotor: no agitation or retardation noted Speech: mostly clear, regular rate/rhythm/volume, spontaneous TP: some loose associations, TC: in agreement with treatment. Mood: okay Affect: expansive SI: denies HI: denies VH/AH: none Delusions: none Memory/cog; alert, oriented to place, month and year but not situation. MOCA 25/30, ACL 5.2 indicating mild cognitive decline. Data Data Completed and Pending Completed studies during hospitalization [Text1]: 04/11/24 Unknown Urine clean catch - Clean Catch Midstream Urine Culture - Final Klebsiella pneumoniae Imaging Diagnostic Imaging Impressions Orbit X-Ray 04/13/24 16:18 IMPRESSION: 1. No radiopaque foreign bodies. 2. Moderate to large volume of stool in the colon. Electronically signed by: Pablo Wyatt MD 04/13/2024 06:36 PM EDT RP Brain MRI 04/13/24 20:35 IMPRESSION: 1. No acute intracranial abnormalities. 2. Mild to moderate underlying microangiopathy and generalized cerebral volume loss. 3. 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 Electronically signed by: Levy Lee DO 04/14/2024 11:52 AM EDT RP DS: Summary Hospital Course Hospital Course: Ms. Dick is a 69 year-old woman with hx of Bipolar disorder type 1, Alcohol Use disorder who was brought by her sister on 04/11 due to pt presenting as disorganized, tangential, per sister not sleeping and suspecting she has been using more alcohol. In the ED, her BAL was negative. Utox also negative. Depakote level less than 12. On the unit, pt presents with somewhat of an expansive mood. When asked why she is here in the hospital, she states she is a long sttory. However, she rambles about events that have happened back in and is difficult to follow. She reports she has been taking her medications, but depakote is low, clearly not taking at prescribed dose. She denies daily alcohol use. She does report drinking some nip. Her BP has been stable. She is not tremulous. She has not been on ciwa in the ED. She reports fair sleep. She denies visual or auditory hallucinations. She is oriented to place, month, year but not situation. She is amenable to receive treatment, restart psychotropic medications including depakote and risperidone 1mg po qhs. She denies SI/HI. Past Psychiatric History: Inpt admissions: about 6, M3 11/2023. SIB: denies HIB: denies outpt: Dr. Cummins, last seen july. reports no mental health history until divorce from her about 20 years ago, at 44 yo, when bipolar disorder was diagnosed. Medical Evaluation Reviewed: Yes HOSPITAL COURSE On the unit, Ms. Dick was admitted on a CV and placed on 15 minutes checks. She presented as labile, flight of ideas, hyperverbal. Thought process initially was quite disorganized and difficult to follow due to underlying benjie. After discussing risks, benefits and alternative treatment options, she agreed to continue depakote, risperidone was increased from 1mg po qhs to 2mg po qhs. Her affect gradually presented as less labile. Her thought process more organized. She was sleeping through the night. We also discussed ongoing alcohol use, which pt minimized and reported not an issue despite reporting daily use of alcohol. She had limited insight into effect of ongoing alcohol use on her mood and overall stability. We had family meeting to discuss diagnosis, treatment. Pt declined referrals for more intensive alcohol use treatment. She did agree to start naltrexon, which she tolerated well. She was connected to [facility] outpatient clinic for addiction services to continue naltrexon and maybe considering of naltrexon). Status at Discharge Cognitive/behavioral status at discharge: Pt with brighter, less labile affect. No SI/HI. No psychosis or delusions. fair sleep. no insight into alcohol use and its effects on mood and ability to function. No aggression towards self or others. Future oriented. Functional status at discharge: independent ambulation Overall status at discharge: patient is progressing back to baseline Time Spent with Patient Time attestation: Total time managing care of this patient today ____ minutes. Discharge Plan Discharge Anticipated Discharge Date/Time: 04/28/24 09:36 Patient Disposition: Home, Self-Care Discharge Diagnosis: Bipolar Disorder type 1 Alcohol use disorder Referrals: [facility] Baggage Agent [Other] - 3-5 Days (Your [facility] Baggage Agent will contact you following discharge. ) [facility] Net Therapist [Other] - 1 Week (Request for therapy appointment was made.) [facility] [Other] - 05/18/24 8:00 am (Your intake for PHP is scheduled for 05/18/24 at 8AM. ) Dr Citlaly Laguerre [Other] - 05/10/24 1:00 pm (You psychiatry appointment with Service is scheduled for 05/10/24 at 1PM with Citlaly Laguerre. Following this appointment you will be followed for psychiatry by Luiz Jean-Baptiste APRN.) Vianney Abebe MD [Primary Care Provider] - 05/04/24 1:30 pm (Your follow up has been scheduled for Thursday05/04/24 at 1:30pm with Dr. Abebe) Discharge Medications: New lidocaine [Lidocaine Pain Relief] 4 % Adhesive Patch,Medicated 1 patch transdermal DAILY Qty: 30 0RF Protocol: Apply to: Apply to: lower back trazodone 50 mg Tablet 50 mg PO BEDTIME PRN (Reason: Insomnia) Qty: 30 0RF naltrexone 50 mg Tablet 50 mg PO DAILY Qty: 30 0RF sennosides-docusate sodium [Senna Plus] 8.6-50 mg Tablet 1 tab PO BID Qty: 60 0RF melatonin 3 mg Tablet 9 mg PO BEDTIME PRN (Reason: Sleep) Qty: 90 0RF divalproex 500 mg Tablet,Delayed Release (Dr/Ec) 500 mg PO DAILY Qty: 30 0RF divalproex 500 mg Tablet,Delayed Release (Dr/Ec) 1,000 mg PO BEDTIME Qty: 60 0RF risperidone 2 mg Tablet 2 mg PO BEDTIME Qty: 30 0RF pyridoxine (vitamin B6) 50 mg Tablet 50 mg PO DAILY Qty: 30 0RF gabapentin 100 mg Capsule 100 mg PO TID Qty: 90 0RF nicotine (polacrilex) 2 mg Lozenge 2 mg buccal Q1H PRN (Reason: Nicotine Cravings) Qty: 30 0RF thiamine mononitrate (vit B1) 100 mg Tablet 100 mg PO DAILY Qty: 30 0RF Discontinued nicotine (polacrilex) 2 mg Lozenge 2 mg buccal Q1H PRN (Reason: Nicotine Cravings) Qty: 0 0RF divalproex 250 mg tablet,delayed release (DR/EC) 1,000 mg PO BEDTIME divalproex 500 mg tablet,delayed release (DR/EC) 500 mg PO DAILY melatonin 5 mg Tablet 10 mg PO BEDTIME PRN (Reason: Sleep) risperidone 1 mg tablet 1 mg PO BEDTIME PRN (Reason: Agitation) Discharge Orders: Discharge Order (Routine); Ordered 04/28/24 Ordered By: Cari Reynoso Diet: Regular diet Activity on Discharge: As tolerated Stand Alone Forms: Patient Portal Discharge page, Community Support Print Language: Citizen Of [place] Care Plan Goals: 1. maintain mood 2. no SI/HI 3. harm reduction- naltrexon to decrease alcohol use. Health Concerns: Follow up with PCP for LE edema Plan of Treatment: 1. take medications as prescribed 2. go to nearest ED or call 911 in event of emergncy Assessment: pt with brighter, non labile affect. NO SI/HI. No psychosis or delusions. less labile. sleep improving. no aggression towards self or others. Discharge Date/Time: 04/28/24 16:15
[2024-04-28 09:12] VITALS: BP 121/59; PULSE 71; RESP 18; TEMP 36.3; O2SAT 98
[2024-04-28] MEDS: Divalproex Sodium 500 MG TABLET.DR PO (09:16)
[2024-04-28] MEDS: Gabapentin 100 MG CAPSULE PO ×2 (09:16→15:57)
[2024-04-28] MEDS: Furosemide 20 MG TABLET 10 MG PO (09:16)
[2024-04-28] MEDS: Thiamine HCL 100 MG TABLET PO (09:16)
[2024-04-28] MEDS: Sennosides/Docusate Sodium TABLET 1 TAB PO (09:16)
[2024-04-28] MEDS: Pyridoxine HCl (Vitamin B6) 50 MG TABLET PO (09:16)
[2024-04-28] MEDS: Naltrexone HCl 50 MG TABLET PO (09:17)
[2024-04-28] MEDS: Lidocaine 4 % Patch ADH..PATCH 1 PATCH TRANSDERMA (09:18)
== END 2024-04-28 16:15 | disposition home or self-care (01) | DRG 885 ==
LOC: HO.ED 04-12 07:43 → HO.PGERI 04-12 13:53
PROVIDERS: Physician Assistant Medical; Psychiatry & Neurology Psychiatry; Admitting Provider Social Worker; Emergency Provider Student in an Organized Health Care Education/Training Program; PCP Family Medicine; Visit Provider Social Worker
DX: F31.74 Bipolar disorder, in full remission, most recent episode manic (principal); F17.210 Nicotine dependence, cigarettes, uncomplicated; T42.6X6A Underdosing of other antiepileptic and sedative-hypnotic drugs, initial encounter; F10.90 Alcohol use, unspecified, uncomplicated; Z79.899 Other long term (current) drug therapy
CPT/HCPCS: 36415; 70551; 76377; 80048; 80053; 80061; 80076; 80164; 80307; 81001; 82140; 82607; 82746; 83036; 83735; 84443; 85025; 87086; 87088; 87186; 93005; 99285; S9485

== ENCOUNTER → 2024-04-11 20:08 | Outpatient (BNV) | payer MEDICARE, SELFPAY | PROVIDERS: Admitting Provider Social Worker; Emergency Provider Student in an Organized Health Care Education/Training Program; PCP Family Medicine; Visit Provider Internal Medicine | DX: R00.1 Bradycardia, unspecified (principal) | CPT/HCPCS: 93010 ==

== ENCOUNTER → 2024-04-12 12:40 | Outpatient (BNV) | payer MEDICARE, SELFPAY | PROVIDERS: Admitting Provider Social Worker; Emergency Provider Student in an Organized Health Care Education/Training Program; PCP Family Medicine; Visit Provider Psychiatry & Neurology Psychiatry | DX: F31.74 Bipolar disorder, in full remission, most recent episode manic (principal); F10.90 Alcohol use, unspecified, uncomplicated | CPT/HCPCS: 99231 ==

== ENCOUNTER → 2024-04-12 12:40 | Outpatient (BNV) | payer MEDICARE, SELFPAY | PROVIDERS: Admitting Provider Social Worker; Emergency Provider Student in an Organized Health Care Education/Training Program; PCP Family Medicine; Visit Provider Social Worker | DX: F31.74 Bipolar disorder, in full remission, most recent episode manic (principal); F10.90 Alcohol use, unspecified, uncomplicated | CPT/HCPCS: 90792; 99231; 99232; 99238 ==

== ENCOUNTER 2024-06-16 08:57 | Inpatient (IN) | payer MEDICARE, SELFPAY ==
[2024-06-16 09:02] VITALS: PULSE 80; O2SAT 99
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
[2024-06-16 09:16] VITALS: BP 117/72; PULSE 72; RESP 16; O2SAT 99; BMI 17.5
[2024-06-16 09:37] LABS: MANUAL DIFF FLAG NO
[2024-06-16 09:39] LABS: Basophils Percent Auto 0.6 % (0-2); Eosinophils Absolute Auto 0.1 X10*3/uL (0.0-0.4); Eosinophils Percent Auto 1.5 % (0-4); Hematocrit 41.3 % (37.0-47.0); Hemoglobin 13.9 g/dl (12.0-16.0); Imm Gran Abs Auto 0.01 X10*3/uL (0.00-0.03); Imm Gran Pct Auto 0.2 % (0.0-0.4); Lymphocytes Absolute Auto 1.6 X10*3/uL (1.2-4.9); Lymphocytes Percent Auto 33.5 % (20-40); Mean Corpuscular HGB Conc 33.7 g/dl (31.0-35.0); Mean Corpuscular Hemoglobin 30.3 pg (27.0-33.0); Mean Corpuscular Volume 90.2 fL (80.0-98.0); Mean Platelet Volume 9.8 fL (9.4-12.3); Monocytes Absolute Auto 0.3 X10*3/uL (0.1-1.2); Monocytes Percent Auto 5.6 % (2-11); Neutrophils Absolute Auto 2.7 x10*3/uL (2.0-8.3); Neutrophils Percent Auto 58.6 % (45-73); Platelet Count 209 X10*3/uL (160-400); Red Blood Count 4.58 X10*6/uL (4.20-5.50); Red Cell Distribution Width 13.1 % (11.0-16.0); White Blood Count 4.7 X10*3/uL (4.8-10.8)
[2024-06-16 09:53] LABS: Alanine Aminotransferase 20 U/L (0-31); Albumin Level 3.8 g/dL (3.5-5.0); Alkaline Phosphatase 63 U/L (39-117); Anion Gap 10 (12-20); Aspartate Amino Transferase 30 U/L (5-31); Bilirubin Total 0.3 mg/dL (0.0-1.0); Blood Urea Nitrogen 12 mg/dL (9-16); Carbon Dioxide 24 mmol/L (22-29); Chloride 116 mmol/L (96-108); Creatinine Clr Calc Pharmacy 62.3; Estimated Glomerular Filt Rate > 60; Ethanol 112 mg/dL; Glucose Random 84 mg/dL (60-115); Potassium 3.9 mmol/L (3.3-5.1); Sodium 146 mmol/L (135-145); Total Protein 6.3 g/dL (6.5-8.0)
[2024-06-16 10:26] LABS: Influenza A PCR NEGATIVE (Negative); Influenza B PCR NEGATIVE (Negative); Resp Syncy Virus RNA Qual PCR NEGATIVE (Negative); SARS COV2 PCR INHOUSE NEGATIVE (Negative)
--- NOTE | 2024-06-16 11:38 | PC.NURSE ---
pt sleeping comfortably on stretcher. Even unlabored respirations. Arousable to verbal stimuli.
[2024-06-16] MEDS: LORazepam 1 MG TABLET PO (12:31)
[2024-06-16 12:33] LABS: Amphetamine Screen Urine Not Detected (Not Detect); Appearance Urine Clear; Barbiturates, Urine Not Detected (Not Detect); Benzodiazepines Screen Urine Not Detected (Not Detect); Buprenorphine Scr Not Detected (Not Detect); Cannabinoid Screen Urine POSITIVE (Not Detect); Cocaine Screen Urine Not Detected (Not Detect); Color Urine Yellow; Fentanyl, urine Not Detected (Not Detect); Glucose Urine UA Negative (Negative); Leukocyte Esterase Urine Small (1+) (Negative); Methadone Screen, Urine Not Detected (Not Detect); Nitrite Urine Positive (Negative); Opiate Screen Urine Not Detected (Not Detect); Oxycodone Screen Urine Not Detected (Not Detect); PH 6.5 (5.0-9.0); Phencyclidine Screen Urine Not Detected (Not Detect); Specific Gravity - Urine <= 1.005 (1.005-1.025); UMIC TRIGGER UACC YES; Urine Blood Negative (Negative); Urine Ketones Negative (Negative); Urine Protein Negative (Neg-Trace)
[2024-06-16 13:03] LABS: Bacteria Urine 2+ (None Seen); Hyaline Casts Urine 0-2 /LPF (0-2); RBC Urine 0-2 /HPF (0-2); Squamous Epithelial Cell Urine 0-2 /HPF (0-2); UACC Culture Trigger YES; WBC Urine 0-5 /HPF (0-5)
--- NOTE | 2024-06-16 15:52 | PC.NURSE ---
Pt comes to ED BH Pod from main ED where she was evaluated for AMS. Upon arrival to unit Pt presents with belligerent and uncooperative behavior. She is argumentative and unwilling to comply with waste/materials exchange specialist in a timely manner. hand assembler for puller over is completed and belongings are inventoried and secured. Pt frequently paces about the pod, talking out and expressing her distaste for her current situation. Re-direction is required and Pt responds well. Pt given a sandwich, pudding, and gingerale. Ceftin not available in Pod pyxis and has been requested for deliver. Will give upon arrival.
[2024-06-16] MEDS: cefuroxime axetiL 250 MG TABLET PO (16:09)
[2024-06-16 16:38] LABS: Valproate < 12.5 mcg/mL (50.0-100.0)
--- NOTE | 2024-06-16 16:54 | ECG_ITS ---
Test Reason : CHECK QTC Blood Pressure : / mmHG Vent. Rate : 060 BPM Atrial Rate : 060 BPM P-R Int : 122 ms QRS Dur : 088 ms QT Int : 430 ms P-R-T Axes : 061 013 055 degrees QTc Int : 430 ms Normal sinus rhythm Normal ECG When compared with ECG of 11-APR-2024 20:28, No significant change was found Referred By: Luz Moncada Electronically Signed By:OSIRIS DOUGHERTY
[2024-06-16 17:34] VITALS: BP 105/52; PULSE 64; RESP 12; TEMP 37.1; O2SAT 96
--- NOTE | 2024-06-16 20:09 | PHA.MEDREC ---
Pharmacy Consult ? Medication Reconciliation Pharmacy has completed the medication reconciliation.Patient states that she has been taking depakote 750 mg total daily dose per day, risperidone 0.5 mg option to go up to 1 mg, gabapentin, and nicotine lozenges. She becky that she takes any other medications, even though there is other meds that are prescribed since March.
--- NOTE | 2024-06-16 20:21 | PC.NURSE ---
patient appears relaxed in bed, received phone call from sister recently wherein it appears she was defending recent behavior appears in no distress.
[2024-06-16 22:30] VITALS: BP 122/56; PULSE 62; RESP 18; TEMP 36.2; O2SAT 98
[2024-06-16 23:56] LABS: Alanine Aminotransferase 16 U/L (0-31); Albumin Level 3.6 g/dL (3.5-5.0); Alkaline Phosphatase 76 U/L (39-117); Anion Gap 11 (12-20); Aspartate Amino Transferase 32 U/L (5-31); Bilirubin Total 0.3 mg/dL (0.0-1.0); Blood Urea Nitrogen 18 mg/dL (9-16); Calcium 9.1 mg/dL (8.4-10.2); Carbon Dioxide 28 mmol/L (22-29); Chloride 110 mmol/L (96-108); Creatinine Clr Calc Pharmacy 53.6; Estimated Glomerular Filt Rate > 60; Glucose Random 89 mg/dL (60-115); Potassium 4.2 mmol/L (3.3-5.1); Sodium 145 mmol/L (135-145); Total Protein 6.2 g/dL (6.5-8.0)
[2024-06-17 00:20] VITALS: BMI 16.0
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
[2024-06-17 07:39] VITALS: BP 124/61; PULSE 60; RESP 16; TEMP 36.7; O2SAT 100
[2024-06-17 08:37] LABS: Cholesterol 169 mg/dL (<200); HDL Cholesterol 63 mg/dL (>40); LDL Cholesterol Calculated 74 mg/dL (<100); Triglycerides 160 mg/dL (<150)
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
--- NOTE | 2024-06-17 11:12 | PM.EVENT ---
Event Note Date of Service: 06/17/24 Event Note: The patient is a 69-year-old female admitted to M3 Psychiatric unit with hospitalist consult for antibiotic recommendations for possible UTI. UA preliminary culture shows greater than 100,000 gram negative rods. Suggest treating with cefuroxime 500 mg b.i.d. x7 days. Follow urine cultures and adjust according to sensitivities if necessary. Time Spent With Patient Time: Total time managing care of this patient today ____ minutes.
[2024-06-17] MEDS: cefuroxime axetiL 500 MG TABLET PO ×2 (11:46→21:17)
[2024-06-17] MEDS: Nicotine Polacrilex 2 MG GUM 4 MG BUCCAL (11:47)
[2024-06-17] MEDS: carBAMazepine ER 100 MG TAB.ER.12H PO ×2 (14:27→21:17)
--- NOTE | 2024-06-17 16:04 | MHC.CLN ---
Addendum entered by Ramila Wharton, RD 06/17/24 16:09: DIET=REGULAR, CHOPPED. PINEAPPLE IS NOT ALLOWED ON CHOPPED DIET. Original Note: NUTRITION CONSULT FOR LOW BMI. PATIENT WITH BMI=16.0. KNOWN FROM PRIOR ADM THAT DISLIKES ENSURE. VISITED WITH PATIENT ON UNIT. ABLE TO ASK FOR AND RECEIVES SNACKS ON UNIT. ABLE TO MAKE OWN MENU SELECTIONS. LIKES COTTAGE CHEESE AND PINEAPPLE. DINING SERVICES TO SEND FOR EACH BREAKFAST AND LUNCH SERVINGS OF COTTAGE CHEESE AND PINEAPPLE. COMMUNICATED PREFERENCE WITH DINING STAFF.
[2024-06-17 20:00] VITALS: BP 114/70; PULSE 61; RESP 14; TEMP 36.8; O2SAT 98
--- NOTE | 2024-06-18 00:07 | PC.NURSE ---
Pt due for CIWA assessment at midnight. Pt allowed to sleep as she was sleeping soundly, breathing unlabored and easy.
[2024-06-18] MEDS: Nicotine Polacrilex 2 MG GUM 4 MG BUCCAL ×3 (06:52→20:21)
[2024-06-18 07:15] VITALS: BP 132/60; PULSE 53; RESP 16; TEMP 36.3; O2SAT 98
--- NOTE | 2024-06-18 08:15 | HO.PSYCHPN ---
Subjective Subjective Date of Service: 06/18/24 Reason For Visit: Mood disorder Subjective Notes: Conditional Voluntary Interim History: Pt reports sleeping through the night. She reports her mood is good and denies any concerns. She denies SI/HI. She is taking medications as prescribed. visible on the unit, attending groups. No overt psychosis. Review of Systems Review of Systems As per HPI. 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 Diagnostics Vital Signs (24Hr): Vital Signs - 24 hr 06/17/24 20:00 06/18/24 07:15 Temperature 98.3 F 97.3 F Pulse Rate 61 53 Respiratory Rate 14 16 Blood Pressure 114/70 132/60 Pulse Oximetry 98 98 Oxygen Delivery Method Room Air Room Air BMI result Body Mass Index 16.0 Labs 06/16/24 09:33 06/16/24 23:35 Labs: Laboratory Results - last 48 hr 06/16/24 06/16/24 06/16/24 09:33 12:14 16:05 WBC 4.7 L RBC 4.58 Hgb 13.9 Hct 41.3 MCV 90.2 MCH 30.3 MCHC 33.7 RDW 13.1 Plt Count 209 D MPV 9.8 Immature Gran % (Auto) 0.2 Neut % (Auto) 58.6 Lymph % (Auto) 33.5 [place] % (Auto) 5.6 Eos % (Auto) 1.5 Baso % (Auto) 0.6 Lymph # (Auto) 1.6 [place] # (Auto) 0.3 Eos # (Auto) 0.1 Baso # (Auto) 0.0 Abs Immat Gran (auto) 0.01 Absolute Neuts (auto) 2.7 Absolute Nucleated RBC 0.000 Nucleated RBC % (auto) 0.0 Sodium 146 H Potassium 3.9 D Chloride 116 H Carbon Dioxide 24 Anion Gap 10 L BUN 12 Creatinine 0.68 Estim Creat Clear Calc 62.3 Estimated GFR > 60 Random Glucose 84 Calcium 9.0 Total Bilirubin 0.3 AST 30 ALT 20 Alkaline Phosphatase 63 Total Protein 6.3 L Albumin 3.8 Triglycerides Cholesterol LDL Cholesterol, Calc HDL Cholesterol Urine Color Yellow Urine Appearance Clear Urine pH 6.5 Ur Specific [place] <= 1.005 Urine Protein Negative Urine Glucose (UA) Negative Urine Ketones Negative Urine Blood Negative Urine Nitrite Positive H Ur Leukocyte Esterase Small (1+) H Urine RBC 0-2 Urine WBC 0-5 Ur Squamous Epith Cells 0-2 Urine Bacteria 2+ Hyaline Casts 0-2 Urine Opiates Screen Not Detected Ur Buprenorphine Scrn Not Detected Ur Oxycodone Screen Not Detected Urine Methadone Screen Not Detected Urine Fentanyl Screen Not Detected Ur Barbiturates Screen Not Detected Valproic Acid < 12.5 L Ur Phencyclidine Scrn Not Detected Ur Amphetamines Screen Not Detected U Benzodiazepines Scrn Not Detected Urine Cocaine Screen Not Detected U Marijuana (THC) Screen POSITIVE H Ethyl Alcohol 112 Influenza Type A (PCR) NEGATIVE Influenza Type B (PCR) NEGATIVE RSV RNA Qual (PCR) NEGATIVE SARS-CoV-2 RNA (RT-PCR) NEGATIVE 06/16/24 06/17/24 23:35 07:59 WBC RBC Hgb Hct MCV MCH MCHC RDW Plt Count MPV Immature Gran % (Auto) Neut % (Auto) Lymph % (Auto) [place] % (Auto) Eos % (Auto) Baso % (Auto) Lymph # (Auto) [place] # (Auto) Eos # (Auto) Baso # (Auto) Abs Immat Gran (auto) Absolute Neuts (auto) Absolute Nucleated RBC Nucleated RBC % (auto) Sodium 145 Potassium 4.2 Chloride 110 H Carbon Dioxide 28 Anion Gap 11 L BUN 18 H Creatinine 0.79 Estim Creat Clear Calc 53.6 Estimated GFR > 60 Random Glucose 89 Calcium 9.1 Total Bilirubin 0.3 AST 32 H ALT 16 Alkaline Phosphatase 76 Total Protein 6.2 L Albumin 3.6 Triglycerides 160 H Cholesterol 169 LDL Cholesterol, Calc 74 HDL Cholesterol 63 Urine Color Urine Appearance Urine pH Ur Specific [place] Urine Protein Urine Glucose (UA) Urine Ketones Urine Blood Urine Nitrite Ur Leukocyte Esterase Urine RBC Urine WBC Ur Squamous Epith Cells Urine Bacteria Hyaline Casts Urine Opiates Screen Ur Buprenorphine Scrn Ur Oxycodone Screen Urine Methadone Screen Urine Fentanyl Screen Ur Barbiturates Screen Valproic Acid Ur Phencyclidine Scrn Ur Amphetamines Screen U Benzodiazepines Scrn Urine Cocaine Screen U Marijuana (THC) Screen Ethyl Alcohol Influenza Type A (PCR) Influenza Type B (PCR) RSV RNA Qual (PCR) SARS-CoV-2 RNA (RT-PCR) Medications Medications Current Medications Acetaminophen (Acetaminophen 325 Mg Tablet) 650 mg PO Q6H PRN PRN Reason: Headache/Pain Mild Scale (1-3) Al Hydroxide/Mg Hydroxide (Magnesium Hydrox/Alum Hydrox 30 Ml Oral.Susp) 30 ml PO Q6H PRN PRN Reason: Heartburn/Nausea Carbamazepine (Carbamazepine Er 100 Mg Tab.Er.12h) 100 mg PO BID MIHAELA Last Admin: 06/17/24 21:17 Dose: 100 mg Cefuroxime Axetil (Cefuroxime Axetil 500 Mg Tablet) 500 mg PO Q12H MIHAELA Stop: 06/23/24 10:01 Last Admin: 06/17/24 21:17 Dose: 500 mg Hydroxyzine HCl (Hydroxyzine Hcl 25 Mg Tablet) 25 mg PO Q6H PRN PRN Reason: Anxiety Lorazepam (Lorazepam 1 Mg Tablet) 1 mg PO Q2H PRN PRN Reason: CIWA 8-11 Lorazepam (Lorazepam 1 Mg Tablet) 2 mg PO Q2H PRN PRN Reason: CIWA 12-15 Lorazepam (Lorazepam 1 Mg Tablet) 3 mg PO Q2H PRN PRN Reason: CIWA > 15; and call Magnesium Hydroxide (Milk Of Magnesia 30 Ml Oral.Susp) 30 ml PO DAILY PRN PRN Reason: Constipation Nicotine Polacrilex (Nicotine Polacrilex 2 Mg Gum) 4 mg BUCCAL Q2H PRN PRN Reason: Nicotine Cravings Last Admin: 06/18/24 06:52 Dose: 4 mg Nicotine Polacrilex (Nicotine Polacrilex Lozenge 2 Mg Lozenge) 2 mg BUCCAL Q1H PRN PRN Reason: Nicotine Cravings Risperidone (Risperidone 1 Mg Tablet) 1 mg PO DAILY MRX1 PRN PRN Reason: Sleep Trazodone HCl (Trazodone Hcl 50 Mg Tablet) 50 mg PO BEDTIME MRX1 PRN PRN Reason: Insomnia Allergies Allergies Allergy/AdvReac Type Severity Reaction Status Date / Time No Known Allergies Allergy Verified 06/16/24 09:18 Assessment & Plan Assessment & Plan (1) Bipolar 1 disorder: Status: Acute Code(s): F31.9 - Bipolar disorder, unspecified (2) Acute UTI: Status: Acute Code(s): N39.0 - Urinary tract infection, site not specified (3) Alcohol use disorder: Status: Acute Code(s): F10.90 - Alcohol use, unspecified, uncomplicated Plan 06/17 ceftin BID for UTI. DC depakote - pt has only been taking average 375/day recently. start tegretol 100 BID and titrate up as indicated. DC gabapentin 100 TID as unnecessary. increase risperidone PRNs from 0.5 mg each to 1 mg each due to interaction with tegretol. T/C CIWA with ativan, unclear how much pt has been drinking. she is minimizing use. 06/18 continue tx. Reason for continued inpatient stay Substantial Risk for: inability to function Time Spent With Patient Time: Total time managing care of this patient today ____ minutes.
[2024-06-18] MEDS: carBAMazepine ER 100 MG TAB.ER.12H PO ×2 (08:22→20:21)
[2024-06-18] MEDS: cefuroxime axetiL 500 MG TABLET PO ×2 (08:22→21:14)
[2024-06-18] MEDS: Nicotine Polacrilex Lozenge 2 MG LOZENGE BUCCAL ×2 (13:45→16:44)
[2024-06-18 19:20] VITALS: BP 158/70; PULSE 59; RESP 16; TEMP 36.8; O2SAT 99
[2024-06-19 08:00] VITALS: BP 129/59; PULSE 50; RESP 14; TEMP 36.4; O2SAT 100
[2024-06-19] MEDS: cefuroxime axetiL 500 MG TABLET PO ×2 (08:27→21:49)
[2024-06-19] MEDS: carBAMazepine ER 100 MG TAB.ER.12H PO ×2 (08:27→21:49)
--- NOTE | 2024-06-19 10:40 | P.PNPSI_ITS ---
Subjective Subjective Date of Service: 06/19/24 Reason For Visit: Mood disorder Subjective Notes: Conditional Voluntary Interim History: Pt did not sleep very well. Scheduled risperidone. She reports her mood is good and denies any concerns. She denies SI/HI. She is taking medications as prescribed. visible on the unit, attending groups. No overt psychosis. Review of Systems Review of Systems As per HPI. 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 Diagnostics Vital Signs (24Hr): Vital Signs - 24 hr 06/18/24 19:20 06/19/24 08:00 Temperature 98.2 F 97.6 F Pulse Rate 59 50 Respiratory Rate 16 14 Blood Pressure 158/70 H 129/59 L Pulse Oximetry 99 100 Oxygen Delivery Method Room Air Room Air BMI result Body Mass Index 16.0 Labs 06/16/24 09:33 06/16/24 23:35 Medications Medications Current Medications Acetaminophen (Acetaminophen 325 Mg Tablet) 650 mg PO Q6H PRN PRN Reason: Headache/Pain Mild Scale (1-3) Al Hydroxide/Mg Hydroxide (Magnesium Hydrox/Alum Hydrox 30 Ml Oral.Susp) 30 ml PO Q6H PRN PRN Reason: Heartburn/Nausea Carbamazepine (Carbamazepine Er 100 Mg Tab.Er.12h) 100 mg PO BID [facility] Last Admin: 06/19/24 08:27 Dose: 100 mg Cefuroxime Axetil (Cefuroxime Axetil 500 Mg Tablet) 500 mg PO Q12H [facility] Stop: 06/23/24 10:01 Last Admin: 06/19/24 08:27 Dose: 500 mg Hydroxyzine HCl (Hydroxyzine Hcl 25 Mg Tablet) 25 mg PO Q6H PRN PRN Reason: Anxiety Lorazepam (Lorazepam 1 Mg Tablet) 1 mg PO Q2H PRN PRN Reason: CIWA 8-11 Lorazepam (Lorazepam 1 Mg Tablet) 2 mg PO Q2H PRN PRN Reason: CIWA 12-15 Lorazepam (Lorazepam 1 Mg Tablet) 3 mg PO Q2H PRN PRN Reason: CIWA > 15; and call Magnesium Hydroxide (Milk Of Magnesia 30 Ml Oral.Susp) 30 ml PO DAILY PRN PRN Reason: Constipation Nicotine Polacrilex (Nicotine Polacrilex 2 Mg Gum) 4 mg BUCCAL Q2H PRN PRN Reason: Nicotine Cravings Last Admin: 06/18/24 20:21 Dose: 4 mg Nicotine Polacrilex (Nicotine Polacrilex Lozenge 2 Mg Lozenge) 2 mg BUCCAL Q1H PRN PRN Reason: Nicotine Cravings Last Admin: 06/18/24 16:44 Dose: 2 mg Risperidone (Risperidone 1 Mg Tablet) 1 mg PO DAILY MRX1 PRN PRN Reason: Sleep Trazodone HCl (Trazodone Hcl 50 Mg Tablet) 50 mg PO BEDTIME MRX1 PRN PRN Reason: Insomnia Allergies Allergies Allergy/AdvReac Type Severity Reaction Status Date / Time No Known Allergies Allergy Verified 06/16/24 09:18 Assessment & Plan Assessment & Plan (1) Bipolar 1 disorder: Status: Acute Code(s): F31.9 - Bipolar disorder, unspecified (2) Acute UTI: Status: Acute Code(s): N39.0 - Urinary tract infection, site not specified (3) Alcohol use disorder: Status: Acute Code(s): F10.90 - Alcohol use, unspecified, uncomplicated Plan 06/17 ceftin BID for UTI. DC depakote - pt has only been taking average 375/day recently. start tegretol 100 BID and titrate up as indicated. DC gabapentin 100 TID as unnecessary. increase risperidone PRNs from 0.5 mg each to 1 mg each due to interaction with tegretol. T/C CIWA with ativan, unclear how much pt has been drinking. she is minimizing use. 06/18 continue tx. 06/19 scheduled risperidone 1mg po qhs. instead of PRN. Reason for continued inpatient stay Substantial Risk for: inability to function Time Spent With Patient Time: Total time managing care of this patient today ____ minutes.
[2024-06-19] MEDS: Nicotine Polacrilex Lozenge 2 MG LOZENGE BUCCAL ×4 (12:39→21:49)
[2024-06-19 20:00] VITALS: BP 143/65; PULSE 70; RESP 16; TEMP 36.6; O2SAT 100
[2024-06-19] MEDS: risperiDONE 1 MG TABLET PO (21:50)
[2024-06-20] MEDS: Nicotine Polacrilex Lozenge 2 MG LOZENGE BUCCAL ×5 (05:00→22:42)
[2024-06-20] MEDS: Nicotine Polacrilex 2 MG GUM 4 MG BUCCAL (06:26)
[2024-06-20 07:44] VITALS: BP 115/63; PULSE 60; RESP 14; TEMP 36.2; O2SAT 99
[2024-06-20] MEDS: carBAMazepine ER 100 MG TAB.ER.12H PO ×2 (08:39→22:06)
[2024-06-20] MEDS: cefuroxime axetiL 500 MG TABLET PO ×2 (08:40→22:06)
--- NOTE | 2024-06-20 11:07 | P.PNPSI_ITS ---
Subjective Subjective Date of Service: 06/20/24 Reason For Visit: Mood disorder Subjective Notes: 3 Day Interim History: Active on unit, social with peers. attending groups. 3 day up on 06/23/24. patient reports feeling alright today; pt stated, I feel like I should be ready to go home by . denies SI/HI/VH/AH. denies any issues at this time. Medication Compliance: Yes Side effects from medications: No Attending Groups: Yes Review of Systems Constitutional: Reports as per HPI Eyes: Reports as per HPI Reports as per HPI Cardiovascular: Reports as per HPI Respiratory: Reports as per HPI Gastrointestinal: Reports as per HPI Genitourinary: Reports as per HPI Musculoskeletal: Reports as per HPI Skin/Breast: Reports as per HPI Reports as per HPI Psychiatric: Reports as per HPI Endocrine: Reports as per HPI Hematologic/Lymphatic: Reports as per HPI Allergic/Immunologic: Reports as per HPI Mental Status Exam Mental Status Exam Narrative: Pt is alert and oriented; behavior is cooperative, calm; dressed in casual attire; mood is described as alright ; eye contact appropriate; Speech is normal rate, volume and not pressured; thought process is organized; Thought content is on tx; denies SI/HI/VH/AH. Diagnostics Vital Signs (24Hr): Vital Signs - 24 hr 06/19/24 20:00 06/20/24 07:44 Temperature 97.8 F 97.2 F Pulse Rate 70 60 Respiratory Rate 16 14 Blood Pressure 143/65 H 115/63 Pulse Oximetry 100 99 Oxygen Delivery Method Room Air Room Air BMI result Body Mass Index 16.0 Labs 06/16/24 09:33 06/16/24 23:35 Medications Medications Current Medications Acetaminophen (Acetaminophen 325 Mg Tablet) 650 mg PO Q6H PRN PRN Reason: Headache/Pain Mild Scale (1-3) Al Hydroxide/Mg Hydroxide (Magnesium Hydrox/Alum Hydrox 30 Ml Oral.Susp) 30 ml PO Q6H PRN PRN Reason: Heartburn/Nausea Carbamazepine (Carbamazepine Er 100 Mg Tab.Er.12h) 100 mg PO BID [facility] Last Admin: 06/20/24 08:39 Dose: 100 mg Cefuroxime Axetil (Cefuroxime Axetil 500 Mg Tablet) 500 mg PO Q12H [facility] Stop: 06/23/24 10:01 Last Admin: 12/23/24 08:40 Dose: 500 mg Hydroxyzine HCl (Hydroxyzine Hcl 25 Mg Tablet) 25 mg PO Q6H PRN PRN Reason: Anxiety Magnesium Hydroxide (Milk Of Magnesia 30 Ml Oral.Susp) 30 ml PO DAILY PRN PRN Reason: Constipation Nicotine Polacrilex (Nicotine Polacrilex 2 Mg Gum) 4 mg BUCCAL Q2H PRN PRN Reason: Nicotine Cravings Last Admin: 06/20/24 06:26 Dose: 4 mg Nicotine Polacrilex (Nicotine Polacrilex Lozenge 2 Mg Lozenge) 2 mg BUCCAL Q1H PRN PRN Reason: Nicotine Cravings Last Admin: 06/20/24 08:42 Dose: 2 mg Risperidone (Risperidone 1 Mg Tablet) 1 mg PO BEDTIME [facility]HAELA Last Admin: 06/19/24 21:50 Dose: 1 mg Trazodone HCl (Trazodone Hcl 50 Mg Tablet) 50 mg PO BEDTIME PRN PRN Reason: Insomnia Allergies Allergies Allergy/AdvReac Type Severity Reaction Status Date / Time No Known Allergies Allergy Verified 06/16/24 09:18 Assessment & Plan Assessment & Plan (1) Bipolar 1 disorder: Status: Acute Code(s): F31.9 - Bipolar disorder, unspecified (2) Acute UTI: Status: Acute Code(s): N39.0 - Urinary tract infection, site not specified (3) Alcohol use disorder: Status: Acute Code(s): F10.90 - Alcohol use, unspecified, uncomplicated Plan 06/17 ceftin BID for UTI. DC depakote - pt has only been taking average 375/day recently. start tegretol 100 BID and titrate up as indicated. DC gabapentin 100 TID as unnecessary. increase risperidone PRNs from 0.5 mg each to 1 mg each due to interaction with tegretol. T/C CIWA with ativan, unclear how much pt has been drinking. she is minimizing use. 06/18 continue tx. 06/19 scheduled risperidone 1mg po qhs. instead of PRN. 06/10: continue current tx plan. Patient educated on: diagnosis and medication risk/benefits Reason for continued inpatient stay Substantial Risk for: med/psych decompensation Time Spent With Patient Time: Total time managing care of this patient today _20___ minutes.
--- NOTE | 2024-06-20 13:51 | MHC.RECOVRN ---
AUDIT-C Brief Intervention Pt had positive screen for unhealthy alcohol use on admission, subsequently met with t/w to discuss alcohol use and recovery supports/options. This business writer met with patient to discuss current alcohol use and concerns related to increased risk of alcohol related problems.? Pt familiar with t/w from previous consult. Awake, alert, easily engages in conversation, quite tangential. Pt reports 1-2 nips daily since last admission. Reports her ex was a heavy drinker and would keep up with him, however, is currently only drinking 1-2 nips daily. Pt denies alcohol use impacting health, denies concerns regarding current alcohol use. Withdrawal History: denies history of withdrawal seizures Treatment History: 1 ATS/[facility] admission ([facility]) in 2017, reports recovery from [id number] Supports:?sisters Discussed risk reduction strategies including drinking below the recommended limit. Provided pt with written resources including information on inpatient and outpatient treatment, [facility], harm reduction, and recovery coaching. Pt plans to return to after discharge from . Pt provided with t/w contact information if questions or concerns arise. Denies other questions or concerns at this time.?
[2024-06-20 20:00] VITALS: BP 123/76; PULSE 76; RESP 14; TEMP 37; O2SAT 96
[2024-06-20] MEDS: risperiDONE 1 MG TABLET PO (22:06)
[2024-06-20] MEDS: traZODone HCL 50 MG TABLET PO (22:42)
[2024-06-21] MEDS: Acetaminophen 325 MG TABLET 650 MG PO (04:43)
[2024-06-21] MEDS: Nicotine Polacrilex Lozenge 2 MG LOZENGE BUCCAL ×8 (05:11→22:38)
[2024-06-21 07:48] VITALS: BP 124/60; PULSE 59; RESP 18; TEMP 36.2; O2SAT 100
[2024-06-21] MEDS: cefuroxime axetiL 500 MG TABLET PO ×2 (08:39→22:37)
[2024-06-21] MEDS: carBAMazepine ER 100 MG TAB.ER.12H PO ×2 (08:40→22:37)
--- NOTE | 2024-06-21 09:03 | P.PNPSI_ITS ---
Subjective Subjective Date of Service: 06/21/24 Reason For Visit: Mood disorder Subjective Notes: 3 Day Interim History: Active on unit, social with peers. attending groups. 3 day up on 06/23/24. patient reports feeling good today; pt focused on obtaining vehicle from impound. per nursing, slept 6 hours. denies SI/HI/VH/AH. denies any issues at this time. Medication Compliance: Yes Side effects from medications: No Attending Groups: Yes Review of Systems Constitutional: Reports as per HPI Eyes: Reports as per HPI Reports as per HPI Cardiovascular: Reports as per HPI Respiratory: Reports as per HPI Gastrointestinal: Reports as per HPI Musculoskeletal: Reports as per HPI Skin/Breast: Reports as per HPI Reports as per HPI Psychiatric: Reports as per HPI Endocrine: Reports as per HPI Hematologic/Lymphatic: Reports as per HPI Allergic/Immunologic: Reports as per HPI Mental Status Exam Mental Status Exam Narrative: Pt is alert and oriented; behavior is cooperative, calm; dressed in casual attire; mood is described as good ; eye contact appropriate; Speech is normal rate, volume and not pressured; thought process is organized; Thought content is on tx; denies SI/HI/VH/AH. Diagnostics Vital Signs (24Hr): Vital Signs - 24 hr 06/20/24 20:00 06/21/24 07:48 Temperature 98.6 F 97.2 F Pulse Rate 76 59 Respiratory Rate 14 18 Blood Pressure 123/76 124/60 Pulse Oximetry 96 100 Oxygen Delivery Method Room Air Room Air BMI result Body Mass Index 16.0 Labs 06/16/24 09:33 06/16/24 23:35 Medications Medications Current Medications Acetaminophen (Acetaminophen 325 Mg Tablet) 650 mg PO Q6H PRN PRN Reason: Headache/Pain Mild Scale (1-3) Last Admin: 06/21/24 04:43 Dose: 650 mg Al Hydroxide/Mg Hydroxide (Magnesium Hydrox/Alum Hydrox 30 Ml Oral.Susp) 30 ml PO Q6H PRN PRN Reason: Heartburn/Nausea Carbamazepine (Carbamazepine Er 100 Mg Tab.Er.12h) 100 mg PO BID [facility] Last Admin: 06/21/24 08:40 Dose: 100 mg Cefuroxime Axetil (Cefuroxime Axetil 500 Mg Tablet) 500 mg PO Q12H [facility] Stop: 06/23/24 10:01 Last Admin: 06/21/24 08:39 Dose: 500 mg Hydroxyzine HCl (Hydroxyzine Hcl 25 Mg Tablet) 25 mg PO Q6H PRN PRN Reason: Anxiety Magnesium Hydroxide (Milk Of Magnesia 30 Ml Oral.Susp) 30 ml PO DAILY PRN PRN Reason: Constipation Nicotine Polacrilex (Nicotine Polacrilex 2 Mg Gum) 4 mg BUCCAL Q2H PRN PRN Reason: Nicotine Cravings Last Admin: 06/20/24 06:26 Dose: 4 mg Nicotine Polacrilex (Nicotine Polacrilex Lozenge 2 Mg Lozenge) 2 mg BUCCAL Q1H PRN PRN Reason: Nicotine Cravings Last Admin: 06/21/24 06:42 Dose: 2 mg Risperidone (Risperidone 1 Mg Tablet) 1 mg PO BEDTIME [facility]ELA Last Admin: 06/20/24 22:06 Dose: 1 mg Trazodone HCl (Trazodone Hcl 50 Mg Tablet) 50 mg PO BEDTIME PRN PRN Reason: Insomnia Last Admin: 06/20/24 22:42 Dose: 50 mg Allergies Allergies Allergy/AdvReac Type Severity Reaction Status Date / Time No Known Allergies Allergy Verified 06/16/24 09:18 Assessment & Plan Assessment & Plan (1) Bipolar 1 disorder: Status: Acute Code(s): F31.9 - Bipolar disorder, unspecified (2) Acute UTI: Status: Acute Code(s): N39.0 - Urinary tract infection, site not specified (3) Alcohol use disorder: Status: Acute Code(s): F10.90 - Alcohol use, unspecified, uncomplicated Plan 06/17 ceftin BID for UTI. DC depakote - pt has only been taking average 375/day recently. start tegretol 100 BID and titrate up as indicated. DC gabapentin 100 TID as unnecessary. increase risperidone PRNs from 0.5 mg each to 1 mg each due to interaction with tegretol. T/C CIWA with ativan, unclear how much pt has been drinking. she is minimizing use. 06/18 continue tx. 06/19 scheduled risperidone 1mg po qhs. instead of PRN. 06/20: continue current tx plan. 06/21: continue tx plan. Patient educated on: diagnosis and medication risk/benefits Reason for continued inpatient stay Substantial Risk for: med/psych decompensation Time Spent With Patient Time: Total time managing care of this patient today _20___ minutes.
[2024-06-21 20:00] VITALS: BP 119/64; PULSE 80; RESP 16; TEMP 37; O2SAT 97
[2024-06-21] MEDS: risperiDONE 1 MG TABLET PO (22:37)
[2024-06-21] MEDS: traZODone HCL 50 MG TABLET PO (22:37)
[2024-06-22] MEDS: Nicotine Polacrilex Lozenge 2 MG LOZENGE BUCCAL ×7 (02:38→21:36)
[2024-06-22 07:35] VITALS: BP 134/60; PULSE 78; RESP 16; TEMP 36.6; O2SAT 100
[2024-06-22] MEDS: cefuroxime axetiL 500 MG TABLET PO ×2 (09:13→21:35)
[2024-06-22] MEDS: carBAMazepine ER 100 MG TAB.ER.12H PO ×2 (09:13→21:36)
--- NOTE | 2024-06-22 11:01 | P.PNPSI_ITS ---
Subjective Subjective Date of Service: 06/22/24 Reason For Visit: Mood disorder Subjective Notes: Conditional Voluntary and 3 Day Interim History: Patient was seen and discussed in rounds today. Records and plans were reviewed. She is very well known to me. She has been compliant with her medications which she wanted to review with me. No complaints or side effects. She continues to be hypomanic, having self dialogue and is disorganized. No SI. No behavioral issues. No changes were made today Review of Systems Review of Systems Yes all other systems are reviewed and are negative Mental Status Exam Mental Status Exam Narrative: In today's visit she is alert, oriented and pleasant. Normal speech. Good eye contact. Affect is appropriate with slight lability. No acute signs of psychosis. Denies AVH but observed to be responding to internal stimuli. She moves all her limbs. No abnormalities of gait. Cognitively she is disorganized. Judgment is marginal. Diagnostics Vital Signs (24Hr): Vital Signs - 24 hr 06/21/24 20:00 06/22/24 07:35 Temperature 98.6 F 97.9 F Pulse Rate 80 78 Respiratory Rate 16 16 Blood Pressure 119/64 134/60 Pulse Oximetry 97 100 Oxygen Delivery Method Room Air Room Air BMI result Body Mass Index 16.0 Labs 06/16/24 09:33 06/16/24 23:35 Medications Medications Current Medications Acetaminophen (Acetaminophen 325 Mg Tablet) 650 mg PO Q6H PRN PRN Reason: Headache/Pain Mild Scale (1-3) Last Admin: 06/21/24 04:43 Dose: 650 mg Al Hydroxide/Mg Hydroxide (Magnesium Hydrox/Alum Hydrox 30 Ml Oral.Susp) 30 ml PO Q6H PRN PRN Reason: Heartburn/Nausea Carbamazepine (Carbamazepine Er 100 Mg Tab.Er.12h) 100 mg PO BID [facility] Last Admin: 06/22/24 09:13 Dose: 100 mg Cefuroxime Axetil (Cefuroxime Axetil 500 Mg Tablet) 500 mg PO Q12H [facility] Stop: 06/23/24 10:01 Last Admin: 06/22/24 09:13 Dose: 500 mg Hydroxyzine HCl (Hydroxyzine Hcl 25 Mg Tablet) 25 mg PO Q6H PRN PRN Reason: Anxiety Magnesium Hydroxide (Milk Of Magnesia 30 Ml Oral.Susp) 30 ml PO DAILY PRN PRN Reason: Constipation Nicotine Polacrilex (Nicotine Polacrilex 2 Mg Gum) 4 mg BUCCAL Q2H PRN PRN Reason: Nicotine Cravings Last Admin: 06/20/24 06:26 Dose: 4 mg Nicotine Polacrilex (Nicotine Polacrilex Lozenge 2 Mg Lozenge) 2 mg BUCCAL Q1H PRN PRN Reason: Nicotine Cravings Last Admin: 06/22/24 05:36 Dose: 2 mg Risperidone (Risperidone 1 Mg Tablet) 1 mg PO BEDTIME [facility]ELA Last Admin: 06/21/24 22:37 Dose: 1 mg Trazodone HCl (Trazodone Hcl 50 Mg Tablet) 50 mg PO BEDTIME PRN PRN Reason: Insomnia Last Admin: 06/21/24 22:37 Dose: 50 mg Allergies Allergies Allergy/AdvReac Type Severity Reaction Status Date / Time No Known Allergies Allergy Verified 06/16/24 09:18 Assessment & Plan Assessment & Plan (1) Bipolar 1 disorder: Status: Acute Code(s): F31.9 - Bipolar disorder, unspecified (2) Acute UTI: Status: Acute Code(s): N39.0 - Urinary tract infection, site not specified (3) Alcohol use disorder: Status: Acute Code(s): F10.90 - Alcohol use, unspecified, uncomplicated Plan 06/17 ceftin BID for UTI. DC depakote - pt has only been taking average 375/day recently. start tegretol 100 BID and titrate up as indicated. DC gabapentin 100 TID as unnecessary. increase risperidone PRNs from 0.5 mg each to 1 mg each due to interaction with tegretol. T/C CIWA with ativan, unclear how much pt has been drinking. she is minimizing use. 06/18 continue tx. 06/19 scheduled risperidone 1mg po qhs. instead of PRN. 06/20: continue current tx plan. 06/21: continue tx plan. 06/22: Continue current regimen and plans Guardian/Caregiver educated on: medication risk/benefits Reason for continued inpatient stay Substantial Risk for: med/psych decompensation Time Spent With Patient Time: Total time managing care of this patient today ____ minutes.
[2024-06-22 20:00] VITALS: BP 140/73; PULSE 77; RESP 14; TEMP 36.9; O2SAT 98
[2024-06-22] MEDS: risperiDONE 1 MG TABLET PO (21:36)
[2024-06-22] MEDS: traZODone HCL 50 MG TABLET PO (23:18)
[2024-06-22] MEDS: Nicotine Polacrilex 2 MG GUM 4 MG BUCCAL (23:21)
[2024-06-23] MEDS: Nicotine Polacrilex Lozenge 2 MG LOZENGE BUCCAL ×6 (05:28→23:47)
[2024-06-23 07:00] VITALS: BMI 18.2
[2024-06-23 07:48] VITALS: BP 123/58; PULSE 63; RESP 14; TEMP 36.4; O2SAT 99
[2024-06-23] MEDS: cefuroxime axetiL 500 MG TABLET PO (08:50)
[2024-06-23] MEDS: carBAMazepine ER 100 MG TAB.ER.12H PO ×2 (08:50→12:03)
[2024-06-23] MEDS: Nicotine Polacrilex 2 MG GUM 4 MG BUCCAL (14:16)
--- NOTE | 2024-06-23 20:07 | P.PNPSI_ITS ---
Subjective Subjective Date of Service: 06/23/24 Reason For Visit: Mood disorder Interim History: calm, cooperative, logical. discuss legal context, pt agrees to rescind her 3- day notice and sign another one, increase tegretol, and add of risperidone. per staff, 3-day up today. social, joking, laughing. asking about . slept about 2 hours overnight. Mental Status Exam Mental Status Exam Narrative: In today's visit she is alert, oriented and pleasant. Normal speech. Good eye contact. Affect is appropriate, non-labile. No acute signs of psychosis. no SI/HI/AVH expressed. Cognitively she is more organized. Judgment is marginal. Diagnostics Vital Signs (24Hr): Vital Signs - 24 hr 06/23/24 07:48 Temperature 97.5 F Pulse Rate 63 Respiratory Rate 14 Blood Pressure 123/58 L Pulse Oximetry 99 Oxygen Delivery Method Room Air BMI result Body Mass Index 18.2 Labs 06/16/24 09:33 06/16/24 23:35 Medications Medications Current Medications Acetaminophen (Acetaminophen 325 Mg Tablet) 650 mg PO Q6H PRN PRN Reason: Headache/Pain Mild Scale (1-3) Last Admin: 06/21/24 04:43 Dose: 650 mg Al Hydroxide/Mg Hydroxide (Magnesium Hydrox/Alum Hydrox 30 Ml Oral.Susp) 30 ml PO Q6H PRN PRN Reason: Heartburn/Nausea Carbamazepine (Carbamazepine Er 200 Mg Tab.Er.12h) 200 mg PO BID [facility]HAELA Hydroxyzine HCl (Hydroxyzine Hcl 25 Mg Tablet) 25 mg PO Q6H PRN PRN Reason: Anxiety Magnesium Hydroxide (Milk Of Magnesia 30 Ml Oral.Susp) 30 ml PO DAILY PRN PRN Reason: Constipation Nicotine Polacrilex (Nicotine Polacrilex 2 Mg Gum) 4 mg BUCCAL Q2H PRN PRN Reason: Nicotine Cravings Last Admin: 06/23/24 14:16 Dose: 4 mg Nicotine Polacrilex (Nicotine Polacrilex Lozenge 2 Mg Lozenge) 2 mg BUCCAL Q1H PRN PRN Reason: Nicotine Cravings Last Admin: 06/23/24 15:36 Dose: 2 mg Risperidone (Risperidone 1 Mg Tablet) 1 mg PO BEDTIME MIHAELA Last Admin: 06/22/24 21:36 Dose: 1 mg Trazodone HCl (Trazodone Hcl 50 Mg Tablet) 50 mg PO BEDTIME PRN PRN Reason: Insomnia Last Admin: 06/22/24 23:18 Dose: 50 mg Allergies Allergies Allergy/AdvReac Type Severity Reaction Status Date / Time No Known Allergies Allergy Verified 06/16/24 09:18 Assessment & Plan Assessment & Plan (1) Bipolar 1 disorder: Status: Acute Code(s): F31.9 - Bipolar disorder, unspecified (2) Acute UTI: Status: Acute Code(s): N39.0 - Urinary tract infection, site not specified (3) Alcohol use disorder: Status: Acute Code(s): F10.90 - Alcohol use, unspecified, uncomplicated Plan 06/17 ceftin BID for UTI. DC depakote - pt has only been taking average 375/day recently. start tegretol 100 BID and titrate up as indicated. DC gabapentin 100 TID as unnecessary. increase risperidone PRNs from 0.5 mg each to 1 mg each due to interaction with tegretol. T/C CIWA with ativan, unclear how much pt has been drinking. she is minimizing use. 06/18 continue tx. 06/19 scheduled risperidone 1mg po qhs. instead of PRN. 06/20: continue current tx plan. 06/21: continue tx plan. 06/22: Continue current regimen and plans 06/23: start uzedy 50 mg SC Q4W; DC PO risperidone once injection given. increase tegretol to 200 BID. pt rescinded 3-day notice and immediately filled out another, now up 06/28. Reason for continued inpatient stay Substantial Risk for: inability to function and rapid decompensation Time Spent With Patient Time: Total time managing care of this patient today __35__ minutes.
[2024-06-23 20:31] VITALS: BP 113/53; PULSE 70; RESP 16; TEMP 36.6; O2SAT 95
[2024-06-23] MEDS: risperiDONE 1 MG TABLET PO (21:38)
[2024-06-23] MEDS: carBAMazepine ER 200 MG TAB.ER.12H PO (21:38)
[2024-06-23] MEDS: traZODone HCL 50 MG TABLET PO (23:45)
[2024-06-24] MEDS: Nicotine Polacrilex Lozenge 2 MG LOZENGE BUCCAL ×7 (06:07→23:05)
[2024-06-24 07:53] VITALS: BP 112/53; PULSE 57; RESP 14; TEMP 36.4; O2SAT 100
[2024-06-24] MEDS: carBAMazepine ER 200 MG TAB.ER.12H PO ×2 (08:24→20:46)
--- NOTE | 2024-06-24 13:00 | P.PNPSI_ITS ---
Subjective Subjective Date of Service: 06/24/24 Reason For Visit: Mood disorder Interim History: calm, cooperative, pleasant. waiting for uzedy. no issues with tegretol dosing increase. planning to discharge 06/28. per staff, 3-day up 06/28. social, pleasant. slept 7 hours. Mental Status Exam Mental Status Exam Narrative: In today's visit she is alert, oriented and pleasant. Normal speech. Good eye contact. Affect is appropriate, non-labile. No acute signs of psychosis. no SI/HI/AVH expressed. Cognitively she is linear and logical. Judgment is improved. Diagnostics Vital Signs (24Hr): Vital Signs - 24 hr 06/23/24 20:31 06/24/24 07:53 Temperature 97.9 F 97.6 F Pulse Rate 70 57 Respiratory Rate 16 14 Blood Pressure 113/53 L 112/53 L Pulse Oximetry 95 100 Oxygen Delivery Method Room Air Room Air BMI result Body Mass Index 18.2 Labs 06/16/24 09:33 06/16/24 23:35 Medications Medications Current Medications Acetaminophen (Acetaminophen 325 Mg Tablet) 650 mg PO Q6H PRN PRN Reason: Headache/Pain Mild Scale (1-3) Last Admin: 06/21/24 04:43 Dose: 650 mg Al Hydroxide/Mg Hydroxide (Magnesium Hydrox/Alum Hydrox 30 Ml Oral.Susp) 30 ml PO Q6H PRN PRN Reason: Heartburn/Nausea Carbamazepine (Carbamazepine Er 200 Mg Tab.Er.12h) 200 mg PO BID [facility] Last Admin: 06/24/24 08:24 Dose: 200 mg Hydroxyzine HCl (Hydroxyzine Hcl 25 Mg Tablet) 25 mg PO Q6H PRN PRN Reason: Anxiety Magnesium Hydroxide (Milk Of Magnesia 30 Ml Oral.Susp) 30 ml PO DAILY PRN PRN Reason: Constipation Nicotine Polacrilex (Nicotine Polacrilex 2 Mg Gum) 4 mg BUCCAL Q2H PRN PRN Reason: Nicotine Cravings Last Admin: 06/23/24 14:16 Dose: 4 mg Nicotine Polacrilex (Nicotine Polacrilex Lozenge 2 Mg Lozenge) 2 mg BUCCAL Q1H PRN PRN Reason: Nicotine Cravings Last Admin: 06/24/24 08:24 Dose: 2 mg Risperidone (Risperidone 1 Mg Tablet) 1 mg PO BEDTIME [facility] Last Admin: 12/26/24 21:38 Dose: 1 mg Risperidone (Risperidone Er 100 Mg/0.28 Ml Suser.Syr) 50 mg SUBCUT Q30D MIHAELA Trazodone HCl (Trazodone Hcl 50 Mg Tablet) 50 mg PO BEDTIME PRN PRN Reason: Insomnia Last Admin: 06/23/24 23:45 Dose: 50 mg Allergies Allergies Allergy/AdvReac Type Severity Reaction Status Date / Time No Known Allergies Allergy Verified 06/16/24 09:18 Assessment & Plan Assessment & Plan (1) Bipolar 1 disorder: Status: Acute Code(s): F31.9 - Bipolar disorder, unspecified (2) Acute UTI: Status: Acute Code(s): N39.0 - Urinary tract infection, site not specified (3) Alcohol use disorder: Status: Acute Code(s): F10.90 - Alcohol use, unspecified, uncomplicated Plan 06/17 ceftin BID for UTI. DC depakote - pt has only been taking average 375/day recently. start tegretol 100 BID and titrate up as indicated. DC gabapentin 100 TID as unnecessary. increase risperidone PRNs from 0.5 mg each to 1 mg each due to interaction with tegretol. T/C CIWA with ativan, unclear how much pt has been drinking. she is minimizing use. 06/18 continue tx. 06/19 scheduled risperidone 1mg po qhs. instead of PRN. 06/20: continue current tx plan. 06/21: continue tx plan. 06/22: Continue current regimen and plans 06/23: start uzedy 50 mg SC Q4W; DC PO risperidone once injection given. increase tegretol to 200 BID. pt rescinded 3-day notice and immediately filled out another, now up 06/28. 06/24: continue current mgmt. appears improved. labs 06/28, likely same-day discharge as 3-day is up then. uzedy likely not available until 06/27. Reason for continued inpatient stay Substantial Risk for: inability to function and rapid decompensation Time Spent With Patient Time: Total time managing care of this patient today __35__ minutes.
[2024-06-24 20:00] VITALS: BP 119/60; PULSE 93; RESP 16; TEMP 36.4; O2SAT 97
[2024-06-24] MEDS: risperiDONE 1 MG TABLET PO (20:46)
[2024-06-24] MEDS: traZODone HCL 50 MG TABLET PO (23:06)
[2024-06-25] MEDS: Nicotine Polacrilex Lozenge 2 MG LOZENGE BUCCAL ×7 (05:56→21:48)
[2024-06-25 08:00] VITALS: BP 115/59; PULSE 60; RESP 14; TEMP 36.7; O2SAT 99
[2024-06-25] MEDS: carBAMazepine ER 200 MG TAB.ER.12H PO ×2 (08:33→21:44)
[2024-06-25] MEDS: Acetaminophen 325 MG TABLET 650 MG PO ×2 (08:34→18:41)
[2024-06-25] MEDS: Nicotine Polacrilex 2 MG GUM 4 MG BUCCAL (08:34)
--- NOTE | 2024-06-25 10:43 | HO.PSYCHPN ---
Subjective Subjective Date of Service: 06/25/24 Reason For Visit: Mood disorder Interim History: Patient seen and discussed. Patient has been calm and cooperative. Visible in the milieu. Sleeping well. Uzedy is not available yet. Patient aware. No side effects with medications. Three-day notice up on 06/28. No SI/HI/AVH. Review of Systems Review of Systems As per HPI. Yes all other systems are reviewed and are negative Constitutional: Reports as per HPI Eyes: Reports as per HPI Reports as per HPI Cardiovascular: Reports as per HPI Respiratory: Reports as per HPI Gastrointestinal: Reports as per HPI Musculoskeletal: Reports as per HPI Skin/Breast: Reports as per HPI Reports as per HPI Psychiatric: Reports as per HPI Endocrine: Reports as per HPI Hematologic/Lymphatic: Reports as per HPI Allergic/Immunologic: Reports as per HPI Mental Status Exam Mental Status Exam Narrative: In today's visit she is alert, oriented and pleasant. Normal speech. Good eye contact. Affect is appropriate, non-labile. No acute signs of psychosis. no SI/HI/AVH expressed. Cognitively she is linear and logical. Judgment is improved. Diagnostics Vital Signs (24Hr): Vital Signs - 24 hr 06/24/24 20:00 06/25/24 08:00 Temperature 97.6 F 98.1 F Pulse Rate 93 60 Respiratory Rate 16 14 Blood Pressure 119/60 115/59 L Pulse Oximetry 97 99 Oxygen Delivery Method Room Air Room Air BMI result Body Mass Index 18.2 Labs 06/16/24 09:33 06/16/24 23:35 Medications Medications Current Medications Acetaminophen (Acetaminophen 325 Mg Tablet) 650 mg PO Q6H PRN PRN Reason: Headache/Pain Mild Scale (1-3) Last Admin: 06/25/24 08:34 Dose: 325 mg Al Hydroxide/Mg Hydroxide (Magnesium Hydrox/Alum Hydrox 30 Ml Oral.Susp) 30 ml PO Q6H PRN PRN Reason: Heartburn/Nausea Carbamazepine (Carbamazepine Er 200 Mg Tab.Er.12h) 200 mg PO BID MIHAELA Last Admin: 06/25/24 08:33 Dose: 200 mg Hydroxyzine HCl (Hydroxyzine Hcl 25 Mg Tablet) 25 mg PO Q6H PRN PRN Reason: Anxiety Magnesium Hydroxide (Milk Of Magnesia 30 Ml Oral.Susp) 30 ml PO DAILY PRN PRN Reason: Constipation Nicotine Polacrilex (Nicotine Polacrilex 2 Mg Gum) 4 mg BUCCAL Q2H PRN PRN Reason: Nicotine Cravings Last Admin: 06/25/24 08:34 Dose: 4 mg Nicotine Polacrilex (Nicotine Polacrilex Lozenge 2 Mg Lozenge) 2 mg BUCCAL Q1H PRN PRN Reason: Nicotine Cravings Last Admin: 06/25/24 09:07 Dose: 2 mg Risperidone (Risperidone 1 Mg Tablet) 1 mg PO BEDTIME MIHAELA Last Admin: 06/24/24 20:46 Dose: 1 mg Risperidone (Risperidone Er 100 Mg/0.28 Ml Suser.Syr) 50 mg SUBCUT Q30D MIHAELA Trazodone HCl (Trazodone Hcl 50 Mg Tablet) 50 mg PO BEDTIME PRN PRN Reason: Insomnia Last Admin: 06/24/24 23:06 Dose: 50 mg Allergies Allergies Allergy/AdvReac Type Severity Reaction Status Date / Time No Known Allergies Allergy Verified 06/16/24 09:18 Assessment & Plan Assessment & Plan (1) Bipolar 1 disorder: Status: Acute Code(s): F31.9 - Bipolar disorder, unspecified (2) Acute UTI: Status: Acute Code(s): N39.0 - Urinary tract infection, site not specified (3) Alcohol use disorder: Status: Acute Code(s): F10.90 - Alcohol use, unspecified, uncomplicated Plan 06/17 ceftin BID for UTI. DC depakote - pt has only been taking average 375/day recently. start tegretol 100 BID and titrate up as indicated. DC gabapentin 100 TID as unnecessary. increase risperidone PRNs from 0.5 mg each to 1 mg each due to interaction with tegretol. T/C CIWA with ativan, unclear how much pt has been drinking. she is minimizing use. 06/18 continue tx. 06/19 scheduled risperidone 1mg po qhs. instead of PRN. 06/20: continue current tx plan. 06/21: continue tx plan. 06/22: Continue current regimen and plans 06/23: start uzedy 50 mg SC Q4W; DC PO risperidone once injection given. increase tegretol to 200 BID. pt rescinded 3-day notice and immediately filled out another, now up 06/28. 06/24: continue current mgmt. appears improved. labs 06/28, likely same-day discharge as 3-day is up then. uzedy likely not available until 06/27. 06/25: Continue current management and treatment plan. Reason for continued inpatient stay Substantial Risk for: inability to function and rapid decompensation Time Spent With Patient Time: Total time managing care of this patient today ____ minutes.
--- NOTE | 2024-06-25 13:38 | PC.NURSE ---
This business writer spoke with pharmacist Brittani who stated that Uzedy should be received on Thursday, 06/27 and order will be rescheduled for administration on 06/27.
[2024-06-25 20:00] VITALS: BP 118/59; PULSE 69; RESP 18; TEMP 36.6; O2SAT 99
[2024-06-25] MEDS: traZODone HCL 50 MG TABLET PO (21:44)
[2024-06-25] MEDS: risperiDONE 1 MG TABLET PO (21:44)
[2024-06-26] MEDS: Nicotine Polacrilex Lozenge 2 MG LOZENGE BUCCAL ×11 (03:02→23:49)
[2024-06-26 08:00] VITALS: BP 118/57; PULSE 62; RESP 16; TEMP 36.4; O2SAT 100
[2024-06-26] MEDS: carBAMazepine ER 200 MG TAB.ER.12H PO ×2 (08:32→20:01)
[2024-06-26] MEDS: Acetaminophen 325 MG TABLET 650 MG PO (08:38)
--- NOTE | 2024-06-26 09:59 | HO.PSYCHPN ---
Subjective Subjective Date of Service: 06/26/24 Reason For Visit: Mood disorder Interim History: Patient seen and discussed. Continues to show improvement and reports doing well. Visible on the milieu and in groups. Pleasant. Cooperative. Sleeping well. Uzedy is not available yet. Patient aware. No side effects with current medications. Three-day notice up on 06/28. No SI/HI/AVH. Review of Systems Review of Systems As per HPI. Yes all other systems are reviewed and are negative Constitutional: Reports as per HPI Eyes: Reports as per HPI Reports as per HPI Cardiovascular: Reports as per HPI Respiratory: Reports as per HPI Gastrointestinal: Reports as per HPI Musculoskeletal: Reports as per HPI Skin/Breast: Reports as per HPI Reports as per HPI Psychiatric: Reports as per HPI Endocrine: Reports as per HPI Hematologic/Lymphatic: Reports as per HPI Allergic/Immunologic: Reports as per HPI Mental Status Exam Mental Status Exam Narrative: In today's visit she is alert, oriented and pleasant. Normal speech. Good eye contact. Affect is appropriate, non-labile. No acute signs of psychosis. no SI/HI/AVH expressed. Cognitively she is linear and logical. Judgment is improved. Diagnostics Vital Signs (24Hr): Vital Signs - 24 hr 06/25/24 20:00 06/26/24 08:00 Temperature 97.8 F 97.6 F Pulse Rate 69 62 Respiratory Rate 18 16 Blood Pressure 118/59 L 118/57 L Pulse Oximetry 99 100 Oxygen Delivery Method Room Air Room Air BMI result Body Mass Index 18.2 Labs 06/16/24 09:33 06/16/24 23:35 Medications Medications Current Medications Acetaminophen (Acetaminophen 325 Mg Tablet) 650 mg PO Q6H PRN PRN Reason: Headache/Pain Mild Scale (1-3) Last Admin: 06/26/24 08:38 Dose: 325 mg Al Hydroxide/Mg Hydroxide (Magnesium Hydrox/Alum Hydrox 30 Ml Oral.Susp) 30 ml PO Q6H PRN PRN Reason: Heartburn/Nausea Carbamazepine (Carbamazepine Er 200 Mg Tab.Er.12h) 200 mg PO BID MIHAELA Last Admin: 06/26/24 08:32 Dose: 200 mg Hydroxyzine HCl (Hydroxyzine Hcl 25 Mg Tablet) 25 mg PO Q6H PRN PRN Reason: Anxiety Magnesium Hydroxide (Milk Of Magnesia 30 Ml Oral.Susp) 30 ml PO DAILY PRN PRN Reason: Constipation Nicotine Polacrilex (Nicotine Polacrilex 2 Mg Gum) 4 mg BUCCAL Q2H PRN PRN Reason: Nicotine Cravings Last Admin: 06/25/24 08:34 Dose: 4 mg Nicotine Polacrilex (Nicotine Polacrilex Lozenge 2 Mg Lozenge) 2 mg BUCCAL Q1H PRN PRN Reason: Nicotine Cravings Last Admin: 06/26/24 09:28 Dose: 2 mg Risperidone (Risperidone 1 Mg Tablet) 1 mg PO BEDTIME MIHAELA Last Admin: 06/25/24 21:44 Dose: 1 mg Risperidone (Risperidone Er 100 Mg/0.28 Ml Suser.Syr) 50 mg SUBCUT Q30D MIHAELA Trazodone HCl (Trazodone Hcl 50 Mg Tablet) 50 mg PO BEDTIME PRN PRN Reason: Insomnia Last Admin: 06/25/24 21:44 Dose: 50 mg Allergies Allergies Allergy/AdvReac Type Severity Reaction Status Date / Time No Known Allergies Allergy Verified 06/16/24 09:18 Assessment & Plan Assessment & Plan (1) Bipolar 1 disorder: Status: Acute Code(s): F31.9 - Bipolar disorder, unspecified (2) Acute UTI: Status: Acute Code(s): N39.0 - Urinary tract infection, site not specified (3) Alcohol use disorder: Status: Acute Code(s): F10.90 - Alcohol use, unspecified, uncomplicated Plan 06/17 ceftin BID for UTI. DC depakote - pt has only been taking average 375/day recently. start tegretol 100 BID and titrate up as indicated. DC gabapentin 100 TID as unnecessary. increase risperidone PRNs from 0.5 mg each to 1 mg each due to interaction with tegretol. T/C CIWA with ativan, unclear how much pt has been drinking. she is minimizing use. 06/18 continue tx. 06/19 scheduled risperidone 1mg po qhs. instead of PRN. 06/20: continue current tx plan. 06/21: continue tx plan. 06/22: Continue current regimen and plans 06/23: start uzedy 50 mg SC Q4W; DC PO risperidone once injection given. increase tegretol to 200 BID. pt rescinded 3-day notice and immediately filled out another, now up 06/28. 06/24: continue current mgmt. appears improved. labs 06/28, likely same-day discharge as 3-day is up then. uzedy likely not available until 06/27. 06/25: Continue current management and treatment plan. 06/26: Continue current management and treatment plan. Reason for continued inpatient stay Substantial Risk for: harm to self, inability to function and med/psych decompensation Time Spent With Patient Time: Total time managing care of this patient today ____ minutes.
[2024-06-26] MEDS: Nicotine Polacrilex 2 MG GUM 4 MG BUCCAL (14:33)
[2024-06-26 20:00] VITALS: BP 148/68; PULSE 68; RESP 15; TEMP 36.9; O2SAT 98
[2024-06-26] MEDS: risperiDONE 1 MG TABLET PO (20:01)
[2024-06-26] MEDS: traZODone HCL 50 MG TABLET PO (21:36)
[2024-06-27] MEDS: Nicotine Polacrilex Lozenge 2 MG LOZENGE BUCCAL ×9 (01:46→22:30)
[2024-06-27] MEDS: Acetaminophen 325 MG TABLET 650 MG PO (05:16)
[2024-06-27 08:00] VITALS: BP 128/60; PULSE 59; RESP 14; TEMP 36.5; O2SAT 98
[2024-06-27] MEDS: carBAMazepine ER 200 MG TAB.ER.12H PO ×2 (08:22→20:23)
--- NOTE | 2024-06-27 09:43 | HO.PSYCHPN ---
Subjective Subjective Date of Service: 06/27/24 Reason For Visit: Mood disorder Subjective Notes: 3 Day Interim History: Active on unit, social with peers. attending groups. medication compliant. Patient reports feeling normal and ready to go home tomorrow ; she denies any issues at this time. Pt stated, I'm looking forward to getting the injection of Uzedy today and not have to worry about it for a month . per nursing, pt slept 3 hours last night; pt stated, she had to stay awake to listen to the rain . Medication Compliance: Yes Side effects from medications: No Attending Groups: Yes Review of Systems Constitutional: Reports as per HPI Eyes: Reports as per HPI Reports as per HPI Cardiovascular: Reports as per HPI Respiratory: Reports as per HPI Gastrointestinal: Reports as per HPI Genitourinary: Reports as per HPI Musculoskeletal: Reports as per HPI Skin/Breast: Reports as per HPI Reports as per HPI Psychiatric: Reports as per HPI Endocrine: Reports as per HPI Hematologic/Lymphatic: Reports as per HPI Allergic/Immunologic: Reports as per HPI Mental Status Exam Mental Status Exam Patient Appearance: Appropriate Patient Orientation: Person, Place, Time and Situation Level of Consciousness: Awake and Alert Patient Behavior: Appropriate, Cooperative and Good Eye Contact Mood Description: Calm Affect Description: Appropriate Ability to Follow Directions: Good Speech Pattern: Clear and Appropriate Memory Description: Intact Hallucinations: None Thought Process: Intact Thought Content: positive for Intact Judgement: Fair Diagnostics Vital Signs (24Hr): Vital Signs - 24 hr 06/26/24 20:00 06/27/24 08:00 Temperature 98.4 F 97.7 F Pulse Rate 68 59 Respiratory Rate 15 14 Blood Pressure 148/68 H 128/60 Pulse Oximetry 98 98 Oxygen Delivery Method Room Air BMI result Body Mass Index 18.2 Labs 06/16/24 09:33 06/16/24 23:35 Medications Medications Current Medications Acetaminophen (Acetaminophen 325 Mg Tablet) 650 mg PO Q6H PRN PRN Reason: Headache/Pain Mild Scale (1-3) Last Admin: 06/27/24 05:16 Dose: 325 mg Al Hydroxide/Mg Hydroxide (Magnesium Hydrox/Alum Hydrox 30 Ml Oral.Susp) 30 ml PO Q6H PRN PRN Reason: Heartburn/Nausea Carbamazepine (Carbamazepine Er 200 Mg Tab.Er.12h) 200 mg PO BID MIHAELA Last Admin: 06/27/24 08:22 Dose: 200 mg Hydroxyzine HCl (Hydroxyzine Hcl 25 Mg Tablet) 25 mg PO Q6H PRN PRN Reason: Anxiety Magnesium Hydroxide (Milk Of Magnesia 30 Ml Oral.Susp) 30 ml PO DAILY PRN PRN Reason: Constipation Nicotine Polacrilex (Nicotine Polacrilex 2 Mg Gum) 4 mg BUCCAL Q2H PRN PRN Reason: Nicotine Cravings Last Admin: 06/26/24 14:33 Dose: 4 mg Nicotine Polacrilex (Nicotine Polacrilex Lozenge 2 Mg Lozenge) 2 mg BUCCAL Q1H PRN PRN Reason: Nicotine Cravings Last Admin: 06/27/24 09:28 Dose: 2 mg Risperidone (Risperidone 1 Mg Tablet) 1 mg PO BEDTIME MIHAELA Last Admin: 06/26/24 20:01 Dose: 1 mg Risperidone (Risperidone Er 100 Mg/0.28 Ml Suser.Syr) 50 mg SUBCUT Q30D MIHAELA Trazodone HCl (Trazodone Hcl 50 Mg Tablet) 50 mg PO BEDTIME PRN PRN Reason: Insomnia Last Admin: 06/26/24 21:36 Dose: 50 mg Allergies Allergies Allergy/AdvReac Type Severity Reaction Status Date / Time No Known Allergies Allergy Verified 06/16/24 09:18 Assessment & Plan Assessment & Plan (1) Bipolar 1 disorder: Status: Acute Code(s): F31.9 - Bipolar disorder, unspecified (2) Acute UTI: Status: Acute Code(s): N39.0 - Urinary tract infection, site not specified (3) Alcohol use disorder: Status: Acute Code(s): F10.90 - Alcohol use, unspecified, uncomplicated Plan 06/17 ceftin BID for UTI. DC depakote - pt has only been taking average 375/day recently. start tegretol 100 BID and titrate up as indicated. DC gabapentin 100 TID as unnecessary. increase risperidone PRNs from 0.5 mg each to 1 mg each due to interaction with tegretol. T/C CIWA with ativan, unclear how much pt has been drinking. she is minimizing use. 06/18 continue tx. 06/19 scheduled risperidone 1mg po qhs. instead of PRN. 06/20: continue current tx plan. 06/21: continue tx plan. 06/22: Continue current regimen and plans 06/23: start uzedy 50 mg SC Q4W; DC PO risperidone once injection given. increase tegretol to 200 BID. pt rescinded 3-day notice and immediately filled out another, now up 06/28. 06/24: continue current mgmt. appears improved. labs 06/28, likely same-day discharge as 3-day is up then. uzedy likely not available until 06/27. 06/25: Continue current management and treatment plan. 06/26: Continue current management and treatment plan. 06/27: Active on unit, social with peers. attending groups. medication compliant. Patient reports feeling normal and ready to go home tomorrow ; she denies any issues at this time. Pt stated, I'm looking forward to getting the injection of Uzedy today and not have to worry about it for a month . per nursing, pt slept 3 hours last night; pt stated, she had to stay awake to listen to the rain . Patient educated on: diagnosis and medication risk/benefits Reason for continued inpatient stay Substantial Risk for: med/psych decompensation Time Spent With Patient Time: Total time managing care of this patient today _20___ minutes.
[2024-06-27] MEDS: risperiDONE ER 100 MG/0.28 ML SUSER.SYR 50 MG SUBCUT (13:31)
[2024-06-27] MEDS: Nicotine Polacrilex 2 MG GUM 4 MG BUCCAL (19:40)
[2024-06-27 19:46] VITALS: BP 133/64; PULSE 65; RESP 18; TEMP 36.7; O2SAT 97
[2024-06-27] MEDS: risperiDONE 1 MG TABLET PO (20:23)
[2024-06-28] MEDS: Nicotine Polacrilex Lozenge 2 MG LOZENGE BUCCAL ×5 (00:03→09:21)
[2024-06-28] MEDS: traZODone HCL 50 MG TABLET PO (00:32)
[2024-06-28 07:39] VITALS: BP 104/51; PULSE 75; RESP 16; TEMP 36.5; O2SAT 97
[2024-06-28] MEDS: carBAMazepine ER 200 MG TAB.ER.12H PO (08:28)
[2024-06-28 08:55] LABS: MANUAL DIFF FLAG NO
[2024-06-28 08:57] LABS: Basophils Percent Auto 0.7 % (0-2); Eosinophils Absolute Auto 0.2 X10*3/uL (0.0-0.4); Eosinophils Percent Auto 4.4 % (0-4); Hematocrit 41.6 % (37.0-47.0); Hemoglobin 13.5 g/dl (12.0-16.0); Imm Gran Abs Auto 0.03 X10*3/uL (0.00-0.03); Imm Gran Pct Auto 0.7 % (0.0-0.4); Lymphocytes Absolute Auto 1.3 X10*3/uL (1.2-4.9); Lymphocytes Percent Auto 29.8 % (20-40); Mean Corpuscular HGB Conc 32.5 g/dl (31.0-35.0); Mean Corpuscular Hemoglobin 30.2 pg (27.0-33.0); Mean Corpuscular Volume 93.1 fL (80.0-98.0); Mean Platelet Volume 9.3 fL (9.4-12.3); Monocytes Absolute Auto 0.4 X10*3/uL (0.1-1.2); Monocytes Percent Auto 8.7 % (2-11); Neutrophils Absolute Auto 2.5 x10*3/uL (2.0-8.3); Neutrophils Percent Auto 55.7 % (45-73); Platelet Count 291 X10*3/uL (160-400); Red Blood Count 4.47 X10*6/uL (4.20-5.50); Red Cell Distribution Width 13.2 % (11.0-16.0); White Blood Count 4.5 X10*3/uL (4.8-10.8)
[2024-06-28 09:29] LABS: Carbamazepine Tegretol 6.2 mcg/mL (5.0-12.0)
[2024-06-28 09:39] LABS: Alanine Aminotransferase 27 U/L (0-31); Albumin Level 3.9 g/dL (3.5-5.0); Alkaline Phosphatase 81 U/L (39-117); Anion Gap 10 (12-20); Aspartate Amino Transferase 28 U/L (5-31); Bilirubin Direct < 0.2 mg/dL (0.0-0.5); Bilirubin Total 0.1 mg/dL (0.0-1.0); Blood Urea Nitrogen 17 mg/dL (9-16); Calcium 9.1 mg/dL (8.4-10.2); Carbon Dioxide 30 mmol/L (22-29); Chloride 106 mmol/L (96-108); Creatinine Clr Calc Pharmacy 58.7; Estimated Glomerular Filt Rate > 60; Glucose Random 158 mg/dL (60-115); Potassium 4.7 mmol/L (3.3-5.1); Sodium 141 mmol/L (135-145); Total Protein 6.6 g/dL (6.5-8.0)
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
--- NOTE | 2024-06-28 11:56 | PC.NURSE ---
Patient easily engaged. Reports mild anxiety related to who is going to be out tonight . Mild sadness related to time of year. Denies depression, denies SI/HI at this time. Denies perceptual disturbances, no overt psychosis or expressed delusions. Denies racing thoughts or confusion. Discharge paperwork reviewed with patient reports understanding. Aftercare appointments reviewed with patient reports understanding. Medications reviewed with patient reports understanding. All belongings taken with patient. Crisis numbers provided to patient.
== END 2024-06-28 11:40 | disposition home or self-care (01) | DRG 885 ==
LOC: HO.ED 14:14 → HO.PADLT16 18:45
PROVIDERS: Registered Nurse Emergency; Admitting Provider Psychiatry & Neurology Psychiatry; Emergency Provider Emergency Medicine Emergency Medical Services; Visit Provider Psychiatry & Neurology Psychiatry
DX: F31.9 Bipolar disorder, unspecified (principal); N39.0 Urinary tract infection, site not specified; Y90.5 Blood alcohol level of 100-119 mg/100 ml; B96.1 Klebsiella pneumoniae [K. pneumoniae] as the cause of diseases classified elsewhere; F10.920 Alcohol use, unspecified with intoxication, uncomplicated; Z79.899 Other long term (current) drug therapy
CPT/HCPCS: 0241U; 36415; 80048; 80053; 80061; 80076; 80156; 80164; 80307; 81001; 85025; 87086; 87088; 87147; 87186; 93005; 99285; J2799

== ENCOUNTER → 2024-06-16 16:54 | Outpatient (BNV) | payer MEDICARE, SELFPAY | PROVIDERS: Admitting Provider Psychiatry & Neurology Psychiatry; Emergency Provider Emergency Medicine Emergency Medical Services; Visit Provider Internal Medicine | DX: Z51.81 Encounter for therapeutic drug level monitoring (principal) | CPT/HCPCS: 93010 ==

== ENCOUNTER → 2024-06-16 18:34 | Outpatient (BNV) | payer MEDICARE, SELFPAY | PROVIDERS: Admitting Provider Psychiatry & Neurology Psychiatry; Emergency Provider Emergency Medicine Emergency Medical Services; Visit Provider Psychiatry & Neurology Psychiatry | DX: F31.13 Bipolar disorder, current episode manic without psychotic features, severe (principal); N39.0 Urinary tract infection, site not specified; F10.90 Alcohol use, unspecified, uncomplicated | CPT/HCPCS: 90792; 99231; 99232 ==